=== PATIENT | female | born 1945 | race Caucasian/White ===

== ENCOUNTER 2018-12-08 00:51 | Emergency (ER) | payer OTHER ==
--- OUTSIDE RECORDS SUMMARY | 2018-12-08 00:54 | XMS REPORT | Clinical Summary ---
:1945 Author Organization [facility] Address [address] [place] [address] Care Team Providers Name Role Phone Nayeli Richards Primary Care Provider Allergies Active Allergy Reactions Severity Noted Date Comments Adhesive Tape-Silicones Other (See Comments) Diazepam 11/28/2007 Gets "high". Erythromycin 11/28/2007 Pt. can't remember. Meperidine Hcl Other (See Comments) 07/11/2015 Patient becomes AMS; tolerates dilaudid solution and hydrocodone without incident Morphine 07/27/2017 Nalbuphine Hcl 07/27/2017 Sulfamethoxazole-Trimet 07/27/2017 hoprim Sumatriptan Succinate 11/28/2007 Lethargy. Ondansetron Hcl (Pf) Nausea And Vomiting 09/10/2008 Medications Medication Sig Dispensed Refills Start Date End Date Status TiZANidine Take 4 mg by mouth 0 Active (ZANAFLEX) 4 MG 2 (two) times capsule daily. carvedilol (COREG) Take 6.25 mg by 0 Active 6.25 MG tablet mouth 2 (two) times daily with breakfast and dinner. QUEtiapine Take 400 mg by 0 Active (SEROQUEL) 400 MG mouth nightly. tablet roflumilast Take 500 mcg by 0 Active (DALIRESP) 500 mcg mouth. Tab tablet aspirin 81 MG EC Take 1 tablet (81 30 tablet 0 08/04/2017 Active tablet mg total) by mouth daily. cloNIDine HCl Take 1 tablet (0.2 30 tablet 0 08/04/2017 Active (CATAPRES) 0.2 MG mg total) by mouth tablet as needed. clopidogrel Take 1 tablet (75 30 tablet 0 08/04/2017 Active (PLAVIX) 75 mg mg total) by mouth tablet daily. lisinopril Take 1 tablet (10 30 tablet 0 08/04/2017 Active (PRINIVIL,ZESTRIL) mg total) by mouth 10 MG tablet daily. pregabalin (LYRICA) Take 1 capsule 90 capsule 0 08/04/2017 Active 150 MG capsule (150 mg total) by mouth 3 (three) times daily. Max Daily Amount: 450 mg simvastatin (ZOCOR) Take 1 tablet (40 30 tablet 0 08/04/2017 Active 40 MG tablet mg total) by mouth nightly. amLODIPine Take 5 mg by 0 07/03/2015 Active (NORVASC) 5 MG mouth. tablet bisacodyl Take 10 mg by 0 07/03/2015 Active (DULCOLAX) 5 mg EC mouth 2 (two) tablet times daily. DULoxetine Take 60 mg by 0 09/19/2014 Active (CYMBALTA) 60 MG mouth daily. capsule fluticasone-salmete Inhale 1 puff by 0 Active rol (ADVAIR) 250-50 mouth via inhaler mcg/dose diskus every 12 (twelve) inhaler hours. HYDROcodone-acetami Take 1 tablet by 0 07/17/2015 Active nophen (NORCO mouth every 6 5-325) 5-325 mg per (six) hours as tablet needed. pantoprazole 40 mg Take 40 mg by 0 Active GrPS mouth daily. tiotropium bromide Inhale 1 puff by 0 Active 2.5 mcg/actuation mouth via inhaler Mist daily. traMADol (ULTRAM) Take 50 mg by 0 08/19/2017 Active 50 mg tablet mouth every 12 (twelve) hours as needed. potassium chloride Take 10 mEq by 0 Active SA (K-DUR,KLOR-CON) mouth daily. 10 MEQ tablet acetaminophen Take 2 tablets 30 tablet 0 08/01/2017 07/27/2018 (TYLENOL) 325 MG (650 mg total) by tablet mouth every 6 (six) hours as needed for up to 360 days. ipratropium-albuter Take 3 mLs by 100 vial 0 08/04/2017 07/30/2018 ol (DUO-NEB) 0.5 nebulization every mg-3 mg(2.5 mg 6 (six) hours as base)/3 mL needed for nebulizer solution Wheezing for up to 360 days. rOPINIRole (REQUIP) Take 1 tablet (0.5 30 tablet 0 08/04/2017 08/04/2018 0.5 MG tablet mg total) by mouth nightly. Active Problems Problem Noted Date Chronic pain 08/25/2017 Overview: Overview: on fentanyl pump Depression 08/25/2017 Overview: Overview: BPs go up when upset. Ex-cigarette smoker 08/25/2017 Overview: Overview: 3 packs per day prior to that. Hepatitis B 08/25/2017 Hyperlipidemia 08/25/2017 ND (myocardial infarction) 08/25/2017 Overview: Overview: Has had twice JOHNNA (obstructive sleep apnea) 08/25/2017 Overview: Overview: uses CPAP machine CVA (cerebral vascular accident) 08/25/2017 Overview: With left side weakness Chronic diastolic heart failure 08/25/2017 COPD (chronic obstructive pulmonary disease) 07/27/2017 Type 2 diabetes mellitus with complication 07/27/2017 Seizure disorder 09/15/2014 GI bleed 06/13/2014 DDD (degenerative disc disease), lumbosacral 09/06/2010 Postlaminectomy syndrome, lumbar region 09/06/2010 Osteoporosis 08/11/2010 Pulmonary artery hypertension 08/11/2010 CAD (coronary artery disease) 07/26/2010 Overview: Last Assessment & Plan: S/p two stents - on plavix Obesity 07/26/2010 Overview: Overview: BMI 36.5 Osteoarthritis 07/26/2010 Overview: Last Assessment & Plan: AVN right hip joint Cervical cord myelopathy Hypertension 08/19/2009 Restless legs syndrome (RLS) 09/18/2008 Polyneuropathy in other diseases classified elsewhere 07/24/2008 Immunizations Name Dates Previously Given Next Due Pneumococcal Polysaccharide (Pneumovax) 07/28/2017 Social History Tobacco Use Types Packs/Day Years Used Date Former Smoker Smokeless Tobacco: Never Used Alcohol Use Drinks/Week oz/Week Comments No Sex Assigned at Date Recorded Not on file Job Start Date Occupation Industry Not on file Not on file Not on file Travel History Travel Start Travel End No recent travel history available. Last Filed Vital Signs Not on file Plan of Treatment Health Maintenance Due Date Last Done Comments INFLUENZA VACCINE 08/13/2018 Results Not on fileafter 12/07/2017 Insurance Payer Benefit Plan / Group Subscriber ID Type Phone Address [employer] [facility] MEDICAID MEDICAID [facility] xxxxxxxxx Medicaid Advance Directives For more information, please contact:[address] [phone] Code Status Date Activated Date Inactivated Comments Full Code 07/27/2017 2:29 AM 08/04/2017 7:05 PM This code status was determined by: Patient
--- OUTSIDE RECORDS SUMMARY | 2018-12-08 01:07 | XMS REPORT | Continuity of Care Document ---
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 Longer Sugar Rate: 100 Active 2013 [place] ml/hr, Infuse over: 10 hr, Route: IV, Dosing Weight 75 kg, Total Volume: 1,000, Start date: 05/27/14 17:07:00, Stop date: 06/26/14 17:06:00 carvedilol 6.25 mg, 2 No Longer Sugar tab, Route: Active 2013 [place] PO, Drug form: TAB, BID, Dosing Weight 75, kg, Start date: 05/27/14 17:00:00, Duration: 30 day, Stop date: 06/26/14 9:00:00Notes : Give with food. (Same As: Coreg) Docusate Sodium 100 mg, 1 No Longer Sugar 100 MG Oral cap, Route: Active 2013 [place] Capsule PO, Drug form: CAP, BID, Dosing Weight 75, kg, Start date: 05/27/14 17:00:00, Duration: 30 day, Stop date: 06/26/14 9:00:00Notes : (Same as: Colace) (Do Not Crush) Sodium Chloride 250 mL, 250 Inactive Sugar 0.154 MEQ/ML ml/hr, 2013 Injectable Infuse Over: Solution 1 hr, Route: IV, 250, Drug form: INJ, ONCE, Priority: STAT, Dosing Weight 75 kg, Start date: 05/27/14 16:16:00, Duration: 1 doses or times, Stop date: 05/27/14 16:16:00 10 ML Cefazolin 1 gm, 100 No Longer Sugar 100 MG/ML mL, Route: Active 2013 [facility] Prefilled IVPB, Drug Syringe form: INJ, Q8H, Dosing Weight 75, kg, Total 3 doses, Start date: 05/27/14 16:00:00, Duration: 3 doses or times, Stop date: 05/28/14 8:00:00 Sodium Chloride 250 mL, 250 Inactive Sugar 0.154 MEQ/ML ml/hr, 2013 [facility] Injectable Infuse Over: Solution 1 hr, Route: IV, 250, Drug form: INJ, ONCE, Priority: STAT, Dosing Weight 75 kg, Start date: 05/27/14 14:16:00, PRN Other -See Comment Lyrica 150 mg, 2 No Longer Sugar cap, Route: Active 2013 [facility] PO, Drug form: CAP, TID, Dosing Weight 75, kg, Start date: 05/27/14 13:00:00, Duration: 30 day, Stop date: 06/26/14 9:00:00Notes : (Same as: Lyrica) ferrous sulfate 325 mg, 1 No Longer Sugar tab, Route: Active 2013 [facility] PO, Drug form: ECTAB, TID, Dosing Weight 75, kg, Administer 2 hours before or 4 hours after meals, Start date: 05/27/14 13:00:00, Duration: 30 day, Stop date: 06/26/14 9:00:00Notes : Give with food. "Do Not Crush" Fentanyl 50 Inactive Sugar microgram, 2013 [facility] Route: IV, ONCE, Dosing Weight 75, kg, Start date: 05/27/14 12:27:00, Stop date: 05/27/14 12:27:00 Ketorolac 15 mg, 0.5 No Longer Sugar mL, Route: Active 2013 [facility] IVP, Drug form: INJ, Q6H, Dosing Weight 75, kg, Start date: 05/27/14 12:00:00, Duration: 6 doses or times, Stop date: 05/28/14 18:00:00Note s: (Same as:Toradol) IV bolus must be given >15 seconds. Give IM administrati on slowly and deeply into the muscle. Not for use > 4 days Bupivacaine / Route: No Longer Sugar Fentanyl EPIDURAL, Active 2013 [facility] Continuous Rate: 4, ml/hr, Infusion site: Lumbar, IMMIGRATION JUDGE dose 3 mL, IMMIGRATION JUDGE dose lockout: 10 minutes, 1 Hour limit: 24 mL, Clinician Bolus: 3 mL, 200, mL, Start date: 05/27/14 11:46:00, Drug Form: INJ, Total volume: 200, mL, kg, Stop date: 0...Notes: (Same as: Marcaine-Sub limaze) gabapentin 300 mg, 1 No Longer Sugar cap, Route: Active 2013 [facility] PO, Drug form: CAP, Q8Hnow, Dosing Weight 75, kg, Start date: 05/27/14 11:00:00, Duration: 30 day, Stop date: 06/26/14 3:00:00Notes : (Same as: Neurontin) Ketorolac 30 mg, 1 mL, No Longer Sugar Route: IVP, Active 2013 Drug form: INJ, Q6Hnow, Dosing Weight 75, kg, Start date: 05/27/14 11:00:00, Duration: 24 hr, Stop date: 05/28/14 5:00:00Notes : (Same as:Toradol) IV bolus must be given >15 seconds. Give IM administrati on slowly and deeply into the muscle. Not for use > 4 days Acetaminophen 1,000 mg, No Longer Sugar 100 mL, Active 2013 [facility] Route: IVPB, Drug form: INJ, Q6Hnow, Dosing Weight 75, kg, Start date: 05/27/14 11:00:00, Duration: 4 doses or times, Stop date: 05/28/14 5:00:00Notes : Infuse over 15 minutes Do not exceed 4gm/day of acetaminophe n Nalbuphine 2 mg, Route: Inactive Sugar IVP, Q2H, 2013 Dosing Weight 75, kg, PRN Itching, Start date: 05/27/14 10:44:00, Duration: 5 doses or times, Stop date: Limited # of times Naloxone 0.1 mg, Inactive Sugar Route: 2013 [facility] SUB-Q, Q6H, Dosing Weight 75, kg, PRN Itching, Start date: 05/27/14 10:44:00, Duration: 30 day, Stop date: 06/26/14 10:43:00 Oxycodone 10 mg, 2 No Longer Sugar Hydrochloride 5 tab, Route: Active 2013 [place] MG Oral Tablet PO, Drug form: TAB, Q4H, Dosing Weight 75, kg, PRN Pain Score 7-10, Start date: 05/27/14 10:44:00, Duration: 30 day, Stop date: 06/26/14 10:43:00Note s: (Same as: Roxicodone) Ondansetron 4 mg, Route: Inactive Sugar IVP, Q8H, 2013 Dosing Weight 75, kg, PRN Nausea & Vomiting, Start date: 05/27/14 10:44:00, Duration: 30 day, Stop date: 06/26/14 10:43:00 Bisacodyl 10 mg, 1 No Longer Sugar supp, Route: Active 2013 [place], Drug form: SUPP, Daily, Dosing Weight 75, kg, PRN Constipation , Start date: 05/27/14 10:44:00, Duration: 30 day, Stop date: 06/26/14 10:43:00Note s: (Same As: Dulcolax, Bisco-Lax) Naloxone 0.1 mg, Inactive Sugar Route: IVP, 2013 Q2MIN, Dosing Weight 75, kg, PRN Narcotic Reversal, Start date: 05/27/14 10:41:00, Duration: 8 doses or times, Stop date: Limited # of times enalaprilat 0.625 mg, Inactive Sugar 0.5 mL, 2013 Route: IVP, Drug form: INJ, Q5Min, Dosing Weight 75, kg, PRN Elevated BP, Start date: 05/27/14 10:40:00, Duration: 4 doses or times, Stop date: Limited # of timesNotes: (Same as: Vasotec-IV) Oxycodone 5 mg, 1 tab, Inactive Sugar Route: PO, 2013 Drug form: TAB, Q4H, Dosing Weight 75, kg, PRN Pain Score 4-6, Start date: 05/27/14 10:40:00, Duration: 30 day, Stop date: 06/26/14 10:39:00Note s: (Same as: Roxicodone) Ondansetron 4 mg, 2 mL, Inactive Sugar Route: IVP, 2013 [facility] Drug form: INJ, ONCE, Dosing Weight 75, kg, PRN Nausea & Vomiting, Start date: 05/27/14 10:40:00Note s: (Same as: Zofran) Ketorolac 30 mg, 1 mL, Inactive Sugar Route: IVP, 2013 [facility] Drug form: INJ, ONCE, Dosing Weight 75, kg, Start date: 05/27/14 10:40:00, Duration: 1 doses or times, Stop date: 05/27/14 10:40:00Note s: (Same as:Toradol) IV bolus must be given >15 seconds. Give IM administrati on slowly and deeply into the muscle. Not for use > 4 days Fentanyl 50 Inactive Sugar microgram, 2013 [facility] Route: IVP, Q5Min, Dosing Weight 75, kg, PRN Pain Score 7-10, Start date: 05/27/14 10:40:00, Duration: 2 doses or times, Stop date: Limited # of times Flumazenil 0.2 mg, 2 Inactive Sugar mL, Route: 2013 [facility] IVP, Drug form: INJ, PRN, Dosing Weight 75, kg, PRN Benzodiazepi ne Reversal, Initial dose, Start date: 05/27/14 10:40:00, Duration: 30 day, Stop date: 06/26/14 10:39:00Note s: (Same as: Romazicon) Naloxone 0.04 mg, 0.1 Inactive Sugar mL, Route: 2013 [facility] IVP, Drug form: INJ, Q2MIN, Dosing Weight 75, kg, PRN Narcotic Reversal, Start date: 05/27/14 10:40:00, Duration: 8 doses or times, Stop date: Limited # of timesNotes: Same as Narcan Hydralazine 10 mg, 0.5 No Longer Sugar mL, Route: Active 2013 [facility] IVP, Drug form: INJ, Q4H, Dosing Weight 75, kg, PRN Hypertension , Start date: 05/27/14 9:53:00, Duration: 30 day, Stop date: 06/26/14 9:52:00Notes : (Same as: Apresoline) Push over 5 minutes Albuterol 0.833 3 ml, Route: No Longer Sugar MG/ML / INHALATION, 2013 [facility] Ipratropium Drug Form: [place] 0.167 SOLN, Dosing MG/ML Inhalant Weight 75, Solution kg, QID, PRN [DuoNeb] as needed for shortness of breath or wheezing, Start date: 05/27/14 9:53:00, Duration: 30 day, Stop date: 06/26/14 9:52:00Notes : (Same as: Duoneb) Milk of Magnesia 30 mL, No Longer Sugar Route: PO, 2013 Drug Form: SUSP, Dosing Weight 75, kg, Daily, PRN as needed for constipation , Start date: 05/27/14 9:18:00, Duration: 30 day, Stop date: 06/26/14 9:17:00Notes : (Same as: Milk of Magnesia, MOM) Reglan 10 mg, 2 mL, No Longer Sugar Route: IVP, 2013 Drug form: INJ, Q6H, Dosing Weight 75, kg, PRN Nausea & Vomiting, Start date: 05/27/14 9:18:00, Duration: 30 day, Stop date: 06/26/14 9:17:00Notes : (Same as: Reglan) Saline Flush 5 ml, Route: No Longer Sugar 0.9% IVP, Drug Active 2013 Form: INJ, Dosing Weight 75, kg, PRN, PRN Line Flush, Start date: 05/27/14 9:18:00, Duration: 30 day, Stop date: 06/26/14 9:17:00Notes : (Same as: BD Posiflush) Promethazine 25 mg, 1 No Longer Sugar tab, Route: Active 2013 PO, Drug form: TAB, Q6H, Dosing Weight 75, kg, PRN Nausea & Vomiting, Start date: 05/27/14 9:18:00, Duration: 30 day, Stop date: 06/26/14 9:17:00Notes : (Same as: Phenergan) Diphenhydramine 25 mg, 0.5 No Longer Sugar mL, Route: Active 2013 IVP, Drug form: INJ, Q6H, Dosing Weight 75, kg, PRN Itching, Start date: 05/27/14 9:18:00, Duration: 30 day, Stop date: 06/26/14 9:17:00Notes : (Same as: Benadryl) Magnesium 30 ml, No Longer Sugar Hydroxide Route: PO, Active 2013 Drug Form: SUSP, Dosing Weight 75, kg, Q6H, PRN Constipation , Start date: 05/27/14 9:18:00, Duration: 30 day, Stop date: 06/26/14 9:17:00Notes : (Same as: Milk of Magnesia, MOM) D5W 1/2NS + KCL 1,000 mL, Inactive Sugar 20mEq/L 1000ml Rate: 2013 (Premix) 1,000 ml/hr, mL Infuse over: 10 hr, Route: IV, Dosing Weight 75 kg, Total Volume: 1,000, Start date: 05/27/14 9:18:00, Duration: 30 day, Stop date: 06/26/14 9:17:00Notes : PREMIX IV - Do Not Alter Acetaminophen 1 tab, No Longer Sugar 325 MG / Route: PO, Active 2013 Hydrocodone Drug Form: Bitartrate 10 MG TAB, Dosing Oral Tablet Weight 75, kg, Q4H, PRN Pain Score 4-6, Start date: 05/27/14 9:18:00, Duration: 30 day, Stop date: 06/26/14 9:17:00Notes : Do not exceed 4gm/day of acetaminophe n. (Same as: [place] 325/10) Aluminum 30 ml, No Longer Sugar Hydroxide 40 Route: PO, Active 2013 MG/ML / Drug Form: Magnesium SUSP, Dosing Hydroxide 40 Weight 75, MG/ML / kg, Q4H, PRN Simethicone 4 Constipation MG/ML Oral , Start Suspension date: 05/27/14 9:18:00, Duration: 30 day, Stop date: 06/26/14 9:17:00Notes : (aluminum hydroxide-ma gnesium hyd-simethic one 234-400-14mz /5ml 30 ml ud RUSLAN) Dulcolax 10 mg, 1 No Longer Sugar Laxative supp, Route: Active 2013 [place], Drug form: SUPP, ONCE, Dosing Weight 75, kg, PRN Constipation , if no BM may repeat x 1 after 12 hours, Start date: 05/27/14 9:18:00Notes : (Same As: Dulcolax, Bisco-Lax) Lactated Ringers 1,000 mL, Inactive Sugar IV 1000 mL Rate: 40 2013 ml/hr, Infuse over: 25 hr, Route: IV, Dosing Weight 75 kg, Total Volume: 1,000, Start date: 05/27/14 9:15:00, Duration: 30 day, Stop date: 06/26/14 9:14:00 ceFAZolin 2 gm, 100 Inactive Sugar mL, Route: 2013 IVPB, Drug form: INJ, ONCALL, Start date: 05/27/14 6:00:00, Duration: 1 doses or times, Stop date: 05/27/14 23:59:00Note s: Same as: Ancef Cyklokapron 1,000 mg, 10 No Longer Sugar mL, Route: Active 2013 IV, Drug form: INJ, ONCALL, Start date: 05/27/14 6:00:00, Duration: 1 doses or times, Stop date: 05/27/14 23:59:00Note s: (Same As: Cyklokapron) CeleBREX 400 mg, 4 Inactive Sugar cap, Route: 2013 PO, Drug form: CAP, ONCALL, Start date: 05/27/14 6:00:00, Duration: 1 doses or times, Stop date: 05/27/14 23:59:00Note s: NSAID. Please check indication. Not for seizure. (Same As: CeleBREX ) ropivacaine 0.5% 200.1 ml/hr, No Longer Sugar 246.25 mg + Route: IV, Active 2013 EPINEPHrine 0.5 Drug Form: mg + ketorolac INJ, ONCALL, 30 mg/mL Start date: injectable 05/27/14 solution 30 mg + 6:00:00, cl Duration: 1 doses or times, Stop date: 05/27/14 23:59:00 oxyCONTIN 10 mg, 1 Inactive Sugar tab, Route: 2013 [place] PO, Drug form: ERTAB, ONCALL, Start date: 05/27/14 6:00:00, Duration: 1 doses or times, Stop date: 05/27/14 23:59:00Note s: Do not crush or chew. (Same as: OxyContin) Neurontin 300 mg, 1 Inactive Sugar cap, Route: 2013 PO, Drug form: CAP, ONCALL, Start date: 05/27/14 6:00:00, Duration: 1 doses or times, Stop date: 05/27/14 23:59:00Note s: (Same as: Neurontin) Heparin Lock 500 unit, 5 Inactive Sugar Flush 100 mL, Route: 2013 [place] units/mL IVP, Drug intravenous form: SOLN, solution PRN, Dosing Weight 73.182, kg, PRN Line Flush, Start date: 02/24/14 18:04:00, Duration: 30 day, Stop date: 03/26/14 18:03:00Note s: (Same as: Heparin Lock Flush) Calcium Chloride 1,000 mL, Inactive Sugar 0.0014 MEQ/ML / Rate: 125 2013 Potassium ml/hr, Chloride 0.004 Infuse over: MEQ/ML / Sodium 8 hr, Route: Chloride 0.103 IV, Dosing MEQ/ML / Sodium Weight Lactate 0.028 73.182 kg, MEQ/ML Total Injectable Volume: Solution 1,000, Start date: 02/24/14 15:34:00, Duration: 1 day, Stop date: 02/25/14 15:33:00 Meperidine 12.5 mg, Inactive Sugar Route: IVP, 2013 [place] Q30Min, Dosing Weight 73.182, kg, PRN Other -See Comment, For shivering, Start date: 02/24/14 15:34:00, Duration: 2 doses or times, Stop date: Limited # of times Oxycodone 10 mg, 2 Inactive Sugar tab, Route: 2013 [place] PO, Drug form: TAB, Q4H, Dosing Weight 73.182, kg, PRN Pain Score 7-10, Start date: 02/24/14 15:34:00, Duration: 30 day, Stop date: 03/26/14 15:33:00Note s: (Same as: Roxicodone) Labetalol 10 mg, 2 mL, Inactive Sugar Route: IVP2013 Drug form: INJ, Q5Min, Dosing Weight 73.182, kg, PRN Elevated BP, Start date: 02/24/14 15:34:00, Duration: 5 doses or times, Stop date: Limited # of timesNotes: (Same as: Normodyne, Trandate) Push over 2 minutes Give bolus over 2-3 minutes. Ketorolac 30 mg, Inactive Sugar Route: IVP2013 ONCE, Dosing Weight 73.182, kg, Start date: 02/24/14 15:34:00, Duration: 1 doses or times, Stop date: 02/24/14 15:34:00 Calcium Chloride 1,000 mL, Inactive Sugar 0.0014 MEQ/ML / Rate: 25 2013 Potassium ml/hr, Chloride 0.004 Infuse over: MEQ/ML / Sodium 40 hr, Chloride 0.103 Route: IV, MEQ/ML / Sodium Dosing Lactate 0.028 Weight MEQ/ML 73.182 kg, Injectable Total Solution Volume: 1,000, Start date: 02/24/14 12:57:00, Duration: 30 day, Stop date: 03/26/14 12:56:00 LR IV 1,000 mL 1,000 mL, Inactive Sugar Rate: 100 2013 [place] ml/hr, Infuse over: 10 hr, Route: IV, Dosing Weight 73.182 kg, Total Volume: 1,000, discontinue when tolerating PO well, Start date: 02/24/14 12:20:00, Duration: 30 day, Stop date: 03/26/14 12:19:00 Lactated Ringers 1,000 mL, Inactive Sugar Injection IV Rate: 100 2013 1,000 mL ml/hr, Infuse over: 10 hr, Route: IV, Dosing Weight 73.182 kg, Total Volume: 1,000, Start date: 02/24/14 6:00:00, Stop date: 02/26/14 5:59:00 ceFAZolin 2 gm, 100 Inactive Sugar mL, Route: 2013 [place] IVPB, Drug form: INJ, ONCALL, Start date: 02/24/14 6:00:00, Duration: 1 doses or times, Stop date: 02/24/14 23:59:00Note s: Same as: Ancef BD Posiflush SF 15 mL, Inactive Sugar Route: IVP, 2013 [facility] Drug Form: INJ, PRN, PRN Line Flush, Start date: 02/24/14 6:00:00, Duration: 30 day, Stop date: 03/26/14 5:59:00Notes : (Same as: BD Posiflush) Aspirin 81 MG 81 mg=1 tab, Active Sugar Enteric Coated PO, Daily, # 2014 [place] Tablet 0 tab, 0 Refill(s) carvedilol 6.25 6.25 mg=1 Active Sugar mg oral tablet tab, PO, 2013 [place] BID, 0 Refill(s) clopidogrel 75 75 mg=1 tab, Active Sugar MG Oral Tablet PO, Daily, 0 2013 [Plavix] Refill(s) cefpodoxime 200 200 mg, 1 Active [place] 10/25/ [facility] [place] mg oral tablet tab, PO, 2012 Medical Q12H, 14 Center tab, Substitution Allowed, TAB Keppra 250 mg 250 mg, 1 Active [place] 10/25/ [facility] [place] oral tablet tab, PO, 2012 Medical BID, 60 tab, Center Substitution Allowed Keppra 1000 mg 1,000 mg, 1 Active [place] 10/25/ [facility] [place] oral tablet tab, PO, 2012 Medical BID, 60 tab, Center Substitution Allowed Dilaudid 1 mg, 0.5 Inactive [place] 10/25/ [facility] [place] mL, Route: 2012 Medical IV, Drug Center form: INJ, Q4H, Dosing Weight 72.2, kg, PRN Pain, Start date: 09/06/13 16:07:00, Duration: 30 day, Stop date: 10/06/13 16:06:00([place] e as: Dilaudid) Depacon + Sodium 500 mg, 5 Inactive [facility] Chloride 0.9% IV mL, Route: [facility] Medical 50 mL IVPB, ONCE, Center Start date: 09/06/13 11:23:00, Stop date: 09/06/13 11:23:00Dilu te in at least 50ml D5W or NS. Infusion rate=20 mg/min (Same As: Depacon) Phenergan 25 mg, 1 mL, Inactive [facility] Route: IVPB, 2012 Medical Drug form: [place] INJ, ONCE, Start date: 09/06/13 11:22:00, Stop date: 09/06/13 11:22:00 Depakote 500 mg, Inactive [facility] Route: IV, 2012 Medical Q6H, Dosing Center Weight 72.2, kg, Priority: NOW, Start date: 09/06/13 10:55:00, Duration: 30 day, Stop date: 10/06/13 6:00:00 Phenergan 25 mg, 1 mL, Inactive [place] 09/06[facility] Route: IVPB, 2012 Medical Drug form: [place] INJ, Q6Hnow, Dosing Weight 72.2, kg, Priority: NOW, Start date: 09/06/13 10:55:00, Duration: 30 day, Stop date: 10/06/13 5:00:00 Spiriva 18 mcg 18 Inactive [facility] [address] [place] [address] inhalation microgram, 1 2012 Medical capsule inhalation, [place] Route: INHALATION, Drug form: CAP, Daily, Dosing Weight 72.2, kg, Start date: 09/06/13 9:00:00, Duration: 30 day, Stop date: 10/05/13 9:00:00(Same As: Spiriva). Requip 1 mg, 1 tab, Inactive [facility] 09/06[facility] Route: PO, 2012 Medical Drug form: Center TAB, Daily, Dosing Weight 72.2, kg, Start date: 09/06/13 9:00:00, Duration: 30 day, Stop date: 10/05/13 9:00:00(Same as: Requip) roflumilast 500 Inactive [place] [address] [place] [address] microgram, 1 2012 Medical tab, Route: Center PO, Drug form: TAB, Daily, Dosing Weight 72.2, kg, Start date: 09/06/13 9:00:00, Duration: 30 day, Stop date: 10/05/13 9:00:00 pantoprazole 40 mg, 1 Inactive [facility] tab, Route: 2012 Medical PO, Drug Center form: ECTAB, Daily, Dosing Weight 72.2, kg, Start date: 09/06/13 9:00:00, Duration: 30 day, Stop date: 10/05/13 9:00:00(Same as: Protonix) Lasix 40 mg oral 40 mg, 1 Inactive [place] [address] [place] [address] tablet tab, Route: 2012 Medical PO, Drug Center form: TAB, Daily, Dosing Weight 72.2, kg, Start date: 09/06/13 9:00:00, Duration: 30 day, Stop date: 10/05/13 9:00:00(Same as: Lasix) Cymbalta 30 mg, 1 Inactive [facility] cap, Route: 2012 Medical PO, Drug Center form: DRC, Daily, Dosing Weight 72.2, kg, Start date: 09/06/13 9:00:00, Duration: 30 day, Stop date: 10/05/13 9:00:00 fluticasone-salm 1 puff, No Longer [place] 09/06[facility] eterol 500 Route: Active 2012 [facility] mcg-50 mcg MDI INHALATION, [place] Drug Form: AERO, Dosing Weight 72.2, kg, Q12H, Start date: 09/05/13 21:00:00, Duration: 30 day, Stop date: 10/05/13 9:00:00(Same as: Advair) tizanidine 4 mg, 1 tab, No Longer [facility] [address] [place] [address] Route: PO, Active 2012 Medical Drug form: Center TAB, Q12H, Dosing Weight 72.2, kg, Start date: 09/05/13 21:00:00, Duration: 30 day, Stop date: 10/05/13 9:00:00(Same As: Zanaflex) simvastatin 40 mg, 1 No Longer [place] [address] [place] [address] tab, Route: Active 2012 Medical PO, Drug Center form: TAB, Bedtime, Dosing Weight 72.2, kg, Start date: 09/05/13 21:00:00, Duration: 30 day, Stop date: 10/04/13 21:00:00([place] as: Zocor) Advair Diskus 1 puff, Inactive [facility] 500 mcg-50 mcg Route: 2012 Medical inhalation INHALATION, Center powder Drug Form: AERO, Dosing Weight 72.2, kg, Q12H, Start date: 09/05/13 21:00:00, Duration: 30 day, Stop date: 10/05/13 9:00:00(Same as: Advair) Keppra 1000 mg 1,000 mg, 2 No Longer [facility] oral tablet tab, Route: Active 2012 Medical PO, Drug Center form: TAB, Q12H, Dosing Weight 72.2, kg, Start date: 09/05/13 21:00:00, Duration: 30 day, Stop date: 10/05/13 9:00:00(Same as:Keppra) ceftriaxone 2 gm, Route: No Longer [facility] IVPB, Drug Active 2012 Medical form: Center PDR/INJ, [id number], Dosing Weight 72.2, kg, Start date: 09/05/13 17:00:00, Duration: 8 day, Stop date: 09/13/13 17:00:00([facility] pablo As: Rocephin). Lyrica 150 mg, 3 No Longer [facility] cap, Route: Active 2012 Medical PO, Drug Center form: CAP, TID, Dosing Weight 72.2, kg, Start date: 09/05/13 17:00:00, Duration: 30 day, Stop date: 10/05/13 13:00:00Same as Lyrica ketorolac 10 mg, 1 No Longer [facility] tab, Route: Active 2012 Medical PO, Drug Center form: TAB, Q6H, Dosing Weight 72.2, kg, PRN Pain, Start date: 09/05/13 16:42:00, Duration: 4 day, Stop date: 09/09/13 16:41:00. (Same as:Toradol) heparin 5,000 unit, No Longer [place] 10/24[facility] 1 mL, Route: Active 2012 Medical SUB-Q, Drug Center form: INJ, Q8H, Dosing Weight 72.2, kg, Start date: 09/05/13 16:00:00, Duration: 30 day, Stop date: 10/05/13 8:00:00porci ne heparin Keppra 500 mg 500 mg, 1 Inactive [place] 09/05[facility] oral tablet tab, Route: 2012 Medical PO, Drug Center form: TAB, ONCE, Dosing Weight 72.2, kg, Priority: NOW, Start date: 09/05/13 13:23:00, Stop date: 09/05/13 13:23:00([facility] e as:Keppra) Dilaudid 4 mg, 2 tab, No Longer [place] 09/05[facility] Route: PO, Active 2012 Medical Drug form: Center TAB, Q6H, Dosing Weight 72.2, kg, PRN Pain, Start date: 09/05/13 13:22:00, Duration: 30 day, Stop date: 10/05/13 13:21:00([facility] e as: Dilaudid) Phenergan 12.5 mg, 0.5 No Longer [place] 09/05[place] [facility] mL, Route: Active 2012 Medical IVPB, Drug Center form: INJ, Q6H, Dosing Weight 72.2, kg, PRN as needed for nausea/vomit ing, Start date: 09/05/13 12:09:00, Duration: 30 day, Stop date: 10/05/13 12:08:00([facility] e as: Phenergan) Phenergan 6.25 mg, 5 Inactive [facility] 09/05[facility] mL, Route: 2012 Medical PO, Drug Center form: SYRP, Q6H, Dosing Weight 72.2, kg, PRN Nausea & Vomiting, Start date: 09/05/13 9:24:00, Duration: 30 day, Stop date: 10/05/13 9:23:00(Same as: Phenergan) Keppra 500 mg 500 mg, 1 Inactive [place] 09/05[facility] oral tablet tab, Route: 2012 Medical PO, Drug Center form: TAB, Q12H, Dosing Weight 72.273, kg, Start date: 09/05/13 8:00:00, Duration: 30 day, Stop date: 10/04/13 20:00:00([facility] e as:Keppra) Requip 1 mg oral 1 mg, 1 tab, Active [facility] [place] tablet PO, Daily, 2012 Medical 270 tab, Center Substitution Allowed, TAB Dilaudid 1 mg, 0.5 No Longer [facility] [place] mL, Route: Active 2012 Medical IV, Drug Center form: INJ, Q3H, Dosing Weight 72.2, kg, PRN Pain, Start date: 09/04/13 22:38:00, Duration: 30 day, Stop date: 10/04/13 22:37:00([place] e as: Dilaudid) hydrALAZINE 20 mg, 1 mL, No Longer [facility] Route: IVP, Active 2012 Medical Drug form: Center INJ, Q4H, Dosing Weight 72.2, kg, PRN Hypertension , for SBP >160, Start date: 09/04/13 22:37:00, Duration: 30 day, Stop date: 10/04/13 22:36:00([place] e as: Apresoline) clonidine 0.2 mg 0.2 mg, 1 No Longer [facility] oral tablet tab, Route: Active 2012 Medical PO, Drug Center form: TAB, BID, Dosing Weight 72.2, kg, PRN Hypertension , SBP >180, Start date: 09/04/13 22:36:00, Duration: 30 day, Stop date: 10/04/13 22:35:00([facility] e As: Catapres) lisinopril 10 mg, 1 No Longer [facility] tab, Route: Active 2012 Medical PO, Drug Center form: TAB, Daily, Dosing Weight 72.2, kg, Priority: NOW, Start date: 09/04/13 22:36:00, Duration: 30 day, Stop date: 10/04/13 9:00:00(Same as: Prinivil, Zestril) hydrALAZINE 10 mg, Inactive [facility] [place] Route: IVP, 2012 Medical Q4H, Dosing Center Weight 72.2, kg, PRN Hypertension , for SBP >160, Start date: 09/04/13 22:33:00, Duration: 30 day, Stop date: 10/04/13 22:32:00 heparin flush 100 unit, 1 No Longer [facility] [place] mL, Route: Active 2012 Medical IVP, Drug Center form: INJ, PRN, Dosing Weight 72.2, kg, PRN Line Flush, Start date: 09/04/13 22:32:00, Duration: 30 day, Stop date: 10/04/13 21:31:00, flush for pick line or [id number] lush for pick line or port-a-cath( Same as: Heparin Lock Flush, PF) Preservative -free flush solution. Saline Flush 5 ml, Route: No Longer [facility] 09/05/ [facility] [place] 0.9% IVP, Drug Active 2012 Medical Form: INJ, Center Dosing Weight 72.273, kg, Q12H, Start date: 09/04/13 21:00:00, Duration: 30 day, Stop date: 10/04/13 9:00:00(Same as: BD Posiflush) chlorhexidine 15 mL, No Longer [facility] [place] topical 0.12% Route: Swab Active 2012 Medical liquid Mouth, Q4H, Center Drug form: LIQ, Start date: 09/04/13 20:00:00, Duration: 30 day, Stop date: 10/04/13 16:00:00([place] e As: Peridex) Saline Flush 5 ml, Route: No Longer [facility] 09/05/ [facility] [place] 0.9% IVP, Drug Active 2012 Medical Form: INJ, Center Dosing Weight 72.273, kg, PRN, PRN Line Flush, Start date: 09/04/13 19:43:00, Duration: 30 day, Stop date: 10/04/13 18:42:00([place] e as: BD Posiflush) Keppra + Sodium 1,000 mg, Inactive [facility] [place] Chloride 0.9% IV Route: IVPB, 2012 Medical 100 mL ONCE, Dosing Center Weight 72.273, kg, Loading Dose, Start date: 09/04/13 19:39:00, Duration: 1 doses or times, Stop date: 09/04/13 19:39:00Same as Keppra Ativan 2 mg, 1 mL, Inactive [facility] [place] Route: IV, 2012 Medical Drug form: Center INJ, Q15Min, Dosing Weight 72.273, kg, for seizures longer than 5 min, Start date: 09/04/13 19:15:00, Duration: 2 doses or times, Stop date: 09/04/13 19:30:00([place] shah as: Ativan) Saline Flush 10 ml, IVP No Longer Isreal [facility] 0.9% Route: IVP, Active 2012 [facility] Drug Form: INJ, Dosing Weight 72.273, kg, PRN, PRN Line Flush, Start date: 08/12/13 7:25:00, Duration: 30 day, Stop date: 09/11/13 7:24:00 Heparin Lock 500 unit, 5 IVP No Longer [facility] Flush 100 mL, Route: Active 2012 [facility] units/mL IVP, Drug intravenous form: SOLN, solution PRN, Dosing Weight 72.273, kg, PRN Line Flush, Start date: 08/12/13 7:25:00, Duration: 30 day, Stop date: 09/11/13 7:24:00 magnesium 1 gm, 50 mL, IVPB No Longer Isreal [facility] sulfate Route: IVPB, Active 2012 [facility] Drug form: INJ, ONCE, Dosing Weight 72.273, kg, Start date: 08/11/13 9:09:00, Stop date: 08/11/13 9:09:00 Keppra 1000 mg 1,000 mg, 4 PO No Longer [facility] oral tablet tab, Route: Active 2012 [facility] PO, Drug form: TAB, Q12H, Dosing Weight 72.273, kg, Start date: 08/10/13 21:00:00, Duration: 30 day, Stop date: 09/09/13 9:00:00 Dilaudid 1 mg, 0.5 IVP No Longer [facility] mL, Route: Active 2012 [facility] IVP, Drug form: INJ, Q4H, Dosing Weight 72.273, kg, PRN as needed for pain, Priority: Routine, Start date: 08/10/13 9:28:00, Duration: 30 day, Stop date: 09/09/13 9:27:00 [place] 10/325 1 tab, PO No Longer [facility] oral tablet Route: PO, 2012 [facility] Drug Form: TAB, Dosing Weight 72.273, kg, Q4H, PRN Pain, Start date: 08/10/13 9:26:00, Duration: 30 day, Stop date: 09/09/13 9:25:00 Neutra-Phos 1 pkt, PO No Longer [facility] Route: PO, Active 2012 [facility] Drug Form: PDR/REC, Dosing Weight 72.273, kg, QID-Before Meals, Start date: 08/09/13 11:30:00, Stop date: 08/10/13 7:30:00 sodium phosphate 15 mmol, 5 IV No Longer [facility] + Sodium mL, Route: 2012 [facility] Chloride 0.9% IV IV, Q2H, 250 mL Start date: 08/09/13 10:00:00, Duration: 2 doses or times, Stop date: 08/09/13 12:00:00 sodium phosphate 30 mmol, 10 IV No Longer [facility] mL, Route: 2012 [facility] IV, Drug form: INJ, ONCE, Dosing Weight 72.273, kg, Start date: 08/09/13 8:32:00, Stop date: 08/09/13 8:32:00 clonidine 0.1 mg 0.1 mg, 1 PO No Longer [facility] oral tablet tab, Route: 2012 [facility] PO, Drug form: TAB, TID, Dosing Weight 72.273, kg, PRN Hypertension , Start date: 08/09/13 6:24:00, Duration: 30 day, Stop date: 09/08/13 6:23:00 sodium phosphate 30 mmol, IVPB No Longer [facility] Route: IVPB, 2012 PRN, Dosing Weight 72.273, kg, PRN Abnormal Lab Result, Start date: 08/09/13 6:18:00, Duration: 1 day, Stop date: 08/10/13 6:17:00 magnesium 1 gm, 50 mL, IVPB No Longer [facility] sulfate Route: IVPB, 2012 [facility] Drug form: INJ, ONCE, Dosing Weight 72.273, kg, Start date: 08/09/13 6:17:00, Stop date: 08/09/13 6:17:00 Keppra 750 mg, 3 PO No Longer [facility] tab, Route: Active 2012 [facility] PO, Drug form: TAB, BID, Dosing Weight 72.273, kg, Start date: 08/08/13 9:00:00, Duration: 30 day, Stop date: 09/06/13 17:00:00 magnesium 2 gm, 50 mL, IVPB No Longer [facility] sulfate Route: IVPB, Active 2012 [facility] Drug form: INJ, Q2H, Dosing Weight 72.273, kg, Total dose=4 gm, Start date: 08/08/13 8:00:00, Duration: 2 doses or times, Stop date: 08/08/13 10:00:00 diphenhydrAMINE 25 mg, 1 PO No Longer [facility] tab, Route: 2012 [facility] PO, Drug form: TAB, ONCALL, Dosing Weight 72.273, kg, Premed Blood Products, Priority: Routine, Start date: 08/08/13 7:00:00, Duration: 30 day, Stop date: 09/07/13 6:59:00 acetaminophen 650 mg, 2 PO No Longer D[facility] tab, Route: 2012 [facility] PO, Drug form: TAB, ONCALL, Dosing Weight 72.273, kg, Premed Blood Products. Not to exceed 4grams/24hrs ., Priority: Routine, Start date: 08/08/13 7:00:00, Duration: 30 day, Stop date: 09/07/13 6:59:00 Sodium Chloride 250 mL, IV No Longer [facility] 0.9% (titrate) Rate: On Active 2012 [place] 250 mL call for use with blood product administrati on, Dosing Weight 72.273, kg, Route: IV, Total Volume: 250, Duration: 30 day, Stop date: 09/07/13 6:39:00, Replace Every: 24 hr Ativan 1 mg, 0.5 IV No Longer [facility] mL, Route: 2012 [facility] IV, Drug form: INJ, Q2H, Dosing Weight 72.273, kg, PRN Seizure, Start date: 08/08/13 5:09:00, Duration: 30 day, Stop date: 09/07/13 5:08:00 Keppra + Sodium 1,000 mg, IV No Longer [facility] Chloride 0.9% IV Route: IV, Active 2012 [facility] 100 mL Drug form: INJ, BID, Dosing Weight 72.273, kg, Priority: NOW, Start date: 08/08/13 5:07:00, Duration: 30 day, Stop date: 09/06/13 17:00:00 Ativan 1 mg, 0.5 IVP No Longer [facility] mL, Route: Active 2012 [facility] IVP, Drug form: INJ, ONCE, Dosing Weight 72.273, kg, PRN Anxiety, Start date: 08/08/13 4:19:00 Ofirmev 1,000 mg, IVPB No Longer [facility] 100 mL, Active 2012 Route: IVPB, Drug form: INJ, Q6H, Dosing Weight 72.273, kg, for > or=50 kg, Start date: 08/07/13 12:00:00, Duration: 4 doses or times, Stop date: 08/08/13 6:00:00 FENTanyl - one 25 IVP No Longer [place] [facility] time ICU bolus microgram, Active 2012 [facility] dose 0.5 mL, Route: IVP, Drug form: INJ, ONCE, Dosing Weight 72.273, kg, Start date: 08/07/13 9:26:00, Stop date: 08/07/13 9:26:00 lisinopril 10 mg, 2 PO No Longer [facility] tab, Route: Active 2012 [facility] PO, Drug form: TAB, Daily, Dosing Weight 72.273, kg, Start date: 08/07/13 9:00:00, Stop date: 09/05/13 9:00:00 Cymbalta 30 mg, 1 PO No Longer [facility] cap, Route: Active 2012 [facility] PO, Drug form: DRC, Daily, Dosing Weight 72.273, kg, Start date: 08/07/13 9:00:00, Duration: 30 day, Stop date: 09/05/13 9:00:00 Spiriva 18 mcg 18 INHALATION No Longer [facility] inhalation microgram, 1 Active 2012 [place] capsule inhalation, Route: INHALATION, Drug form: CAP, Daily, Dosing Weight 72.273, kg, Start date: 08/07/13 9:00:00, Duration: 30 day, Stop date: 09/05/13 9:00:00 roflumilast 500 PO No Longer [facility] microgram, 1 Active 2012 [place] tab, Route: PO, Drug form: TAB, Daily, Dosing Weight 72.273, kg, Start date: 08/07/13 9:00:00, Duration: 30 day, Stop date: 09/05/13 9:00:00 Protonix 40 mg, 1 PO No Longer [facility] tab, Route: Active 2012 [facility] PO, Drug form: ECTAB, Daily, Dosing Weight 72.273, kg, Start date: 08/07/13 9:00:00, Duration: 30 day, Stop date: 09/05/13 9:00:00 enoxaparin 40 mg, 0.4 SUB-Q No Longer [facility] mL, Route: Active 2012 [facility] SUB-Q, Drug form: INJ, Daily, Dosing Weight 72.273, kg, Start date: 08/07/13 9:00:00, Duration: 30 day, Stop date: 09/05/13 9:00:00 NS (Bolus) IV 500 mL, IV No Longer [facility] 500 mL Rate: 500 Active 2012 [place] ml/hr, Infuse over: 1 hr, Route: IV, Dosing Weight 72.273 kg, Total Volume: 500, Priority: STAT, Start date: 08/07/13 0:49:00, Duration: 1 doses or times, Stop date: 08/07/13 1:48:00, Bolus DoseBolus Dose NS (Bolus) IV 500 mL, IV No Longer [facility] 500 mL Rate: 500 Active 2012 [facility] ml/hr, Infuse over: 1 hr, Route: IV, Dosing Weight 72.273 kg, Total Volume: 500, Priority: STAT, Start date: 08/06/13 23:27:00, Duration: 1 doses or times, Stop date: 08/07/13 0:26:00, Bolus DoseBolus Dose Keppra 500 mg 500 mg, 2 PO No Longer [facility] oral tablet tab, Route: Active 2012 PO, Drug form: TAB, Q12H, Dosing Weight 72.273, kg, Start date: 08/06/13 21:00:00, Duration: 30 day, Stop date: 09/05/13 9:00:00 Advair Diskus 1 INHALATION No Longer [facility] 500 mcg-50 mcg inhalation, Active 2012 inhalation Route: powder INHALATION, Drug Form: AERO, Dosing Weight 72.273, kg, Q12H, Start date: 08/06/13 21:00:00, Duration: 30 day, Stop date: 09/05/13 9:00:00 Saline Flush 5 ml, Route: IVP No Longer [place] 0.9% IVP, Drug Active 2012 [facility] Form: INJ, Dosing Weight 72.273, kg, Q12H, Start date: 08/06/13 21:00:00, Duration: 30 day, Stop date: 09/05/13 9:00:00 tizanidine 4 mg, 1 tab, PO No Longer [facility] Route: PO, 2012 [facility] Drug form: TAB, Q12H, Dosing Weight 72.273, kg, Start date: 08/06/13 21:00:00, Duration: 30 day, Stop date: 09/05/13 9:00:00 simvastatin 40 mg, 2 PO No Longer [facility] tab, Route: 2012 PO, Drug form: TAB, Bedtime, Dosing Weight 72.273, kg, Start date: 08/06/13 21:00:00, Duration: 30 day, Stop date: 09/04/13 21:00:00 ropinirole 1 mg, 1 tab, PO No Longer [facility] Route: PO, Active 2012 Drug form: TAB, Bedtime, Dosing Weight 72.273, kg, Start date: 08/06/13 21:00:00, Duration: 30 day, Stop date: 09/04/13 21:00:00 Pneumovax 23 0.5 mL, No Longer [facility] [place] Route: IM, Active 2012 Medical Drug Form: Center,M INJ, ONCE, H Sugar Start date: [facility] 09/24/13 19:00:00, Stop date: 08/06/13 19:00:00([place] e as: Pneumovax 23) Refrigerate Fluzone 0.5 mL, No Longer [place] [facility] Route: IM, Active 2012 Medical Drug Form: [place],M SUSP, ONCE, H Sugar Start date: [facility] 08/06/13 19:00:00, Stop date: 08/06/13 19:00:00([facility] e as: Fluzone) docusate sodium 100 mg, 1 PO No Longer [place] 100 mg oral cap, Route: Active 2012 [place] capsule PO, Drug form: CAP, BID, Dosing Weight 72.273, kg, Start date: 08/06/13 17:00:00, Duration: 30 day, Stop date: 09/05/13 9:00:00 Lyrica 150 mg, 3 PO No Longer [facility] cap, Route: Active 2012 [place] PO, Drug form: CAP, TID, Dosing Weight 72.273, kg, Start date: 08/06/13 17:00:00, Duration: 30 day, Stop date: 09/05/13 13:00:00 cefazolin (SCIP) 1 gm, Route: IVPB No Longer [place] + Sodium IVPB, Q8H, Active 2012 [place] Chloride 0.9% IV Dosing 100 mL Weight 72.273, kg, Total 3 doses, Start date: 08/06/13 16:30:00, Stop date: 08/07/13 10:30:00 pneumococcal 0.5 ml, IM No Longer [facility] 23-valent Route: IM, Active 2012 [place] vaccine ONCALL, Start date: 08/06/13 16:18:32, Stop date: 09/05/13 16:13:32 influenza virus 0.5 mL, IM No Longer [facility] vaccine, Route: IM, Active 2012 [place] inactivated ONCALL, Start date: 08/06/13 16:18:31, Stop date: 09/05/13 16:13:31 Phenergan 12.5 mg, 0.5 IVP No Longer Fidelia [place] mL, Route: Central Active 2012 [place] IVP Central, Drug form: INJ, Q8H, Dosing Weight 72.273, kg, PRN as needed for nausea/vomit ing, Start date: 08/06/13 15:37:00, Duration: 30 day, Stop date: 09/05/13 15:36:00 hydrALAZINE 10 mg, 0.5 IVP No Longer [facility] mL, Route: Active 2012 [facility] IVP, Drug form: INJ, Q4H, Dosing Weight 72.273, kg, PRN Hypertension , Start date: 08/06/13 15:11:00, Stop date: 09/05/13 15:10:00 clonidine 0.2 mg 0.2 mg, 1 PO No Longer [facility] oral tablet tab, Route: Active 2012 [facility] PO, Drug form: TAB, Daily, Dosing Weight 72.273, kg, PRN Hypertension , Start date: 08/06/13 15:07:00, Duration: 30 day, Stop date: 09/05/13 15:06:00 Demerol HCl 25 mg, 1 mL, IVP No Longer Jay[facility]he [facility] Route: IVP, Active 2012 [facility] Drug form: INJ, ONCE, Dosing Weight 72.273, kg, Priority: NOW, Start date: 08/06/13 14:21:00, Stop date: 08/06/13 14:21:00 Keppra 500 mg 500 mg, 1 PO Active [facility] oral tablet tab, PO, 2012 [place] Q12H, 120 tab, Substitution Allowed, TAB Spiriva 18 mcg 18 INHALATION Active [facility] inhalation microgram, 1 2012 capsule cap, INHALATION, Daily, 90 cap, Substitution Allowed, CAP Lasix 40 mg oral 40 mg, 1 PO Active [place] tablet tab, PO, 2012 [place] Daily, PRN, 30 tab, leg swelling, Substitution Allowed, TAB hydromorphone 4 4 mg, 1 tab, PO Active [facility] mg oral tablet PO, Q8H, 2012 [place] PRN, as needed for pain, Substitution Allowed, TAB ferrous sulfate 325 mg, 1 PO No Longer [facility] tab, Route: Active 2012 [facility] PO, Drug form: ECTAB, TID, Dosing Weight 72.273, kg, Administer 2 hours before or 4 hours after meals, Start date: 08/06/13 13:00:00, Duration: 30 day, Stop date: 09/05/13 9:00:00 ketorolac 30 mg, 1 mL, IVP No Longer Gadiraju [facility] Route: IVP, Active 2012 Drug form: INJ, Q6H, Dosing Weight 72.273, kg, PRN Pain Score 6-10, Start date: 08/06/13 11:36:00, Duration: 1 day, Stop date: 08/07/13 11:35:00 ibuprofen 600 mg, 1 PO No Longer [facility] tab, Route: 2012 PO, Drug form: TAB, Q6H, Dosing Weight 72.273, kg, PRN Pain Score 1-3, Start date: 08/06/13 11:35:00, Duration: 30 day, Stop date: 09/05/13 11:34:00 hydromorphone 6 mg, 30 mL, IV No Longer [facility] 0.2 mg/mL IMMIGRATION JUDGE (6 Route: IV, 2012 [place] mg/30 mL) INJ Initial Syringe 6 mg Loading Dose: 0.3 mg, IMMIGRATION JUDGE Dose: 0.2 mg, IMMIGRATION JUDGE Lockout: 10 minutes, Continuous Basal Rate: 0 mg, 4 Hour Limit (In MG): 6, Drug Form: INJ, Continuous, Start date: 08/06/13 11:30:00, Duration: 30 day, Stop date: 09/05/13 11:... promethazine 6.25 mg, IVPB No Longer Ricardo [facility] Route: IVPB, Active 2012 ONCE, Dosing Weight 72.273, kg, PRN Nausea & Vomiting, Start date: 08/06/13 11:27:00 naloxone 0.04 mg, 0.1 IVP No Longer Gadiraju [place] mL, Route: Active 2012 IVP, Drug form: INJ, Q2MIN, Dosing Weight 72.273, kg, PRN Narcotic Reversal, Start date: 08/06/13 11:27:00, Duration: 30 day, Stop date: 09/05/13 11:26:00 hydromorphone 0.2 mg, 0.1 IVP No Longer [facility] mL, Route: Active 2012 [facility] IVP, Drug form: INJ, Q2H, Dosing Weight 72.273, kg, PRN Pain Score 7-10, Start date: 08/06/13 11:27:00, Duration: 30 day, Stop date: 09/05/13 11:26:00 acetaminophen-ox 1 tab, PO No Longer [facility] Sugar ycodone 325 mg-5 Route: PO, Active 2012 [place] mg oral tablet Drug Form: TAB, Dosing Weight 72.273, kg, Q4H, PRN Pain Score 4-6, Start date: 08/06/13 11:21:00, Duration: 30 day, Stop date: 09/05/13 11:20:00 dexamethasone 4 mg, 1 mL, IVP No Longer [facility] Sugar Route: IVP, Active 2012 [facility] Drug form: INJ, Q12H, Dosing Weight 72.273, kg, PRN Nausea & Vomiting, Start date: 08/06/13 11:21:00, Duration: 30 day, Stop date: 09/05/13 11:20:00 promethazine 12.5 mg, IVPB No Longer [facility]ardo [facility] Route: IVPB, Active 2012 Q4H, Dosing Weight 72.273, kg, PRN Nausea & Vomiting, Start date: 08/06/13 11:21:00, Duration: 30 day, Stop date: 09/05/13 11:20:00 naloxone 0.1 mg, 0.25 IVP No Longer [facility] Sugar mL, Route: 2012 [facility] IVP, Drug form: INJ, Q2MIN, Dosing Weight 72.273, kg, PRN Narcotic Reversal, Start date: 08/06/13 11:21:00, Duration: 8 doses or times, Stop date: Limited # of times FENTanyl Dosing: Per EPIDURAL No Longer [facility] Sugar 5mcg/ml+Bupivaca Epidural Active 2012 [place] ine 0.125% - 200 Dosing Epidural 200 mL Order, Route: EPIDURAL, Start date: 08/06/13 11:21:00 200 mL, Drug Form: INJ, Dosing Weight 72.273, kg, Duration: 30 day, Stop date: 09/05/13 11:20:00 DuoNeb 3 ml, Route: INHALATION No Longer Isreal [facility] inhalation INHALATION, Active 2012 [facility] solution Drug Form: SOLN, Dosing Weight 72.273, kg, QID, PRN as needed for shortness of breath or wheezing, Start date: 08/06/13 10:10:00, Duration: 30 day, Stop date: 09/05/13 10:09:00 Senokot S 2 tab, PO No Longer [facility] Sugar Route: PO, Active 2012 Drug Form: TAB, Dosing Weight 72.273, kg, Daily, PRN Constipation , Start date: 08/06/13 10:10:00, Duration: 30 day, Stop date: 09/05/13 10:09:00 D5W 1/2NS + KCL 1,000 mL, IV No Longer [facility] Sugar 20mEq/L 1000ml Rate: 50 Active 2012 [facility] (Premix) 1,000 ml/hr, mL Infuse over: 20 hr, Route: IV, Dosing Weight 72.273 kg, Total Volume: 1,000, Start date: 08/06/13 10:00:00, Stop date: 09/05/13 9:59:00 diphenhydrAMINE 25 mg, 0.5 IVP No Longer [place] mL, Route: Active 2012 IVP, Drug form: INJ, Q6H, Dosing Weight 72.273, kg, PRN Itching, Start date: 08/06/13 10:00:00, Duration: 30 day, Stop date: 09/05/13 9:59:00 magnesium 30 ml, PO No Longer [place] hydroxide Route: PO, Active 2012 Drug Form: SUSP, Dosing Weight 72.273, kg, Q6H, PRN Constipation , Start date: 08/06/13 10:00:00, Duration: 30 day, Stop date: 09/05/13 9:59:00 promethazine 25 mg, 1 PO No Longer [place] tab, Route: Active 2012 PO, Drug form: TAB, Q6H, Dosing Weight 72.273, kg, PRN Nausea & Vomiting, Start date: 08/06/13 10:00:00, Duration: 30 day, Stop date: 09/05/13 9:59:00 Saline Flush 5 ml, Route: IVP No Longer [place] [facility] 0.9% IVP, Drug Active 2012 [facility] Form: INJ, Dosing Weight 72.273, kg, PRN, PRN Line Flush, Start date: 08/06/13 10:00:00, Duration: 30 day, Stop date: 09/05/13 9:59:00 acetaminophen-hy 1 tab, PO No Longer [place] drocodone 325 Route: PO, 2012 [place] mg-10 mg oral Drug Form: tablet TAB, Dosing Weight 72.273, kg, Q4H, PRN Pain Score 4-6, Start date: 08/06/13 10:00:00, Duration: 30 day, Stop date: 09/05/13 9:59:00 promethazine 6.25 mg, IM [facility], Active 2012 [facility] Route: IM, Drug form: INJ, ONCE, Dosing Weight 72.273, kg, PRN Nausea & Vomiting, Start date: 08/06/13 9:45:00 dexamethasone 4 mg, 1 mL, IVP No Longer Gadira [facility] Route: IVP, Active 2012 [facility] Drug form: INJ, ONCE, Dosing Weight 72.273, kg, PRN Nausea & Vomiting, Start date: 08/06/13 9:45:00 levalbuterol 0.63 mg, 3 NEB No Longer Gadira [facility] mL, Route: Active 2012 [facility] NEB, Drug form: SOLN, Q5Min, Dosing Weight 72.273, kg, PRN Wheezing, Start date: 08/06/13 9:45:00, Duration: 4 doses or times, Stop date: Limited # of times albuterol 90 2 puff, INHALER No Longer Gadira [facility] mcg/inh Route: Active 2012 [facility] inhalation INHALER, aerosol Drug Form: AERO/A, Dosing Weight 72.273, kg, Q5Min, PRN Wheezing, Start date: 08/06/13 9:45:00, Duration: 4 doses or times, Stop date: Limited # of times meperidine 12.5 mg, 0.5 IVP No Longer Gadira [place] mL, Route: Active 2012 [facility] IVP, Drug form: INJ, Q30Min, Dosing Weight 72.273, kg, PRN Other -See Comment, For shivering, Start date: 08/06/13 9:45:00, Duration: 2 doses or times, Stop date: Limited # of times ketorolac 30 mg, 1 mL, IVP No Longer Gadiraju [facility] Route: IVP, [facility] 2012 [facility] Drug form: INJ, ONCE, Dosing Weight 72.273, kg, Start date: 08/06/13 9:45:00, Duration: 1 doses or times, Stop date: 08/06/13 9:45:00 hydromorphone 0.5 mg, 0.25 IVP No Longer Gadiraju [place] mL, Route: Active 2012 [facility] IVP, Drug form: INJ, Q5Min, Dosing Weight 72.273, kg, PRN Pain Score 7-10, Start date: 08/06/13 9:45:00, Duration: 5 doses or times, Stop date: Limited # of times naloxone 0.04 mg, 0.1 IVP No Longer Gadiraju [place] mL, Route: Active 2012 [facility] IVP, Drug form: INJ, Q2MIN, Dosing Weight 72.273, kg, PRN Narcotic Reversal, Start date: 08/06/13 9:45:00, Duration: 8 doses or times, Stop date: Limited # of times flumazenil 0.2 mg, 2 IVP No Longer Gadiraju [place] mL, Route: Active 2012 [facility] IVP, Drug form: INJ, PRN, Dosing Weight 72.273, kg, PRN Benzodiazepi ne Reversal, Initial dose, Start date: 08/06/13 9:45:00, Duration: 30 day, Stop date: 09/05/13 9:44:00 acetaminophen-10 1,000 mg, IV No Longer Gadiraju [place] mg/mL 100 mL, Active 2012 [facility] INTRAVENOUS Route: IV, solution Drug form: INJ, ONCE, Dosing Weight 72.273, kg, PRN Pain Score 4-6, Start date: 08/06/13 9:45:00, Duration: 1 doses or times, Stop date: Limited # of times, Infuse over 15 minutes (for patient weight 50 kg or greater)Infu se over 15 minutes (for patient weight 50 kg or greater) albuterol 0.083% 2.49 mg, 3 NEB No Longer Gadiraju [place] inhalation mL, Route: Active 2012 [place] solution NEB, Drug form: SOLN, Q5Min, Dosing Weight 72.273, kg, PRN Wheezing, Priority: STAT, Start date: 08/06/13 9:45:00, Duration: 30 day, Stop date: 09/05/13 9:44:00 fentanyl 25 IVP No Longer Gadir[place] microgram, Active 2012 [place] 0.5 mL, Route: IVP, Drug form: INJ, Q5Min, Dosing Weight 72.273, kg, PRN Pain Score 4-6, Start date: 08/06/13 9:45:00, Duration: 4 doses or times, Stop date: Limited # of times Lactated Ringers 1,000 mL, IV No Longer Gadiraju [place] Injection IV Rate: 50 Active 2012 [place] 1,000 mL ml/hr, Infuse over: 20 hr, Route: IV, Dosing Weight 72.273 kg, Total Volume: 1,000, Start date: 08/06/13 9:45:00, Duration: 30 day, Stop date: 09/05/13 9:44:00 lidocaine 1% 0.5 mL, INTRADERM No Longer [place] Route: Active 2012 [place] INTRADERM, Drug Form: INJ, Dosing Weight 72.273, kg, ONCALL, Start date: 08/06/13 7:00:00, Duration: 1 doses or times clonidine 0.2 mg 0.2 mg, 1 PO No Longer Isreal [place] oral tablet tab, PO, Active 2012 [place] Daily, PRN, Max=3 tabs a day, BP > 180, Substitution Allowed, TABMax=3 tabs a day Lactated Ringers 1,000 mL, IV No Longer [place] Injection IV Rate: 25 Active 2012 [place] 1,000 mL ml/hr, Infuse over: 40 hr, Route: IV, Dosing Weight 72.273 kg, Total Volume: 1,000, Start date: 08/06/13 6:04:00, Duration: 30 day, Stop date: 09/05/13 6:03:00 cefazolin 2 gm, 100 IVPB No Longer [place] mL, Route: Active 2012 IVPB, Drug form: INJ, ONCALL, Start date: 08/06/13 6:00:00, Duration: 1 doses or times, Stop date: 08/06/13 23:59:00 Lactated Ringers 1,000 mL, IV No Longer Isreal [place] Injection IV Rate: 100 Active 2012 1,000 mL ml/hr, Infuse over: 10 hr, Route: IV, Dosing Weight 72.273 kg, Total Volume: 1,000, Start date: 08/06/13 6:00:00, Duration: 30 day, Stop date: 09/05/13 5:59:00 BD Posiflush SF 15 mL, IVP No Longer [place] Route: IVP, Active 2012 Drug Form: INJ, PRN, PRN Line Flush, Start date: 08/06/13 6:00:00, Duration: 30 day, Stop date: 09/05/13 5:59:00 hydromorphone 1 mg, PO, PO No Longer [place] Q8H, Active 2012 [place] Substitution Allowed, TAB ropinirole 1 mg 1 mg, 1 tab, PO Active [facility] [place] oral tablet PO, Bedtime, 2012 270 tab, Substitution Allowed, TAB lisinopril 10 mg 10 mg, 1 PO No Longer Isreal [place] oral tablet tab, PO, Active 2012 [place] Daily, tab, Substitution Allowed, TAB pantoprazole 40 40 mg, 1 PO Active [place] mg oral enteric tab, PO, 2012 [place] coated tablet Daily, tab, Substitution Allowed, ECTAB Cymbalta 30 mg 30 mg, 1 PO Active [facility] [place] oral delayed cap, PO, 2012 [place] release capsule Daily, cap, Substitution Allowed, ECCAP Advair Diskus 1 puff, INHALATION Active [facility] [place] 500 mcg-50 mcg INHALATION, 2012 [place] inhalation Q12H, 28 ea, powder Substitution Allowed, Maintenance, PWDR SPIRONOLACTONE No Longer 25 MG TABS Active 2012 [facility] PROTONIX 40 MG 1 p.o. qd Active TBEC 2012 Medical Group TIZANIDINE HCL 4 1 p.o. bid Active MG TABS 2012 Medical Group KLOR-CON M20 20 1 p.o. daily Active MEQ CR-TABS 2012 Medical Group REQUIP 1 MG TABS 1 p.o. qd Active 2012 Medical Group TRAZODONE HCL 50 1-2 tabs Active MG TABS p.o. q hs 2012 Medical prn Group RISPERDAL 1 MG 1 p.o. q hs Active TABS 2012 Medical Group DILAUDID 4 MG 1 p.o. tid Active TABS 2012 Medical Group KEPPRA 500 MG 1 po bid Active TABS 2012 Medical Group SPIRIVA one cap for Active HANDIHALER 18 inhalation 2013 Medical MCG CAPS daily Group DALIRESP 500 MCG ONCE DAILY No Longer TABS Active 2012 Medical Group Xarelto 10 mg 10 mg, 1 PO Active [facility] [place] oral tablet tab, PO, 2012 [place] Daily, 5 tab, Substitution Allowed Lortab 10/500 1-2 tab, PO, PO Active [facility] [place] oral tablet Q4H, PRN, 60 2012 [place] tab, for pain, Substitution Allowed, Maintenance, TAB Keflex 500 mg 500 mg, 1 PO Active [facility] [place] oral capsule cap, PO, 2012 [place] QID, 12 cap, Substitution Allowed acetaminophen-hy 2 tab, PO No Longer [facility] [place] drocodone 325 Route: PO, Active 2012 [place] mg-5 mg oral Drug Form: tablet TAB, Dosing Weight 73.636, kg, Q4H, PRN Pain Score 4-6, Start date: 12/20/12 13:00:00, Duration: 30 day, Stop date: 01/19/13 12:59:00 acetaminophen 650 mg, 2 PO No Longer [facility] [place] tab, Route: Active 2012 [place] PO, Drug form: TAB, Q4H, Dosing Weight 73.636, kg, PRN Pain Score 1-3, Start date: 12/20/12 13:00:00, Duration: 30 day, Stop date: 01/19/13 12:59:00 meperidine 12.5 mg, 0.5 IVP No Longer [place] 12/20/ [place] mL, Route: Active 2012 [place] IVP, Drug form: INJ, Q30Min, Dosing Weight 73.636, kg, PRN Other -See Comment, For shivering, Start date: 12/20/12 12:58:00, Duration: 2 doses or times, Stop date: Limited # of times flumazenil 0.2 mg, 2 IVP No Longer [place] mL, Route: Active 2012 [place] IVP, Drug form: INJ, PRN, Dosing Weight 73.636, kg, PRN Benzodiazepi ne Reversal, Initial dose, Start date: 12/20/12 12:58:00, Duration: 30 day, Stop date: 01/19/13 12:57:00 naloxone 0.04 mg, 0.1 IVP No Longer [place] mL, Route: Active 2012 [facility] IVP, Drug form: INJ, Q2MIN, Dosing Weight 73.636, kg, PRN Narcotic Reversal, Start date: 12/20/12 12:58:00, Duration: 8 doses or times, Stop date: Limited # of times acetaminophen-ox 2 tab, PO No Longer [facility] [place] ycodone 325 mg-5 Route: PO, Active 2012 [place] mg oral tablet Drug Form: TAB, Dosing Weight 73.636, kg, Q4H, PRN Pain Score 4-6, Start date: 12/20/12 12:58:00, Duration: 30 day, Stop date: 01/19/13 12:57:00 acetaminophen-hy 2 tab, PO No Longer [facility] [place] drocodone 325 Route: PO, Active 2012 [place] mg-5 mg oral Drug Form: tablet TAB, Dosing Weight 73.636, kg, Q4H, PRN Pain Score 4-6, Start date: 12/20/12 12:58:00, Duration: 30 day, Stop date: 01/19/13 12:57:00 hydromorphone 0.5 mg, 0.25 IVP No Longer [place] mL, Route: Active 2012 [place] IVP, Drug form: INJ, Q5Min, Dosing Weight 73.636, kg, PRN Pain Score 4-6, Start date: 12/20/12 12:58:00, Duration: 5 doses or times, Stop date: Limited # of times ketorolac 30 mg, 1 mL, IVP No Longer [place] Route: IVP, 2012 [facility] Drug form: INJ, ONCE, Dosing Weight 73.636, kg, PRN Breakthrough Pain, Start date: 12/20/12 12:58:00, Duration: 1 doses or times, Stop date: Limited # of times Lactated Ringers 1,000 mL, IV No Longer [place] Injection IV Rate: 50 Active 2012 [place] 1,000 mL ml/hr, Infuse over: 20 hr, Route: IV, kg, Total Volume: 1,000, Start date: 12/20/12 12:58:00, Duration: 30 day, Stop date: 01/19/13 12:57:00 labetalol 5 mg, 1 mL, IVP No Longer [place] Route: IVP, 2012 Drug form: INJ, Q5Min, Dosing Weight 73.636, kg, PRN Elevated BP, Start date: 12/20/12 12:58:00, Duration: 5 doses or times, Stop date: Limited # of times Lactated Ringers 1,000 mL, IV No Longer [place] Injection IV Rate: 25 2012 [place] 1000 mL ml/hr, Infuse over: 40 hr, Route: IV, Dosing Weight 73.636 kg, Total Volume: 1,000, Start date: 12/20/12 10:59:00, Duration: 30 day, Stop date: 01/19/13 10:58:00 Lactated Ringers 1,000 mL, IV No Longer [place] IV 1,000 mL Rate: 25 Active 2012 [place] ml/hr, Infuse over: 40 hr, Route: IV, kg, Total Volume: 1,000, Start date: 12/20/12 10:07:00, Duration: 30 day, Stop date: 01/19/13 10:06:00 BD Posiflush SF 15 mL, IVP No Longer [place]it[place] Route: IVP, 2012 Drug Form: INJ, PRN, PRN Line Flush, Start date: 12/20/12 6:00:00, Duration: 30 day, Stop date: 01/19/13 5:59:00 cefazolin 2 gm, 100 IVPB No Longer Claritza [place] mL, Route: Active 2012 [place] IVPB, Drug form: INJ, NATYALL, Start date: 12/20/12 6:00:00, Duration: 1 doses or times Lasix 40 mg oral 40 mg, 1 PO Active [place] tablet tab, PO, 2012 Daily, Substitution Allowed tizanidine 4 mg 4 mg, 1 cap, PO Active [place] oral capsule PO, BID, 90 2012 cap, Substitution Allowed, CAP lisinopril 40 mg 40 mg, 1 PO Active [place] oral tablet tab, PO, 2012 Daily, Substitution Allowed amLODipine 10 mg 10 mg, 1 PO Active [place] oral tablet tab, PO, 2012 Daily, Substitution Allowed Lyrica 150 mg 150 mg, 1 PO Active [place] oral capsule cap, PO, 2012 TID, 90 cap, Substitution Allowed, CAP Advair Diskus INHALATION, INHALATION Active [place] 500 mcg-50 mcg BID, 2012 inhalation Substitution powder Allowed, Maintenance Daliresp 500 mcg 500 PO Active [place] oral tablet microgram, 1 2012 [place] tab, PO, Daily, Substitution Allowed SPIRIVA 1 puff daily Active HANDIHALER 18 2011 Medical [facility] CAPS Group ADVAIR DISKUS 1 puff bid Active 500-50 MCG/DOSE 2011 Medical AEPB Group SIMVASTATIN 40 1 p.o. q hs Active MG TABS 2012 Medical Group FUROSEMIDE 40 MG 1 p.o. qd Active TABS 2012 Medical Group LYRICA 150 MG 1 p.o. tid Active CAPS 2012 Medical Group REQUIP 0.5 MG No Longer TABS Active 2011 Medical Group REQUIP 1 MG TABS 1 p.o. q hs Active 2012 [facility] Group DALIRESP 500 MCG 1 p.o. qd Active TABS 2012 Medical Group NORCO 10-325 MG No Longer TABS Active 2011 Medical Group LISINOPRIL 10 MG 1 p.o. qd No Longer TABS Active 2012 Medical Group Allergies, Adverse Reactions, Alerts Substance Category Reaction Severity Reaction Status Date Comments Source type Reported IMITREX Drug IMITREX allergy 2 Medical Group Bactrim Assertion rash Drug Active [facility] allergy [facility] erythromycin Assertion unknown Drug Active [facility] Imitrex Assertion rapid Drug Active [facility] heart allergy [facility] beat [facility] morphine Assertion drops Drug Active [facility] blood allergy [facility] pressure [facility] Morphine drug Allergy Active [facility] Sulfate allergy Medical [place] Assertion throat Drug Active [facility] close,ha allergy [facility] nge [facility] & swelling Joint Valium Assertion drunk Drug Active [facility] allergy [facility] Zofran Assertion cold Drug Active [facility] sweat,vom allergy [facility] iting [facility] phenytoin Assertion seizures Propensity Active [facility] to adverse Ng reactions Bone & to drug Joint Plastic Tape Assertion redness Drug Active [facility] allergy [facility] VALIUM Drug VALIUM allergy Medical Group BACTRIM Drug BACTRIM allergy Medical Group MORPHINE Drug MORPHINE allergy Medical Group ERYTHROMYCIN Drug ERYTHROMYCI allergy N Medical Group NEBAIN Drug NEBAIN allergy Medical Group ZOFRAN Drug ZOFRAN allergy Medical Group Immunizations Immunization Date Site Status Last Updated Comments Source Given pneumococcal completed Miguel Angel [facility] 23-valent 3 Medical vaccine [facility] [place] influenza virus completed Miguel Angel [facility] vaccine, 3 Medical inactivated [facility] [place] pneumococcal Right completed Miguel Angel [facility] 23-valent 3 Deltoid [place] vaccine Bone [facility], [facility] influenza virus Left completed [facility] vaccine, 3 Deltoid [place] inactivated [facility] OPID [facility] Results Order Name Results Value Reference Date Interpretation Comments Source Range Knee wo Knee wo MRI of the left Knee 01/29 - OP[facility] contrast contrast MRI /2014 - [facility] History: pain. Prior surgery one year ago Read by: Stefany Mcmahon MD Dictated Date/time: 01/29/15 12:57 Electronically Signed by: Stefany Mcmahon MD 01/29/15 13:03 FINAL REPORT Comparison Study: MRI of the left knee dated 01/21/2014 Technique: The study was performed on a high field magnet without intravenous contrast. Findings: Menisci: There is mild truncation of the body and posterior horn of the medial meniscus presumably representing prior partial medial meniscectomy. There is no evidence of recurrent tear. There is also minimal truncation of the inner free edge of the body of lateral meniscus again compatible with postoperative change and degeneration without recurrent tear. Cruciate Ligaments: Anterior and posterior cruciate ligaments are intact. Collateral Ligaments: Medial collateral ligament is intact. Lateral collateral complex appears intact. The patellar and quadriceps tendons are intact. Osseous Structures: No bone contusions are identified. 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 There is also grade 3 with possibly some areas of grade IV chondromalacia posterior Cent ral lateral femoral condyle with reactive bone marrow edema. This appears new when compared with the prior study. Soft Tissues: There is a moderate joint effusion . 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 Patellofemoral Compartment: Grade 2/3 chondromalacia is present the patella apex and lateral facet with probably some areas of grade IV chondromalacia is well. Trochlear articular cartilage is preserved. Medial and lateral patellar retinacula appear intact. Impression: Status post presumed partial medial and lateral meniscectomies without evidence of recurrent tear. 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 Small area of moderate to high-grade chondromalacia posterior Central lateral femoral condyle with reactive bone marrow edema appearing more prominent when compared with the prior preoperative study of 2013 Unchanged Rivera's cyst. Dictation Code: 100 CHEM PANEL eGFR 88 06/07 3Result Comment: The eGFR is calculated using the CKD-EPI formula. In most young, healthy individuals the eGFR will be >90 mL/ min/1.73m2. The eGFR declines with age. An eGFR of 60-89 may be normal in [place] mL/min/1. some populations, particularly the elderly, for whom the CKD-EPI formula has not been extensively validated. Use of the eGFR is not recommended in the following populations: [place] 3m2 Individuals with unstable creatinine concentrations, including patients and those with serious co-morbid conditions. Patients with extremes in muscle mass or diet. The data above are obtained from the National Kidney Disease Education Program (NKDEP) which additionally recommends that when the eGFR is used in patients with extremes of body mass index for purposes of drug dosing, the eGFR should be multiplied by the estimated BMI. CHEM PANEL Creatinine 0.7 mg/dL 0.5 - 1.4 06/07 [place] CHEM PANEL Calcium Lvl 8.1 mg/dL 8.5 - 10.5 06/07 [place] CHEM PANEL Chloride Lvl 102 meq/L 95 - 109 06/07 [place] CHEM PANEL Potassium 4.4 meq/L 3.5 - 5.1 06/07 [place] CHEM PANEL Sodium Lvl 141 meq/L 135 - 145 06/07 [place] CHEM PANEL BUN 23 mg/dL 7 - 22 06/07 [place] CHEM PANEL Glucose Lvl 79 mg/dL 70 - 99 06/07 6Interpretive Data: Adult reference range values reflect the clinical guidelines of the [place] [employer]. [place] CHEM PANEL CO2 34 meq/L 24 - 32 06/07 [place] CHEM PANEL AGAP 9.4 meq/L 10.0 - 06/07 [place] 20.0 [place] HEMATOLOGY Segs-Bands # 4.6 K/CMM 1.5 - 8.1 06/07 [place] HEMATOLOGY Monocytes # 0.6 K/CMM 0.0 - 0.8 06/07 [place] HEMATOLOGY Lymphocytes 1.5 K/CMM 1.0 - 5.5 06/07 [place] # [place] HEMATOLOGY Eosinophils 0.1 K/CMM 0.0 - 0.5 06/07 [place] # [place] HEMATOLOGY Basophils # 0.0 K/CMM 0.0 - 0.2 06/07 [place] HEMATOLOGY Monocytes 9.2 % 2.0 - 12.0 06/07 [place] HEMATOLOGY Lymphocytes 22.1 % 20.0 - 06/07 [place] 40.0 /2013 [place] HEMATOLOGY Basophils 0.2 % 0.0 - 1.0 06/07 [place] HEMATOLOGY Eosinophils 1.3 % 0.0 - 4.0 06/07 [place] HEMATOLOGY Segs 67.2 % 45.0 - 06/07 [place] 75.0 /2013 [facility] HEMATOLOGY MPV 7.1 fL 7.4 - 10.4 06/07 [place] /2013 [place] HEMATOLOGY MCHC 32.9 g/dL 32.0 - 06/07 [facility] [place] 36.0 /2013 [facility] HEMATOLOGY MCH 29.4 pg 27.0 - 06/07 [facility] [place] 31.0 /2013 [facility] HEMATOLOGY Platelet 312 K/CMM 133 - 450 06/07 [place] /2013 [facility] HEMATOLOGY Hgb 9.8 g/dL 12.0 - 06/07 [facility] [place] 16.0 [facility] HEMATOLOGY WBC 6.9 K/CMM 3.7 - 10.4 06/07 [place] [facility] HEMATOLOGY RDW 17.4 % 11.5 - 06/07 [place] 14.5 [facility] HEMATOLOGY MCV 89.5 fL 81.0 - 06/07 [place] 99.0 /2013 [facility] HEMATOLOGY Hct 29.7 % 36.0 - 06/07 [place] 48.0 [facility] HEMATOLOGY RBC 3.32 M/CMM 4.20 - 06/07 [place] 5.40 /2013 [place] ELECTROLYTE AGAP 10.6 meq/L 10.0 - 06/04 [place] S 20.0 [facility] ELECTROLYTE eGFR 88 06/04 4Result Comment: The eGFR is calculated using the CKD-EPI formula. In most young, healthy individuals the eGFR will be > 90 mL/min/1.73m2. The eGFR declines with age. An eGFR of 60-89 may be normal in mL/min/1.7 some populations, particularly the elderly, for whom the CKD-EPI formula has not been extensively validated. Use of the eGFR is not recommended in the following populations: [place] 3m2 Individuals with unstable creatinine concentrations, including patients and those with serious co-morbid conditions. Patients with extremes in muscle mass or diet. The data above are obtained from the National Kidney Disease Education Program (NKDEP) which additionally recommends that when the eGFR is used in patients with extremes of body mass index for purposes of drug dosing, the eGFR should be multiplied by the estimated BMI. ELECTROLYTE Chloride Lvl 103 meq/L 95 - 109 06/04 [place] ELECTROLYTE Calcium Lvl 8.5 mg/dL 8.5 - 10.5 06/04 [place] ELECTROLYTE CO2 34 meq/L 24 - 32 06/04 [place] ELECTROLYTE Potassium 4.6 meq/L 3.5 - 5.1 06/04 [place] ELECTROLYTE Sodium Lvl 143 meq/L 135 - 145 06/04 [place] ELECTROLYTE Glucose Lvl 98 mg/dL 70 - 99 06/04 7Interpretive Data: Adult reference range values reflect the clinical guidelines [place] of the [place] [employer]. [place] ELECTROLYTE Creatinine 0.7 mg/dL 0.5 - 1.4 06/04 [place] ELECTROLYTE BUN 20 mg/dL 7 - 06/04 [place] HEMATOLOGY MPV 7.6 fL 7.4 - 10.4 06/04 [place] HEMATOLOGY MCV 89.0 fL 81.0 - 06/04 [place] 99.0 [place] HEMATOLOGY Hct 27.8 % 36.0 - 06/04 [place] 48.0 [place] HEMATOLOGY Hgb 9.2 g/dL 12.0 - 06/04 [place] 16.0 [place] HEMATOLOGY MCH 29.4 pg 27.0 - 06/04 [place] 31.0 [place] HEMATOLOGY Platelet 235 K/CMM 133 - 450 06/04 [place] HEMATOLOGY RDW 16.9 % 11.5 - 06/04 [place] 14.5 [place] HEMATOLOGY MCHC 33.0 g/dL 32.0 - 06/04 [place] 36.0 [place] HEMATOLOGY WBC 7.5 K/CMM 3.7 - 10.4 06/04 [place] HEMATOLOGY RBC 3.12 M/CMM 4.20 - 06/04 [place] 5.40 /2013 [place] HEMATOLOGY Polychrom Slight None Seen 06/04 [place] (06/04/14 5:15 AM) HEMATOLOGY Plt Morph Normal 06/04 [place] (06/04/14 5:15 AM) HEMATOLOGY Atypical 0.0 % <=0.0 % 06/04 [place] HEMATOLOGY Tot Cell Ct 100 06/04 [place] HEMATOLOGY Monocytes 6.0 % 2.0 - 12.0 06/04 [place] HEMATOLOGY Metamyelocyt 1.0 % 0.0 - 1.0 06/04 [place] HEMATOLOGY Bands 6.0 % 0.0 - 11.0 06/04 [place] HEMATOLOGY Lymphocytes 13.0 % 20.0 - 06/04 [place] 40.0 [facility] HEMATOLOGY Segs-Bands # 6.0 K/CMM 1.5 - 8.1 06/04 [place] [facility] HEMATOLOGY Lymphocytes 1.0 K/CMM 1.0 - 5.5 06/04 [place] # /2013 [facility] HEMATOLOGY Monocytes # 0.4 K/CMM 0.0 - 0.8 06/04 [facility] HEMATOLOGY Segs 74.0 % 45.0 - 06/04 [place] 75.0 [facility] Chest 1view Chest 1view PORTABLE CHEST AP SEMIERECT 06/04/2014, 5:27 a.m. 06/04 - - [facility] HISTORY: Shortness of breath. Compared to exam dated 06/03/2014. Read by: Raymond Lundberg MD Dictated Date/time: 06/04/14 07:03 Electronically Signed by: Raymond Lundberg MD 06/04/14 07:04 FINAL REPORT Mild cardiomegaly with Port-A-Cath on the right, unchanged. The central vascularity is no longer congested. No evidence of edema or pneumonia. Bony structures are demineralized. Comparison to prior exam demonstrates no new finding or change. CONCLUSION: Further improvement in the appearance of the chest compared to prior exam dated 06/03/2014. CHEM PANEL Phosphorus 3.2 mg/dL 2.5 - 4.5 06/03 [facility] CHEM PANEL Magnesium 1.9 mg/dL 1.8 - 2.4 06/03 [place] Lvl [facility] CHEM PANEL Glucose Lvl 112 mg/dL 70 - 99 06/03 8Interpretive Data: Adult reference range values reflect the clinical guidelines of the [place] [employer]. [facility] CHEM PANEL eGFR 75 06/03 5Result Comment: The eGFR is calculated using the CKD-EPI formula. In most young, healthy individuals the eGFR will be >90 mL/ min/1.73m2. The eGFR declines with age. An eGFR of 60-89 may be normal in mL/min/1. some populations, particularly the elderly, for whom the CKD-EPI formula has not been extensively validated. Use of the eGFR is not recommended in the following populations: [place] 3m2 Individuals with unstable creatinine concentrations, including patients and those with serious co-morbid conditions. Patients with extremes in muscle mass or diet. The data above are obtained from the National Kidney Disease Education Program (NKDEP) which additionally recommends that when the eGFR is used in patients with extremes of body mass index for purposes of drug dosing, the eGFR should be multiplied by the estimated BMI. CHEM PANEL Calcium Lvl 8.8 mg/dL 8.5 - 10.5 06/03 [place] CHEM PANEL AGAP 11.4 meq/L 10.0 - 06/03 [place] 20.0 [place] CHEM PANEL Creatinine 0.8 mg/dL 0.5 - 1.4 06/03 [place] CHEM PANEL BUN 21 mg/dL 7 - 06/03 [place] CHEM PANEL Chloride Lvl 103 meq/L 95 - 109 06/03 [place] CHEM PANEL CO2 34 meq/L 24 - 32 06/03 [place] CHEM PANEL Potassium 4.4 meq/L 3.5 - 5.1 06/03 [place] CHEM PANEL Sodium Lvl 144 meq/L 135 - 145 06/03 [place] HEMATOLOGY Basophils 0.2 % 0.0 - 1.0 06/03 [place] HEMATOLOGY Eosinophils 0.1 % 0.0 - 4.0 06/03 [place] HEMATOLOGY Monocytes 11.3 % 2.0 - 12.0 06/03 [place] HEMATOLOGY Segs-Bands # 4.3 K/CMM 1.5 - 8.1 06/03 [place] HEMATOLOGY Lymphocytes 0.9 K/CMM 1.0 - 5.5 06/03 [place] HEMATOLOGY Monocytes # 0.7 K/CMM 0.0 - 0.8 06/03 [place] HEMATOLOGY Eosinophils 0.0 K/CMM 0.0 - 0.5 06/03 [place] HEMATOLOGY Basophils # 0.0 K/CMM 0.0 - 0.2 06/03 [place] HEMATOLOGY Segs 73.6 % 45.0 - 06/03 [place] 75.0 /2013 [place] HEMATOLOGY Lymphocytes 14.8 % 20.0 - 06/03 [facility] [place] 40.0 /2014 [place] HEMATOLOGY Platelet 189 K/CMM 133 - 450 06/03 [place] HEMATOLOGY MPV 7.3 fL 7.4 - 10.4 06/03 [place] /2013 [facility] HEMATOLOGY RBC 3.06 M/CMM 4.20 - 06/03 [place] 5.40 /2013 [facility] HEMATOLOGY MCV 87.7 fL 81.0 - 06/03 [place] 99.0 /2013 [facility] HEMATOLOGY MCH 29.5 pg 27.0 - 06/03 [place] 31.0 /2013 [facility] HEMATOLOGY MCHC 33.7 g/dL 32.0 - 06/03 [place] 36.0 /2013 [facility] HEMATOLOGY Hgb 9.0 g/dL 12.0 - 06/03 [place] 16.0 /2013 [facility] HEMATOLOGY RDW 16.2 % 11.5 - 06/03 [place] 14.5 /2013 [facility] HEMATOLOGY Hct 26.8 % 36.0 - 06/03 [place] 48.0 /2013 [facility] HEMATOLOGY WBC 5.8 K/CMM 3.7 - 10.4 06/03 [facility] Chest 1view Chest 1view PORTABLE CHEST AP SEMIERECT 06/03/2014, 5:44 a.m. 06/03 - - [facility] HISTORY: Abnormal chest sounds. Compared to exam dated 06/02/2014 and . Read by: Raymond Lundberg MD Dictated Date/time: 06/03/14 07:20 Electronically Signed by: Raymond Lundberg MD 06/03/14 07:25 FINAL REPORT Mild cardiomegaly, unchanged. Right IJ Port-A-Cath, unchanged. The central vascularity is mildly prominent. The interstitial edema has resolved since exam dated 06/01/2014. No other new finding or change since prior exam. CONCLUSION: Resolution of interstitial edema compared to prior exams. Chest Chest Examination: Chest CTA pulm emb 06/02 - [facility] Pulmonary Pulmonary - [facility] Embolism Embolism CTA Dose: 411 mGy-cm CTA Read by: Akbar Whipple MD Dictated Date/time: 06/02/14 14:03 History: Chest pain Electronically Signed by: Akbar Whipple MD 06/02/14 14:06 FINAL REPORT DIAGNOSIS: 1. No evidence of pulmonary embolic disease, aortic dissection 2. Bilateral pleural effusions and basal , and patchy alveolar edema, suspect for congestive failure DISCUSSION: Dynamic, high resolution CT scanning with the bolus injection with MIP reconstructions demonstrates satisfactory opacification of the pulmonary arterial as well as systemic arterial system. No evidence of a pulmonary arterial filling defect is identified and there is no evidence of aortic dissection. No evidence of a pulmonary mass, adenopathy , pneumothorax or effusion is noted. A right-sided Mediport catheter is in place. There is bilateral pleural effusion. Mild prominence of vascularity and patchy alveolar edema is present bilaterally. Considerations would include congestive failure. CHEM PANEL Magnesium 1.7 mg/dL 1.8 - 2.4 06/02 [place] Lvl /2013 [place] CHEM PANEL Phosphorus 3.3 mg/dL 2.5 - 4.5 06/02 [place] CHEM PANEL A/G Ratio 0.6 0.7 - 1.6 06/02 [place] CHEM PANEL Globulin 3.6 g/dL 2.0 - 4.0 06/02 [facility] CHEM PANEL B/C Ratio 24 6 - 25 06/02 [facility] CHEM PANEL Total 5.8 g/dL 6.4 - 8.4 06/02 [facility] CHEM PANEL Albumin Lvl 2.2 g/dL 3.5 - 5.0 06/02 [place] CHEM PANEL ALT 21 unit/L 0 - 65 06/02 [facility] CHEM PANEL Alk Phos 137 unit/L 39 - 136 06/02 [facility] CHEM PANEL Bili Total 0.7 mg/dL 0.2 - 1.3 06/02 [facility] CHEM PANEL AST 13 unit/L 0 - 37 06/02 [facility] HEMATOLOGY Basophils 0.1 % 0.0 - 1.0 06/02 [facility] HEMATOLOGY Eosinophils 0.0 K/CMM 0.0 - 0.5 06/02 Sugar # [facility] HEMATOLOGY Basophils # 0.0 K/CMM 0.0 - 0.2 06/02 [facility] HEMATOLOGY Eosinophils 0.2 % 0.0 - 4.0 06/02 [facility] HEMATOLOGY INR 1.12 0.85 - 06/02 9Interpretive Data: RECOMMENDED RANGES FOR PROTIME INR: [facility] 1. 2.0-3.0 for most medical and surgical thromboembolic states. [place] 2.5-3.5 for artificial heart valves and recurrent embolism. INR SHOULD BE USED ONLY FOR PATIENTS ON STABLE ANTICOAGULANT THERAPY. HEMATOLOGY PTT 34.4 s 22.9 - 06/02 12Interpretiv [facility] [place] 35.8 /2013 e Data: [facility] Heparin Therapeutic Range: 57 - 92 Seconds HEMATOLOGY PT 14.3 s 12.0 - 06/02 [facility] [place] 14.7 /2013 [facility] Chest 1view Chest 1view PORTABLE CHEST AP SEMIERECT 06/02/2014, 5:32 a.m. 06/02 - - [facility] HISTORY: Abnormal chest sounds. Compared to exam dated 06/01/2014. Read by: Raymond Lundberg MD Dictated Date/time: 06/02/14 07:19 Electronically Signed by: Raymond Lundberg MD 06/02/14 07:22 FINAL REPORT Cardiomegaly, unchanged. Right IJ Port-A-Cath, unchanged. Improvement in diffuse pulmonary infiltrates compared to prior exam suggesting improvement in edema superimposed on COPD. The bony structures ar e demineralized. Postop changes of cervical spinal fusion again noted. CONCLUSION: Improvement in the appearance of the chest compared to prior exam dated , most likely representing improvement in edema superimposed on COPD. CHEM PANEL Magnesium 1.6 mg/dL 1.8 - 2.4 /20 [facility] [place] Lvl /2013 [facility] CHEM PANEL Phosphorus 3.0 mg/dL 2.5 - 4.5 / [facility] [place] CHEM PANEL Bili Total 0.6 mg/dL 0.2 - 1.3 / [facility] [place] CHEM PANEL AST 25 unit/L 0 - 37 / [facility] [place] CHEM PANEL Alk Phos 130 unit/L 39 - 136 / [facility] [place] CHEM PANEL A/G Ratio 0.6 0.7 - 1.6 /20 [facility] CHEM PANEL ALT 22 unit/L 0 - 65 /20 [facility] [place] CHEM PANEL Globulin 3.6 g/dL 2.0 - 4.0 07/20 [facility] [place] /2013 [place] CHEM PANEL Albumin Lvl 2.0 g/dL 3.5 - 5.0 / MH [facility] CHEM PANEL Total 5.6 g/dL 6.4 - 8.4 /20 [facility] [place] Protein /2013 [facility] CHEM PANEL B/C Ratio 30 6 - 25 /20 [facility] [place] /2013 [facility] HEMATOLOGY PTT 36.8 s 22.9 - 06/01 13Interpretiv [facility] [place] 35.8 /2013 e Data: [facility] Heparin Therapeutic Range: 57 - 92 Seconds HEMATOLOGY PT 14.2 s 12.0 - 06/01 [place] 14.7 [facility] HEMATOLOGY INR 1.11 0.85 - 06/01 10Interpretive Data: RECOMMENDED RANGES FOR PROTIME INR: [place] . 2.0-3.0 for most medical and surgical thromboembolic states. [place] 2.5-3.5 for artificial heart valves and recurrent embolism. INR SHOULD BE USED ONLY FOR PATIENTS ON STABLE ANTICOAGULANT THERAPY. Chest 1view Chest 1view EXAM: 06/01 - - [facility] Single view chest. Read by: Srinivasan Omalley MD Dictated Date/time: 06/01/14 06:14 INDICATION: Electronically Signed by: Srinivasan Omalley MD 06/01/14 06:15 FINAL REPORT Abnormal chest sounds. COMPARISON: May 29, 2014. IMPRESSION: 1. Stable right-sided Port-A-Cath. 2. Stable enlarged cardiac silhouette with worsened interstitial edema. 3. No pneumothorax. PARATHYROID Ca Ion WB 1.19 1.05 - 05/31 [place] PROFILE mMol/L 12.07 [facility] PARATHYROID Ca Norm WB 1.15 1.05 - 05/31 [place] PROFILE mMol/L 12.07 [facility] BLOOD BANK RBC product Product available 1 05/30 1Result Comment: 2013 09:46 YADY [place] Notified Macho at 05/30/2014 09:46 [facility] (05/30/14 7:18 AM) CHEM PANEL Bili Total 0.8 mg/dL 0.2 - 1.3 05/30 [facility] CHEM PANEL Albumin Lvl 2.0 g/dL 3.5 - 5.0 05/30 [facility] CHEM PANEL AST 14 unit/L 0 - 37 05/30 [facility] CHEM PANEL ALT 10 unit/L 0 - 65 05/30 [facility] CHEM PANEL Alk Phos 94 unit/L 39 - 136 05/30 [facility] CHEM PANEL Total 4.9 g/dL 6.4 - 8.4 05/30 [facility] CHEM PANEL B/C Ratio 23 6 - 25 05/30 [facility] CHEM PANEL A/G Ratio 0.7 0.7 - 1.6 05/30 [facility] CHEM PANEL Globulin 2.9 g/dL 2.0 - 4.0 05/30 [facility] HEMATOLOGY PTT 37.1 s 22.9 - 05/30 14Interpretiv [place] 35.8 /2014 e Data: [facility] Heparin Therapeutic Range: 57 - 92 Seconds HEMATOLOGY PT 16.8 s 12.0 - 05/30 [place] 14.7 [facility] HEMATOLOGY INR 1.38 0.85 - 05/30 11Interpretive Data: RECOMMENDED RANGES FOR PROTIME INR: [facility] 1. 2.0-3.0 for most medical and surgical thromboembolic states. [facility] 2.5-3.5 for artificial heart valves and recurrent embolism. INR SHOULD BE USED ONLY FOR PATIENTS ON STABLE ANTICOAGULANT THERAPY. Chest 1view Chest 1view EXAMINATION: Chest 1view 05/29 - - [facility] ADDENDUM: A repeat view was completed with removal of some overlying wires and life-support. The previously mentioned radiopaque line represented a life- support monitor. Read by: Akbar Whipple MD Dictated Date/time: 05/29/14 09:39 Electronically Signed by: Akbar Whipple MD 05/29/14 09:43 FINAL REPORT At this time interstitial markings in both lungs are prominent. - - There is density projected over the right lung base representing density from monitor leads or clothing. Read by: Akbar Whipple MD Dictated Date/time: 05/29/14 07:14 Examination: Chest 1view Electronically Signed by: Akbar Whipple MD 05/29/14 07:18 FINAL REPORT Provided History: Abnormal chest sounds DIAGNOSIS: Suboptimal chest with the nasogastric tube not well visualized. Mildly prominent vascular markings. DISCUSSION: Single view chest demonstrates the heart size to be within normal limits. There is a right-sided Mediport catheter in good position. Mild prominence of pulmonary vascularity is present. A radiopaque line or tube projects over the midline likely a nasogastric tube however the tip cannot be visualized secondary to exposure technique. As can be seen I believe the tip is approximately at t he esophagogastric junction, however a repeat study has been requested. BACTERIAL - MRSA by PCR Positive , 05/28 16Interpretive Data: Interpretive Data: The [employer] LightCycler MRSA assay is a qualitative test for the direct detection of nasal colonization with methicillin-resistant Staphylococcus aureus (MRSA) to aid [facility] in the prevention and control of MRSA infections in healthcare settings. A positive result does not indicate an infection or require treatment. A negative result does not exclude colonization or infection. [place] *ABN* The polymerase chain reaction (PCR) assay detects a proprietary sequence indicative of the integration of the SCCmec cassette into the Staphylococcus aureus chromosome, indicating the presence of MRSA D (05/28/14 9:32 AM) NA. The assay utilizes FDA cleared IVD reagents. Performance characteristics have been verified by the Molecular Diagnostic Laboratory within the [facility]. The [facility] Labor atory is authorized under the Clinical Laboratory Improvement Amendment of 1988 (CLIA-88) to perform high complexity testing. BLOOD BANK RBC product Product available 2 05/28 2Result Comment: 2013 10:14 YADY [facility] RESULTS Notified Kear at 05/28/2014 10:14 [facility] (05/28/14 7:28 AM) HEMATOLOGY Atypical 0.0 % <=0.0 % 05/28 [facility] Lymphs [facility] HEMATOLOGY Metamyelocyt 3.0 % 0.0 - 1.0 05/28 [facility] es [facility] HEMATOLOGY Hypochrom Slight None Seen 05/28 [facility] (05/28/14 6:45 AM) HEMATOLOGY Plt Morph Normal 05/28 [facility] (05/28/14 6:45 AM) HEMATOLOGY Bands 8.0 % 0.0 - 11.0 05/28 [facility] Brain Brain Stroke Examination: Brain Stroke wo contrast CT 05/28 - [facility] Stroke wo wo contrast - [facility] contrast CT CT Dose: 801 mGy-cm Read by: Akbar Whipple MD Dictated Date/time: 05/28/14 09:20 History: Drowsiness Electronically Signed by: Akbar Whipple MD 05/28/14 09:24 FINAL REPORT DIAGNOSIS: 1. No acute intracranial findings are identified. 2. Postoperative changes in the right frontal bone with right frontal encephalomalacia 3. No change from studies dated September 06, 2013. FINDINGS: CT scanning of the brain without contrast was completed. [facility] [employer] views demonstrate no incidental findings postoperative changes in the right frontal bone.. No evidence of edema, acute infarction, mass or mass-effect is identified. There is no evidence intra or extra-axial hemorrhage. No abnormal fluid collections are evident.. Of note is chronic right frontal encephalomalacia with a linear track of loss of density projecting to the atrium of the right lateral ventricle, perhaps related to a prior ventricular shunt. At this time there is no evidence of hydrocephalus. No acute finding is identified. Hip min 2 Hip min 2 Examination: Hip min 2 views 05/27 - [place] views - [facility] Provided History: Pain in limb Read by: Akbar Whipple MD Dictated Date/time: 05/27/14 11:28 Electronically Signed by: Akbar Whipple MD 05/27/14 11:30 FINAL REPORT DIAGNOSIS: Left hip arthroplasty DISCUSSION: Two views left hip demonstrate a total left hip arthroplasty in good alignment with no undue findings. One of the 2 metallic screws transfixing the acetabular cup extends just into the soft tissues of the medial left pelvis. URINE AND UA Bacteria Occasional None Seen 05/20 [place] STOOL /HPF /HPF /2013 [facility] URINE AND UA RBC 0-2 /HPF 0 - 2 05/20 Sugar [facility] URINE AND UA Sq Epi Few /LPF Few /LPF 05/20 [place] STOOL [facility] URINE AND UA WBC 0-2 /HPF None Seen 05/20 [place] STOOL /HPF /2013 [facility] URINE AND UA Leuk Est Negative Negative 05/20 [place] STOOL [facility] (05/20/14 4:00 PM) URINE AND UA Nitrite Negative Negative 05/20 [place] STOOL [facility] (05/20/14 4:00 PM) URINE AND UA 0.2 EU/dL 0.1 - 1.0 05/20 Sugar [facility] Urobilinogen /2013 [facility] URINE AND UA Color Yellow Yellow 05/20 [place] STOOL [facility] *NA* (05/20/14 4:00 PM) URINE AND UA Blood Negative Negative 05/20 [place] STOOL [facility] (05/20/14 4:00 PM) URINE AND UA Bili Negative Negative 05/20 [place] STOOL [facility] *NA* (05/20/14 4:00 PM) URINE AND UA Ketones Negative Negative 05/20 [place] STOOL mg/dL mg/dL /2013 [facility] URINE AND UA Spec Grav 1.025 <=1.030 05/20 Sugar [facility] URINE AND UA Turbidity Clear Clear 05/20 [place] STOOL /2013 [facility] (05/20/14 4:00 PM) URINE AND UA pH 5.5 5.0 - 8.0 05/20 [place] STOOL [facility] URINE AND UA Glucose Negative Negative 05/20 [place] STOOL mg/dL mg/dL [facility] URINE AND UA Protein Negative Negative 05/20 [place] STOOL mg/dL mg/dL [facility] BLOOD BANK Antibody Negative 05/20 [place] RESULTS Scrn [facility] (05/20/14 4:00 PM) BLOOD BANK ABO/Rh A POS 05/20 [place] RESULTS /2013 [facility] Knee wo Knee wo MRI of the left Knee 01/21 - OPID contrast contrast MRI /2013 - [facility] History: pain. Read by: Stefany Mcmahon Dictated Date/time: 01/21/14 12:24 Electronically Signed by: Stefany Mcmahon MD 01/21/14 12:31 FINAL REPORT Comparison Study: none Technique: The study was performed on a high field magnet without intravenous contrast. Findings: Menisci: There is moderate degeneration the body and posterior horn of the meniscus. There is a questionable undersurface flap tear of the posterior horn although evaluation is limited due to significa nt degeneration. Lateral demonstrates degeneration with truncation of the inner free edge the body segment probably representing degenerative fraying versus small inner edge radial tears. Cruciate Ligaments: Anterior and posterior cruciate ligaments are intact. Collateral Ligaments: Medial collateral ligament is intact. Lateral collateral complex appears intact. The patellar and quadriceps tendons are intact. Osseous Structures: No bone contusions are identified. There is mild grade 2/3 chondromalacia medial femoral condyle near the femoral eminence. Is also minimal chondromalacia lateral femoral condyle and lateral tibia plateau. Soft Tissues: There is a moderate joint effusion . There is a 3 cm multilobulated Rivera's cyst. Patellofemoral Compartment: Grade 3/4 chondral malacia is present the patella apex medial and lateral patella facet. Trochlear articular cartilage is preserved. Medial and lateral patellar retinacula appear intact. Impression: Moderate degeneration of the body and posterior horn of the medial meniscus. Equivocal undersurface flap tear of the posterior horn. Degeneration of the lateral meniscus with probable degenerative frayi ng of the body segment versus small inner edge radial tears. Severe chondromalacia patella femoral compartment and to a moderate extent in the medial femoral condyle. Mild chondromalacia lateral compartment. Rivera's cyst. Dictation Code: 100 Brain wo Brain wo EXAM: CT HEAD WITHOUT CONTRAST 09/06 - [facility] contrast CT contrast CT /2012 - [facility] INDICATION: Seizures Read by: Margaret Gillespie Dictated Date/time: 09/06/13 15:03 Electronically Signed by: Margaret Gillespie MD 09/06/13 15:07 FINAL REPORT COMPARISON: August 08, 2013 TECHNIQUE: Contiguous axial images of the brain are obtained from skull base to vertex without administration of intravenous contrast. DISCUSSION: There is no intracranial hemorrhage, space occupying mass or mass effect. No acute infarction. Encephalomalacia in the bilateral frontal lobes extending to the right caudate head. No hydrocephalus. Visualized paranasal sinuses and tympanomastoid cavities are clear. 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 Remote right frontal craniotomy changes are redemonstrated. IMPRESSION: No acute intracranial abnormality. CHEMISTRY Phosphorus 4.5 mg/dL 2.5 - 4.5 09/06 Normal [facility] CHEMISTRY eGFR 65 09/06 3Result Comment: The eGFR is calculated using the CKD-EPI formula. In most young, healthy individuals the eGFR will be >90 mL/ min/1.73m2. The eGFR declines with age. An eGFR of 60-89 may be normal in [facility] mL/min/1. some populations, particularly the elderly, for whom the CKD-EPI formula has not been extensively validated. Use of the eGFR is not recommended in the following populations: [address] Individuals with unstable creatinine concentrations, including patients and those with serious co-morbid conditions. Patients with extremes in muscle mass or diet. The data above are obtained from the National Kidney Disease Education Program (NKDEP) which additionally recommends that when the eGFR is used in patients with extremes of body mass index for purposes of drug dosing, the eGFR should be multiplied by the estimated BMI. CHEMISTRY Glucose Lvl 93 mg/dL 70 - 99 09/06 Normal 5Interpretive Data: Adult reference range values reflect the clinical guidelines of the [employer]. [facility] CHEMISTRY BUN 17 mg/dL 7 - 22 09/06 Normal [facility] CHEMISTRY Calcium Lvl 9.4 mg/dL 8.5 - 10.5 09/06 [facility] CHEMISTRY Creatinine 0.9 mg/dL 0.5 - 1.4 09/06 Normal [facility] CHEMISTRY Potassium 4.1 meq/L 3.5 - 5.1 09/06 Normal [facility] CHEMISTRY Sodium Lvl 145 meq/L 135 - 145 09/06 [facility] CHEMISTRY Chloride Lvl 101 meq/L 95 - 109 09/06 [facility] CHEMISTRY CO2 33 meq/L 24 - 32 09/06 [facility] CHEMISTRY AGAP 15.1 meq/L 10.0 - 09/06 Normal [facility] CHEMISTRY Magnesium 1.8 mg/dL 1.8 - 2.4 09/06 Normal [facility] HEMATOLOGY Hgb 12.1 g/dL 12.0 - 09/06 Normal [facility]. [facility] [place] HEMATOLOGY MCH 27.2 pg 27.0 - 09/06 Normal [facility] 31. [facility] [place] HEMATOLOGY MCV 86.6 fL 81.0 - 09/06 Normal [facility] 99.0 [facility] HEMATOLOGY Hct 38.5 % 36.0 - 09/06 Normal [facility] 48.0 [facility] HEMATOLOGY WBC X 10x3 6.2 K/CMM 3.7 - 10.4 09/06 Normal [facility] HEMATOLOGY RBC X 10x6 4.44 M/CMM 4.20 - 09/06 Normal [place] [facility] HEMATOLOGY MCHC 31.4 g/dL 32.0 - 09/06 LOW [place] 36.0 [facility] HEMATOLOGY RDW 18.6 % 11.5 - 09/06 HI [place] 14[facility]5 [facility] HEMATOLOGY Platelet 232 K/CMM 133 - 450 09/06 [facility] HEMATOLOGY MPV 7.9 fL 7.4 - 10.4 09/06 [facility] HEMATOLOGY Lymphocytes 30.4 % 20.0 - 09/06 Normal [place] 40.0 [facility] HEMATOLOGY Monocytes 9.7 % 2.0 - 12.0 09/06 [facility] HEMATOLOGY Basophils 0.6 % 0.0 - 1.0 09/06 [facility] HEMATOLOGY Eosinophils 5.3 % 0.0 - 4.0 09/06 [facility] HEMATOLOGY Segs 54.0 % 45.0 - 09/06 Normal [facility] 75.0 [facility] HEMATOLOGY Eosinophils 0.3 K/CMM 0.0 - 0.5 09/06 Normal [facility] # [facility] HEMATOLOGY Segs-Bands # 3.3 K/CMM 1.5 - 8.1 09/06 Normal [facility] HEMATOLOGY Monocytes # 0.6 K/CMM 0.0 - 0.8 09/06 Normal [facility] HEMATOLOGY Lymphocytes 1.9 K/CMM 1.0 - 5.5 09/06 Normal [facility] # [facility] CHEMISTRY Total CK 33 unit/L 12 - 09/05 Normal [facility] BACTERIAL - MRSA by PCR Positive 1, 2 09/05 ABN 2Interpretive Data: Interpretive Data: The [employer] LightCycler MRSA assay is a qualitative test for the direct detection of nasal colonization with methicillin-resistant Staphylococcus aureus (MRSA) to aid [facility] in the prevention and control of MRSA infections in healthcare settings. A positive result does not indicate an infection or require treatment. A negative result does not exclude colonization or infection. [facility] *ABN* Center The polymerase chain reaction (PCR) assay detects a proprietary sequence indicative of the integration of the SCCmec cassette into the Staphylococcus aureus chromosome, indicating the presence of MRSA D (09/05/2013 05:39:00) NA. The assay utilizes FDA cleared IVD reagents. Performance characteristics have been verified by the [facility] Diagnostic Laboratory within the [facility]. The [facility] Labor atory is authorized under the Clinical Laboratory Improvement Amendment of 1988 (CLIA-88) to perform high complexity testing. CHEMISTRY Total CK 30 unit/L 12 - 191 09/05 Normal [facility] CHEMISTRY Lactic Acid 0.6 mMol/L 0.5 - 2.2 09/05 Normal [facility] Lvl [facility] CHEMISTRY A/G Ratio 1.1 0.7 - 1.6 09/05 Normal [facility] CHEMISTRY Globulin 3.3 g/dL 2.0 - 4.0 09/05 Normal [facility] CHEMISTRY AGAP 14.6 meq/L 10.0 - 09/05 Normal [facility] 20.0 [facility] CHEMISTRY B/C Ratio 15 6 - 25 09/05 Normal [facility] CHEMISTRY eGFR 93 09/05 4Result Comment: The eGFR is calculated using the CKD-EPI formula. In most young, healthy individuals the eGFR will be >90 mL/ min/1.73m2. The eGFR declines with age. An eGFR of 60-89 may be normal in [facility] mL/min/1. some populations, particularly the elderly, for whom the CKD-EPI formula has not been extensively validated. Use of the eGFR is not recommended in the following populations: [place] [address] [facility] Individuals with unstable creatinine concentrations, including patients and those with serious co-morbid conditions. Patients with extremes in muscle mass or diet. The data above are obtained from the National Kidney Disease Education Program (NKDEP) which additionally recommends that when the eGFR is used in patients with extremes of body mass index for purposes of drug dosing, the eGFR should be multiplied by the estimated BMI. CHEMISTRY Alk Phos 170 unit/L 39 - 136 09/05 [place] [facility] CHEMISTRY Albumin Lvl 3.5 g/dL 3.5 - 5.0 09/05 Normal [facility] CHEMISTRY Glucose Lvl 91 mg/dL 70 - 99 09/05 Normal 6Interpretive Data: Adult reference range values reflect the clinical guidelines of the [employer]. [facility] CHEMISTRY BUN 9 mg/dL 7 - 22 09/05 Normal [facility] CHEMISTRY Creatinine 0.6 mg/dL 0.5 - 1.4 09/05 Normal [facility] CHEMISTRY Potassium 3.6 meq/L 3.5 - 5.1 09/05 Normal [facility] CHEMISTRY Sodium Lvl 142 meq/L 135 - 145 09/05 Normal [facility] CHEMISTRY Total 6.8 g/dL 6.4 - 8.4 09/05 Normal [facility] Protein [facility] CHEMISTRY CO2 30 meq/L 24 - 32 09/05 Normal [facility] CHEMISTRY Bili Total 0.5 mg/dL 0.2 - 1.3 09/05 Normal [facility] CHEMISTRY Chloride Lvl 101 meq/L 95 - 109 09/05 Normal [facility] CHEMISTRY Calcium Lvl 8.7 mg/dL 8.5 - 10.5 09/05 Normal [facility] CHEMISTRY ASPARTATE 11 unit/L 0 - 37 09/05 Normal [facility] [place] TRANSAMINASE [facility] CHEMISTRY ALANINE 13 unit/L 0 - 65 09/05 Normal [facility] AMINOTRANSFE /2012 [facility] CHEMISTRY Total CK 43 unit/L 12 - 191 09/05 Normal [facility] HEMATOLOGY MPV 7.7 fL 7.4 - 10.4 09/05 Normal [facility] HEMATOLOGY Platelet 198 K/CMM 133 - 450 09/05 Normal [facility] HEMATOLOGY MCV 85.8 fL 81.0 - 09/05 Normal [place] 99.0 /2012 [facility] HEMATOLOGY RDW 17.8 % 11.5 - 10 HI [place] 14.5 /2012 [facility] HEMATOLOGY MCH 27.7 pg 27.0 - 09/05 Normal [place] 31.0 [facility] HEMATOLOGY Hct 36.5 % 36.0 - 09/05 Normal [place] 48.0 [facility] HEMATOLOGY MCHC 32.3 g/dL 32.0 - 09/05 Normal [facility] 36.0 [facility] HEMATOLOGY WBC X 10x3 6.1 K/CMM 3.7 - 10.4 09/05 Normal /2012 [facility] HEMATOLOGY RBC X 10x6 4.26 M/CMM 4.20 - 09/05 Normal [place] 5.40 /2012 [facility] HEMATOLOGY Hgb 11.8 g/dL 12.0 - 09/05 LOW [place] 16.0 [facility] HEMATOLOGY Segs 60.1 % 45.0 - 09/05 Normal [place] 75.0 /2012 [facility] HEMATOLOGY Lymphocytes 25.3 % 20.0 - 09/05 Normal [place] 40.0 /2012 [facility] HEMATOLOGY Eosinophils 4.7 % 0.0 - 4.0 09/05 [place] /2012 [facility] HEMATOLOGY Segs-Bands # 3.6 K/CMM 1.5 - 8.1 09/05 Normal [facility] HEMATOLOGY Lymphocytes 1.5 K/CMM 1.0 - 5.5 09/05 Normal [place] [facility] HEMATOLOGY Basophils 0.9 % 0.0 - 1.0 09/05 Normal /2012 [facility] HEMATOLOGY Monocytes # 0.5 K/CMM 0.0 - 0.8 09/05 Normal /2012 [facility] HEMATOLOGY Eosinophils 0.3 K/CMM 0.0 - 0.5 09/05 Normal [facility] [place] # /2012 [facility] HEMATOLOGY Basophils # 0.1 K/CMM 0.0 - 0.2 09/05 Normal [facility] HEMATOLOGY Monocytes 9.0 % 2.0 - 12.0 09/05 Normal [facility] URINALYSIS UA Amorph Few /HPF None Seen 09/05 [facility] Olivia [facility] URINALYSIS UA <=1.0 0.1 - 1.0 09/05 [facility] Urobilinogen mg/dL [facility] URINALYSIS UA Blood Small Negative 09/05 ABN [facility] *ABN* [place] (09/04/2013 22:40:54) URINALYSIS UA Bili Negative Negative 09/05 [facility] *NA* [place] (09/04/2013 22:40:54) URINALYSIS UA Ketones 10 mg/dL Negative 09/05 ABN [facility] URINALYSIS UA Sq Epi Occasional Few 09/05 [facility] /F [facility] URINALYSIS UA Bacteria Occasional None Seen 09/05 [facility] /[facility] URINALYSIS UA WBC 2 /HPF 0 - 5 09/05 Normal [facility] URINALYSIS UA Leuk Est Negative Negative 09/05 Normal [facility] (09/04/2013 22:40:54) Center URINALYSIS UA Nitrite Negative Negative 09/05 Normal [facility] (09/04/2013 22:40:54) Center URINALYSIS UA Mucus Few /LPF None Seen 09/05 [facility] URINALYSIS UA RBC 1 /HPF 0 - 2 09/05 Normal [facility] URINALYSIS UA Turbidity Slight Clear 09/05 ABN [facility] *ABN* Center (09/04/2013 22:40:54) URINALYSIS UA Color Light Yellow Yellow 09/05 [facility] *NA* Center (09/04/2013 22:40:54) URINALYSIS UA Spec Grav 1.009 <=1.030 09/05 Normal [facility] URINALYSIS UA Glucose Negative Negative 09/05 [facility] mg/dL [facility] URINALYSIS UA pH 7.5 5.0 - 8.0 09/05 Normal [facility] URINALYSIS UA Protein Negative Negative 09/05 Normal [facility] [place] mg/dL /2012 [facility] CHEMISTRY AGAP 10.7 meq/L 10.0 - 08/11 Normal [place] 20.0 /2012 [facility] CHEMISTRY eGFR 93 08/11 NA 5Result Comment: The eGFR is calculated using the CKD-EPI formula. In most young, healthy individuals the eGFR will be > 90 mL/min/1.73m2. The eGFR declines with age. An eGFR of 60-89 may be normal in [place] mL/min/1.7 /2012 some populations, particularly the elderly, for whom the CKD-EPI formula has not been extensively validated. Use of the eGFR is not recommended in the following populations: [facility] 3m2 Individuals with unstable creatinine concentrations, including patients and those with serious co-morbid conditions. Patients with extremes in muscle mass or diet. The data above are obtained from the National Kidney Disease Education Program (NKDEP) which additionally recommends that when the eGFR is used in patients with extremes of body mass index for purposes of drug dosing, the eGFR should be multiplied by the estimated BMI. CHEMISTRY Calcium Lvl 8.6 mg/dL 8.5 - 10.5 08/11 Normal [facility] CHEMISTRY Potassium 4.7 meq/L 3.5 - 5.1 08/11 Normal [place] [facility] CHEMISTRY Chloride Lvl 104 meq/L 95 - 109 08/11 Normal [place] CHEMISTRY CO2 32 meq/L 24 - 32 08/11 Normal [place] CHEMISTRY Sodium Lvl 142 meq/L 135 - 145 08/11 Normal [facility] CHEMISTRY Creatinine 0.6 mg/dL 0.5 - 1.4 08/11 Normal [place] [facility] CHEMISTRY BUN 12 mg/dL 7 - 22 08/11 Normal [facility] CHEMISTRY Glucose Lvl 93 mg/dL 70 - 99 08/11 Normal 8Interpretive Data: Adult reference range values reflect the clinical guidelines of the [place] [employer]. [place] CHEMISTRY Phosphorus 4.2 mg/dL 2.5 - 4.5 08/11 Normal [place] CHEMISTRY Magnesium 1.7 mg/dL 1.8 - 2.4 08/11 LOW [place] HEMATOLOGY MPV 7.1 fL 7.4 - 10.4 08/11 [place] HEMATOLOGY Platelet 183 K/CMM 133 - 450 08/11 Normal [place] HEMATOLOGY RDW 16.2 % 11.5 - 08/11 [facility] [place] 14.5 /2012 [place] HEMATOLOGY MCV 85.2 fL 81.0 - 08/11 Normal [facility] [place] 99.0 /2012 [place] HEMATOLOGY MCH 27.0 pg 27.0 - 08/11 Normal [facility] [place] 31.0 /2012 [place] HEMATOLOGY Hct 29.6 % 36.0 - 08/11 LOW [facility] [place] 48.0 /2012 [place] HEMATOLOGY MCHC 31.7 g/dL 32.0 - 08/11 LOW [facility] [place] 36.0 /2012 [place] HEMATOLOGY Hgb 9.4 g/dL 12.0 - 08/11 LOW [facility] [place] 16.0 /2012 [place] HEMATOLOGY WBC 4.5 K/CMM 3.7 - 10.4 08/11 Normal [facility] [place] /2012 [place] HEMATOLOGY RBC 3.47 M/CMM 4.20 - 08/11 LOW [facility] [place] 5.40 /2012 [place] HEMATOLOGY Eosinophils 0.1 K/CMM 0.0 - 0.5 08/11 Normal [facility] [place] # /2012 [place] HEMATOLOGY Monocytes # 0.4 K/CMM 0.0 - 0.8 08/11 Normal [facility] [place] /2012 [place] HEMATOLOGY Lymphocytes 1.0 K/CMM 1.0 - 5.5 08/11 Normal [facility] [place] # /2012 [place] HEMATOLOGY Basophils # 0.0 K/CMM 0.0 - 0.2 08/11 Normal [facility] [place] /2012 [place] HEMATOLOGY Monocytes 8.6 % 2.0 - 12.0 08/11 Normal [facility] [place] /2012 [place] HEMATOLOGY Lymphocytes 22.2 % 20.0 - 08/11 Normal [facility] [place] 40.0 /2012 [place] HEMATOLOGY Segs 65.4 % 45.0 - 08/11 Normal [facility] [place] 75.0 /2012 [place] HEMATOLOGY Segs-Bands # 2.9 K/CMM 1.5 - 8.1 08/11 Normal [facility] [place] /2012 [place] HEMATOLOGY Basophils 0.5 % 0.0 - 1.0 08/11 Normal [facility] [place] HEMATOLOGY Eosinophils 3.3 % 0.0 - 4.0 08/11 Normal [facility] [place] /2012 [place] CHEMISTRY eGFR 99 08/09 NA 6Result Comment: The eGFR is calculated using the CKD-EPI formula. In most young, healthy individuals the eGFR will be > 90 mL/min/1.73m2. The eGFR declines with age. An eGFR of 60-89 may be normal in [place] mL/min/1.7 /2012 some populations, particularly the elderly, for whom the CKD-EPI formula has not been extensively validated. Use of the eGFR is not recommended in the following populations: [place] 3m2 Individuals with unstable creatinine concentrations, including patients and those with serious co-morbid conditions. Patients with extremes in muscle mass or diet. The data above are obtained from the National Kidney Disease Education Program (NKDEP) which additionally recommends that when the eGFR is used in patients with extremes of body mass index for purposes of drug dosing, the eGFR should be multiplied by the estimated BMI. CHEMISTRY Albumin Lvl 2.4 g/dL 3.5 - 5.0 08/09 LOW [facility] [place] CHEMISTRY A/G Ratio 0.6 0.7 - 1.6 08/09 LOW [facility] [place] CHEMISTRY Globulin 3.9 g/dL 2.0 - 4.0 08/09 Normal [facility] [place] CHEMISTRY ALT 15 unit/L 0 - 65 08/09 Normal [place] CHEMISTRY Alk Phos 179 unit/L 39 - 136 08/09 HI [facility] [place] CHEMISTRY Bili Total 0.6 mg/dL 0.2 - 1.3 08/09 Normal [facility] [place] CHEMISTRY AST 20 unit/L 0 - 37 08/09 Normal [facility] [place] CHEMISTRY AGAP 10.7 meq/L 10.0 - 08/09 Normal [facility] [place] 20.0 [place] CHEMISTRY Calcium Lvl 8.5 mg/dL 8.5 - 10.5 08/09 Normal [facility] [place] CHEMISTRY B/C Ratio 12 6 - 25 08/09 Normal [place] CHEMISTRY Total 6.3 g/dL 6.4 - 8.4 08/09 LOW [place] CHEMISTRY Potassium 4.7 meq/L 3.5 - 5.1 08/09 Normal [facility] [place] CHEMISTRY CO2 28 meq/L 24 - 32 08/09 Normal [facility] [place] CHEMISTRY Chloride Lvl 99 meq/L 95 - 109 08/09 Normal [facility] [place] CHEMISTRY Sodium Lvl 133 meq/L 135 - 145 08/09 LOW [facility] [place] CHEMISTRY Creatinine 0.5 mg/dL 0.5 - 1.4 08/09 Normal [facility] [place] CHEMISTRY BUN 6 mg/dL 7 - 22 08/09 LOW [facility] [place] CHEMISTRY Glucose Lvl 99 mg/dL 70 - 99 08/09 Normal 9Interpretive Data: Adult reference range values reflect the clinical guidelines of the [place] [employer]. [place] CHEMISTRY Magnesium 1.7 mg/dL 1.8 - 2.4 08/09 LOW [place] Lvl /2012 [facility] CHEMISTRY Phosphorus 1.5 mg/dL 2.5 - 4.5 08/09 CRIT 11Result Comment: [facility] Critical Result(s) called Bhavin Bingham _ at 08/09/2013 05:55 byrvs. Read back OK. HEMATOLOGY Segs-Bands # 9.0 K/CMM 1.5 - 8.1 08/09 HI [place] /2012 [facility] HEMATOLOGY Basophils # 0.0 K/CMM 0.0 - 0.2 08/09 Normal [place] /2012 [facility] HEMATOLOGY Eosinophils 0.1 K/CMM 0.0 - 0.5 08/09 Normal [place] # [facility] HEMATOLOGY Monocytes # 0.8 K/CMM 0.0 - 0.8 08/09 Normal [facility] HEMATOLOGY Lymphocytes 9.0 % 20.0 - 08/09 LOW [place] 40.0 [facility] HEMATOLOGY Lymphocytes 1.0 K/CMM 1.0 - 5.5 08/09 Normal [place] # [facility] HEMATOLOGY Segs 82.9 % 45.0 - 08/09 [place] 75.0 /2012 [facility] HEMATOLOGY Basophils 0.0 % 0.0 - 1.0 08/09 Normal [facility] HEMATOLOGY Eosinophils 0.7 % 0.0 - 4.0 08/09 Normal [facility] HEMATOLOGY Monocytes 7.4 % 2.0 - 12.0 08/09 Normal [facility] HEMATOLOGY INR 1.10 0.85 - 08/09 Normal 13Interpretive Data: RECOMMENDED RANGES FOR PROTIME INR: [place] 1. 2.0-3.0 for most medical and surgical thromboembolic states. [place] 2.5-3.5 for artificial heart valves and recurrent embolism. INR SHOULD BE USED ONLY FOR PATIENTS ON STABLE ANTICOAGULANT THERAPY. HEMATOLOGY PTT 28.0 s 22.9 - 08/09 Normal 16Interpretiv [place] 35.8 /2013 e Data: [facility] Heparin Therapeutic Range: 57 - 92 Seconds HEMATOLOGY PT 14.1 s 12.0 - 08/09 Normal [place] 14.7 [place] HEMATOLOGY Hgb 10.4 g/dL 12.0 - 08/09 LOW MH [place] 16.0 /2012 [facility] HEMATOLOGY Hct 32.5 % 36.0 - 08/09 LOW MH [place] 48.0 /2012 [facility] HEMATOLOGY MPV 7.2 fL 7.4 - 10.4 08/09 LOW MH [place] /2012 [facility] HEMATOLOGY MCH 26.8 pg 27.0 - 08/09 LOW [facility] [place] 31.0 /2012 [facility] HEMATOLOGY MCHC 32.1 g/dL 32.0 - 08/09 Normal [facility] [place] 36.0 /2012 [facility] HEMATOLOGY WBC 10.9 K/CMM 3.7 - 10.4 08/09 HI MH [place] /2012 [facility] HEMATOLOGY RBC 3.90 M/CMM 4.20 - 08/09 LOW MH [place] 5.40 /2012 [facility] HEMATOLOGY RDW 16.3 % 11.5 - 08/09 HI [place] 14.5 /2012 [facility] HEMATOLOGY Platelet 158 K/CMM 133 - 450 08/09 Normal [facility] [place] /2012 [facility] HEMATOLOGY MCV 83.5 fL 81.0 - 08/09 Normal [facility] [place] 99.0 /2012 [facility] Chest 1view Chest 1view PORTABLE CHEST AP SEMIERECT 08/09/2013, 5:44 a.m. 08/09 - - [facility] HISTORY: Abnormal chest sounds. Compared to exam dated 08/08/2013. Read by: Raymond Lundberg Dictated Date/time: 08/09/13 06:58 Electronically Signed by: Raymond Lundberg MD 08/09/13 07:01 FINAL REPORT Cardiomegaly, unchanged. Coarse markings at the left lung base have a chronic appearance. No evidence of lobar consolidation or pleural effusions. Left Port-A-Cath again noted. The bony structures are d emineralized with orthopedic hardware related to cervical spinal fusion. Comparison to prior exam demonstrates no new finding or change. CONCLUSION: No new finding or change in the appearance of the chest compared to prior exam dated 08/08/2013. Brain Brain Stroke EXAMINATION: CT of the head without contrast 08/08 - [facility] Stroke wo wo contrast - [facility] contrast CT CT COMPARISON: December 29, 2010 Read by: Ayaan Stewart Dictated Date/time: 08/08/13 19:39 Electronically Signed by: Ayaan Stewart MD 08/08/13 19:41 FINAL REPORT TECHNIQUE: Multiple computerized axial tomographic images were obtained of the head without IV contrast utilizing standard protocol and archived to PACS. DNX=[id number] COMMENTS: Anterior right frontal gliosis again noted. The septum pellucidum is in the midline. The ventricles are normal in size and configuration. There is no evidence of acute intracranial hemorrhage, acute cortical infarct, mass effect or subdural collection. The visualized sinuses, osseous structures, and globes are unremarkable. IMPRESSION: NO EVIDENCE OF HEMORRHAGE, MASS LESION OR ACUTE INFARCTION. CHEMISTRY U Phencyc Negative Negative 08/08 NA [place] *NA* (08/08/2013 09:20:33) CHEMISTRY U Opiate Scr Positive Negative 08/08 ABN [place] *ABN* (08/08/2013 09:20:33) CHEMISTRY UDS Note See Note 12 08/08 Normal 12Interpretive Data: Drugs reported as positive have not been confirmed by a second method and should be used for medical purposes only. To order [facility] (08/08/2013 09:20:33) confirmation, contact laboratory. note: Below are cut-off concentrations for all urine drugs of abuse performed in the laboratory. Some drugs listed in the table may not be included in this panel. Description Cut-off concentration Amphetamine 1000 ng/mL Barbiturates 200 ng/mL Benzodiazepines 300 ng/mL Cocaine metabolites 300 ng/mL Opiates 300 ng/mL Phencyclidine 25 ng/mL Propoxyphene 300 ng/mL Marijuana metabolites 50 ng/mL Methadone 300 ng/mL Urine alcohol 20 mg/dL CHEMISTRY U Cannab Scr Negative Negative 08/08 NA [place] *NA* (08/08/2013 09:20:33) CHEMISTRY U Cocaine Negative Negative 08/08 [facility] [place] *NA* (08/08/2013 09:20:33) CHEMISTRY U Carolee Scr Negative Negative 08/08 [facility] [place] *NA* (08/08/2013 09:20:33) CHEMISTRY U Benzodia Negative Negative 08/08 NA [place] *NA* (08/08/2013 09:20:33) CHEMISTRY U Propoxyph Negative Negative 08/08 NA MH [place] /2012 [place] *NA* (08/08/2013 09:20:33) CHEMISTRY U Amph Scr Negative Negative 08/08 NA MH [place] /2012 [place] *NA* (08/08/2013 09:20:33) CHEMISTRY U Methadone Negative Negative 08/08 NA MH [place] *NA* (08/08/2013 09:20:33) BLOOD BANK Antibody Negative 08/08 Normal MH [place] RESULTS Scrn [facility] (08/08/2013 06:15:00) BLOOD BANK ABO/Rh A POS 08/08 Unknown [place] RESULTS [facility] BLOOD BANK RBC product Product available 4 08/08 Normal 4Result Comment : 08/08/2013 07:55 NIPATEL3 [place] Called Daniela at 08/08/2013 07:55 for pepper picker 2 units of RBC's are ready. ROCK [employer]ER. [facility] (08/08/2013 06:15:00) CHEMISTRY B/C Ratio 22 6 - 25 08/08 Normal [facility] CHEMISTRY A/G Ratio 0.8 0.7 - 1.6 08/08 Normal [facility] [place] [facility] CHEMISTRY Globulin 3.1 g/dL 2.0 - 4.0 08/08 Normal [facility] [place] [facility] CHEMISTRY AGAP 10.5 meq/L 10.0 - 08/08 Normal [place] 20.0 [facility] CHEMISTRY eGFR 75 08/08 NA 7Result Comment: The eGFR is calculated using the CKD-EPI formula. In most young, healthy individuals the eGFR will be > 90 mL/min/1.73m2. The eGFR declines with age. An eGFR of 60-89 may be normal in [place] mL/min/1.7 /2012 some populations, particularly the elderly, for whom the CKD-EPI formula has not been extensively validated. Use of the eGFR is not recommended in the following populations: [place] 3m2 Individuals with unstable creatinine concentrations, including patients and those with serious co-morbid conditions. Patients with extremes in muscle mass or diet. The data above are obtained from the National Kidney Disease Education Program (NKDEP) which additionally recommends that when the eGFR is used in patients with extremes of body mass index for purposes of drug dosing, the eGFR should be multiplied by the estimated BMI. CHEMISTRY Sodium Lvl 137 meq/L 135 - 145 08/08 Normal [place] CHEMISTRY Creatinine 0.8 mg/dL 0.5 - 1.4 08/08 Normal [place] L[place] CHEMISTRY Potassium 4.5 meq/L 3.5 - 5.1 08/08 Normal MH [place] L[place] CHEMISTRY Chloride Lvl 104 meq/L 95 - 109 08/08 Normal [place] CHEMISTRY CO2 27 meq/L 24 - 32 08/08 Normal [place] CHEMISTRY Calcium Lvl 7.5 mg/dL 8.5 - 10.5 08/08 LOW MH [place] CHEMISTRY ALT 12 unit/L 0 - 65 08/08 Normal [place] CHEMISTRY Albumin Lvl 2.4 g/dL 3.5 - 5.0 08/08 LOW [place] CHEMISTRY Total 5.5 g/dL 6.4 - 8.4 08/08 LOW [place] CHEMISTRY Alk Phos 127 unit/L 39 - 136 08/08 Normal [place] CHEMISTRY AST 22 unit/L 0 - 37 08/08 Normal [place] CHEMISTRY Bili Total 0.3 mg/dL 0.2 - 1.3 08/08 Normal [place] CHEMISTRY Glucose Lvl 120 mg/dL 70 - 99 08/08 [place] 10Interpretive Data: Adult reference range values reflect the clinical guidelines of the [place] [employer]. [place] CHEMISTRY BUN 18 mg/dL 7 - 22 08/08 Normal [place] CHEMISTRY Phosphorus 2.9 mg/dL 2.5 - 4.5 08/08 Normal [place] CHEMISTRY Magnesium 1.4 mg/dL 1.8 - 2.4 08/08 LOW [place] HEMATOLOGY Segs 83.2 % 45.0 - 08/08 HI [place] 75.0 /2012 [place] HEMATOLOGY Eosinophils 0.3 % 0.0 - 4.0 08/08 Normal [place] HEMATOLOGY Lymphocytes 8.3 % 20.0 - 08/08 LOW [place] 40.0 /2012 [place] HEMATOLOGY Basophils 0.2 % 0.0 - 1.0 08/08 Normal [place] HEMATOLOGY Monocytes 8.0 % 2.0 - 12.0 08/08 Normal [place] HEMATOLOGY Segs-Bands # 8.4 K/CMM 1.5 - 8.1 08/08 [place] HEMATOLOGY Lymphocytes 0.8 K/CMM 1.0 - 5.5 08/08 LOW [place] # /2013 [facility] HEMATOLOGY Eosinophils 0.0 K/CMM 0.0 - 0.5 08/08 Normal [place] # /2012 [facility] HEMATOLOGY Basophils # 0.0 K/CMM 0.0 - 0.2 08/08 Normal [place] /2012 [facility] HEMATOLOGY Monocytes # 0.8 K/CMM 0.0 - 0.8 08/08 Normal [place] /2012 [facility] HEMATOLOGY PTT 24.7 s 22.9 - 08/08 Normal 17Interpretiv [place] 35.8 /2012 e Data: [facility] Heparin Therapeutic Range: 57 - 92 Seconds HEMATOLOGY INR 1.22 0.85 - 08/08 [place] 14Interpretive Data: RECOMMENDED RANGES FOR PROTIME INR: [place] 1. 2.0-3.0 for most medical and surgical thromboembolic states. [place] 2.5-3.5 for artificial heart valves and recurrent embolism. INR SHOULD BE USED ONLY FOR PATIENTS ON STABLE ANTICOAGULANT THERAPY. HEMATOLOGY PT 15.3 s 12.0 - 08/08 [facility] [place] 14.7 [facility] HEMATOLOGY RDW 16.2 % 11.5 - 08/08 [facility] [place] 14.5 [facility] HEMATOLOGY Platelet 139 K/CMM 133 - 450 08/08 Normal /2012 [facility] HEMATOLOGY MPV 7.3 fL 7.4 - 10.4 08/08 LOW [place] /2012 [facility] HEMATOLOGY RBC 3.08 M/CMM 4.20 - 08/08 [facility] [place] 5.40 /2012 [facility] HEMATOLOGY Hgb 8.0 g/dL 12.0 - 08/08 [facility] [place] 16.0 /2012 [facility] HEMATOLOGY MCH 26.0 pg 27.0 - 08/08 [facility] [place] 31.0 /2012 [facility] HEMATOLOGY Hct 25.7 % 36.0 - 08/08 [facility] [place] 48.0 /2012 [facility] HEMATOLOGY MCV 83.3 fL 81.0 - 08/08 [facility] [place] 99.0 /2012 [facility] HEMATOLOGY MCHC 31.2 g/dL 32.0 - 08/08 [facility] [place] 36.0 /2012 [facility] HEMATOLOGY WBC 10.1 K/CMM 3.7 - 10.4 08/08 Normal [place] /2012 [facility] Chest 1view Chest 1view PORTABLE CHEST AP SEMIERECT 08/08/2013, 5:41 a.m. 08/08 - [place] /2012 - [place] HISTORY: Abnormal chest sounds. Compared to exam dated 12/18/2012. Read by: Raymond Lundberg Dictated Date/time: 08/08/13 07:09 Electronically Signed by: Raymond Lundberg MD 08/08/13 07:11 FINAL REPORT Borderline heart size. Bibasilar atelectasis or scarring again noted. The right IJ line has been removed. Left Port-A-Cath has been inserted since prior exam. Changes related to cervical spinal fusion. No other new finding or change seen. CONCLUSION: Left Port-A-Cath has been inserted since prior exam. No other significant new finding or change. Microbiolog Culture: 08/07 [place] y Blood /2012 [facility] BACTERIAL - MRSA by PCR Positive 1, 2 08/07 ABN 2Interpretive Data: Interpretive Data: The [employer] Light[employer] MRSA assay is a qualitative test for the direct detection of nasal colonization with methicillin-resistant Staphylococcus aureus (MRSA) to aid in the prevention and control of MRSA infections in healthcare settings. A positive result does not indicate an infection or require treatment. A negative result does not exclude colonization or infection. [place] *ABN* The polymerase chain reaction (PCR) assay detects a proprietary sequence indicative of the integration of the SCCmec cassette into the Staphylococcus aureus chromosome, indicating the presence of MRSA D (08/07/2013 01:20:00) NA. The assay utilizes FDA cleared IVD reagents. Performance characteristics have been verified by the [facility] within the [facility]. The [facility] atory is authorized under the Clinical Laboratory Improvement Amendment of 1988 (CLIA-88) to perform high complexity testing. Microbiolog Culture: 08/07 [place] Urine /2012 [facility] URINALYSIS UA pH 6.0 5.0 - 8.0 08/07 Normal [facility] URINALYSIS UA Protein Negative mg/dL Negative 08/07 Normal [facility] (08/07/2013 00:17:00) URINALYSIS UA Spec Grav 1.020 <=1.030 08/07 Normal [facility] URINALYSIS UA Glucose Negative mg/dL Negative 08/07 Normal [place] (08/07/2013 00:17:00) URINALYSIS UA Ketones Negative mg/dL Negative 08/07 [place] *NA* (08/07/2013 00:17:00) URINALYSIS UA Blood Negative Negative 08/07 Normal [place] (08/07/2013 00:17:00) URINALYSIS UA Bili Negative Negative 08/07 NA [place] *NA* (08/07/2013 00:17:00) URINALYSIS UA Color Yellow Yellow 08/07 NA [place] *NA* (08/07/2013 00:17:00) URINALYSIS UA Turbidity Clear Clear 08/07 Normal [place] (08/07/2013 00:17:00) URINALYSIS UA 0.2 EU/dL 0.1 - 1.0 08/07 Normal [place] [facility] [place] URINALYSIS UA Leuk Est Negative Negative 08/07 Normal [place] (08/07/2013 00:17:00) URINALYSIS UA Nitrite Negative Negative 08/07 Normal [place] [facility] (08/07/2013 00:17:00) URINALYSIS UA Sq Epi Rare /LPF Few 08/07 Normal [place] [facility] (08/07/2013 00:17:00) URINALYSIS UA RBC 0-2 /HPF 0 - 2 08/07 Normal [place] [facility] (08/07/2013 00:17:00) URINALYSIS UA Bacteria Occasional /HPF None Seen 08/07 Normal [place] [facility] (08/07/2013 00:17:00) URINALYSIS UA Mucus Moderate /LPF None Seen 08/07 [facility] [place] *ABN* (08/07/2013 00:17:00) URINALYSIS UA WBC 6-10 /HPF None Seen 08/07 [facility] [place] *ABN* (08/07/2013 00:17:00) CHEMISTRY Total CK 117 unit/L 12 - 191 08/07 Normal [place] [facility] CHEMISTRY CK MB Index 0.5 0.0 - 2.5 08/07 Normal [place] [facility] CHEMISTRY CK MB 0.6 ng/mL 0.5 - 3.6 08/07 Normal [place] [facility] BEDSIDE Gluc POC Notify 08/07 NA [place] GLUCOSE Comment 1 RN/ /2012 [place] TESTING BEDSIDE Glucose POC 191 mg/dL 70 - 99 08/07 HI 3Interpretive [place] GLUCOSE Data: [place] TESTING Upper Reportable Limit: 200 mg/dL. Hip min 2 Hip min 2 Right hip 2 views, 08/06/2013. 08/06 - [place] views views /2012 - [place] HISTORY: Postop right hip arthroplasty. Read by: Raymond Lundberg Dictated Date/time: 08/06/13 11:13 Electronically Signed by: Raymond Lundberg MD 08/06/13 11:14 FINAL REPORT AP and lateral views of the right hip demonstrate a total right hip arthroplasty in anatomic alignment and position. The acetabular cup appears mildly rotated. BLOOD BANK Antibody Negative 07/29 Normal [place] RESULTS Scrn [place] (07/29/2013 13:50:00) BLOOD BANK ABO/Rh A POS 07/29 Unknown [place] RESULTS /2012 [place] HEMATOLOGY PTT 29.4 s 22.9 - 07/29 Normal 18Interpretiv [place] 35.8 /2012 e Data: [facility] Heparin Therapeutic Range: 57 - 92 Seconds HEMATOLOGY INR 0.94 0.85 - 07/29 Normal 15Interpretive Data: RECOMMENDED RANGES FOR PROTIME INR: [place] 1. 2.0-3.0 for most medical and surgical thromboembolic states. [place] 2.5-3.5 for artificial heart valves and recurrent embolism. INR SHOULD BE USED ONLY FOR PATIENTS ON STABLE ANTICOAGULANT THERAPY. HEMATOLOGY PT 12.5 s 12.0 - 07/29 Normal [place] 14.7 [place] URINALYSIS UA Leuk Est Negative Negative 07/29 Normal [place] /2012 [place] (07/29/2013 13:50:00) URINALYSIS UA 0.2 EU/dL 0.1 - 1.0 07/29 Normal [facility] Urobilinogen [facility] URINALYSIS UA Nitrite Negative Negative 07/29 Normal [place] (07/29/2013 13:50:00) URINALYSIS UA Bili Negative Negative 07/29 NA [place] *NA* (07/29/2013 13:50:00) URINALYSIS UA Blood Negative Negative 07/29 Normal [place] (07/29/2013 13:50:00) URINALYSIS UA Glucose Negative mg/dL Negative 07/29 Normal [place] /2012 [place] (07/29/2013 13:50:00) URINALYSIS UA Ketones Negative mg/dL Negative 07/29 NA [place] *NA* (07/29/2013 13:50:00) URINALYSIS UA Protein Negative mg/dL Negative 07/29 Normal [facility] (07/29/2013 13:50:00) URINALYSIS UA Spec Grav 1.015 <=1.030 07/29 Normal [facility] URINALYSIS UA pH 7.0 5.0 - 8.0 07/29 Normal [facility] URINALYSIS UA Turbidity Clear Clear 07/29 Normal [facility] (07/29/2013 13:50:00) URINALYSIS UA Color Yellow Yellow 07/29 NA [facility] *NA* (07/29/2013 13:50:00) URINALYSIS UA RBC 0-2 /HPF 0 - 2 07/29 Normal [facility] (07/29/2013 13:50:00) URINALYSIS UA Bacteria Occasional /HPF None Seen 07/29 Normal [facility] (07/29/2013 13:50:00) URINALYSIS UA WBC 0-2 /HPF None Seen 07/29 Normal [facility] (07/29/2013 13:50:00) URINALYSIS UA Sq Epi Rare /LPF Few 07/29 Normal [facility] (07/29/2013 13:50:00) CHEMISTRY pO2 Art 71 mm[Hg] 80 - 100 05/23 LOW [facility] CHEMISTRY pH Art 7.38 7.35 - 05/23 Normal [facility] CHEMISTRY pCO2 Art 55 mm[Hg] 35 - 45 05/23 [facility] [place] CHEMISTRY HCO3 Art 32 mMol/L 22 - 26 05/23 [facility] CHEMISTRY BE Art 6 mMol/L -2-2 - 2 05/23 [facility] CHEMISTRY Carboxyhgb 1.5 % 05/23 NA 1Interpretive Data: Non-smokers: 0 - 2.0% Saturation [facility] Smokers: 0 - 9.0% [facility] CHEMISTRY Methgb Art 0.6 % 0.0 - 1.4 05/23 Normal [facility] CHEMISTRY O2Hb Art 93.3 % 95.0 - 05/23 LOW [facility] 100.0 [facility] CHEMISTRY Hgb Tot Art 13.0 g/dL 12.0 - 05/23 Normal [facility] 16.0 [facility] CHEMISTRY Temp Art 37.0 Alize 05/23 NA [facility] Vital Signs Vital Sign Value Date Comments Source Heart Rate 78 06/11/2014 [facility] [place] Diastolic (mm Hg) 64 06/11/2014 [facility] [place] Systolic (mm Hg) 106 06/11/2014 [facility] [place] Respitory Rate 20 06/11/2014 [place] Temperature Oral (F) 98.1 F 06/11/2014 [facility] [place] Diastolic (mm Hg) 56 06/11/2014 [facility] [place] Heart Rate 59 06/11/2014 [facility] [place] Systolic (mm Hg) 105 06/11/2014 [facility] [place] Respitory Rate 20 06/11/2014 [place] Temperature Oral (F) 97.7 F 06/11/2014 [facility] [place] Diastolic (mm Hg) 81 06/11/2014 [facility] [place] Systolic (mm Hg) 162 06/11/2014 [place] Respitory Rate 20 06/11/2014 [place] Temperature Oral (F) 98.1 F 06/11/2014 [place] Heart Rate 62 06/11/2014 [place] Weight 75 05/27/2014 [place] BMI Calculated 32.29 05/27/2014 [facility] [place] Height 152.4 cm 05/27/2014 [place] Weight 75 05/20/2014 [facility] [place] BMI Calculated 31.24 05/20/2014 [facility] [place] Height 154.94 cm 05/20/2014 [place] Height 154.94 cm 05/20/2014 [place] Weight 73.182 05/20/2014 [place] BMI Calculated 30.48 05/20/2014 [facility] [place] Systolic (mm Hg) 161 02/24/2014 [place] Respitory Rate 16 02/24/2014 [facility] [place] Diastolic (mm Hg) 56 02/24/2014 [facility] [place] Systolic (mm Hg) 159 02/24/2014 [place] Respitory Rate 16 02/24/2014 [facility] [place] Diastolic (mm Hg) 62 02/24/2014 [facility] [place] Respitory Rate 14 02/24/2014 [facility] [place] Systolic (mm Hg) 149 02/24/2014 [facility] [place] Diastolic (mm Hg) 64 02/24/2014 [facility] [place] Height 154.94 cm 02/17/2014 [place] BMI Calculated 30.48 02/17/2014 [place] Weight 73.182 02/17/2014 [facility] [place] Systolic (mm Hg) 124 09/07/2013 [facility] Diastolic (mm Hg) 46 09/07/2013 [facility] Respitory Rate 14 09/07/2013 [facility] Respitory Rate 0 09/06/2013 [facility] Temperature Oral (F) 98.0 F 09/06/2013 [facility] Systolic (mm Hg) 128 09/06/2013 [facility] Respitory Rate 22 09/06/2013 [facility] Diastolic (mm Hg) 57 09/06/2013 [facility] Diastolic (mm Hg) 50 09/06/2013 [facility] Systolic (mm Hg) 109 09/06/2013 [facility] Temperature Oral (F) 97.5 F 09/06/2013 [facility] Temperature Oral (F) 97.6 F 09/06/2013 [facility] Weight 72.2 09/05/2013 [facility] Height 154.94 cm 09/05/2013 [facility] Systolic (mm Hg) 95 08/12/2013 [place] Respitory Rate 20 08/12/2013 [place] Diastolic (mm Hg) 46 08/12/2013 [place] Heart Rate 71 08/12/2013 [place] Temperature Oral (F) 96.1 F 08/12/2013 [place] Diastolic (mm Hg) 58 08/12/2013 [place] Heart Rate 95 08/12/2013 [place] Respitory Rate 18 08/12/2013 [place] Systolic (mm Hg) 120 08/12/2013 [place] Temperature Oral (F) 97.9 F 08/12/2013 [place] Temperature Oral (F) 97.1 F 08/12/2013 [place] Heart Rate 92 08/12/2013 [place] Respitory Rate 18 08/12/2013 [place] Diastolic (mm Hg) 54 08/12/2013 [place] Systolic (mm Hg) 113 08/12/2013 [place] Weight 72.273 08/06/2013 [place] Height 154.94 cm 08/06/2013 [place] Height 154.94 cm 07/22/2013 [place] Weight 72.273 07/22/2013 [place] Weight 160.2 03/06/2013 [facility] Temperature Oral (F) 98.6 F 03/06/2013 [facility] Systolic (mm Hg) 132 03/06/2013 [facility] Diastolic (mm Hg) 60 03/06/2013 [facility] Heart Rate 72 03/06/2013 [facility] Weight 166 12/28/2012 [facility] Respitory Rate 18 12/20/2012 [place] Systolic (mm Hg) 133 12/20/2012 [place] Diastolic (mm Hg) 63 12/20/2012 [place] Diastolic (mm Hg) 61 12/20/2012 [place] Systolic (mm Hg) 134 12/20/2012 [place] Respitory Rate 18 12/20/2012 [place] Diastolic (mm Hg) 63 12/20/2012 [place] Systolic (mm Hg) 131 12/20/2012 [place] Respitory Rate 16 12/20/2012 [place] Heart Rate 88 12/20/2012 [place] Height 154.94 cm 12/20/2012 [place] Weight 73.636 12/20/2012 [place] Weight 74.091 12/17/2012 [place] Height 154.94 cm 12/17/2012 [place] Weight 166 12/14/2012 [facility] Weight 166 12/07/2012 [facility] Weight 166.2 11/27/2012 [facility] Temperature Oral (F) 98.5 F 11/27/2012 [facility] Heart Rate 84 11/27/2012 [facility] Systolic (mm Hg) 120 11/27/2012 [facility] Diastolic (mm Hg) 64 11/27/2012 [facility] Height 60 10/29/2012 [facility] Weight 171.2 10/29/2012 [facility] Temperature Oral (F) 98.7 F 10/29/2012 [facility] Heart Rate 72 10/29/2012 [facility] Systolic (mm Hg) 102 10/29/2012 [facility] Diastolic (mm Hg) 60 10/29/2012 [facility] Diastolic (mm Hg) 77 07/31/2012 [facility] Systolic (mm Hg) 167 07/31/2012 [facility] Respitory Rate 20 07/31/2012 [facility] Heart Rate 87 07/31/2012 [facility] Temperature Oral (F) 99.0 F 07/31/2012 [facility] Weight 79.773 07/31/2012 [facility] Height 154.94 cm 07/31/2012 [facility] Weight 86.364 05/23/2012 [facility] Height 154.94 cm 05/23/2012 [facility] Diastolic (mm Hg) 60 05/15/2012 [facility] Systolic (mm Hg) 127 05/15/2012 [facility] Respitory Rate 24 05/15/2012 [facility] Heart Rate 95 05/15/2012 [facility] Temperature Oral (F) 97.8 F 05/15/2012 [facility] Weight 89.148 05/15/2012 [facility] Encounters Location Location Encounter Encounter Reason Attending ADM DC Status Source Details Type Number For Provider Date Date Visit [facility] Outpatient [id number] UNKNOWN MOHAMMED 05/15 05/15 Active [facility] 1 BLOOD ATTAR /2011 [facility] Outpatient [id number] COUGH, REEBA 05/23 Active [facility] 2 COPD [facility] [place] [id number] UNKNOWN MICHELLE 07/31 Active [facility] 1 BLOOD [facility] DS [id number] CHAITANYA 12/18 12/18 Active [place] [facility] [place] [id number] CHAITANYA 12/20 12/20 Active [facility] [place] 4 [place] Inpatient [id number] FANY TAN 08/06 08/12 Active [facility] [place] 5 R [place] NECROSIS -733.40, HIP PAIN RIGHT-71 9.45-SCI P [facility] Inpatient [id number] UNCONTRO CANDELARIA 09/04 09/06 Active [facility] 6 LLABLE CYNTHIA /2012 [facility] Report [id number] Yolanda 01/03 01/03 MAYRA Johnson 26210 MD Lida /2013 [facility] Outpt Diag [id number] _MAPID:E Anders 01/21 01/22 [facility] 2 [id number] [facility] - [id number] [facility] OBS Day [id number] Anders 02/24 02/24 [facility] [place] [facility] [place] [facility] [id number] Keshav 05/27 06/11 [place] 7 Darius [place] [facility] [place] [facility] [id number] Keshav 10/08 11/07 [facility] [facility] [place] [facility] [id number] Buddy 11/17 12/17 [facility] [place] [facility] Therapy [id number] Buddy 12/29 01/28 [facility] 3 [facility] Outpt Diag [id number] Keshav 01/29 01/30 [facility] Outpatient [id number] XRAY VISIT 08/04 [facility] [place] [facility] [id number] YOLANDA 08/04 [facility] Outpatient [id number] YOLANDA 08/18 [facility] Outpatient [id number] YOLANDA 10/06 Active [facility] [place] [facility] [id number] YOLANDA 02/14 [facility] [place] Outpatient [id number] YOLANDA 02/21 [facility] [place] Outpatient [id number] YOLANDA 03/21 Active [facility] 6 [place] [id number] UNKNOWN MOHAMMED Cancel [address] Center Procedures Procedure Code Date Perfomer Comments Source Arthroscopy of 958868818 1 left knee scope [facility] [place] knee<sup>1</sup> 4 [place] Arthroplasty of hip, [id number] [facility] [place] total, with use of 3 [place] methyl methacrylate Carpal tunnel [id number] 1right with [facility] [place] release <sup>1</sup> 3 dequervacins [place] release Cataract surgery [id number] [facility] [place] 0 [place] Laminectomy [id number] [facility] [place] 9 [place] Neck repair [id number] [facility] [place] 9 [place] Arthroscopy of [id number] [facility] [place] shoulder 8 [place] Fluoroscopy and [id number] [facility] [place] stent aorta 6 [place] Wrist repair [id number] [facility] [place] [facility] [place] Foot repair [id number] [facility] [place] 4 [place] Arthroscopy of knee [id number] [facility] [place] [facility] [place] Cholecystectomy [id number] [facility] [place] [facility] [place] Hysterectomy [id number] [facility] [place] [facility] [place] Aspiration of [id number] [facility] [place] ganglion - hand 0 [place] Craniotomy [id number] [facility] [place] [facility] [place]
--- OUTSIDE RECORDS SUMMARY | 2018-12-08 01:09 | XMS REPORT | CCD ---
:1945 Author Organization [facility] Care Team Providers Name Role Phone Hemalatha Rdz Referring Provider Shania Luong Primary Care Provider Allergies, Adverse Reactions, Alerts Substance Reaction Status Bactrim Active erythromycin Active Imitrex Active morphine Active Morphine Sulfate Active Nubain Active Valium Active Zofran Active Problem List Condition Effective Dates Status Seizure 12/30/2010 Active Vital Signs Most recent to oldest [Reference Range]: 1 Height 154.94 cm (05/23/2012 11:00:00) Weight 86.364 kg (05/23/2012 11:00:00) Results CHEMISTRY Most recent to oldest [Reference Range]: 1 pH Art [7.35-7.45] 7.38 (05/23/2012 11:38:00) pCO2 Art [35-45 mmHg] 55 mmHg *HI* (05/23/2012 11:38:00) pO2 Art [80-100 mmHg] 71 mmHg *LOW* (05/23/2012 11:38:00) HCO3 Art [22-26 mMol/L] 32 mMol/L *HI* (05/23/2012 11:38:00) BE Art [-2-2 mMol/L] 6 mMol/L *HI* (05/23/2012 11:38:00) Carboxyhgb Art 1.5 % 1 *NA* (05/23/2012 11:38:00) Methgb Art [0.0-1.4 %] 0.6 % (05/23/2012 11:38:00) Hgb Tot Art [12.0-16.0 g/dL] 13.0 g/dL (05/23/2012 11:38:00) Temp Art 37.0 DegC *NA* (05/23/2012 11:38:00) O2Hb Art [95.0-100.0 %] 93.3 % *LOW* (05/23/2012 11:38:00) 1Interpretive Data: Non-smokers: 0 - 2.0% Saturation Smokers: 0 - 9.0% Saturation
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
--- OUTSIDE RECORDS SUMMARY | 2018-12-08 01:10 | XMS REPORT | CCD ---
:1945 Author Organization [facility] Team Providers Name Role Phone Germán Ludwin F Consulting Provider Shania Luong Primary Care Provider Allergies, [...] Medication Instructions Start Date End Date Status Lasix 40 mg oral tablet 40 mg, 1 tab, PO, Daily, 12/19/2012 Ordered Substitution Allowed tizanidine 4 mg oral 4 mg, 1 cap, PO, BID, 90 12/17/2012 Ordered capsule cap, Substitution Allowed, CAP BD Posiflush SF 15 mL, Route: IVP, Drug 12/20/2012 12/19/2012 Canceled Form: INJ, PRN, PRN Line Flush, Start date: 12/20/12 6:00:00, Duration: 30 day, Stop date: 01/19/13 5:59:00 cefazolin 2 gm, 100 mL, Route: IVPB, 12/20/2012 12/19/2012 Canceled Drug form: INJ, ONCALL, Start date: 12/20/12 6:00:00, Duration: 1 doses or times, Stop date: 12/20/12 23:59:00 cefazolin 2 gm, 100 mL, Route: IVPB, 12/20/2012 12/19/2012 Canceled Drug form: INJ, ONCALL, Start date: 12/20/12 6:00:00, Duration: 1 doses or times BD Posiflush SF 15 mL, Route: IVP, Drug 12/20/2012 12/19/2012 Canceled Form: INJ, PRN, PRN Line Flush, Start date: 12/20/12 6:00:00, Duration: 30 day, Stop date: 01/19/13 5:59:00 lisinopril 40 mg oral 40 mg, 1 tab, PO, Daily, 12/17/2012 Ordered tablet Substitution Allowed amLODipine 10 mg oral 10 mg, 1 tab, PO, Daily, 12/17/2012 Ordered tablet Substitution Allowed Lyrica 150 mg oral capsule 150 mg, 1 cap, PO, TID, 90 12/17/2012 Ordered cap, Substitution Allowed, CAP Advair Diskus 500 mcg-50 INHALATION, BID, 12/17/2012 Ordered mcg inhalation powder Substitution Allowed, Maintenance Daliresp 500 mcg oral 500 microgram, 1 tab, PO, 12/17/2012 Ordered tablet Daily, Substitution Allowed Vital Signs Most recent to oldest [Reference Range]: 1 Height 154.94 cm (12/17/2012 17:34:00) Weight 74.091 kg (12/17/2012 17:34:00) Procedures Procedures Date Related Diagnosis Arthroscopy of knee 11/13/2002 00:00:00 Arthroscopy of shoulder 11/13/2007 00:00:00 Cataract surgery 11/13/2009 00:00:00 Cholecystectomy 11/13/1974 00:00:00 Craniotomy 11/13/1945 00:00:00 Foot repair 11/13/2003 00:00:00 Hysterectomy 11/13/1974 00:00:00 Laminectomy 11/13/2008 00:00:00 Neck repair 11/13/2008 00:00:00 Wrist repair 11/13/2004 00:00:00
--- OUTSIDE RECORDS SUMMARY | 2018-12-08 01:10 | XMS REPORT | CCD ---
:1945 Author Organization [facility] Care Team Providers Name Role Phone Kristen Galicia Referring Provider Adonis Ontiveros Consulting Provider Shania Luong Primary Care Provider Allergies, Adverse Reactions, Alerts Substance Reaction Status Bactrim Active erythromycin Active Imitrex Active morphine Active Morphine Sulfate Active Nubain Active Valium Active Zofran Active Problem List Condition Effective Dates Status Seizure 12/30/2010 Active Vital Signs Most recent to oldest [Reference Range]: 1 Height 154.94 cm (07/31/2012 11:13:00) Temperature Oral [96.4-99.1 DegF] 99.0 DegF (07/31/2012 11:13:00) Systolic Blood Pressure [90-140 mmHg] 167 mmHg *HI* (07/31/2012 11:13:00) Diastolic Blood Pressure [60-90 mmHg] 77 mmHg (07/31/2012 11:13:00) Respiratory Rate [14-20 BRMIN] 20 BRMIN (07/31/2012 11:13:00) Peripheral Pulse Rate [60-100 bpm] 87 bpm (07/31/2012 11:13:00) Weight 79.773 kg (07/31/2012 11:13:00)
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
--- OUTSIDE RECORDS SUMMARY | 2018-12-08 01:11 | XMS REPORT | CCD ---
:1945 Author Organization [facility] Team Providers Name Role Phone Keshav Mccoy Consulting Provider Shania Luong Primary Care Provider [...] 11/13/2006 Resolved Weak Active 1B MRSA - [id number] added by Discern Expert. Medications Medication Instructions Start Date End Date Status Keppra 1000 mg oral tablet 1,000 mg, 4 tab, Route: 08/10/2013 08/12/2013 Discontinued PO, Drug form: TAB, Q12H, Dosing Weight 72.273, kg, Start date: 08/10/13 21:00:00, Duration: 30 day, Stop date: 09/09/13 9:00:00 lisinopril 10 mg, 2 tab, Route: PO, 08/07/2013 08/12/2013 Discontinued Drug form: TAB, Daily, Dosing Weight 72.273, kg, Start date: 08/07/13 9:00:00, Stop date: 09/05/13 9:00:00 Keppra 500 mg oral tablet 500 mg, 1 tab, PO, Q12H, 08/06/2013 Ordered 120 tab, Substitution Allowed, TAB Keppra 500 mg oral tablet 500 mg, 2 tab, Route: 08/06/2013 08/08/2013 Discontinued PO, Drug form: TAB, Q12H, Dosing Weight 72.273, kg, Start date: 08/06/13 21:00:00, Duration: 30 day, Stop date: 09/05/13 9:00:00 clonidine 0.1 mg oral 0.1 mg, 1 tab, Route: 08/09/2013 08/12/2013 Discontinued tablet PO, Drug form: TAB, TID, Dosing Weight 72.273, kg, PRN Hypertension, Start date: 08/09/13 6:24:00, Duration: 30 day, Stop date: 09/08/13 6:23:00 Spiriva 18 mcg inhalation 18 microgram, 1 cap, 08/06/2013 Ordered capsule INHALATION, Daily, 90 cap, Substitution Allowed, CAP Pneumovax 23 0.5 mL, Route: IM, Drug 08/06/2013 08/07/2013 Completed Form: INJ, ONCE, Start date: 08/06/13 19:00:00, Stop date: 08/06/13 19:00:00 Advair Diskus 500 mcg-50 1 inhalation, Route: 08/06/2013 08/12/2013 Discontinued mcg inhalation powder INHALATION, Drug Form: AERO, Dosing Weight 72.273, kg, Q12H, Start date: 08/06/13 21:00:00, Duration: 30 day, Stop date: 09/05/13 9:00:00 Cymbalta 30 mg, 1 cap, Route: PO, 08/07/2013 08/12/2013 Discontinued Drug form: DRC, Daily, Dosing Weight 72.273, kg, Start date: 08/07/13 9:00:00, Duration: 30 day, Stop date: 09/05/13 9:00:00 Fluzone 0.5 mL, Route: IM, Drug 08/06/2013 08/07/2013 Completed Form: SUSP, ONCE, Start date: 08/06/13 19:00:00, Stop date: 08/06/13 19:00:00 clonidine 0.2 mg oral 0.2 mg, 1 tab, Route: 08/06/2013 08/07/2013 Discontinued tablet PO, Drug form: TAB, Daily, Dosing Weight 72.273, kg, PRN Hypertension, Start date: 08/06/13 15:07:00, Duration: 30 day, Stop date: 09/05/13 15:06:00 Keppra 750 mg, 3 tab, Route: 08/08/2013 08/08/2013 Discontinued PO, Drug form: TAB, BID, Dosing Weight 72.273, kg, Start date: 08/08/13 9:00:00, Duration: 30 day, Stop date: 09/06/13 17:00:00 lisinopril 10 mg oral 10 mg, 1 tab, PO, Daily, 07/23/2013 08/12/2013 Discontinued tablet tab, Substitution Allowed, TAB Ativan 1 mg, 0.5 mL, Route: 08/08/2013 08/08/2013 Deleted IVP, Drug form: INJ, ONCE, Dosing Weight 72.273, kg, PRN Anxiety, Start date: 08/08/13 4:19:00 hydromorphone 4 mg oral 4 mg, 1 tab, PO, Q8H, 08/06/2013 Ordered tablet PRN, as needed for pain, Substitution Allowed, TAB Ofirmev 1,000 mg, 100 mL, Route: 08/07/2013 08/08/2013 Completed IVPB, Drug form: INJ, Q6H, Dosing Weight 72.273, kg, for > or=50 kg, Start date: 08/07/13 12:00:00, Duration: 4 doses or times, Stop date: 08/08/13 6:00:00 promethazine 6.25 mg, Route: IVPB, 08/06/2013 08/06/2013 Discontinued ONCE, Dosing Weight 72.273, kg, PRN Nausea & Vomiting, Start date: 08/06/13 11:27:00 naloxone 0.04 mg, 0.1 mL, Route: 08/06/2013 08/12/2013 Discontinued IVP, Drug form: INJ, Q2MIN, Dosing Weight 72.273, kg, PRN Narcotic Reversal, Start date: 08/06/13 11:27:00, Duration: 30 day, Stop date: 09/05/13 11:26:00 hydromorphone 0.2 mg, 0.1 mL, Route: 08/06/2013 08/10/2013 Discontinued IVP, Drug form: INJ, Q2H, Dosing Weight 72.273, kg, PRN Pain Score 7-10, Start date: 08/06/13 11:27:00, Duration: 30 day, Stop date: 09/05/13 11:26:00 hydromorphone 0.2 mg/mL 6 mg, 30 mL, Route: IV, 08/06/2013 08/10/[address] APPRA[address]ER (6 mg/30 mL) INJ Initial Loading Dose: Syringe 6 mg 0.3 mg, RIGHT OF WAY APPRAISER Dose: 0.2 mg, RIGHT OF WAY APPRAISER Lockout: 10 minutes, Continuous Basal Rate: 0 mg, 4 Hour Limit (In MG): 6, Drug Form: INJ, Continuous, Start date: 08/06/13 11:30:00, Duration: 30 day, Stop date: 09/05/13 11:... pantoprazole 40 mg oral 40 mg, 1 tab, PO, Daily, 07/23/2013 Ordered enteric coated tablet tab, Substitution Allowed, ECTAB D5W 1/2NS + KCL 20mEq/L 1,000 mL, Rate: 50 08/06/2013 08/10/2013 Discontinued 1000ml (Premix) 1,000 mL ml/hr, Infuse over: 20 hr, Route: IV, Dosing Weight 72.273 kg, Total Volume: 1,000, Start date: 08/06/13 10:00:00, Stop date: 09/05/13 9:59:00 diphenhydrAMINE 25 mg, 0.5 mL, Route: 08/06/2013 08/12/2013 Discontinued IVP, Drug form: INJ, Q6H, Dosing Weight 72.273, kg, PRN Itching, Start date: 08/06/13 10:00:00, Duration: 30 day, Stop date: 09/05/13 9:59:00 ferrous sulfate 325 mg, 1 tab, Route: 08/06/2013 08/12/2013 Discontinued PO, Drug form: ECTAB, TID, Dosing Weight 72.273, kg, Administer 2 hours before or 4 hours after meals, Start date: 08/06/13 13:00:00, Duration: 30 day, Stop date: 09/05/13 9:00:00 magnesium hydroxide 30 ml, Route: PO, Drug 08/06/2013 08/12/2013 Discontinued Form: SUSP, Dosing Weight 72.273, kg, Q6H, PRN Constipation, Start date: 08/06/13 10:00:00, Duration: 30 day, Stop date: 09/05/13 9:59:00 promethazine 25 mg, 1 tab, Route: PO, 08/06/2013 08/12/2013 Discontinued Drug form: TAB, Q6H, Dosing Weight 72.273, kg, PRN Nausea & Vomiting, Start date: 08/06/13 10:00:00, Duration: 30 day, Stop date: 09/05/13 9:59:00 Saline Flush 0.9% 5 ml, Route: IVP, Drug 08/06/2013 08/12/2013 Discontinued Form: INJ, Dosing Weight 72.273, kg, PRN, PRN Line Flush, Start date: 08/06/13 10:00:00, Duration: 30 day, Stop date: 09/05/13 9:59:00 Saline Flush 0.9% 5 ml, Route: IVP, Drug 08/06/2013 08/12/2013 Discontinued Form: INJ, Dosing Weight 72.273, kg, Q12H, Start date: 08/06/13 21:00:00, Duration: 30 day, Stop date: 09/05/13 9:00:00 diphenhydrAMINE 25 mg, 1 tab, Route: PO, 08/06/2013 08/12/2013 Discontinued Drug form: TAB, Bedtime, Dosing Weight 72.273, kg, PRN Insomnia, Start date: 08/06/13 10:00:00, Duration: 30 day, Stop date: 09/05/13 9:59:00 acetaminophen-hydrocodone 1 tab, Route: PO, Drug 08/06/2013 08/12/2013 Discontinued 325 mg-10 mg oral tablet Form: TAB, Dosing Weight 72.273, kg, Q4H, PRN Pain Score 4-6, Start date: 08/06/13 10:00:00, Duration: 30 day, Stop date: 09/05/13 9:59:00 cefazolin (SCIP) + Sodium 1 gm, Route: IVPB, Q8H, 08/06/2013 08/07/2013 Completed Chloride 0.9% IV 100 mL Dosing Weight 72.273, kg, Total 3 doses, Start date: 08/06/13 16:30:00, Stop date: 08/07/13 10:30:00 docusate sodium 100 mg 100 mg, 1 cap, Route: 08/06/2013 08/12/2013 Discontinued oral capsule PO, Drug form: CAP, BID, Dosing Weight 72.273, kg, Start date: 08/06/13 17:00:00, Duration: 30 day, Stop date: 09/05/13 9:00:00 pneumococcal 23-valent 0.5 ml, Route: IM, 08/06/2013 08/06/2013 Deleted vaccine ONCALL, Start date: 08/06/13 16:18:32, Stop date: 09/05/13 16:13:32 influenza virus vaccine, 0.5 mL, Route: IM, 08/06/2013 08/06/2013 Deleted inactivated ONCALL, Start date: 08/06/13 16:18:31, Stop date: 09/05/13 16:13:31 Cymbalta 30 mg oral 30 mg, 1 cap, PO, Daily, 07/23/2013 Ordered delayed release capsule cap, Substitution Allowed, ECCAP Saline Flush 0.9% 10 ml, Route: IVP, Drug 08/12/2013 08/12/2013 Discontinued Form: INJ, Dosing Weight 72.273, kg, PRN, PRN Line Flush, Start date: 08/12/13 7:25:00, Duration: 30 day, Stop date: 09/11/13 7:24:00 Heparin Lock Flush 100 500 unit, 5 mL, Route: 08/12/2013 08/12/2013 Discontinued units/mL intravenous IVP, Drug form: SOLN, solution PRN, Dosing Weight 72.273, kg, PRN Line Flush, Start date: 08/12/13 7:25:00, Duration: 30 day, Stop date: 09/11/13 7:24:00 Sodium Chloride 0.9% 250 mL, Rate: [facility] erector 08/08/2013 08/09/2013 Discontinued (titrate) 250 mL for use with blood product administration, Dosing Weight 72.273, kg, Route: IV, Total Volume: 250, Duration: 30 day, Stop date: 09/07/13 6:39:00, Replace Every: 24 hr diphenhydrAMINE 25 mg, 1 tab, Route: PO, 08/08/2013 08/08/2013 Completed Drug form: TAB, ONCALL, Dosing Weight 72.273, kg, Premed Blood Products, Priority: Routine, Start date: 08/08/13 7:00:00, Duration: 30 day, Stop date: 09/07/13 6:59:00 acetaminophen 650 mg, 2 tab, Route: 08/08/2013 08/08/2013 Completed PO, Drug form: TAB, ONCALL, Dosing Weight 72.273, kg, Premed Blood Products. Not to exceed 4grams/24hrs., Priority: Routine, Start date: 08/08/13 7:00:00, Duration: 30 day, Stop date: 09/07/13 6:59:00 acetaminophen-oxycodone 1 tab, Route: PO, Drug 08/06/2013 08/08/2013 Discontinued 325 mg-5 mg oral tablet Form: TAB, Dosing Weight 72.273, kg, Q4H, PRN Pain Score 4-6, Start date: 08/06/13 11:21:00, Duration: 30 day, Stop date: 09/05/13 11:20:00 acetaminophen-oxycodone 2 tab, Route: PO, Drug 08/06/2013 08/08/2013 Discontinued 325 mg-5 mg oral tablet Form: TAB, Dosing Weight 72.273, kg, Q4H, PRN Pain Score 7-10, Start date: 08/06/13 11:21:00, Duration: 30 day, Stop date: 09/05/13 11:20:00 ketorolac 30 mg, 1 mL, Route: IVP, 08/06/2013 08/07/2013 Completed Drug form: INJ, Q6H, Dosing Weight 72.273, kg, PRN Pain Score 6-10, Start date: 08/06/13 11:36:00, Duration: 1 day, Stop date: 08/07/13 11:35:00 ibuprofen 600 mg, 1 tab, Route: 08/06/2013 08/08/2013 Discontinued PO, Drug form: TAB, Q6H, Dosing Weight 72.273, kg, PRN Pain Score 1-3, Start date: 08/06/13 11:35:00, Duration: 30 day, Stop date: 09/05/13 11:34:00 dexamethasone 4 mg, 1 mL, Route: IVP, 08/06/2013 08/08/2013 Discontinued Drug form: INJ, Q12H, Dosing Weight 72.273, kg, PRN Nausea & Vomiting, Start date: 08/06/13 11:21:00, Duration: 30 day, Stop date: 09/05/13 11:20:00 promethazine 12.5 mg, Route: IVPB, 08/06/2013 08/06/2013 Discontinued Q4H, Dosing Weight 72.273, kg, PRN Nausea & Vomiting, Start date: 08/06/13 11:21:00, Duration: 30 day, Stop date: 09/05/13 11:20:00 naloxone 0.1 mg, 0.25 mL, Route: 08/06/2013 08/08/2013 Discontinued IVP, Drug form: INJ, Q2MIN, Dosing Weight 72.273, kg, PRN Narcotic Reversal, Start date: 08/06/13 11:21:00, Duration: 8 doses or times, Stop date: Limited # of times FENTanyl Dosing: Per Epidural 08/06/2013 08/08/2013 Discontinued 5mcg/ml+Bupivacaine 0.125% Dosing Order, Route: - 200 Epidural 200 mL EPIDURAL, Start date: 08/06/13 11:21:00 200 mL, Drug Form: INJ, Dosing Weight 72.273, kg, Duration: 30 day, Stop date: 09/05/13 11:20:00 ropinirole 1 mg oral 1 mg, 1 tab, PO, 07/23/2013 Ordered tablet Bedtime, 270 tab, Substitution Allowed, TAB promethazine 6.25 mg, 0.25 mL, Route: 08/06/2013 08/06/2013 Discontinued IM, Drug form: INJ, ONCE, Dosing Weight 72.273, kg, PRN Nausea & Vomiting, Start date: 08/06/13 9:45:00 dexamethasone 4 mg, 1 mL, Route: IVP, 08/06/2013 08/06/2013 Discontinued Drug form: INJ, ONCE, Dosing Weight 72.273, kg, PRN Nausea & Vomiting, Start date: 08/06/13 9:45:00 levalbuterol 0.63 mg, 3 mL, Route: 08/06/2013 08/12/2013 Discontinued NEB, Drug form: SOLN, Q5Min, Dosing Weight 72.273, kg, PRN Wheezing, Start date: 08/06/13 9:45:00, Duration: 4 doses or times, Stop date: Limited # of times albuterol 90 mcg/inh 2 puff, Route: INHALER, 08/06/2013 08/12/2013 Discontinued inhalation aerosol Drug Form: AERO/A, Dosing Weight 72.273, kg, Q5Min, PRN Wheezing, Start date: 08/06/13 9:45:00, Duration: 4 doses or times, Stop date: Limited # of times meperidine 12.5 mg, 0.5 mL, Route: 08/06/2013 08/06/2013 Completed IVP, Drug form: INJ, Q30Min, Dosing Weight 72.273, kg, PRN Other -See Comment, For shivering, Start date: 08/06/13 9:45:00, Duration: 2 doses or times, Stop date: Limited # of times ketorolac 30 mg, 1 mL, Route: IVP, 08/06/2013 08/06/2013 Discontinued Drug form: INJ, ONCE, Dosing Weight 72.273, kg, Start date: 08/06/13 9:45:00, Duration: 1 doses or times, Stop date: 08/06/13 9:45:00 hydromorphone 0.5 mg, 0.25 mL, Route: 08/06/2013 08/06/2013 Discontinued IVP, Drug form: INJ, Q5Min, Dosing Weight 72.273, kg, PRN Pain Score 7-10, Start date: 08/06/13 9:45:00, Duration: 5 doses or times, Stop date: Limited # of times naloxone 0.04 mg, 0.1 mL, Route: 08/06/2013 08/06/2013 Discontinued IVP, Drug form: INJ, Q2MIN, Dosing Weight 72.273, kg, PRN Narcotic Reversal, Start date: 08/06/13 9:45:00, Duration: 8 doses or times, Stop date: Limited # of times flumazenil 0.2 mg, 2 mL, Route: 08/06/2013 08/06/2013 Discontinued IVP, Drug form: INJ, PRN, Dosing Weight 72.273, kg, PRN Benzodiazepine Reversal, Initial dose, Start date: 08/06/13 9:45:00, Duration: 30 day, Stop date: 09/05/13 9:44:00 acetaminophen-10 mg/mL 1,000 mg, 100 mL, Route: IV, Drug form: INJ, ONCE, Dosing Weight 72.273, kg, PRN Pain Score 4-6, Start date: 08/06/13 9:45:00, Duration: 1 doses or times, Stop date: Limited # of times, Infuse over 15 minutes (for patient weight 50 kg or greater) 08/06/2013 08/06/2013 Discontinued INTRAVENOUS solution Infuse over 15 minutes (for patient weight 50 kg or greater) albuterol 0.083% 2.49 mg, 3 mL, Route: 08/06/2013 08/06/2013 Discontinued inhalation solution NEB, Drug form: SOLN, Q5Min, Dosing Weight 72.273, kg, PRN Wheezing, Priority: STAT, Start date: 08/06/13 9:45:00, Duration: 30 day, Stop date: 09/05/13 9:44:00 fentanyl 25 microgram, 0.5 mL, 08/06/2013 08/06/2013 Discontinued Route: IVP, Drug form: INJ, Q5Min, Dosing Weight 72.273, kg, PRN Pain Score 4-6, Start date: 08/06/13 9:45:00, Duration: 4 doses or times, Stop date: Limited # of times Lactated Ringers Injection 1,000 mL, Rate: 50 08/06/2013 08/06/2013 Discontinued IV 1,000 mL ml/hr, Infuse over: 20 hr, Route: IV, Dosing Weight 72.273 kg, Total Volume: 1,000, Start date: 08/06/13 9:45:00, Duration: 30 day, Stop date: 09/05/13 9:44:00 lidocaine 1% 0.5 mL, Route: 08/06/2013 08/06/2013 Discontinued INTRADERM, Drug Form: INJ, Dosing Weight 72.273, kg, ONCALL, Start date: 08/06/13 7:00:00, Duration: 1 doses or times Lactated Ringers Injection 1,000 mL, Rate: 25 08/06/2013 08/06/2013 Discontinued IV 1,000 mL ml/hr, Infuse over: 40 hr, Route: IV, Dosing Weight 72.273 kg, Total Volume: 1,000, Start date: 08/06/13 6:04:00, Duration: 30 day, Stop date: 09/05/13 6:03:00 clonidine 0.2 mg oral 0.2 mg, 1 tab, PO, Daily, PRN, Max=3 tabs a day, BP > 180, Substitution Allowed, TAB 08/06/2013 08/12/2013 Discontinued tablet Max=3 tabs a day hydrALAZINE 10 mg, 0.5 mL, Route: 08/06/2013 08/12/2013 Discontinued IVP, Drug form: INJ, Q4H, Dosing Weight 72.273, kg, PRN Hypertension, Start date: 08/06/13 15:11:00, Stop date: 09/05/13 15:10:00 sodium phosphate 30 mmol, Route: IVPB, 08/09/2013 08/09/2013 Discontinued PRN, Dosing Weight 72.273, kg, PRN Abnormal Lab Result, Start date: 08/09/13 6:18:00, Duration: 1 day, Stop date: 08/10/13 6:17:00 Demerol HCl 25 mg, 1 mL, Route: IVP, 08/06/2013 08/06/2013 Completed Drug form: INJ, ONCE, Dosing Weight 72.273, kg, Priority: NOW, Start date: 08/06/13 14:21:00, Stop date: 08/06/13 14:21:00 Phenergan 12.5 mg, 0.5 mL, Route: 08/06/2013 08/12/2013 Discontinued IVP Central, Drug form: INJ, Q8H, Dosing Weight 72.273, kg, PRN as needed for nausea/vomiting, Start date: 08/06/13 15:37:00, Duration: 30 day, Stop date: 09/05/13 15:36:00 Lyrica 150 mg, 3 cap, Route: 08/06/2013 08/12/2013 Discontinued PO, Drug form: CAP, TID, Dosing Weight 72.273, kg, Start date: 08/06/13 17:00:00, Duration: 30 day, Stop date: 09/05/13 13:00:00 Spiriva 18 mcg inhalation 18 microgram, 1 08/07/2013 08/12/2013 Discontinued capsule inhalation, Route: INHALATION, Drug form: CAP, Daily, Dosing Weight 72.273, kg, Start date: 08/07/13 9:00:00, Duration: 30 day, Stop date: 09/05/13 9:00:00 tizanidine 4 mg, 1 tab, Route: PO, 08/06/2013 08/07/2013 Discontinued Drug form: TAB, Q12H, Dosing Weight 72.273, kg, Start date: 08/06/13 21:00:00, Duration: 30 day, Stop date: 09/05/13 9:00:00 magnesium sulfate 1 gm, 50 mL, Route: 08/09/2013 08/09/2013 Completed IVPB, Drug form: INJ, ONCE, Dosing Weight 72.273, kg, Start date: 08/09/13 6:17:00, Stop date: 08/09/13 6:17:00 simvastatin 40 mg, 2 tab, Route: PO, 08/06/2013 08/12/2013 Discontinued Drug form: TAB, Bedtime, Dosing Weight 72.273, kg, Start date: 08/06/13 21:00:00, Duration: 30 day, Stop date: 09/04/13 21:00:00 ropinirole 1 mg, 1 tab, Route: PO, 08/06/2013 08/12/2013 Discontinued Drug form: TAB, Bedtime, Dosing Weight 72.273, kg, Start date: 08/06/13 21:00:00, Duration: 30 day, Stop date: 09/04/13 21:00:00 roflumilast 500 microgram, 1 tab, 08/07/2013 08/12/2013 Discontinued Route: PO, Drug form: TAB, Daily, Dosing Weight 72.273, kg, Start date: 08/07/13 9:00:00, Duration: 30 day, Stop date: 09/05/13 9:00:00 Advair Diskus 500 mcg-50 1 puff, INHALATION, 07/22/2013 Ordered mcg inhalation powder Q12H, 28 ea, Substitution Allowed, Maintenance, PWDR magnesium sulfate 2 gm, 50 mL, Route: 08/08/2013 08/08/2013 Completed IVPB, Drug form: INJ, Q2H, Dosing Weight 72.273, kg, Total dose=4 gm, Start date: 08/08/13 8:00:00, Duration: 2 doses or times, Stop date: 08/08/13 10:00:00 cefazolin 2 gm, 100 mL, Route: 08/06/2013 08/06/2013 Discontinued IVPB, Drug form: INJ, ONCALL, Start date: 08/06/13 6:00:00, Duration: 1 doses or times, Stop date: 08/06/13 23:59:00 DuoNeb inhalation solution 3 ml, Route: INHALATION, 08/06/2013 08/12/2013 Discontinued Drug Form: SOLN, Dosing Weight 72.273, kg, QID, PRN as needed for shortness of breath or wheezing, Start date: 08/06/13 10:10:00, Duration: 30 day, Stop date: 09/05/13 10:09:00 Senokot S 2 tab, Route: PO, Drug 08/06/2013 08/12/2013 Discontinued Form: TAB, Dosing Weight 72.273, kg, Daily, PRN Constipation, Start date: 08/06/13 10:10:00, Duration: 30 day, Stop date: 09/05/13 10:09:00 Protonix 40 mg, 1 tab, Route: PO, 08/07/2013 08/12/2013 Discontinued Drug form: ECTAB, Daily, Dosing Weight 72.273, kg, Start date: 08/07/13 9:00:00, Duration: 30 day, Stop date: 09/05/13 9:00:00 FENTanyl - one time ICU 25 microgram, 0.5 mL, 08/07/2013 08/07/2013 Completed bolus dose Route: IVP, Drug form: INJ, ONCE, Dosing Weight 72.273, kg, Start date: 08/07/13 9:26:00, Stop date: 08/07/13 9:26:00 NS (Bolus) IV 500 mL 500 mL, Rate: 500 ml/hr, Infuse over: 1 hr, Route: IV, Dosing Weight 72.273 kg, Total Volume: 500, Priority: STAT, Start date: 23:27:00, Duration: 1 doses or times, Stop date: 08/07/13 0:26:00, Bolus Dose 08/06/2013 08/06/2013 Completed Bolus Dose Neutra-Phos 1 pkt, Route: PO, Drug 08/09/2013 08/10/2013 Completed Form: PDR/REC, Dosing Weight 72.273, kg, QID-Before Meals, Start date: 08/09/13 11:30:00, Stop date: 08/10/13 7:30:00 Dilaudid 1 mg, 0.5 mL, Route: 08/10/2013 08/12/2013 Discontinued IVP, Drug form: INJ, Q4H, Dosing Weight 72.273, kg, PRN as needed for pain, Priority: Routine, Start date: 08/10/13 9:28:00, Duration: 30 day, Stop date: 09/09/13 9:27:00 sodium phosphate 30 mmol, 10 mL, Route: 08/09/2013 08/09/2013 Completed IV, Drug form: INJ, ONCE, Dosing Weight 72.273, kg, Start date: 08/09/13 8:32:00, Stop date: 08/09/13 8:32:00 Lactated Ringers Injection 1,000 mL, Rate: 100 08/06/2013 08/07/2013 Discontinued IV 1,000 mL ml/hr, Infuse over: 10 hr, Route: IV, Dosing Weight 72.273 kg, Total Volume: 1,000, Start date: 08/06/13 6:00:00, Duration: 30 day, Stop date: 09/05/13 5:59:00 sodium phosphate + Sodium 15 mmol, 5 mL, Route: 08/09/2013 08/09/2013 Completed Chloride 0.9% IV 250 mL IV, Q2H, Start date: 08/09/13 10:00:00, Duration: 2 doses or times, Stop date: 08/09/13 12:00:00 Ativan 1 mg, 0.5 mL, Route: IV, 08/08/2013 08/12/2013 Discontinued Drug form: INJ, Q2H, Dosing Weight 72.273, kg, PRN Seizure, Start date: 08/08/13 5:09:00, Duration: 30 day, Stop date: 09/07/13 5:08:00 magnesium sulfate 1 gm, 50 mL, Route: 08/11/2013 08/11/2013 Completed IVPB, Drug form: INJ, ONCE, Dosing Weight 72.273, kg, Start date: 08/11/13 9:09:00, Stop date: 08/11/13 9:09:00 Keppra + Sodium Chloride 1,000 mg, Route: IV, 08/08/2013 08/10/2013 Discontinued 0.9% IV 100 mL Drug form: INJ, BID, Dosing Weight 72.273, kg, Priority: NOW, Start date: 08/08/13 5:07:00, Duration: 30 day, Stop date: 09/06/13 17:00:00 NS (Bolus) IV 500 mL 500 mL, Rate: 500 ml/hr, Infuse over: 1 hr, Route: IV, Dosing Weight 72.273 kg, Total Volume: 500, Priority: STAT, Start date: 0:49:00, Duration: 1 doses or times, Stop date: 08/07/13 1:48:00, Bolus Dose 08/07/2013 08/07/2013 Completed Bolus Dose hydromorphone 1 mg, PO, Q8H, 07/23/2013 08/06/2013 Discontinued Substitution Allowed, TAB BD Posiflush SF 15 mL, Route: IVP, Drug 08/06/2013 08/12/2013 Discontinued Form: INJ, PRN, PRN Line Flush, Start date: 08/06/13 6:00:00, Duration: 30 day, Stop date: 09/05/13 5:59:00 [place] 10/325 oral tablet 1 tab, Route: PO, Drug 08/10/2013 08/12/2013 Discontinued Form: TAB, Dosing Weight 72.273, kg, Q4H, PRN Pain, Start date: 08/10/13 9:26:00, Duration: 30 day, Stop date: 09/09/13 9:25:00 Lasix 40 mg oral tablet 40 mg, 1 tab, PO, Daily, 08/06/2013 Ordered PRN, 30 tab, leg swelling, Substitution Allowed, TAB enoxaparin 40 mg, 0.4 mL, Route: 08/07/2013 08/12/2013 Discontinued SUB-Q, Drug form: INJ, Daily, Dosing Weight 72.273, kg, Start date: 09/25/13 9:00:00, Duration: 30 day, Stop date: 09/05/13 9:00:00 Immunizations Vaccine Date Status influenza virus vaccine, inactivated 08/07/2013 Auth (Verified) pneumococcal 23-valent vaccine 08/07/2013 Auth (Verified) Vital Signs Most recent to oldest 1 2 3 [Reference Range]: Height 154.94 cm 154.94 cm (08/06/2013 12:55:00) (07/22/2013 16:46:00) Temperature Oral 96.1 DegF 97.9 DegF 97.1 DegF [96.4-99.1 DegF] *LOW* (08/12/2013 04:45:00) (08/12/2013 00:03:00) (08/12/2013 07:54:00) Systolic Blood Pressure 95 mmHg 120 mmHg 113 mmHg [90-140 mmHg] (08/12/2013 07:54:00) (08/12/2013 04:45:00) (08/12/2013 00:03: 00) Diastolic Blood Pressure 46 mmHg 58 mmHg 54 mmHg [60-90 mmHg] *LOW* *LOW* *LOW* (08/12/2013 07:54:00) (08/12/2013 04:45:00) (08/12/2013 00:03:00) Respiratory Rate [14-20 20 BRMIN 18 BRMIN 18 BRMIN BRMIN] (08/12/2013 07:54:00) (08/12/2013 04:45:00) (08/12/2013 00:03:00) Peripheral Pulse Rate 71 bpm 95 bpm 92 bpm [60-100 bpm] (08/12/2013 07:54:00) (08/12/2013 04:45:00) (08/12/2013 00:03: 00) Weight 72.273 kg 72.273 kg (08/06/2013 12:55:00) (07/22/2013 16:46:00) Results BACTERIAL - SEROLOGY Most recent to oldest [Reference Range]: 1 2 3 MRSA by PCR Positive 1, 2 *ABN* (08/07/2013 01:20:00) 1Result Comment: "Significant Findings called to Artemio Coleat [phone] by bf.Read Back OK."2Interpretive Data: Interpretive Data: [...] [facility] within the [facility]. The [facility] is authorized under the Clinical Laboratory Improvement Amendment of 1988 (CLIA-88) to performhigh complexity testing.BEDSIDE GLUCOSE TESTING Most recent to [Reference Range]: 1 2 3 Glucose POC [70-99 mg/dL] 191 mg/dL 3 *HI* (08/06/2013 23:22:00) Gluc POC Comment 1 Notify RN/MD *NA* (08/06/2013 23:22:00) 3Interpretive Data: Upper Reportable Limit: 200 mg/dL.URINALYSIS Most recent to [Reference 1 2 3 Range]: UA Turbidity [Clear] Clear Clear (08/07/2013 00:17:00) (07/29/2013 13:50:00) UA Color [Yellow] Yellow Yellow *NA* *NA* (08/07/2013 00:17:00) (07/29/2013 13:50:00) UA pH [5.0-8.0] 6.0 7.0 (08/07/2013 00:17:00) (07/29/2013 13:50:00) UA Spec Grav [<=1.030] 1.020 1.015 (08/07/2013 00:17:00) (07/29/2013 13:50:00) UA Glucose [Negative mg/dL] Negative mg/dL Negative mg/dL (08/07/2013 00:17:00) (07/29/2013 13:50:00) UA Blood [Negative] Negative Negative (08/07/2013 00:17:00) (07/29/2013 13:50:00) UA Ketones [Negative mg/dL] Negative mg/dL Negative mg/dL *NA* *NA* (08/07/2013 00:17:00) (07/29/2013 13:50:00) UA Protein [Negative mg/dL] Negative mg/dL Negative mg/dL (08/07/2013 00:17:00) (07/29/2013 13:50:00) UA Urobilinogen [0.1-1.0 EU/dL] 0.2 EU/dL 0.2 EU/dL (08/07/2013 00:17:00) (07/29/2013 13:50:00) UA Bili [Negative] Negative Negative *NA* *NA* (08/07/2013 00:17:00) (07/29/2013 13:50:00) UA Leuk Est [Negative] Negative Negative (08/07/2013 00:17:00) (07/29/2013 13:50:00) UA Nitrite [Negative] Negative Negative (08/07/2013 00:17:00) (07/29/2013 13:50:00) UA WBC [None Seen /HPF] 6-10 /HPF 0-2 /HPF *ABN* (07/29/2013 13:50:00) (08/07/2013 00:17:00) UA RBC [0-2 /HPF] 0-2 /HPF 0-2 /HPF (08/07/2013 00:17:00) (07/29/2013 13:50:00) UA Bacteria [None Seen /HPF] Occasional /HPF Occasional /HPF (08/07/2013 00:17:00) (07/29/2013 13:50:00) UA Sq Epi [Few /LPF] Rare /LPF Rare /LPF (08/07/2013 00:17:00) (07/29/2013 13:50:00) UA Mucus [None Seen /LPF] Moderate /LPF *ABN* (08/07/2013 00:17:00) BLOOD BANK RESULTS Most recent to oldest [Reference 1 2 3 Range]: ABO/Rh A POS A POS *Unknown* *Unknown* (08/08/2013 06:15:00) (07/29/2013 13:50:00) Antibody Scrn Negative Negative (08/08/2013 06:15:00) (07/29/2013 13:50:00) RBC product Product available 4 (08/08/2013 06:15:00) 4Result Comment: 08/08/2013 07:55 NIPATEL3 Called Daniela at 08/08/2013 07:55 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 [employer].CHEMISTRY Most recent to oldest 1 2 3 [Reference Range]: Sodium Lvl [135-145 mEq/L] 142 mEq/L 133 mEq/L 137 mEq/L (08/11/2013 04:10:00) *LOW* (08/08/2013 05:00:00) (08/09/2013 05:20:00) Potassium Lvl [3.5-5.1 4.7 mEq/L 4.7 mEq/L 4.5 mEq/L mEq/L] (08/11/2013 04:10:00) (08/09/2013 05:20:00) (08/08/2013 05:00:00) Chloride Lvl [95-109 104 mEq/L 99 mEq/L 104 mEq/L mEq/L] (08/11/2013 04:10:00) (08/09/2013 05:20:00) (08/08/2013 05:00:00) CO2 [24-32 mEq/L] 32 mEq/L 28 mEq/L 27 mEq/L (08/11/2013 04:10:00) (08/09/2013 05:20:00) (08/08/2013 05:00:00) AGAP [10.0-20.0 mEq/L] 10.7 mEq/L 10.7 mEq/L 10.5 mEq/L (08/11/2013 04:10:00) (08/09/2013 05:20:00) (08/08/2013 05:00:00) Creatinine Lvl [0.5-1.4 0.6 mg/dL 0.5 mg/dL 0.8 mg/dL mg/dL] (08/11/2013 04:10:00) (08/09/2013 05:20:00) (08/08/2013 05:00:00) eGFR 93 mL/min/1.73m2 5 99 mL/min/1.73m2 6 75 mL/min/1.73m2 7 *NA* *NA* *NA* (08/11/2013 04:10:00) (08/09/2013 05:20:00) (08/08/2013 05:00:00) BUN [7-22 mg/dL] 12 mg/dL 6 mg/dL 18 mg/dL (08/11/2013 04:10:00) *LOW* (08/08/2013 05:00:00) (08/09/2013 05:20:00) B/C Ratio [6-25] 12 22 (08/09/2013 05:20:00) (08/08/2013 05:00:00) Glucose Lvl [70-99 mg/dL] 93 mg/dL 8 99 mg/dL 9 120 mg/dL 10 (08/11/2013 04:10:00) (08/09/2013 05:20:00) *HI* (08/08/2013 05:00:00) Total Protein [6.4-8.4 6.3 g/dL 5.5 g/dL g/dL] *LOW* *LOW* (08/09/2013 05:20:00) (08/08/2013 05:00:00) Albumin Lvl [3.5-5.0 g/dL] 2.4 g/dL 2.4 g/dL *LOW* *LOW* (08/09/2013 05:20:00) (08/08/2013 05:00:00) Globulin [2.0-4.0 g/dL] 3.9 g/dL 3.1 g/dL (08/09/2013 05:20:00) (08/08/2013 05:00:00) A/G Ratio [0.7-1.6] 0.6 0.8 *LOW* (08/08/2013 05:00:00) (08/09/2013 05:20:00) Calcium Lvl [8.5-10.5 8.6 mg/dL 8.5 mg/dL 7.5 mg/dL mg/dL] (08/11/2013 04:10:00) (08/09/2013 05:20:00) *LOW* (08/08/2013 05:00:00) Phosphorus [2.5-4.5 mg/dL] 4.2 mg/dL 1.5 mg/dL 11 2.9 mg/dL (08/11/2013 04:10:00) *CRIT* (08/08/2013 05:00:00) (08/09/2013 05:20:00) Magnesium Lvl [1.8-2.4 1.7 mg/dL 1.7 mg/dL 1.4 mg/dL mg/dL] *LOW* *LOW* *LOW* (08/11/2013 04:10:00) (08/09/2013 05:20:00) (08/08/2013 05:00:00) ALT [0-65 unit/L] 15 unit/L 12 unit/L (08/09/2013 05:20:00) (08/08/2013 05:00:00) AST [0-37 unit/L] 20 unit/L 22 unit/L (08/09/2013 05:20:00) (08/08/2013 05:00:00) Alk Phos [39-136 unit/L] 179 unit/L 127 unit/L *HI* (08/08/2013 05:00:00) (08/09/2013 05:20:00) Bili Total [0.2-1.3 mg/dL] 0.6 mg/dL 0.3 mg/dL (08/09/2013 05:20:00) (08/08/2013 05:00:00) Total CK [12-191 unit/L] 117 unit/L (08/06/2013 23:57:00) CK MB [0.5-3.6 ng/mL] 0.6 ng/mL (08/06/2013 23:57:00) CK MB Index [0.0-2.5] 0.5 (08/06/2013 23:57:00) U Methadone Scr [Negative] Negative *NA* (08/08/2013 09:20:33) U Propoxyph Scr [Negative] Negative *NA* (08/08/2013 09:20:33) U Amph Scr [Negative] Negative *NA* (08/08/2013 09:20:33) U Carolee Scr [Negative] Negative *NA* (08/08/2013 09:20:33) U Benzodia Scr [Negative] Negative *NA* (08/08/2013 09:20:33) U Cocaine Scr [Negative] Negative *NA* (08/08/2013 09:20:33) U Opiate Scr [Negative] Positive *ABN* (08/08/2013 09:20:33) U Phencyc Scr [Negative] Negative *NA* (08/08/2013 09:20:33) U Cannab Scr [Negative] Negative *NA* (08/08/2013 09:20:33) UDS Note See Note 12 (08/08/2013 09:20:33) 5Result Comment: The eGFR is calculated using [...] eGFR should be multiplied by the estimated BMI.6Result Comment: The eGFR is calculated using the [...] eGFR should be multiplied by the estimated BMI.7Result Comment: The eGFR is calculated using the [...] eGFR should be multiplied by the estimated BMI.8Interpretive Data: Adult reference range values reflect the clinical guidelines of the [place] [employer].9Interpretive Data: Adult reference range values reflect the clinical guidelines of the [place] [employer].10Interpretive Data: Adult reference range values reflect the clinical guidelines of the [place] [employer].11Result Comment: Critical Result(s) called Bhavin Bingham _ at 08/09/2013 05:55 byrvs. Read backOK.12Interpretive Data: Drugs reported as positive have not been confirmed by a second method and should be used for medical purposes only. To order confirmation, contact laboratory. note: Below are cut-off [...] ng/mL Methadone 300 ng/mL Urine alcohol 20 mg/dLHEMATOLOGY Most recent to oldest 1 2 3 [Reference Range]: WBC [3.7-10.4 K/CMM] 4.5 K/CMM 10.9 K/CMM 10.1 K/CMM (08/11/2013 04:10:00) *HI* (08/08/2013 05:00:00) (08/09/2013 05:20:00) RBC [4.20-5.40 M/CMM] 3.47 M/CMM 3.90 M/CMM 3.08 M/CMM *LOW* *LOW* *LOW* (08/11/2013 04:10:00) (08/09/2013 05:20:00) (08/08/2013 05:00:00) Hgb [12.0-16.0 g/dL] 9.4 g/dL 10.4 g/dL 8.0 g/dL *LOW* *LOW* *LOW* (08/11/2013 04:10:00) (08/09/2013 05:20:00) (08/08/2013 05:00:00) Hct [36.0-48.0 %] 29.6 % 32.5 % 25.7 % *LOW* *LOW* *LOW* (08/11/2013 04:10:00) (08/09/2013 05:20:00) (08/08/2013 05:00:00) MCV [81.0-99.0 fL] 85.2 fL 83.5 fL 83.3 fL (08/11/2013 04:10:00) (08/09/2013 05:20:00) (08/08/2013 05:00:00) MCH [27.0-31.0 pg] 27.0 pg 26.8 pg 26.0 pg (08/11/2013 04:10:00) *LOW* *LOW* (08/09/2013 05:20:00) (08/08/2013 05:00:00) MCHC [32.0-36.0 g/dL] 31.7 g/dL 32.1 g/dL 31.2 g/dL *LOW* (08/09/2013 05:20:00) *LOW* (08/11/2013 04:10:00) (08/08/2013 05:00:00) RDW [11.5-14.5 %] 16.2 % 16.3 % 16.2 % *HI* *HI* *HI* (08/11/2013 04:10:00) (08/09/2013 05:20:00) (08/08/2013 05:00:00) Platelet [133-450 K/CMM] 183 K/CMM 158 K/CMM 139 K/CMM (08/11/2013 04:10:00) (08/09/2013 05:20:00) (08/08/2013 05:00:00) MPV [7.4-10.4 fL] 7.1 fL 7.2 fL 7.3 fL *LOW* *LOW* *LOW* (08/11/2013 04:10:00) (08/09/2013 05:20:00) (08/08/2013 05:00:00) Segs [45.0-75.0 %] 65.4 % 82.9 % 83.2 % (08/11/2013 04:10:00) *HI* *HI* (08/09/2013 05:20:00) (08/08/2013 05:00:00) Lymphocytes [20.0-40.0 %] 22.2 % 9.0 % 8.3 % (08/11/2013 04:10:00) *LOW* *LOW* (08/09/2013 05:20:00) (08/08/2013 05:00:00) Monocytes [2.0-12.0 %] 8.6 % 7.4 % 8.0 % (08/11/2013 04:10:00) (08/09/2013 05:20:00) (08/08/2013 05:00:00) Eosinophils [0.0-4.0 %] 3.3 % 0.7 % 0.3 % (08/11/2013 04:10:00) (08/09/2013 05:20:00) (08/08/2013 05:00:00) Basophils [0.0-1.0 %] 0.5 % 0.0 % 0.2 % (08/11/2013 04:10:00) (08/09/2013 05:20:00) (08/08/2013 05:00:00) Segs-Bands # [1.5-8.1 2.9 K/CMM 9.0 K/CMM 8.4 K/CMM K/CMM] (08/11/2013 04:10:00) *HI* *HI* (08/09/2013 05:20:00) (08/08/2013 05:00:00) Lymphocytes # [1.0-5.5 1.0 K/CMM 1.0 K/CMM 0.8 K/CMM K/CMM] (08/11/2013 04:10:00) (08/09/2013 05:20:00) *LOW* (08/08/2013 05:00:00) Monocytes # [0.0-0.8 0.4 K/CMM 0.8 K/CMM 0.8 K/CMM K/CMM] (08/11/2013 04:10:00) (08/09/2013 05:20:00) (08/08/2013 05:00:00) Eosinophils # [0.0-0.5 0.1 K/CMM 0.1 K/CMM 0.0 K/CMM K/CMM] (08/11/2013 04:10:00) (08/09/2013 05:20:00) (08/08/2013 05:00:00) Basophils # [0.0-0.2 0.0 K/CMM 0.0 K/CMM 0.0 K/CMM K/CMM] (08/11/2013 04:10:00) (08/09/2013 05:20:00) (08/08/2013 05:00:00) PT [12.0-14.7 seconds] 14.1 seconds 15.3 seconds 12.5 seconds (08/09/2013 05:20:00) *HI* (07/29/2013 13:50:00) (08/08/2013 05:00:00) INR [0.85-1.17] 1.10 13 1.22 14 0.94 15 (08/09/2013 05:20:00) *HI* (07/29/2013 13:50:00) (08/08/2013 05:00:00) PTT [22.9-35.8 seconds] 28.0 seconds 16 24.7 seconds 17 29.4 seconds 18 (08/09/2013 05:20:00) (08/08/2013 05:00:00) (07/29/2013 13:50:00) 13Interpretive Data: RECOMMENDED RANGES FOR PROTIME INR: 2.0-3.0 for most medical and surgical thromboembolic states. 2.5-3.5 for artificial heart valves and recurrent embolism. INR SHOULD BE USED ONLY FOR PATIENTS ON STABLE ANTICOAGULANT THERAPY.14Interpretive Data: RECOMMENDED RANGES FOR PROTIME INR: 2.0-3.0 for most medical and surgical thromboembolic states. 2.5-3.5 for artificial heart valves and recurrent embolism. INR SHOULD BE USED ONLY FOR PATIENTS ON STABLE ANTICOAGULANT THERAPY.15Interpretive Data: RECOMMENDED RANGES FOR PROTIME INR: 2.0-3.0 for most medical and surgical thromboembolic states. 2.5-3.5 for artificial heart valves and recurrent embolism. INR SHOULD BE USED ONLY FOR PATIENTS ON STABLE ANTICOAGULANT THERAPY.16Interpretive Data: Heparin Therapeutic Range: 57 - 92 [id number] Data: Heparin Therapeutic Range: 57 - 92 [id number] Data: Heparin Therapeutic Range: 57 - 92 Seconds Microbiology Reports PROCEDURE:Culture: Blood STATUS: Auth (Verified) BODY SITE: Left Hand COLLECTED DATE/TIME: 08/07/2013 01:45:00 SOURCE: Blood FREE TEXT SOURCE: FINAL REPORTS Final ReportNo Growth At 5 DaysPRELIMINARY REPORTS* Preliminary ReportNo Growth At 3 Days Preliminary ReportNo Growth At 2 Days Preliminary ReportNo Growth At 1 Day Preliminary ReportNo Growth; Holding Preliminary ReportNo Growth At 4 Days PROCEDURE:Culture: Urine STATUS: Auth (Verified) BODY SITE: COLLECTED DATE/TIME: 08/07/2013 00:17:52 SOURCE: Urine, Clean Catch FREE TEXT SOURCE: FINAL REPORTS Final ReportNo GrowthPRELIMINARY REPORTS Preliminary ReportNo Growth; Holding Procedures Procedures Date Related Diagnosis Arthroplasty of hip, total, with use of methyl 08/06/2013 00:00:00 methacrylate Aspiration of ganglion - hand 11/13/1969 00:00:00 Fluoroscopy and stent aorta 11/13/2005 00:00:00
--- OUTSIDE RECORDS SUMMARY | 2018-12-08 01:12 | XMS REPORT | CCD ---
:1945 Author Organization [facility] Care Team Providers Name Role Phone Aric [...] 11/13/2006 Resolved Weak Active 1B MRSA - [id number] added by Discern Expert. Medications Medication Instructions Start Date End Date Status Pneumovax 23 0.5 mL, Route: IM, Drug 08/06/2013 08/07/2013 Completed Form: INJ, ONCE, Start date: 08/06/13 19:00:00, Stop date: 08/06/13 19:00:00(Same as: Pneumovax 23) Refrigerate ceftriaxone 2 gm, Route: IVPB, Drug 09/05/2013 09/06/2013 Discontinued form: PDR/INJ, [id number], Dosing Weight 72.2, kg, Start date: 09/05/13 [...] by the [facility] within the [facility]. The [facility] is authorized [...] values reflect the clinical guidelines of the [place] [employer].6Interpretive Data: Adult reference range values reflect the clinical guidelines of the [place] [employer].HEMATOLOGY Most recent to oldest [Reference [...]
--- OUTSIDE RECORDS SUMMARY | 2018-12-08 01:12 | XMS REPORT | CCD ---
:1945 Author Organization [facility] Care Team Providers Name Role Phone Aric [...] 11/13/2006 Resolved Weak Active 1B MRSA - [id number] added by Discern Expert. Medications Medication Instructions Start Date End Date Status Pneumovax 23 0.5 mL, Route: IM, Drug 08/06/2013 08/07/2013 Completed Form: INJ, ONCE, Start date: 08/06/13 19:00:00, Stop date: 08/06/13 19:00:00(Same as: Pneumovax 23) Refrigerate ceftriaxone 2 gm, Route: IVPB, Drug 09/05/2013 09/06/2013 Discontinued form: PDR/INJ, [id number], Dosing Weight 72.2, kg, Start date: 09/05/13 [...] by the [facility] within the [facility]. The [facility] is authorized [...] values reflect the clinical guidelines of the [place] [employer].6Interpretive Data: Adult reference range values reflect the clinical guidelines of the [place] [employer].HEMATOLOGY Most recent to oldest [Reference [...]
--- OUTSIDE RECORDS SUMMARY | 2018-12-08 01:12 | XMS REPORT | CCD ---
:1945 Author Organization [facility] Care Team Providers Name Role Phone [...] 11/13/2006 Resolved Weak Active 1B MRSA - [id number] added by Discern Expert. Medications Medication Instructions Start Date End Date Status Pneumovax 23 0.5 mL, Route: IM, Drug 08/06/2013 08/07/2013 Completed Form: INJ, ONCE, Start date: 08/06/13 19:00:00, Stop date: 08/06/13 19:00:00(Same as: Pneumovax 23) Refrigerate ceftriaxone 2 gm, Route: IVPB, Drug 09/05/2013 09/06/2013 Discontinued form: PDR/INJ, [id number], Dosing Weight 72.2, kg, Start date: 09/05/13 [...] by the [facility] within the [facility]. The [facility] is authorized under [...] values reflect the clinical guidelines of the [place] [employer].6Interpretive Data: Adult reference range values reflect the clinical guidelines of the [place] [employer].HEMATOLOGY Most recent to oldest [Reference [...]
--- OUTSIDE RECORDS SUMMARY | 2018-12-08 01:13 | XMS REPORT | CCD ---
:1945 Author Organization [facility] Care Team Providers Name Role [...] 11/13/2006 Resolved Weak Active 1B MRSA - [id number] added by Discern Expert. Medications Medication Instructions Start Date End Date Status Pneumovax 23 0.5 mL, Route: IM, Drug 08/06/2013 08/07/2013 Completed Form: INJ, ONCE, Start date: 08/06/13 19:00:00, Stop date: 08/06/13 19:00:00(Same as: Pneumovax 23) Refrigerate ceftriaxone 2 gm, Route: IVPB, Drug 09/05/2013 09/06/2013 Discontinued form: PDR/INJ, [id number], Dosing Weight 72.2, kg, Start date: 09/05/13 [...] by the [facility] within the [facility]. The [facility] is authorized [...] the clinical guidelines of the [place] [employer].6Interpretive Data: Adult reference range values reflect the clinical guidelines of the [place] [employer].HEMATOLOGY Most recent to oldest [Reference [...]
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
--- OUTSIDE RECORDS SUMMARY | 2018-12-08 01:14 | XMS REPORT | Summary of Care ---
:1945 Author Care Team Providers Name Role Phone Shania Luong Primary Care Physician Encounter [facility] Chrissy(DORON) [id number] Date(s): 01/29/15 - 01/29/15 [facility] Outpatient [facility] [place] Discharge Disposition: Home Physician Attending: Keshav Mccoy MD Vital Signs No data available for this section Problem List Condition Effective Dates Status Health [...] 11/13/06 Resolved Weak(Confirmed) Active 1B MRSA - [id number] added by [employer]. Allergies, Adverse Reactions, Alerts Substance Reaction Severity Status Bactrim rash Active erythromycin unknown Active Imitrex rapid heart beat Active morphine drops blood pressure Active Nubain throat close,tounge swelling Active phenytoin seizures Active Plastic Tape redness Active Valium drunk Active Zofran cold sweat,vomiting Active Medications No data available for this section Results No data available for this section Immunizations Vaccine Date Refusal Reason influenza virus vaccine, inactivated 08/07/13 pneumococcal 23-valent vaccine 08/07/13 Procedures No data available for this section Social History Social History Type Response Substance Abuse 1 Sexual Sexually active: No. Exercise 2 Employment/School 3 Alcohol Current4 Smoking Status Former smoker; Type: Cigarettes; Tobacco use per day: 60; Number of years: 40; Exposure to Tobacco Smoke None; Cigarette Smoking Last 365 Days Yes; Reg Smoking Cessation Counseling Yes 1no substance [id number] therapy 2x a [id number] alcohol Assessment and Plan No data available for this section
--- OUTSIDE RECORDS SUMMARY | 2018-12-08 01:14 | XMS REPORT | Summary of Care ---
:1945 Author Care Team Providers Name Role Phone Shania Luong Primary Care Physician Encounter HQ Chrissy(DORON) [phone] Date(s): 05/27/14 - 06/11/14 [facility] [id number] [place] [address] Discharge Disposition: Home Physician Attending: Keshav Mccoy MD Physician Admitting: Keshav Mccoy MD Reason for Visit OSTEOARTHRITIS HIP LEFT-[id number]-SCIP Vital Signs Most recent to oldest 1 2 3 [Reference Range]: Height 152.4 cm 154.94 cm 154.94 cm (05/27/14 2:36 PM) (05/20/14 4:11 PM) (05/20/14 11:29 AM) Temperature Oral [96.4-99.1 98.1 DegF 97.7 DegF 98.1 DegF DegF] (06/11/14 3:25 PM) (06/11/14 11:08 AM) (06/11/14 8:04 AM) Systolic Blood Pressure 106 mmHg 105 mmHg 162 mmHg [90-140 mmHg] (06/11/14 3:25 PM) (06/11/14 11:08 AM) *HI* (06/11/14 8:04 AM) Diastolic Blood Pressure 64 mmHg 56 mmHg 81 mmHg [60-90 mmHg] (06/11/14 3:25 PM) *LOW* (06/11/14 8:04 AM) (06/11/14 11:08 AM) Respiratory Rate [14-20 BRMIN] 20 BRMIN 20 BRMIN 20 BRMIN (06/11/14 3:25 PM) (06/11/14 11:08 AM) (06/11/14 8:04 AM) Peripheral Pulse Rate [60-100 78 bpm 59 bpm 62 bpm bpm] (06/11/14 3:25 PM) *LOW* (06/11/14 8:04 AM) (06/11/14 11:08 AM) Weight 75 kg 75 kg 73.182 kg (05/27/14 2:36 PM) (05/20/14 4:11 PM) (05/20/14 11:29 AM) Body Mass Index 32.29 m2 31.24 m2 30.48 m2 (05/27/14 2:36 PM) (05/20/14 4:11 PM) (05/20/14 11:29 AM) Problem List Condition Effective Dates Status Health [...] 11/13/06 Resolved Weak(Confirmed) Active 1B MRSA - [id number] added by Discern Expert. Allergies, Adverse Reactions, Alerts Substance Reaction Severity Status Bactrim rash Active erythromycin unknown Active Imitrex rapid heart beat Active morphine drops blood pressure Active Nubain throat close,tounge swelling Active phenytoin seizures Active Plastic Tape redness Active Valium drunk Active Zofran cold sweat,vomiting Active Medications acetaminophen 1,000 mg, 100 mL, Route: IVPB, Drug form: INJ, Q6Hnow, Dosing Weight 75, kg, Start date: 05/27/14 11:00:00, Duration: 4 doses or times, Stop date: 05/28/14 5 :00:00 Notes: Infuse over 15 minutes Do not exceed 4gm/day of acetaminophen Start Date: 05/27/14 Stop Date: 05/28/14 Status: Completedacetaminophen 650 mg, 2 tab, Route: PO, Drug form: TAB, Q4H, Dosing Weight 75, kg, PRN as needed for fever, Start date: 05/29/14 16:12:00, Duration: 30 day, Stop date: 16:11:00 Notes: Do not exceed 4 gm/day. (Same as: Tylenol) Start Date: 05/29/14 Stop Date: 06/11/14 Status: Discontinuedacetaminophen-hydrocodone 325 mg-10 mg oral tablet 1 tab, Route: PO, Drug Form: TAB, Dosing Weight 75, kg, Q4H, PRN Pain Score 4-6 , Start date: 05/27/14 9:18:00, Duration: 30 day, Stop date: 06/26/14 9:17:00 Notes: Do not exceed 4gm/day of acetaminophen. (Same as: [place] 325/10) Start Date: 05/27/14 Stop Date: 06/11/14 Status: DiscontinuedAdvair Diskus 500 mcg-50 mcg inhalation powder 1 puff, Route: INHALATION, Drug Form: AERO, Dosing Weight 75, kg, Q12H, Start date: 05/27/14 21:00:00, Duration: 30 day, Stop date: 06/26/14 9:00:00 Notes: (Same as: Advair) Start Date: 05/27/14 Stop Date: 06/11/14 Status: DiscontinuedAdvair Diskus 500 mcg-50 mcg inhalation powder 1 puff, INHALATION, Q12H, # 28 ea, 0 Refill(s) Start Date: 05/27/14 Status: OrderedAl hydroxide/Mg hydroxide/simethicone 200 mg-200 mg-20 mg/5 mL oral suspension 30 ml, Route: PO, Drug Form: SUSP, Dosing Weight 75, kg, Q4H, PRN Constipation, Start date: 149:18:00, Duration: 30 day, Stop date: 06/26/14 9:17:00 Notes: (aluminum hydroxide-magnesium hyd-simethicone [id number]/5ml 30 ml ud RUSLAN) Start Date: 05/27/14 Stop Date: 06/11/14 Status: Discontinuedaspirin 81 mg tablet, enteric coated 81 mg, 1 tab, Route: PO, Drug form: ECTAB, Daily, Dosing Weight 75, kg, Start date: 05/28/14 9:00:00, Duration: 30 day, Stop date: 06/26/14 9:00:00 Notes: Do not crush or chew.(Same As: Ecotrin) Start Date: 05/28/14 Stop Date: 06/11/14 Status: Discontinuedaspirin 81 mg tablet, enteric coated 81 mg=1 tab, PO, Daily, # 0 tab, 0 Refill(s) Start Date: 05/27/14 Status: OrderedAtivan 2 mg, Route: IV, ONCE, Dosing Weight 75, kg, Start date: 05/28/14 9:00:00, Stop date: 05/28/14 9:00:00 Start Date: 05/28/14 Stop Date: 05/28/14 Status: Completedbenzocaine topical 10 mg lozenge 1 lozenge, Route: PO, PRN, Drug form: AIDA, PRN Sore Throat, Start date: 8:18:00, Duration: 30 day, Stop date: 07/04/14 8:17:00 Notes: (Same as: Chloraseptic aida) Start Date: 06/04/14 Stop Date: 06/11/14 Status: Discontinuedbisacodyl 10 mg, 1 supp, Route: MD, Drug form: SUPP, Daily, Dosing Weight 75, kg, PRN Constipation, Start date: 05/27/14 10:44:00, Duration: 30 day, Stop date: 10:43:00 Notes: (Same As: Dulcolax, Bisco-Lax) Start Date: 05/27/14 Stop Date: 05/29/14 Status: DiscontinuedBumex 1 mg, 4 mL, Route: IVP, Drug form: INJ, ONCE, Dosing Weight 75, kg, Start date: 06/02/14 9:02:00, Stop date: 06/02/14 9:02:00 Notes: (Same As: Bumex) Start Date: 06/02/14 Stop Date: 06/02/14 Status: CompletedBupivacaine 0.125% + fentaNYL 5 mcg/ml CADD 200 mL Route: EPIDURAL, Continuous Rate: 4, ml/hr, Infusion site: Lumbar, [employer] dose 3 mL , [employer] dose lockout: 10 minutes, 1 Hour limit: 24 mL, Clinician Bolus: 3 mL, 200 , mL, Start date: 05/27/14 11:46:00, Drug Form: INJ, Total volume: 200, mL, kg, Stop date: 0... Notes: (Same as: Marcaine-Sublimaze) Start Date: 05/27/14 Stop Date: 05/29/14 Status: Discontinuedcalcium carbonate 500 mg (200 mg elemental calcium) oral tablet 500 mg, 1 tab, Route: PO, Drug form: CHEWTAB, PRN, Dosing Weight 75, kg, PRN Abnormal Lab Result, FOR ICU USE ONLY, Start date: 05/28/14 10:25:00, Duration: 30 day, Stop date: 06/27/14 10:24:00 Notes: (Same As: Tums)Calcium Carbonate 500 lw=065 mg elemental calcium Dose=_ mg calcium carbonate ( mg elemental calcium) Start Date: 05/28/14 Stop Date: 06/02/14 Status: Discontinuedcalcium carbonate 500 mg (200 mg elemental calcium) oral tablet 1,000 mg, 2 tab, Route: PO, Drug form: CHEWTAB, PRN, Dosing Weight 75, kg, PRN Abnormal Lab Result, FOR ICU USE ONLY, Start date: 05/28/14 10:25:00, Duration: 30 day, Stop date: 06/27/14 10:24:00 Notes: (Same As: Nolans)Calcium Carbonate 500 am=103 mg elemental calcium Dose=_ mg calcium carbonate ( mg elemental calcium) Start Date: 05/28/14 Stop Date: 06/02/14 Status: Discontinuedcalcium gluconate + Sodium Chloride 0.9% IV 100 mL 1 gm, Route: IVPB, Drug form: INJ, PRN, Dosing Weight 75, kg, PRN Abnormal Lab Result, Start date: 05/28/14 10:25:00, Duration: 30 day, Stop date: 06/27/14 10: 24:00, FOR ICU USE ONLY Special Instructions: FOR ICU USE ONLY Start Date: 05/28/14 Stop Date: 06/02/14 Status: Discontinuedcarvedilol 6.25 mg, 2 tab, Route: PO, Drug form: TAB, BID, Dosing Weight 75, kg, Start date : 05/27/14 17:00:00,Duration: 30 day, Stop date: 06/26/14 9:00:00 Notes: Give with food. (Same As: Coreg) Start Date: 05/27/14 Stop Date: 05/29/14 Status: Discontinuedcarvedilol 6.25 mg oral tablet 6.25 mg=1 tab, PO, BID, # 180 tab, 0 Refill(s) Start Date: 05/27/14 Status: OrderedceFAZolin 2 gm, 100 mL, Route: IVPB, Drug form: INJ, ONCALL, Start date: 05/27/14 6:00:00 , Duration: 1 doses or times, Stop date: 05/27/14 23:59:00 Notes: Same as: Ancef Start Date: 05/27/14 Stop Date: 05/27/14 Status: DiscontinuedceFAZolin (SCIP) 1 gm, 100 mL, Route: IVPB, Drug form: INJ, Q8H, Dosing Weight 75, kg, Total 3 doses, Start date: 05/27/14 16:00:00, Duration: 3 doses or times, Stop date: 8:00:00 Start Date: 05/27/14 Stop Date: 05/28/14 Status: CompletedCeleBREX 400 mg, 4 cap, Route: PO, Drug form: CAP, ONCALL, Start date: 05/27/14 6:00:00, Duration: 1 doses ortimes, Stop date: 05/27/14 23:59:00 Notes: NSAID. Please check indication. Not for seizure. (Same As: CeleBREX) Start Date: 05/27/14 Stop Date: 05/27/14 Status: CompletedCepacol Lozenge 1 lozenge, Route: MUCOUS MEM, Q2H, Drug form: AIDA, PRN Sore Throat, Start date: 06/04/14 7:52:00, Duration: 30 day, Stop date: 07/04/14 7:51:00 Start Date: 06/04/14 Stop Date: 06/04/14 Status: DeletedCoreg 12.5 mg, 1 tab, Route: PO, Drug form: TAB, Q12H, Dosing Weight 75, kg, Start date: 05/29/14 21:00:00, Duration: 30 day, Stop date: 06/28/14 9:00:00 Notes: Give with food. (Same As: Coreg) Start Date: 05/29/14 Stop Date: 06/11/14 Status: DiscontinuedCyklokapron 1,000 mg, 10 mL, Route: IV, Drug form: INJ, ONCALL, Start date: 05/27/14 6:00:00 , Duration: 1 doses or times, Stop date: 05/27/14 23:59:00 Notes: (Same As: Cyklokapron) Start Date: 05/27/14 Stop Date: 06/07/14 Status: [id number] 1/2NS + KCL 20mEq/L 1000ml (Premix) 1,000 mL 1,000 mL, Rate: 100 ml/hr, Infuse over: 10 hr, Route: IV, Dosing Weight 75 kg, Total Volume: 1,000, Start date: 05/27/14 9:18:00, Duration: 30 day, Stop date: 06/26/14 9:17:00 Notes: PREMIX IV - Do Not Alter Start Date: 05/27/14 Stop Date: 05/27/14 Status: DiscontinuedDaliresp 500 mcg oral tablet 500 microgram=1 tab, PO, QAM, 0 Refill(s) Start Date: 05/27/14 Status: OrderedDilaudid 1 mg, 0.5 mL, Route: IV, Drug form: INJ, Q4H, Dosing Weight 75, kg, PRN Pain, Start date: 06/09/14 18:01:00, Duration: 30 day, Stop date: 07/09/14 18:00:00 Notes: (Same as: Dilaudid) Start Date: 06/09/14 Stop Date: 06/11/14 Status: DiscontinuedDilaudid 1 mg, Route: IV, Q3H, Dosing Weight 75, kg, PRN Pain, Start date: 06/02/14 11:02 :00, Duration: 30 day, Stop date: 07/02/14 11:01:00 Start Date: 06/02/14 Stop Date: 06/02/14 Status: DeletedDilaudid 4 mg, 2 tab, Route: PO, Drug form: TAB, Q6H, Dosing Weight 75, kg, PRN Pain, please give at 6am, 12noon, 6pm, 12midnight, Start date: 06/09/14 18:00:00, Duration: 30 day, Stop date: 07/09/14 17:59:00 Notes: (Same as: Dilaudid) Start Date: 06/09/14 Stop Date: 06/11/14 Status: DiscontinuedDilaudid 1 mg, 0.5 mL, Route: IV, Drug form: INJ, Q3H, PRN Pain, Start date: 06/02/14 11: 47:00, Duration: 30 day, Stop date: 07/02/14 11:46:00 Notes: (Same as: Dilaudid) Start Date: 06/02/14 Stop Date: 06/05/14 Status: DiscontinuedDilaudid 1 mg, 0.5 mL, Route: IV, Drug form: INJ, Q4H, Dosing Weight 75, kg, PRN as needed for pain, Start date: 05/30/14 7:47:00, Duration: 30 day, Stop date: 7:46:00 Notes: (Same as: Dilaudid) Start Date: 05/30/14 Stop Date: 06/02/14 Status: DiscontinuedDilaudid 4 mg, 2 tab, Route: PO, Drug form: TAB, Q6H, Dosing Weight 75, kg, PRN Pain, Start date: 06/05/14 11:04:00, Duration: 30 day, Stop date: 07/05/14 11:03:00 Notes: (Same as: Dilaudid) Start Date: 06/05/14 Stop Date: 06/09/14 Status: DiscontinueddiphenhydrAMINE 25 mg, 0.5 mL, Route: IVP, Drug form: INJ, Q6H, Dosing Weight 75, kg, PRN Itching, Start date: 05/27/14 9:18:00, Duration: 30 day, Stop date: 06/26/14 9: 17:00 Notes: (Same as: Benadryl) Start Date: 05/27/14 Stop Date: 06/07/14 Status: DiscontinueddiphenhydrAMINE 25 mg, 1 tab, Route: PO, Drug form: TAB, Bedtime, Dosing Weight 75, kg, PRN Insomnia, Start date: 05/27/14 9:18:00, Duration: 30 day, Stop date: 06/26/14 9: 17:00 Start Date: 05/27/14 Stop Date: 06/11/14 Status: Discontinueddocusate sodium 100 mg oral capsule 100 mg, 1 cap, Route: PO, Drug form: CAP, BID, Dosing Weight 75, kg, Start date : 05/27/14 17:00:00, Duration: 30 day, Stop date: 06/26/14 9:00:00 Notes: (Same as: Colace) (Do Not Crush) Start Date: 05/27/14 Stop Date: 06/11/14 Status: DiscontinuedDulcolax Laxative 10 mg, 1 supp, Route: MD, Drug form: SUPP, ONCE, Dosing Weight 75, kg, PRN Constipation, if no BM may repeat x 1 after 12 hours, Start date: 05/27/14 9:18: 00 Notes: (Same As: Dulcolax, Bisco-Lax) Start Date: 05/27/14 Stop Date: 06/11/14 Status: DiscontinuedDuoNeb inhalation solution 3 ml, Route: INHALATION, Drug Form: SOLN, Dosing Weight 75, kg, QID, PRN as needed for shortness of breath or wheezing, Start date: 05/27/14 9:53:00, Duration: 30 day, Stop date: 06/26/14 9:52:00 Notes: (Same as: Duoneb) Start Date: 05/27/14 Stop Date: 06/11/14 Status: DiscontinuedDuoNeb inhalation solution 3 ml, Route: INHALATION, Drug Form: SOLN, Dosing Weight 75, kg, QID, Start date : 05/28/14 13:00:00, Duration: 30 day, Stop date: 06/27/14 9:00:00 Notes: (Same as: Duoneb) Start Date: 05/28/14 Stop Date: 06/11/14 Status: DiscontinuedDuoNeb inhalation solution 3 ml, Route: INHALATION, Drug Form: SOLN, Dosing Weight 75, kg, QID, PRN Dyspnea , Start date: 05/28/14 10:27:00, Duration: 30 day, Stop date: 06/27/14 10:26:00 Notes: (Same as: Duoneb) Start Date: 05/28/14 Stop Date: 06/11/14 Status: Discontinuedenalaprilat 0.625 mg, 0.5 mL, Route: IVP, Drug form: INJ, Q5Min, Dosing Weight 75, kg, PRN Elevated BP, Start date: 05/27/14 10:40:00, Duration: 4 doses or times, Stop date: Limited # of times Notes: (Same as: Vasotec-IV) Start Date: 05/27/14 Stop Date: 05/27/14 Status: DiscontinuedfentaNYL 50 microgram, Route: IVP, Q5Min, Dosing Weight 75, kg, PRN Pain Score 7-10, Start date: 05/27/14 10:40:00, Duration: 2 doses or times, Stop date: Limited # of times Start Date: 05/27/14 Stop Date: 05/27/14 Status: CompletedfentaNYL 50 microgram, Route: IV, ONCE, Dosing Weight 75, kg, Start date: 05/27/14 12:27: 00, Stop date: 05/27/14 12:27:00 Start Date: 05/27/14 Stop Date: 05/27/14 Status: Completedferrous sulfate 325 mg, 1 tab, Route: PO, Drug form: ECTAB, TID, Dosing Weight 75, kg, Administer 2 hours before or 4 hours after meals, Start date: 05/27/14 13:00:00 , Duration: 30 day, Stop date: 06/26/14 9:00:00 Notes: Give with food. "Do Not Crush" Start Date: 05/27/14 Stop Date: 06/11/14 Status: DiscontinuedFleet Enema 133 ml, Route: MD, Drug Form: TATE, Dosing Weight 75, kg, Daily, PRN Constipation, as needed for constipation, if others ineffective, or patient preference, Start date: 05/28/14 9:00:00, Duration: 30 day, Stop date: 06/26/14 9:00:00 Start Date: 05/28/14 Stop Date: 06/11/14 Status: DiscontinuedFlexeril 5 mg oral tablet 5 mg=1 tab, PO, BID, 0 Refill(s) Start Date: 05/27/14 Status: Orderedflumazenil 0.2 mg, 2 mL, Route: IVP, Drug form: INJ, PRN, Dosing Weight 75, kg, PRN Benzodiazepine Reversal, Initial dose, Start date: 05/27/14 10:40:00, Duration: 30 day, Stop date: 06/26/14 10:39:00 Notes: (Same as: Romazicon) Start Date: 05/27/14 Stop Date: 05/27/14 Status: Discontinuedfurosemide 40 mg oral tablet 40 mg=1 tab, PO, Daily, # 30 tab, 0 Refill(s) Start Date: 05/27/14 Status: Orderedgabapentin 300 mg, 1 cap, Route: PO, Drug form: CAP, Q8Hnow, Dosing Weight 75, kg, Start date: 05/27/14 11:00:00, Duration: 30 day, Stop date: 06/26/14 3:00:00 Notes: (Same as: Neurontin) Start Date: 05/27/14 Stop Date: 05/29/14 Status: Discontinuedheparin flush 500 unit, 5 mL, Route: IVP Central, Drug form: SOLN, PRN, Dosing Weight 75, kg, PRN Line Flush, Start date: 06/02/14 9:08:00, Stop date: 07/02/14 9:07:00, For packing [place] Special Instructions: For packing [place] Notes: (Same as: Heparin Lock Flush) Start Date: 06/02/14 Stop Date: 06/11/14 Status: Discontinuedheparin flush 500 unit, 5 mL, Route: IVP, Drug form: SOLN, PRN, Dosing Weight 75, kg, PRN Line Flush, Start date: 06/11/14 17:13:00, Duration: 30 day, Stop date: 17:12:00 Notes: (Same as: Heparin Lock Flush) Start Date: 06/11/14 Stop Date: 06/11/14 Status: DiscontinuedhydrALAZINE 10 mg, 0.5 mL, Route: IVP, Drug form: INJ, Q4H, Dosing Weight 75, kg, PRN Hypertension, Start date: 05/27/14 9:53:00, Duration: 30 day, Stop date: 9:52:00 Notes: (Same as: Apresoline)Push over 5 minutes Start Date: 05/27/14 Stop Date: 06/11/14 Status: Discontinuedhydromorphone 4 mg oral tablet 4 mg=1 tab, PO, Q8H, as needed for pain, 0 Refill(s) Start Date: 05/27/14 Status: OrderedKeppra + Sodium Chloride 0.9% IV 100 mL 500 mg, Route: IVPB, Drug form: INJ, Q12H, Dosing Weight 75, kg, Start date: 21:00:00, Duration: 30 day, Stop date: 06/27/14 9:00:00 Notes: Same as Keppra Mix with 100ml NS, LR, or D5W Start Date: 05/28/14 Stop Date: 05/29/14 Status: DiscontinuedKeppra + Sodium Chloride 0.9% IV 100 mL 1,000 mg, Route: IV, Drug form: INJ, ONCE, Dosing Weight 75, kg, Priority: NOW, Start date: 05/28/1410:06:00, Stop date: 05/28/14 10:06:00 Notes: Same as Keppra Mix with 100ml NS, LR, or D5W Start Date: 05/28/14 Stop Date: 05/28/14 Status: CompletedKeppra 250 mg oral tablet 750 mg, 3 tab, Route: PO, Drug form: TAB, Q12H, Dosing Weight 75, kg, Start date : 05/29/14 21:00:00,Stop date: 06/28/14 9:00:00 Notes: (Same as:Keppra) Start Date: 05/29/14 Stop Date: 06/06/14 Status: Discontinuedketorolac 30 mg, 1 mL, Route: IVP, Drug form: INJ, Q6Hnow, Dosing Weight 75, kg, Start date: 05/27/14 11:00:00, Duration: 24 hr, Stop date: 05/28/14 5:00:00 Notes: (Same as:Toradol) IV bolus must be given >15 seconds. Give IM administration slowly and deeply into the muscle. Not for use > 4 days Start Date: 05/27/14 Stop Date: 05/28/14 Status: Completedketorolac 30 mg, 1 mL, Route: IVP, Drug form: INJ, ONCE, Dosing Weight 75, kg, Start date : 05/27/14 10:40:00, Duration: 1 doses or times, Stop date: 05/27/14 10:40:00 Notes: (Same as:Toradol) IV bolus must be given >15 seconds. Give IM administration slowly and deeply into the muscle. Not for use > 4 days Start Date: 05/27/14 Stop Date: 05/27/14 Status: Completedketorolac 15 mg, 0.5 mL, Route: IVP, Drug form: INJ, Q6H, Dosing Weight 75, kg, Start date : 05/27/14 12:00:00,Duration: 6 doses or times, Stop date: 05/28/14 18:00:00 Notes: (Same as:Toradol) IV bolus must be given >15 seconds. Give IM administration slowly and deeply into the muscle. Not for use > 4 days Start Date: 05/27/14 Stop Date: 05/28/14 Status: Completedketorolac 30 mg, 1 mL, Route: IVP, Drug form: INJ, Q6H, Dosing Weight 75, kg, PRN Pain, Start date: 05/29/14 7:38:00, Duration: 4 day, Stop date: 06/02/14 7:37:00 Notes: (Same as:Toradol) IV bolus must be given >15 seconds. Give IM administration slowly and deeply into the muscle. Not for use > 4 days Start Date: 05/29/14 Stop Date: 06/02/14 Status: Completedketorolac 30 mg, 1 mL, Route: IV, Drug form: INJ, Q6H, Dosing Weight 75, kg, Start date: 06/02/14 12:00:00, Stop date: 06/02/14 18:00:00 Notes: (Same as:Toradol) IV bolus must be given >15 seconds. Give IM administration slowly and deeply into the muscle. Not for use > 4 days Start Date: 06/02/14 Stop Date: 06/02/14 Status: Completedketorolac 30 mg/mL injectable solution 30 mg, 1 mL, Route: IV, Drug form: INJ, ONCE, Dosing Weight 75, kg, Priority: NOW, Start date: 06/06/14 11:59:00, Stop date: 06/06/14 11:59:00 Notes: (Same as:Toradol) IV bolus must be given >15 seconds. Give IM administration slowly and deeply into the muscle. Not for use > 4 days Start Date: 06/06/14 Stop Date: 06/06/14 Status: CompletedLactated Ringers IV 1000 mL 1,000 mL, Rate: 40 ml/hr, Infuse over: 25 hr, Route: IV, Dosing Weight 75 kg, Total Volume: 1,000, Start date: 05/27/14 9:15:00, Duration: 30 day, Stop date: 06/26/14 9:14:00 Start Date: 05/27/14 Stop Date: 05/27/14 Status: DiscontinuedLasix 40 mg, 4 mL, Route: IVP, Drug form: INJ, ONCE, Dosing Weight 75, kg, Start date : 06/01/14 10:51:00, Stop date: 06/01/14 10:51:00 Notes: (Same as: Lasix) Start Date: 06/01/14 Stop Date: 06/01/14 Status: CompletedLasix 20 mg, 2 mL, Route: IV, Drug form: INJ, ONCE, Dosing Weight 75, kg, Start date: 05/30/14 7:17:00, Stop date: 05/30/14 7:17:00 Notes: (Same as: Lasix) Start Date: 05/30/14 Stop Date: 05/30/14 Status: CompletedLidoderm 5% topical film (patch) 1 patch, Route: TOP, Bedtime, Drug form: FILM, please apply to the right hip, Start date: 06/09/14 21:00:00, Duration: 30 day, Stop date: 07/08/14 21:00:00, Remove after 12 hours Special Instructions: Remove after 12 hours Notes: Apply only once for up to 12 hours in [id number] period (12 hours on and 12 hours off).(Same as: Lidoderm)"Remove old patch before application of new patch" Start Date: 06/09/14 Stop Date: 06/11/14 Status: Discontinuedlisinopril 10 mg, 2 tab, Route: PO, Drug form: TAB, Daily, Dosing Weight 75, kg, Priority: NOW, Start date: 05/29/14 11:41:00, Duration: 30 day, Stop date: 06/28/14 9:00: 00 Notes: (Same as: Paz Vizcarra) Start Date: 05/29/14 Stop Date: 06/11/14 Status: Discontinuedlisinopril 10 mg oral tablet 10 mg=1 tab, PO, Daily, 0 Refill(s) Start Date: 05/27/14 Status: OrderedLORazepam 1 mg, 0.5 mL, Route: IV, Drug form: INJ, Q6H, Dosing Weight 75, kg, PRN Seizure , Start date: 05/29/14 22:48:00, Duration: 30 day, Stop date: 06/28/14 22:47:00 Notes: (Same as: Ativan) Start Date: 05/29/14 Stop Date: 06/11/14 Status: DiscontinuedLORazepam 1 mg, 0.5 mL, Route: IV, Drug form: INJ, ONCE, Dosing Weight 75, kg, Start date : 05/29/14 21:52:00, Stop date: 05/29/14 21:52:00 Notes: (Same as: Ativan) Start Date: 05/29/14 Stop Date: 05/29/14 Status: CompletedLovenox 40 mg, 0.4 mL, Route: SUB-Q, Drug form: INJ, Daily, Dosing Weight 75, kg, Start date: 05/28/14 9:00:00, Duration: 30 day, Stop date: 06/26/14 9:00:00 Notes: (Same as: Lovenox) Start Date: 05/28/14 Stop Date: 06/11/14 Status: DiscontinuedLyrica 150 mg, 2 cap, Route: PO, Drug form: CAP, TID, Dosing Weight 75, kg, Start date : 05/27/14 13:00:00, Duration: 30 day, Stop date: 06/26/14 9:00:00 Notes: (Same as: Lyrica) Start Date: 05/27/14 Stop Date: 06/11/14 Status: DiscontinuedLyrica 150 mg oral capsule 150 mg=1 cap, PO, TID, # 90 cap, 0 Refill(s) Start Date: 05/27/14 Status: Orderedmagnesium hydroxide 30 ml, Route: PO, Drug Form: SUSP, Dosing Weight 75, kg, Q6H, PRN Constipation, Start date: 149:18:00, Duration: 30 day, Stop date: 06/26/14 9:17:00 Notes: (Same as: Milk of Magnesia, MOM) Start Date: 05/27/14 Stop Date: 06/11/14 Status: Discontinuedmagnesium oxide 800 mg, 2 tab, Route: PO, Drug form: TAB, PRN, Dosing Weight 75, kg, PRN Abnormal Lab Result, FOR ICU USE ONLY, Start date: 05/28/14 10:25:00, Duration: 30 day, Stop date: 06/27/14 10:24:00 Notes: (Same as: Mag-Ox 400)Magnesium oxide [id number] elemental magnesiumDose= ____mg magnesium oxide (___mg elemental magnesium) Start Date: 05/28/14 Stop Date: 06/02/14 Status: Discontinuedmagnesium sulfate 800 mg, Route: PO, Q4H, Dosing Weight 75, kg, Start date: 05/31/14 8:00:00, Duration: 2 doses or times, Stop date: 05/31/14 12:00:00 Start Date: 05/31/14 Stop Date: 05/31/14 Status: Canceledmagnesium sulfate 2 gm, 50 mL, Route: IVPB, Drug form: INJ, PRN, Dosing Weight 75, kg, PRN Abnormal Lab Result, Start date: 05/28/14 10:25:00, Duration: 30 day, Stop date : 06/27/14 10:24:00, FOR ICU USE ONLY Special Instructions: FOR ICU USE ONLY Start Date: 05/28/14 Stop Date: 06/02/14 Status: Discontinuedmagnesium sulfate 2 gm, 50 mL, Route: IVPB, Drug form: INJ, Q2H, Dosing Weight 75, kg, Total dose= 6 gm, Start date: 05/28/14 8:00:00, Duration: 3 doses or times, Stop date: 05/28 12:00:00 Start Date: 05/28/14 Stop Date: 05/28/14 Status: Completedmagnesium sulfate 2 gm, 50 mL, Route: IVPB, Drug form: INJ, Q2H, Dosing Weight 75, kg, Total dose= 4 gm, Start date: 06/01/14 10:00:00, Duration: 2 doses or times, Stop date: 12:00:00 Start Date: 06/01/14 Stop Date: 06/01/14 Status: DiscontinuedMilk of Magnesia 30 mL, Route: PO, Drug Form: SUSP, Dosing Weight 75, kg, Daily, PRN as needed for constipation, Start date: 05/27/14 9:18:00, Duration: 30 day, Stop date: 9:17:00 Notes: (Same as: Milk of Magnesia, MOM) Start Date: 05/27/14 Stop Date: 06/07/14 Status: Discontinuedmorphine Sulfate 2 mg, 1 mL, Route: IV, Drug form: INJ, Q6H, Dosing Weight 75, kg, PRN as needed for pain, Start date: 05/28/14 11:00:00, Duration: 30 day, Stop date: 06/27/14 10:59:00 Notes: (Same as:MORPhine Sulfate) Start Date: 05/28/14 Stop Date: 06/02/14 Status: Discontinuednalbuphine 2 mg, Route: IVP, Q2H, Dosing Weight 75, kg, PRN Itching, Start date: 05/27/14 10:44:00, Duration: 5doses or times, Stop date: Limited # of times Start Date: 05/27/14 Stop Date: 05/27/14 Status: Discontinuednaloxone 0.1 mg, Route: SUB-Q, Q6H, Dosing Weight 75, kg, PRN Itching, Start date: 10:44:00, Duration: 30 day, Stop date: 06/26/14 10:43:00 Start Date: 05/27/14 Stop Date: 05/27/14 Status: Discontinuednaloxone 0.1 mg, Route: IVP, Q2MIN, Dosing Weight 75, kg, PRN Narcotic Reversal, Start date: 05/27/14 10:41:00, Duration: 8 doses or times, Stop date: Limited # of times Start Date: 05/27/14 Stop Date: 05/27/14 Status: Discontinuednaloxone 0.04 mg, 0.1 mL, Route: IVP, Drug form: INJ, Q2MIN, Dosing Weight 75, kg, PRN Narcotic Reversal, Start date: 05/27/14 10:40:00, Duration: 8 doses or times, Stop date: Limited # of times Notes: Same as Narcan Start Date: 05/27/14 Stop Date: 05/27/14 Status: DiscontinuedNeurontin 300 mg, 1 cap, Route: PO, Drug form: CAP, ONCALL, Start date: 05/27/14 6:00:00, Duration: 1 doses ortimes, Stop date: 05/27/14 23:59:00 Notes: (Same as: Neurontin) Start Date: 05/27/14 Stop Date: 05/27/14 Status: CompletedNeutra-Phos 2 pkt, Route: PO, Drug Form: PDR/REC, Dosing Weight 75, kg, PRN, PRN Abnormal Lab Result, FOR ICU USE ONLY, Start date: 05/28/14 10:25:00, Duration: 30 day, Stop date: 06/27/14 10:24:00 Notes: Same as: Phos-NakMix 1 packet with 75 mL water or juice. Each packet has 160mg of sodium, 280mg of potassium, and 250mg of phosphorusNon-Formulary Item Start Date: 05/28/14 Stop Date: 06/02/14 Status: DiscontinuedNS (Bolus) IV 250 mL, 250 ml/hr, Infuse Over: 1 hr, Route: IV, 250, Drug form: INJ, ONCE, Priority: STAT, Dosing Weight 75 kg, Start date: 05/27/14 14:16:00, PRN Other - See Comment Start Date: 05/27/14 Stop Date: 05/27/14 Status: CompletedNS (Bolus) IV 250 mL, 250 ml/hr, Infuse Over: 1 hr, Route: IV, 250, Drug form: INJ, ONCE, Priority: STAT, Dosing Weight 75 kg, Start date: 05/27/14 20:12:00, Duration: 1 doses or times, Stop date: 05/27/14 20:12:00 Start Date: 05/27/14 Stop Date: 05/27/14 Status: CompletedNS 1,000 mL 1,000 mL, Rate: 100 ml/hr, Infuse over: 10 hr, Route: IV, Dosing Weight 75 kg, Total Volume: 1,000, Start date: 05/27/14 17:07:00, Stop date: 06/26/14 17:06:00 Start Date: 05/27/14 Stop Date: 06/01/14 Status: DiscontinuedNS 250 mL 250 mL, Rate: 15 ml/hr, Infuse over: 16.7 hr, Route: IV, Dosing Weight 75 kg, Total Volume: 250, Start date: 06/08/14 9:47:00, Duration: 30 day, Stop date: 9:46:00 Start Date: 06/08/14 Stop Date: 06/10/14 Status: DiscontinuedOmnipaque 300 100 mL, Route: IV, Drug Form: SOLN, ONCE, Start date: 06/02/14 9:25:00, Stop date: 06/02/14 9:25:00 Notes: (Same as:Omnipaque 300). Start Date: 06/02/14 Stop Date: 06/02/14 Status: Completedondansetron 4 mg, Route: IVP, Q8H, Dosing Weight 75, kg, PRN Nausea & Vomiting, Start date: 05/27/14 10:44:00, Duration: 30 day, Stop date: 06/26/14 10:43:00 Start Date: 05/27/14 Stop Date: 05/27/14 Status: Discontinuedondansetron 4 mg, 2 mL, Route: IVP, Drug form: INJ, ONCE, Dosing Weight 75, kg, PRN Nausea & amp; Vomiting, Startdate: 05/27/14 10:40:00 Notes: (Same as: Zofran) Start Date: 05/27/14 Stop Date: 05/27/14 Status: DiscontinuedoxyCODONE 5 mg, 1 tab, Route: PO, Drug form: TAB, Q4H, Dosing Weight 75, kg, PRN Pain Score 4-6, Start date: 05/27/14 10:40:00, Duration: 30 day, Stop date: 06/26/14 10:39:00 Notes: (Same as: Roxicodone) Start Date: 05/27/14 Stop Date: 05/27/14 Status: DiscontinuedoxyCODONE 10 mg, 2 tab, Route: PO, Drug form: TAB, Q4H, Dosing Weight 75, kg, PRN Pain Score 7-10, Start date:05/27/14 10:40:00, Duration: 30 day, Stop date: 06/26/14 10:39:00 Notes: (Same as: Roxicodone) Start Date: 05/27/14 Stop Date: 05/27/14 Status: DiscontinuedoxyCODONE 5 mg immediate release 10 mg, 2 tab, Route: PO, Drug form: TAB, Q4H, Dosing Weight 75, kg, PRN Pain Score 7-10, Start date:05/27/14 10:44:00, Duration: 30 day, Stop date: 06/26/14 10:43:00 Notes: (Same as: Roxicodone) Start Date: 05/27/14 Stop Date: 05/29/14 Status: DiscontinuedoxyCODONE 5 mg immediate release 5 mg, 1 tab, Route: PO, Drug form: TAB, Q4H, Dosing Weight 75, kg, PRN Pain Score 4-6, Start date: 05/27/14 10:44:00, Duration: 30 day, Stop date: 06/26/14 10:43:00 Notes: (Same as: Roxicodone) Start Date: 05/27/14 Stop Date: 05/29/14 Status: DiscontinuedoxyCONTIN 10 mg, 1 tab, Route: PO, Drug form: ERTAB, ONCALL, Start date: 05/27/14 6:00:00 , Duration: 1 doses or times, Stop date: 05/27/14 23:59:00 Notes: Do not crush or chew.(Same as: OxyContin) Start Date: 05/27/14 Stop Date: 05/27/14 Status: Completedpantoprazole 40 mg, 1 tab, Route: PO, Drug form: ECTAB, Daily, Dosing Weight 75, kg, Start date: 05/28/14 9:00:00, Duration: 30 day, Stop date: 06/26/14 9:00:00 Notes: Tablet should not be chewed or crushed.(Same as: Protonix) Start Date: 05/28/14 Stop Date: 06/11/14 Status: Discontinuedpantoprazole 40 mg oral enteric coated tablet 40 mg=1 tab, PO, Daily, # 30 tab, 0 Refill(s) Start Date: 05/27/14 Status: OrderedPhenergan 25 mg, 1 mL, Route: IM, Drug form: INJ, Q6H, Dosing Weight 75, kg, PRN as needed for nausea/vomiting, Start date: 05/28/14 18:53:00, Duration: 30 day, Stop date: 06/27/14 18:52:00 Notes: Do not give IV push. (Same as: Phenergan) Start Date: 05/28/14 Stop Date: 06/11/14 Status: DiscontinuedPlavix 75 mg, Route: PO, Drug form: TAB, Daily, Dosing Weight 75, kg, Start date: 05/28 9:00:00, Duration: 30 day, Stop date: 06/26/14 9:00:00 Start Date: 05/28/14 Stop Date: 05/27/14 Status: CanceledPlavix 75 mg, 1 tab, Route: PO, Drug form: TAB, Daily, Dosing Weight 75, kg, Start date : 06/10/14 9:00:00, Duration: 30 day, Stop date: 07/09/14 9:00:00 Notes: (Same As: Plavix) Start Date: 06/10/14 Stop Date: 06/11/14 Status: DiscontinuedPlavix 75 mg oral tablet 75 mg=1 tab, PO, Daily, # 30 tab, 0 Refill(s) Start Date: 05/27/14 Status: Orderedpotassium chloride 20 mEq, 100 mL, Route: IVPB, Drug form: INJ, PRN, Dosing Weight 75, kg, PRN Abnormal Lab Result, Viacentral line, Start date: 05/28/14 10:25:00, Duration: 30 day, Stop date: 06/27/14 10:24:00, FOR ICUUSE ONLY Special Instructions: FOR ICU USE ONLY Notes: (Same as: KCL) Infuse no faster than 10 mEq/hr if given peripherally. Start Date: 05/28/14 Stop Date: 06/02/14 Status: Discontinuedpotassium phosphate + Sodium Chloride 0.9% IV 250 mL 15 mmol, 5 mL, Route: IVPB, Drug form: INJ, PRN, Dosing Weight 75, kg, PRN Abnormal Lab Result, Start date: 05/28/14 10:25:00, Duration: 30 day, Stop date : 06/27/14 10:24:00, FOR ICU USE ONLY Special Instructions: FOR ICU USE ONLY Notes: (Same as: K Phosphate.) 1 mMol phoshate has 1.47 mEq potassium Infuse over 4 hours Start Date: 05/28/14 Stop Date: 06/02/14 Status: DiscontinuedpredniSONE 20 mg, 1 tab, Route: PO, Drug form: TAB, Daily, Dosing Weight 75, kg, Start date : 06/05/14 9:00:00, Duration: 30 day, Stop date: 07/04/14 9:00:00 Notes: Take with food. Start Date: 06/05/14 Stop Date: 06/09/14 Status: DiscontinuedpredniSONE 40 mg, 2 tab, Route: PO, Drug form: TAB, Daily, Dosing Weight 75, kg, Priority: NOW, Start date: 06/01/14 10:54:00, Duration: 30 day, Stop date: 07/01/14 9:00: 00 Notes: Take with food. Start Date: 06/01/14 Stop Date: 06/04/14 Status: Discontinuedpromethazine 25 mg, 1 tab, Route: PO, Drug form: TAB, Q6H, Dosing Weight 75, kg, PRN Nausea & amp; Vomiting, Startdate: 05/27/14 9:18:00, Duration: 30 day, Stop date: 9:17:00 Notes: (Same as: Phenergan) Start Date: 05/27/14 Stop Date: 06/11/14 Status: DiscontinuedPulmicort Respules 0.5 mg/2 mL inhalation suspension 1 mg, 4 ml, Route: NEB, Drug form: SOLN, RBID, Dosing Weight 75, kg, Priority: NOW, Start date: 06/01/14 10:55:00, Duration: 30 day, Stop date: 07/01/14 8:00: 00 Notes: (Same As: Pulmicort) Start Date: 06/01/14 Stop Date: 06/11/14 Status: DiscontinuedReglan 10 mg, 2 mL, Route: IVP, Drug form: INJ, Q6H, Dosing Weight 75, kg, PRN Nausea & amp; Vomiting, Startdate: 05/27/14 9:18:00, Duration: 30 day, Stop date: 9:17:00 Notes: (Same as: Reglan) Start Date: 05/27/14 Stop Date: 06/04/14 Status: DiscontinuedReglan 10 mg, 2 mL, Route: IVP, Drug form: INJ, Q6H, Dosing Weight 75, kg, PRN Nausea & amp; Vomiting, Startdate: 05/27/14 9:18:00, Duration: 30 day, Stop date: 9:17:00 Notes: (Same as: Reglan) Start Date: 05/27/14 Stop Date: 06/11/14 Status: DiscontinuedRequip 1 mg, 1 tab, Route: PO, Drug form: TAB, Daily, Dosing Weight 75, kg, Start date : 05/28/14 9:00:00, Duration: 30 day, Stop date: 06/26/14 9:00:00 Notes: (Same as: Requip) Start Date: 05/28/14 Stop Date: 06/11/14 Status: DiscontinuedRequip 1 mg oral tablet 1 mg=1 tab, PO, Daily, 0 Refill(s) Start Date: 05/27/14 Status: Orderedroflumilast 500 microgram, 1 tab, Route: PO, Drug form: TAB, Daily, Dosing Weight 75, kg, Start date: 05/28/14 9:00:00, Duration: 30 day, Stop date: 06/26/14 9:00:00 Start Date: 05/28/14 Stop Date: 06/11/14 Status: Discontinuedropivacaine 0.5% 246.25 mg + EPINEPHrine 0.5 mg + ketorolac 30 mg/mL injectable solution 30 mg + cl 200.1 ml/hr, Route: IV, Drug Form: INJ, ONCALL, Start date: 05/27/14 6:00:00, Duration: 1 doses or times, Stop date: 05/27/14 23:59:00 Start Date: 05/27/14 Stop Date: 06/07/14 Status: DiscontinuedSaline Flush 0.9% 5 ml, Route: IVP, Drug Form: INJ, Dosing Weight 75, kg, Q12H, Start date: 21:00:00, Duration: 30 day, Stop date: 06/26/14 9:00:00 Notes: (Same as: BD Posiflush) Start Date: 05/27/14 Stop Date: 06/11/14 Status: DiscontinuedSaline Flush 0.9% 5 ml, Route: IVP, Drug Form: INJ, Dosing Weight 75, kg, PRN, PRN Line Flush, Start date: 05/27/14 9:18:00, Duration: 30 day, Stop date: 06/26/14 9:17:00 Notes: (Same as: BD Posiflush) Start Date: 05/27/14 Stop Date: 06/11/14 Status: Discontinuedsimvastatin 40 mg, 2 tab, Route: PO, Drug form: TAB, Bedtime, Dosing Weight 75, kg, Start date: 05/27/14 21:00:00, Duration: 30 day, Stop date: 06/25/14 21:00:00 Notes: (Same as: Zocor) Start Date: 05/27/14 Stop Date: 06/11/14 Status: Discontinuedsimvastatin 40 mg oral tablet 40 mg=1 tab, PO, Bedtime, # 30 tab, 0 Refill(s) Start Date: 05/27/14 Status: OrderedSodium Chloride 0.9% (Bolus) IV 250 mL, 250 ml/hr, Infuse Over: 1 hr, Route: IV, 250, Drug form: INJ, ONCE, Priority: STAT, Dosing Weight 75 kg, Start date: 05/27/14 16:16:00, Duration: 1 doses or times, Stop date: 05/27/14 16:16:00 Start Date: 05/27/14 Stop Date: 05/27/14 Status: CompletedSodium Chloride 0.9% IV 250 mL 250 mL, Rate: 20 ml/hr, Infuse over: 12.5 hr, Route: IV, Dosing Weight 75 kg, Total Volume: 250, Start date: 05/30/14 10:08:00, Stop date: 05/31/14 10:07:00 Start Date: 05/30/14 Stop Date: 05/31/14 Status: CompletedSodium Chloride 0.9% IV 250 mL 250 mL, Rate: 15 ml/hr, Infuse over: 16.7 hr, Route: IV, Dosing Weight 75 kg, Total Volume: 250, Start date: 06/03/14 6:15:00, Duration: 30 day, Stop date: 6:14:00 Start Date: 06/03/14 Stop Date: 06/07/14 Status: Discontinuedsodium phosphate + Sodium Chloride 0.9% IV 250 mL 15 mmol, 5 mL, Route: IVPB, Drug form: INJ, PRN, Dosing Weight 75, kg, PRN Abnormal Lab Result, Start date: 05/28/14 10:25:00, Duration: 30 day, Stop date : 06/27/14 10:24:00, FOR ICU USE ONLY Special Instructions: FOR ICU USE ONLY Start Date: 05/28/14 Stop Date: 06/02/14 Status: Discontinuedsodium phosphate + Sodium Chloride 0.9% IV 250 mL 30 mmol, 10 mL, Route: IV, ONCE, Start date: 05/29/14 6:13:00, Stop date: 6:13:00 Start Date: 05/29/14 Stop Date: 05/29/14 Status: CompletedSpiriva 18 mcg inhalation capsule 18 microgram=1 cap, INHALATION, Daily, # 90 cap, 0 Refill(s) Start Date: 05/27/14 Status: OrderedSpiriva 18 mcg inhalation capsule 18 microgram, 1 inhalation, Route: INHALATION, Drug form: CAP, Daily, Dosing Weight 75, kg, Start date: 05/28/14 9:00:00, Duration: 30 day, Stop date: 9:00:00 Notes: (Same As: Spiriva). Start Date: 05/28/14 Stop Date: 06/11/14 Status: Discontinuedtizanidine 4 mg oral capsule 4 mg=1 cap, PO, Q12H, # 90 cap, 0 Refill(s) Start Date: 05/27/14 Status: OrderedvalACYclovir 1,000 mg, 2 tab, Route: PO, Drug form: TAB, TID, Dosing Weight 75, kg, Start date: 06/08/14 13:00:00, Duration: 21 doses or times, Stop date: 06/15/14 9:00: 00 Notes: (Same As: Valtrex) Start Date: 06/08/14 Stop Date: 06/11/14 Status: DiscontinuedvalACYclovir 500 mg oral tablet 1,000 mg=2 tab, PO, TID, # 9 tab, 0 Refill(s), other Start Date: 06/11/14 Status: Ordered Results BLOOD BANK RESULTS Most recent to oldest [Reference Range]: 1 2 3 ABO/Rh A POS *Unknown* (05/20/14 4:00 PM) Antibody Scrn Negative (05/20/14 4:00 PM) RBC product Product available 1 Product available 2 (05/30/14 7:18 AM) (05/28/14 7:28 AM) 1Result Comment: 05/30/2014 09:46 RIARACHAEL Notified Macho at 05/30/2014 09:462Result Comment: 05/28/2014 10:14 YADY Notified Maylin at 05/28/2014 10:14ELECTROLYTES Most recent to oldest 1 2 3 [Reference Range]: Sodium Lvl [135-145 mEq/L] 141 mEq/L 143 mEq/L 144 mEq/L (06/07/14 6:00 AM) (06/04/14 5:15 AM) (06/03/14 5:00 AM) Potassium Lvl [3.5-5.1 4.4 mEq/L 4.6 mEq/L 4.4 mEq/L mEq/L] (06/07/14 6:00 AM) (06/04/14 5:15 AM) (06/03/14 5:00 AM) Chloride Lvl [95-109 mEq/L] 102 mEq/L 103 mEq/L 103 mEq/L (06/07/14 6:00 AM) (06/04/14 5:15 AM) (06/03/14 5:00 AM) CO2 [24-32 mEq/L] 34 mEq/L 34 mEq/L 34 mEq/L *HI* *HI* *HI* (06/07/14 6:00 AM) (06/04/14 5:15 AM) (06/03/14 5:00 AM) AGAP [10.0-20.0 mEq/L] 9.4 mEq/L 10.6 mEq/L 11.4 mEq/L *LOW* (06/04/14 5:15 AM) (06/03/14 5:00 AM) (06/07/14 6:00 AM) CHEM PANEL Most recent to oldest 1 2 3 [Reference Range]: Creatinine Lvl [0.5-1.4 0.7 mg/dL 0.7 mg/dL 0.8 mg/dL mg/dL] (06/07/14 6:00 AM) (06/04/14 5:15 AM) (06/03/14 5:00 AM) eGFR 88 mL/min/1.73m2 3 88 mL/min/1.73m2 4 75 mL/min/1.73m2 5 *NA* *NA* *NA* (06/07/14 6:00 AM) (06/04/14 5:15 AM) (06/03/14 5:00 AM) BUN [7-22 mg/dL] 23 mg/dL 20 mg/dL 21 mg/dL *HI* (06/04/14 5:15 AM) (06/03/14 5:00 AM) (06/07/14 6:00 AM) B/C Ratio [6-25] 24 30 23 (06/02/14 5:35 AM) *HI* (05/30/14 4:25 AM) (06/01/14 3:20 AM) Glucose Lvl [70-99 mg/dL] 79 mg/dL 6 98 mg/dL 7 112 mg/dL 8 (06/07/14 6:00 AM) (06/04/14 5:15 AM) *HI* (06/03/14 5:00 AM) Total Protein [6.4-8.4 g/dL] 5.8 g/dL 5.6 g/dL 4.9 g/dL *LOW* *LOW* *LOW* (06/02/14 5:35 AM) (06/01/14 3:20 AM) (05/30/14 4:25 AM) Albumin Lvl [3.5-5.0 g/dL] 2.2 g/dL 2.0 g/dL 2.0 g/dL *LOW* *LOW* *LOW* (06/02/14 5:35 AM) (06/01/14 3:20 AM) (05/30/14 4:25 AM) Globulin [2.0-4.0 g/dL] 3.6 g/dL 3.6 g/dL 2.9 g/dL (06/02/14 5:35 AM) (06/01/14 3:20 AM) (05/30/14 4:25 AM) A/G Ratio [0.7-1.6] 0.6 0.6 0.7 *LOW* *LOW* (05/30/14 4:25 AM) (06/02/14 5:35 AM) (06/01/14 3:20 AM) Calcium Lvl [8.5-10.5 mg/dL] 8.1 mg/dL 8.5 mg/dL 8.8 mg/dL *LOW* (06/04/14 5:15 AM) (06/03/14 5:00 AM) (06/07/14 6:00 AM) Phosphorus [2.5-4.5 mg/dL] 3.2 mg/dL 3.3 mg/dL 3.0 mg/dL (06/03/14 5:00 AM) (06/02/14 5:35 AM) (06/01/14 3:20 AM) Magnesium Lvl [1.8-2.4 1.9 mg/dL 1.7 mg/dL 1.6 mg/dL mg/dL] (06/03/14 5:00 AM) *LOW* *LOW* (06/02/14 5:35 AM) (06/01/14 3:20 AM) ALT [0-65 unit/L] 21 unit/L 22 unit/L 10 unit/L (06/02/14 5:35 AM) (06/01/14 3:20 AM) (05/30/14 4:25 AM) AST [0-37 unit/L] 13 unit/L 25 unit/L 14 unit/L (06/02/14 5:35 AM) (06/01/14 3:20 AM) (05/30/14 4:25 AM) Alk Phos [39-136 unit/L] 137 unit/L 130 unit/L 94 unit/L *HI* (06/01/14 3:20 AM) (05/30/14 4:25 AM) (06/02/14 5:35 AM) Bili Total [0.2-1.3 mg/dL] 0.7 mg/dL 0.6 mg/dL 0.8 mg/dL (06/02/14 5:35 AM) (06/01/14 3:20 AM) (05/30/14 4:25 AM) 3Result Comment: The eGFR is calculated using [...] eGFR should be multiplied by the estimated BMI.5Result Comment: The eGFR is calculated using the [...] eGFR should be multiplied by the estimated BMI.6Interpretive Data: Adult reference range values reflect the clinical guidelines of the [employer].7Interpretive Data: Adult reference range values reflect the clinical guidelines of the [place] [employer].8Interpretive Data: Adult reference range values reflect the clinical guidelines of the [place] [employer].PARATHYROID PROFILE Most recent to oldest [Reference Range]: 1 2 3 Ca Ion WB [1.05-1.25 mMol/L] 1.19 mMol/L (05/31/14 3:50 AM) Ca Norm WB [1.05-1.25 mMol/L] 1.15 mMol/L (05/31/14 3:50 AM) URINE AND STOOL Most recent to oldest [Reference Range]: 1 2 3 UA Turbidity [Clear] Clear (05/20/14 4:00 PM) UA Color [Yellow] Yellow *NA* (05/20/14 4:00 PM) UA pH [5.0-8.0] 5.5 (05/20/14 4:00 PM) UA Spec Grav [<=1.030] 1.025 (05/20/14 4:00 PM) UA Glucose [Negative mg/dL] Negative mg/dL (05/20/14 4:00 PM) UA Blood [Negative] Negative (05/20/14 4:00 PM) UA Ketones [Negative mg/dL] Negative mg/dL *NA* (05/20/14 4:00 PM) UA Protein [Negative mg/dL] Negative mg/dL (05/20/14 4:00 PM) UA Urobilinogen [0.1-1.0 EU/dL] 0.2 EU/dL (05/20/14 4:00 PM) UA Bili [Negative] Negative *NA* (05/20/14 4:00 PM) UA Leuk Est [Negative] Negative (05/20/14 4:00 PM) UA Nitrite [Negative] Negative (05/20/14 4:00 PM) UA WBC [None Seen /HPF] 0-2 /HPF (05/20/14 4:00 PM) UA RBC [0-2 /HPF] 0-2 /HPF (05/20/14 4:00 PM) UA Bacteria [None Seen /HPF] Occasional /HPF (05/20/14 4:00 PM) UA Sq Epi [Few /LPF] Few /LPF (05/20/14 4:00 PM) HEMATOLOGY Most recent to oldest 1 2 3 [Reference Range]: WBC [3.7-10.4 K/CMM] 6.9 K/CMM 7.5 K/CMM 5.8 K/CMM (06/07/14 6:00 AM) (06/04/14 5:15 AM) (06/03/14 5:00 AM) RBC [4.20-5.40 M/CMM] 3.32 M/CMM 3.12 M/CMM 3.06 M/CMM *LOW* *LOW* *LOW* (06/07/14 6:00 AM) (06/04/14 5:15 AM) (06/03/14 5:00 AM) Hgb [12.0-16.0 g/dL] 9.8 g/dL 9.2 g/dL 9.0 g/dL *LOW* *LOW* *LOW* (06/07/14 6:00 AM) (06/04/14 5:15 AM) (06/03/14 5:00 AM) Hct [36.0-48.0 %] 29.7 % 27.8 % 26.8 % *LOW* *LOW* *LOW* (06/07/14 6:00 AM) (06/04/14 5:15 AM) (06/03/14 5:00 AM) MCV [81.0-99.0 fL] 89.5 fL 89.0 fL 87.7 fL (06/07/14 6:00 AM) (06/04/14 5:15 AM) (06/03/14 5:00 AM) MCH [27.0-31.0 pg] 29.4 pg 29.4 pg 29.5 pg (06/07/14 6:00 AM) (06/04/14 5:15 AM) (06/03/14 5:00 AM) MCHC [32.0-36.0 g/dL] 32.9 g/dL 33.0 g/dL 33.7 g/dL (06/07/14 6:00 AM) (06/04/14 5:15 AM) (06/03/14 5:00 AM) RDW [11.5-14.5 %] 17.4 % 16.9 % 16.2 % *HI* *HI* *HI* (06/07/14 6:00 AM) (06/04/14 5:15 AM) (06/03/14 5:00 AM) Platelet [133-450 K/CMM] 312 K/CMM 235 K/CMM 189 K/CMM (06/07/14 6:00 AM) (06/04/14 5:15 AM) (06/03/14 5:00 AM) MPV [7.4-10.4 fL] 7.1 fL 7.6 fL 7.3 fL *LOW* (06/04/14 5:15 AM) *LOW* (06/07/14 6:00 AM) (06/03/14 5:00 AM) Segs [45.0-75.0 %] 67.2 % 74.0 % 73.6 % (06/07/14 6:00 AM) (06/04/14 5:15 AM) (06/03/14 5:00 AM) Bands [0.0-11.0 %] 6.0 % 8.0 % (06/04/14 5:15 AM) (05/28/14 6:45 AM) Lymphocytes [20.0-40.0 %] 22.1 % 13.0 % 14.8 % (06/07/14 6:00 AM) *LOW* *LOW* (06/04/14 5:15 AM) (06/03/14 5:00 AM) Atypical Lymphs [<=0.0 %] 0.0 % 0.0 % (06/04/14 5:15 AM) (05/28/14 6:45 AM) Monocytes [2.0-12.0 %] 9.2 % 6.0 % 11.3 % (06/07/14 6:00 AM) (06/04/14 5:15 AM) (06/03/14 5:00 AM) Eosinophils [0.0-4.0 %] 1.3 % 0.1 % 0.2 % (06/07/14 6:00 AM) (06/03/14 5:00 AM) (06/02/14 5:35 AM) Basophils [0.0-1.0 %] 0.2 % 0.2 % 0.1 % (06/07/14 6:00 AM) (06/03/14 5:00 AM) (06/02/14 5:35 AM) Metamyelocytes [0.0-1.0 %] 1.0 % 3.0 % (06/04/14 5:15 AM) *HI* (05/28/14 6:45 AM) Segs-Bands # [1.5-8.1 K/CMM] 4.6 K/CMM 6.0 K/CMM 4.3 K/CMM (06/07/14 6:00 AM) (06/04/14 5:15 AM) (06/03/14 5:00 AM) Lymphocytes # [1.0-5.5 1.5 K/CMM 1.0 K/CMM 0.9 K/CMM K/CMM] (06/07/14 6:00 AM) (06/04/14 5:15 AM) *LOW* (06/03/14 5:00 AM) Monocytes # [0.0-0.8 K/CMM] 0.6 K/CMM 0.4 K/CMM 0.7 K/CMM (06/07/14 6:00 AM) (06/04/14 5:15 AM) (06/03/14 5:00 AM) Eosinophils # [0.0-0.5 0.1 K/CMM 0.0 K/CMM 0.0 K/CMM K/CMM] (06/07/14 6:00 AM) (06/03/14 5:00 AM) (06/02/14 5:35 AM) Basophils # [0.0-0.2 K/CMM] 0.0 K/CMM 0.0 K/CMM 0.0 K/CMM (06/07/14 6:00 AM) (06/03/14 5:00 AM) (06/02/14 5:35 AM) Tot Cell Ct 100 *NA* (06/04/14 5:15 AM) Polychrom [None Seen] Slight (06/04/14 5:15 AM) Hypochrom [None Seen] Slight (05/28/14 6:45 AM) Plt Morph Normal Normal (06/04/14 5:15 AM) (05/28/14 6:45 AM) PT [12.0-14.7 seconds] 14.3 seconds 14.2 seconds 16.8 seconds (06/02/14 5:35 AM) (06/01/14 3:20 AM) *HI* (05/30/14 4:25 AM) INR [0.85-1.17] 1.12 9 1.11 10 1.38 11 (06/02/14 5:35 AM) (06/01/14 3:20 AM) *HI* (05/30/14 4:25 AM) PTT [22.9-35.8 seconds] 34.4 seconds 12 36.8 seconds 13 37.1 seconds 14 (06/02/14 5:35 AM) *HI* *HI* (06/01/14 3:20 AM) (05/30/14 4:25 AM) 9Interpretive Data: RECOMMENDED RANGES FOR PROTIME INR: 2.0-3.0 for most medical and surgical thromboembolic states. 2.5-3.5 for artificial heart valves and recurrent embolism. INR SHOULD BE USED ONLY FOR PATIENTS ON STABLE ANTICOAGULANT THERAPY.10Interpretive Data: RECOMMENDED RANGES FOR PROTIME INR: 2.0-3.0 for most medical and surgical thromboembolic states. 2.5-3.5 for artificial heart valves and recurrent embolism. INR SHOULD BE USED ONLY FOR PATIENTS ON STABLE ANTICOAGULANT THERAPY.11Interpretive Data: RECOMMENDED RANGES FOR PROTIME INR: 2.0-3.0 for most medical and surgical thromboembolic states. 2.5-3.5 for artificial heart valves and recurrent embolism. INR SHOULD BE USED ONLY FOR PATIENTS ON STABLE ANTICOAGULANT THERAPY.12Interpretive Data: Heparin Therapeutic Range: 57 - 92 [id number] Data: Heparin Therapeutic Range: 57 - 92 [id number] Data: Heparin Therapeutic Range: 57 - 92 SecondsBACTERIAL - SEROLOGY Most recent to oldest [Reference Range]: 1 2 3 MRSA by PCR Positive 15, 16 *ABN* (05/28/14 9:32 AM) 15Result Comment: "Significant Findings called to Jonathan Diazat 05/29/2014 06: 21 by [place].Read Back OK."16Interpretive Data: Interpretive Data: The [facility] MRSA [...] by the [facility] within the [facility]. The [facility] is authorized under the Clinical Laboratory Improvement Amendment of 1988 (CLIA-88) to performhigh complexity testing. Medications Administered During Your Visit No data available for this section Immunizations Vaccine Date Refusal Reason influenza virus vaccine, inactivated 08/07/13 pneumococcal 23-valent vaccine 08/07/13 Social History Social History Type Response Substance Abuse 1 Sexual Sexually active: No Exercise 2 Employment/School 3 Alcohol Use: Current4 Smoking Status Former smoker, Type: Cigarettes, Exposure to Tobacco Smoke None , Cigarette Smoking Last 365 Days Yes, Reg Smoking Cessation Counseling Yes 1no substance bykpx3juqowfdc therapy 2x a ikzo9xryeloz/vhfhzcil7xy alcohol
--- OUTSIDE RECORDS SUMMARY | 2018-12-08 01:14 | XMS REPORT | Summary of Care ---
:1945 Author Care Team Providers Name Role Phone Shania Luong Primary Care Physician Encounter [facility] Chrissy(DORON) [id number] Date(s): 10/08/14 - 11/06/14 [facility] [place] Discharge Disposition: Home Physician Attending: Keshav Mccoy MD Reason for Visit HIP PAIN LEFT Problem List Condition Effective Dates Status Health [...] 11/13/06 Resolved Weak(Confirmed) Active 1B MRSA - [id number] added by Discern Expert. Allergies, Adverse Reactions, [...] Reg Smoking Cessation Counseling Yes 1no substance [id number] therapy 2x a vjis5zzydmbr/ushdrrmy0qy alcohol
--- OUTSIDE RECORDS SUMMARY | 2018-12-08 01:14 | XMS REPORT | Summary of Care ---
:1945 Author Care Team Providers Name Role Phone Shania Luong Primary Care Physician Encounter [facility] Chrissy(DORON) [id number] Date(s): 10/08/14 - 11/06/14 [facility] [place] Discharge Disposition: Home Physician Attending: Keshav Mccoy [...] 11/13/06 Resolved Weak(Confirmed) Active 1B MRSA - [id number] added by Discern Expert. Allergies, Adverse Reactions, [...] Reg Smoking Cessation Counseling Yes 1no substance izqhf2kwulriis therapy 2x a npqv3unovcxl/vyacogbt1ih alcohol
--- OUTSIDE RECORDS SUMMARY | 2018-12-08 01:14 | XMS REPORT | Continuity of Care Document ---
:1945 Author Organization [facility] Care Team Providers Name Role Phone MD Lida, Ang Unavailable Unavailable Insurance Providers Payer name Policy type / Policy ID Covered democrat ID Policy Almazan Coverage type MEDICARE PRIM MEDICAID SEC/TER MEDICAID SEC TO MEDICARE MEDICAID SEC TO MEDICARE [id number] HMO OS PCP PRIM MEDICARE HMO OS PCP PRIM MEDICAID TRADITIONAL SEC MEDICARE HMO OS PCP PRIM ZZAMVERIVANTAGE MCRHMO OSPCP P [place] [facility] [place]: [place] [facility] [place]: [place] [place] [place] [facility] [place] Encounters Encounter Performer Location Date Lab Report Ang Hilton MD [facility] [place] Jan 03, 2014 Allergies, Adverse Reactions, Alerts Type Substance Reaction Status Drug allergy VALIUM Active Drug allergy BACTRIM Active Drug allergy MORPHINE Active Drug allergy ERYTHROMYCIN Active Drug allergy NEBAIN Active Drug allergy ZOFRAN Active Drug allergy IMITREX Tachycardia Active Problems Problem Effective Dates Problem Status COPD Active DYSPNEA Active HYPOXEMIA Active HYPERTENSION Active DIABETES MELLITUS Inactive CONGESTIVE HEART FAILURE Active CORONARY ARTERY DISEASE Active BACK PAIN, CHRONIC Active DEGENERATIVE JOINT DISEASE Oct 29, 2012 Active CARPAL TUNNEL SYNDROME, BILATERAL Oct 29, 2012 Active DE QUERVAIN'S TENOSYNOVITIS, RIGHT WRIST Dec 07, 2012 Active PREOPERATIVE EXAMINATION Dec 14, 2012 Active SEIZURE DISORDER Mar 06, 2013 Active Procedures Date Description Comments Oct 29, 2012 smoking status former smoker Medications Medication Instructions Start Date Status SPIRIVA HANDIHALER 18 MCG CAPS 1 puff daily Oct 29, 2012 Active ADVAIR DISKUS 500-50 MCG/DOSE AEPB 1 puff bid Oct 29, 2012 Active SIMVASTATIN 40 MG TABS 1 p.o. q hs Oct 29, 2012 Active FUROSEMIDE 40 MG TABS 1 p.o. qd Oct 29, 2012 Active LYRICA 150 MG CAPS 1 p.o. tid Oct 29, 2012 Active REQUIP 0.5 MG TABS Inactive REQUIP 1 MG TABS 1 p.o. q hs Oct 29, 2012 Active DALIRESP 500 MCG TABS 1 p.o. qd Oct 29, 2012 Active NORCO 10-325 MG TABS Inactive SPIRIVA HANDIHALER 18 MCG CAPS one cap for inhalation daily Mar 05, 2013 Active LISINOPRIL 10 MG TABS 1 p.o. qd Oct 29, 2012 Inactive SPIRONOLACTONE 25 MG TABS Inactive DALIRESP 500 MCG TABS ONCE DAILY Mar 05, 2013 Inactive PROTONIX 40 MG TBEC 1 p.o. qd Mar 06, 2013 Active TIZANIDINE HCL 4 MG TABS 1 p.o. bid Mar 06, 2013 Active KLOR-CON M20 20 MEQ CR-TABS 1 p.o. daily Mar 06, 2013 Active REQUIP 1 MG TABS 1 p.o. qd Mar 06, 2013 Active TRAZODONE HCL 50 MG TABS 1-2 tabs p.o. q hs prn Mar 06, 2013 Active RISPERDAL 1 MG TABS 1 p.o. q hs Mar 06, 2013 Active DILAUDID 4 MG TABS 1 p.o. tid Mar 06, 2013 Active KEPPRA 500 MG TABS 1 po bid Mar 06, 2013 Active Vital Signs Date Description Test Result Oct 29, 2012 height E&M - 8302-2 HEIGHT 60 in Oct 29, 2012 weight E&M - 3141-9 WEIGHT 171.2 lb Oct 29, 2012 temperature E&M TEMPERATURE 98.7 deg f Oct 29, 2012 pulse rate E&M - 8867-4 PULSE RATE 72 /min Oct 29, 2012 blood pressure, systolic - 8480-6 BP SYSTOLIC 102 mm Hg Oct 29, 2012 blood pressure, diastolic - 8462-4 BP DIASTOLIC 60 mm Hg Nov 27, 2012 weight E&M - 3141-9 WEIGHT 166.2 lb Nov 27, 2012 temperature E&M TEMPERATURE 98.5 deg f Nov 27, 2012 pulse rate E&M - 8867-4 PULSE RATE 84 /min Nov 27, 2012 blood pressure, systolic - 8480-6 BP SYSTOLIC 120 mm Hg Nov 27, 2012 blood pressure, diastolic - 8462-4 BP DIASTOLIC 64 mm Hg Dec 07, 2012 weight E&M - 3141-9 WEIGHT 166 lb Dec 14, 2012 weight E&M - 3141-9 WEIGHT 166 lb Dec 28, 2012 weight E&M - 3141-9 WEIGHT 166 lb Mar 06, 2013 weight E&M - 3141-9 WEIGHT 160.2 lb Mar 06, 2013 temperature E&M TEMPERATURE 98.6 deg f Mar 06, 2013 blood pressure, systolic - 8480-6 BP SYSTOLIC 132 mm Hg Mar 06, 2013 blood pressure, diastolic - 8462-4 BP DIASTOLIC 60 mm Hg Mar 06, 2013 pulse rate E&M - 8867-4 PULSE RATE 72 /min
--- OUTSIDE RECORDS SUMMARY | 2018-12-08 01:14 | XMS REPORT | Summary of Care ---
:1945 Author Care Team Providers Name Role Phone Shania Luong Primary Care Physician Encounter [facility] Chrissy(DORON) [id number] Date(s): 12/29/14 - 01/27/15 [facility] [place] Discharge Disposition: Home Physician Attending: Buddy Weller D[place] Vital Signs No data available for this [...] 11/13/06 Resolved Weak(Confirmed) Active 1B MRSA - [id number] added by Discern Expert. Allergies, Adverse Reactions, [...] Reg Smoking Cessation Counseling Yes 1no substance [id number] therapy 2x a [id number]/ntamkhao9ig alcohol Assessment and Plan No data available for this section
--- OUTSIDE RECORDS SUMMARY | 2018-12-08 01:14 | XMS REPORT | Summary of Care ---
:1945 Author Care Team Providers Name Role Phone Shania Luong Primary Care Physician Encounter [facility] Chrissy(DORON) [id number] Date(s): 11/17/14 - 12/16/14 [facility] [place] Discharge Disposition: Home Physician Attending: Buddy Weller D[place] Reason for Visit ENTHESOPATHY OF HIP REGION Problem List Condition Effective Dates Status Health [...] 11/13/06 Resolved Weak(Confirmed) Active 1B MRSA - [id number] added by Discern Expert. Allergies, Adverse Reactions, [...] Reg Smoking Cessation Counseling Yes 1no substance [id number] therapy 2x a yqpn7uilgrea/ttuxhmek0nv alcohol
--- OUTSIDE RECORDS SUMMARY | 2018-12-08 01:15 | XMS REPORT ---
:1945 [facility] Address [address] [place] [address] [place] [id number] Care Team Providers Name Role Phone MASSIEL LETY Unavailable Unavailable JERMAIN PEREZ Unavailable Unavailable Problems This patient has no known problems. Allergies, Adverse Reactions, Alerts This patient has no known allergies or adverse reactions. Medications This patient has no known medications. Results Test Description Test Time Test Comments Text Results Atomic Results Result Comments B-TYPE NATRIURETIC FACTOR (BNP) 2017-08-25 13:03:00 Test Item Value Reference Range Comments B-TYPE NATRIURETIC PEPTIDE (BEAKER) (test dlhl=660) 75 pg/mL 0-100 [id number] 12:32:00 Test Item Value Reference Range Comments MAGNESIUM (BEAKER) (test ramj=603) 2.0 mg/dL 1.6-2.6 BASIC METABOLIC [id number] 12:32:00 Test Item Value Reference Range Comments SODIUM (BEAKER) (test 140 meq/L 136-145 pmqj=172) POTASSIUM (BEAKER) (test 5.2 meq/L 3.5-5.1 srwn=434) CHLORIDE (BEAKER) (test 103 meq/L 98-107 zabn=374) CO2 (BEAKER) (test 29 meq/L 22-29 ahgo=264) BLOOD UREA NITROGEN 33 mg/dL 7-21 (BEAKER) (test xenr=106) CREATININE (BEAKER) (test 1.44 mg/dL 0.57-1.25 kkan=282) GLUCOSE RANDOM (BEAKER) 82 mg/dL 70-105 (test frlr=411) CALCIUM (BEAKER) (test 9.6 mg/dL 8.4-10.2 kahd=414) EGFR (BEAKER) (test 36 mL/min/1.73 sq m ESTIMATED GFR IS NOT kyle=7636) ACCURATE CREATININE CLEARANCE IN PREDICTING GLOMERULAR FILTRATION RATE. ESTIMATED GFR IS NOT APPLICABLE FOR DIALYSIS PATIENTS. POCT-GLUCOSE [id number] 11:34:00 Test Item Value Reference Range Comments POC-GLUCOSE METER (BEAKER) 123 mg/dL 70-110 TESTED AT [address] (test ltpq=9263) [facility] [address] POCT-GLUCOSE [id number] 08:04:00 Test Item Value Reference Range Comments POC-GLUCOSE METER (BEAKER) 96 mg/dL 70-110 TESTED AT [address] (test uugn=9748) [facility] [address] POCT-GLUCOSE [id number] 21:46:00 Test Item Value Reference Range Comments POC-GLUCOSE METER (BEAKER) 155 mg/dL 70-110 TESTED AT [address] (test mznc=5794) [facility] [address] POCT-GLUCOSE [id number] 18:07:00 Test Item Value Reference Range Comments POC-GLUCOSE METER (BEAKER) 189 mg/dL 70-110 TESTED AT [address] (test bsrm=9585) [facility] [address] POCT-GLUCOSE [id number] 12:04:00 Test Item Value Reference Range Comments POC-GLUCOSE METER (BEAKER) 103 mg/dL 70-110 TESTED AT [address] (test jcgh=8085) [facility] [address] POCT-GLUCOSE [id number] 07:38:00 Test Item Value Reference Range Comments POC-GLUCOSE METER (BEAKER) 77 mg/dL 70-110 TESTED AT [address] (test zcyw=7085) [facility] [address] POCT-GLUCOSE [id number] 21:42:00 Test Item Value Reference Range Comments POC-GLUCOSE METER (BEAKER) 127 mg/dL 70-110 TESTED AT [address] (test haxg=2204) [facility] [address] POCT-GLUCOSE [id number] 21:42:00 Test Item Value Reference Range Comments POC-GLUCOSE METER (BEAKER) 204 mg/dL 70-110 TESTED AT [address] (test kjvp=7543) [facility] [address] POCT-GLUCOSE [id number] 13:48:00 Test Item Value Reference Range Comments POC-GLUCOSE METER (BEAKER) 160 mg/dL 70-110 TESTED AT [address] (test naqd=9591) [place] [address] POCT-GLUCOSE [id number] 08:19:00 Test Item Value Reference Range Comments POC-GLUCOSE METER (BEAKER) 89 mg/dL 70-110 TESTED AT [address] (test vlhp=5692) [place] [address] MISCELLANEOUS LAB [id number] 05:59:00 Test Item Value Reference Range Comments SCAN RESULT (test xfid=[id number]) Result comments: Coagulase Negative Staphylococcus Species (CoNS) DETECTED, Methicillin Resistant First line therapy: Vancomycin Coagulase Negative Staphylococcus (CoNS) DETECTED mecA DETECTED Possible contamination.The likelihood of pathogenicity is increased if the organism is observed in multiple blood cultures obtained from separate venipunctures. Other organisms and resistance markers not contained in this PCR panel cannot be excluded and follow-up of traditional culture results is required. This sample was tested at the [facility] Clinical Microbiology Laboratory using the Fitfu Blood Culture ID Panel. This test is FDA cleared for in vitro diagnostic use and has been verified and approved by the [facility] Clinical Microbiology laboratory for clinical use. Reference Range: Not DetectedPOCT-GLUCOSE [id number] 22:00:00 Test Item Value Reference Range Comments POC-GLUCOSE METER (BEAKER) 121 mg/dL 70-110 TESTED AT [address] (test yahn=7265) [place] [address] POCT-GLUCOSE [id number] 16:48:00 Test Item Value Reference Range Comments POC-GLUCOSE METER (BEAKER) 159 mg/dL 70-110 TESTED AT [address] (test kzsv=8279) [place] [address] POCT-GLUCOSE [id number] 12:22:00 Test Item Value Reference Range Comments POC-GLUCOSE METER (BEAKER) 105 mg/dL 70-110 TESTED AT [address] (test lwlq=8284) [place] [address] BLOOD [id number] 11:00:00 Test Item Value Reference Range Comments CULTURE (BEAKER) (test lsjv=7590) No growth in 5 days POCT-GLUCOSE [id number] 08:36:00 Test Item Value Reference Range Comments POC-GLUCOSE METER (BEAKER) 76 mg/dL 70-110 TESTED AT [address] (test roeh=6223) [place] [address] POCT-GLUCOSE [id number] 23:35:00 Test Item Value Reference Range Comments POC-GLUCOSE METER (BEAKER) 139 mg/dL 70-110 TESTED AT [address] (test gplr=6536) [facility] [address] POCT-GLUCOSE [id number] 16:02:00 Test Item Value Reference Range Comments POC-GLUCOSE METER (BEAKER) 140 mg/dL 70-110 TESTED AT [address] (test biky=8185) [facility] [address] POCT-GLUCOSE [id number] 12:34:00 Test Item Value Reference Range Comments POC-GLUCOSE METER (BEAKER) 136 mg/dL 70-110 TESTED AT [address] (test bptz=2868) [facility] [address] POCT-GLUCOSE [id number] 08:28:00 Test Item Value Reference Range Comments POC-GLUCOSE METER (BEAKER) 90 mg/dL 70-110 TESTED AT [address] (test nsxz=4740) [facility] [address] POCT-GLUCOSE [id number] 21:17:00 Test Item Value Reference Range Comments POC-GLUCOSE METER (BEAKER) 158 mg/dL 70-110 TESTED AT [address] (test loxw=7649) [facility] [address] POCT-GLUCOSE [id number] 16:38:00 Test Item Value Reference Range Comments POC-GLUCOSE METER (BEAKER) 137 mg/dL 70-110 TESTED AT [address] (test evas=6058) [facility] [address] POCT-GLUCOSE [id number] 12:15:00 Test Item Value Reference Range Comments POC-GLUCOSE METER (BEAKER) 104 mg/dL 70-110 TESTED AT [address] (test ftns=5280) [facility] [address] POCT-GLUCOSE [id number] 08:32:00 Test Item Value Reference Range Comments POC-GLUCOSE METER (BEAKER) 88 mg/dL 70-110 TESTED AT [address] (test xrma=6807) [facility] [address] COMPREHENSIVE METABOLIC [id number] 07:49:00 Test Item Value Reference Range Comments TOTAL PROTEIN (BEAKER) 5.6 gm/dL 6.0-8.3 Specimen slightly (test xmpe=062) hemolyzed ALBUMIN (BEAKER) (test 3.1 g/dL 3.5-5.0 Specimen slightly wxrr=8558) hemolyzed ALKALINE PHOSPHATASE 79 U/L 40-150 (BEAKER) (test ndvk=159) BILIRUBIN TOTAL (BEAKER) 0.3 mg/dL 0.2-1.2 Specimen slightly (test uksb=188) hemolyzed SODIUM (BEAKER) (test 139 meq/L 136-145 uzlw=746) POTASSIUM (BEAKER) (test 3.7 meq/L 3.5-5.1 Specimen slightly gumu=470) hemolyzed CHLORIDE (BEAKER) (test 105 meq/L 98-107 spbk=795) CO2 (BEAKER) (test 26 meq/L 22-29 bmcx=065) BLOOD UREA NITROGEN 31 mg/dL 7-21 (BEAKER) (test njtg=203) CREATININE (BEAKER) (test 1.36 mg/dL 0.57-1.25 Specimen slightly lirk=846) hemolyzed GLUCOSE RANDOM (BEAKER) 77 mg/dL 70-105 (test rhzq=805) CALCIUM (BEAKER) (test 8.9 mg/dL 8.4-10.2 vfqy=366) AST (SGOT) (BEAKER) (test 15 U/L 5-34 Specimen slightly pcop=171) hemolyzed ALT (SGPT) (BEAKER) (test 12 U/L 6-55 Specimen slightly agds=767) hemolyzed EGFR (BEAKER) (test 38 mL/min/1.73 sq m ESTIMATED GFR IS NOT kpvi=2246) ACCURATE CREATININE CLEARANCE IN PREDICTING GLOMERULAR FILTRATION RATE. ESTIMATED GFR IS NOT APPLICABLE FOR DIALYSIS PATIENTS. BLOOD [id number] 07:45:00 Test Item Value Reference Range Comments CULTURE (BEAKER) From Aerobic And Anaerobic (test qdln=0343) Bottles Coagulase negative Staphylococcus GRAM STAIN RESULT From aerobic and (BEAKER) (test anaerobic bottles: lodv=2235) gram positive cocci in clusters Coagulase Negative Staphylococcus Species (CoNS) DETECTED, Methicillin Resistant First line therapy: Vancomycin Coagulase Negative Staphylococcus ( CoNS) DETECTEDmecA DETECTEDPossible contamination.Thelikelihood of pathogenicity is increased if the organism is observed in multiple blood cultures obtained from separate venipunctures. Other organisms and resistance markers not contained in this PCR panel cannot be excluded and follow-up of traditional culture results is required. This sample was tested at the [facility] Clinical Microbiology Laboratory using the Fitfu Blood Culture ID Panel.This test is FDA cleared for in vitro diagnostic use and has been [facility] and [facility]. Reference Range: Not DetectedPOCT-GLUCOSE [id number] 00:48:00 Test Item Value Reference Range Comments POC-GLUCOSE METER (BEAKER) 94 mg/dL 70-110 TESTED AT [address] (test vqkf=0002) [place] [address] POCT-GLUCOSE [id number] 21:05:00 Test Item Value Reference Range Comments POC-GLUCOSE METER (BEAKER) 143 mg/dL 70-110 TESTED AT [address] (test vzzp=9528) [place] [address] POCT-GLUCOSE [id number] 18:41:00 Test Item Value Reference Range Comments POC-GLUCOSE METER (BEAKER) 198 mg/dL 70-110 TESTED AT [address] (test uwfe=2128) [place] [address] POCT-GLUCOSE [id number] 12:04:00 Test Item Value Reference Range Comments POC-GLUCOSE METER (BEAKER) 113 mg/dL 70-110 TESTED AT [address] (test jgas=1294) [place] [address] URINE [id number] 10:50:00 Test Item Value Reference Range Comments CULTURE (BEAKER) (test hqcq=0934) No growth HEMOGLOBIN [id number] 09:08:00 Test Item Value Reference Range Comments HEMOGLOBIN A1C (BEAKER) (test glws=539) 4.9 % 4.3-6.1 POCT-GLUCOSE [id number] 08:17:00 Test Item Value Reference Range Comments POC-GLUCOSE METER (BEAKER) 76 mg/dL 70-110 TESTED AT [address] (test nonu=4179) [place] [address] COMPREHENSIVE METABOLIC [id number] 07:08:00 Test Item Value Reference Range Comments TOTAL PROTEIN (BEAKER) 5.9 gm/dL 6.0-8.3 (test dftq=562) ALBUMIN (BEAKER) (test 3.3 g/dL 3.5-5.0 nxqr=9390) ALKALINE PHOSPHATASE 89 U/L 40-150 (BEAKER) (test ghyw=922) BILIRUBIN TOTAL (BEAKER) 0.3 mg/dL 0.2-1.2 (test tmka=957) SODIUM (BEAKER) (test 140 meq/L 136-145 kcjc=096) POTASSIUM (BEAKER) (test 3.5 meq/L 3.5-5.1 qejp=842) CHLORIDE (BEAKER) (test 102 meq/L 98-107 ltyg=005) CO2 (BEAKER) (test 31 meq/L 22-29 bicw=730) BLOOD UREA NITROGEN 29 mg/dL 7-21 (BEAKER) (test lull=620) CREATININE (BEAKER) (test 1.34 mg/dL 0.57-1.25 mszg=473) GLUCOSE RANDOM (BEAKER) 91 mg/dL 70-105 (test dzpe=967) CALCIUM (BEAKER) (test 9.4 mg/dL 8.4-10.2 buvz=437) AST (SGOT) (BEAKER) (test 14 U/L 5-34 ymxl=081) ALT (SGPT) (BEAKER) (test 10 U/L 6-55 tggx=889) EGFR (BEAKER) (test 39 mL/min/1.73 sq m ESTIMATED GFR IS NOT mayc=8932) ACCURATE CREATININE CLEARANCE IN PREDICTING GLOMERULAR FILTRATION RATE. ESTIMATED GFR IS NOT APPLICABLE FOR DIALYSIS PATIENTS. CBC W/PLT COUNT & AUTO [id number] 06:55:00 Test Item Value Reference Range Comments WHITE BLOOD CELL COUNT (BEAKER) (test wxcl=574) 5.7 K/ L 3.5-10.5 RED BLOOD CELL COUNT (BEAKER) (test hwgq=217) 3.25 M/ L 3.93-5.22 HEMOGLOBIN (BEAKER) (test engx=894) 9.7 GM/DL 11.2-15.7 HEMATOCRIT (BEAKER) (test hjdr=103) 30.3 % 34.1-44.9 MEAN CORPUSCULAR VOLUME (BEAKER) (test efqe=396) 93.2 fL 79.4-94.8 MEAN CORPUSCULAR HEMOGLOBIN (BEAKER) (test 29.8 pg 25.6-32.2 rrma=786) MEAN CORPUSCULAR HEMOGLOBIN CONC (BEAKER) (test 32.0 GM/DL 32.2-35.5 qxha=428) RED CELL DISTRIBUTION WIDTH (BEAKER) (test 13.5 % 11.7-14.4 uqkn=164) PLATELET COUNT (BEAKER) (test wntk=354) 137 K/CU MM 150-450 MEAN PLATELET VOLUME (BEAKER) (test lrwn=134) 10.6 fL 9.4-12.3 NUCLEATED RED BLOOD CELLS (BEAKER) (test 0 /100 WBC 0-0 cwyf=719) NEUTROPHILS RELATIVE PERCENT (BEAKER) (test 56 % mfcw=402) LYMPHOCYTES RELATIVE PERCENT (BEAKER) (test 29 % aevk=350) MONOCYTES RELATIVE PERCENT (BEAKER) (test 15 % kdtl=302) EOSINOPHILS RELATIVE PERCENT (BEAKER) (test 0 % erpa=255) BASOPHILS RELATIVE PERCENT (BEAKER) (test 0 % haad=970) NEUTROPHILS ABSOLUTE COUNT (BEAKER) (test 3.21 K/ L 1.56-6.13 xlwf=042) LYMPHOCYTES ABSOLUTE COUNT (BEAKER) (test 1.66 K/ L 1.18-3.74 jpmh=250) MONOCYTES ABSOLUTE COUNT (BEAKER) (test 0.83 K/ L 0.24-0.36 ztai=160) EOSINOPHILS ABSOLUTE COUNT (BEAKER) (test 0.00 K/ L 0.04-0.36 vcha=638) BASOPHILS ABSOLUTE COUNT (BEAKER) (test 0.01 K/ L 0.01-0.08 zriz=693) IMMATURE GRANULOCYTES-RELATIVE PERCENT (BEAKER) 0 % 0-1 (test goiu=5848) POCT-GLUCOSE [id number] 17:11:00 Test Item Value Reference Range Comments POC-GLUCOSE METER (BEAKER) 150 mg/dL 70-110 TESTED AT [address] (test hmgg=6913) [facility] [address] POCT-GLUCOSE [id number] 07:55:00 Test Item Value Reference Range Comments POC-GLUCOSE METER (BEAKER) 91 mg/dL 70-110 TESTED AT [address] (test wdcz=6739) [place] [id number] TROPONIN [id number] 06:37:00 Test Item Value Reference Range Comments TROPONIN I (BEAKER) (test hfni=801) 0.03 ng/mL 0.00-0.03 Troponin I (TnI) levels must be interpreted in the context of the presenting symptoms and the clinical findings. Elevated TnI levels indicate myocardial damage, but are not specific for ischemic heart disease. Elevated TnI levels are seen in patients with other cardiac conditions (including myocarditis and congestive heart failure), and slight TnI elevations occur in patients with other conditions, including sepsis, renal failure, acidosis, acute neurological disease, and persistent tachyarrhythmia.COMPREHENSIVE METABOLIC [id number] 02:37:00 Test Item Value Reference Range Comments TOTAL PROTEIN (BEAKER) 6.2 gm/dL 6.0-8.3 (test zgul=939) ALBUMIN (BEAKER) (test 3.4 g/dL 3.5-5.0 hyoo=4672) ALKALINE PHOSPHATASE 104 U/L 40-150 (BEAKER) (test vqhe=815) BILIRUBIN TOTAL (BEAKER) 0.3 mg/dL 0.2-1.2 (test grrc=513) SODIUM (BEAKER) (test 140 meq/L 136-145 npog=936) POTASSIUM (BEAKER) (test 4.1 meq/L 3.5-5.1 uxuo=510) CHLORIDE (BEAKER) (test 99 meq/L 98-107 ylpp=840) CO2 (BEAKER) (test 33 meq/L 22-29 boks=137) BLOOD UREA NITROGEN 24 mg/dL 7-21 (BEAKER) (test imre=861) CREATININE (BEAKER) (test 1.24 mg/dL 0.57-1.25 ijly=478) GLUCOSE RANDOM (BEAKER) 113 mg/dL 70-105 (test zklz=963) CALCIUM (BEAKER) (test 9.7 mg/dL 8.4-10.2 tjwb=333) AST (SGOT) (BEAKER) (test 16 U/L 5-34 fokv=929) ALT (SGPT) (BEAKER) (test 10 U/L 6-55 bteh=707) EGFR (BEAKER) (test 42 mL/min/1.73 sq m ESTIMATED GFR IS NOT pvza=9784) ACCURATE CREATININE CLEARANCE IN PREDICTING GLOMERULAR FILTRATION RATE. ESTIMATED GFR IS NOT APPLICABLE FOR DIALYSIS PATIENTS. CBC W/PLT COUNT & AUTO [id number] 02:21:00 Test Item Value Reference Range Comments WHITE BLOOD CELL COUNT (BEAKER) (test koun=609) 7.0 K/ L 3.5-10.5 RED BLOOD CELL COUNT (BEAKER) (test htyk=859) 3.22 M/ L 3.93-5.22 HEMOGLOBIN (BEAKER) (test ivvb=441) 9.6 GM/DL 11.2-15.7 HEMATOCRIT (BEAKER) (test aplt=761) 30.5 % 34.1-44.9 MEAN CORPUSCULAR VOLUME (BEAKER) (test leof=545) 94.7 fL 79.4-94.8 MEAN CORPUSCULAR HEMOGLOBIN (BEAKER) (test 29.8 pg 25.6-32.2 auqx=628) MEAN CORPUSCULAR HEMOGLOBIN CONC (BEAKER) (test 31.5 GM/DL 32.2-35.5 ythw=815) RED CELL DISTRIBUTION WIDTH (BEAKER) (test 12.9 % 11.7-14.4 gqef=344) PLATELET COUNT (BEAKER) (test lcoh=822) 129 K/CU MM 150-450 MEAN PLATELET VOLUME (BEAKER) (test xicb=841) 9.8 fL 9.4-12.3 NUCLEATED RED BLOOD CELLS (BEAKER) (test 0 /100 WBC 0-0 bsbl=927) NEUTROPHILS RELATIVE PERCENT (BEAKER) (test 68 % qqtc=047) LYMPHOCYTES RELATIVE PERCENT (BEAKER) (test 16 % rslu=983) MONOCYTES RELATIVE PERCENT (BEAKER) (test 16 % wmal=024) EOSINOPHILS RELATIVE PERCENT (BEAKER) (test 0 % ncxw=883) BASOPHILS RELATIVE PERCENT (BEAKER) (test 0 % nvaz=746) NEUTROPHILS ABSOLUTE COUNT (BEAKER) (test 4.79 K/ L 1.56-6.13 ugds=813) LYMPHOCYTES ABSOLUTE COUNT (BEAKER) (test 1.10 K/ L 1.18-3.74 dwxa=744) MONOCYTES ABSOLUTE COUNT (BEAKER) (test 1.10 K/ L 0.24-0.36 qzcg=270) EOSINOPHILS ABSOLUTE COUNT (BEAKER) (test 0.00 K/ L 0.04-0.36 bghr=824) BASOPHILS ABSOLUTE COUNT (BEAKER) (test 0.00 K/ L 0.01-0.08 olup=529) IMMATURE GRANULOCYTES-RELATIVE PERCENT (BEAKER) 0 % 0-1 (test ltnb=7645) POCT-GLUCOSE [id number] 21:07:00 Test Item Value Reference Range Comments POC-GLUCOSE METER (BEAKER) 137 mg/dL 70-110 TESTED AT [facility] [address] (test dzuu=0260) [facility] [address] MR, BRAIN, WITHOUT [id number] 19:45:00Reason for exam:->Stroke evaluationFINAL REPORT MRI Brain without contrast Clinical History: StrokeStroke evaluation Episode of Care: Initial Technique: MRI of the brain utilizing axial T2, FLAIR, GRE, DWI; sagittal and coronal T1- weighted images. Comparisons: CT 06/24/2010 Findings: There is no evidence of acute infarct or hemorrhage. Bifrontal craniotomies are again seen with right greater than left anterior frontal encephalomalacia. A previous right frontal catheter tract is again noted. There is periventricular and subcortical white matter T2 hyperintensity, which is nonspecific but compatible with chronic microvascular ischemic change. There is mild generalized parenchymal volume loss without hydrocephalus, midline shift, or apparent mass effect. IMPRESSION: No evidence of acute infarct, hemorrhage, or hydrocephalus. 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 Signed: Juanita Chin MDReport Verified Date/Time: 07/27/2017 19:45:32 Reading Location: [facility] Radiology Reading Room CREATINE KINASE (CK), TOTAL AND [id number] 18:14: 00 Test Item Value Reference Range Comments CREATINE KINASE TOTAL (BEAKER) (test nnph=066) 134 U/L 29-200 CREATINE KINASE-MB (BEAKER) (test foxs=854) 1.6 ng/mL 0.0-6.6 CREATINE KINASE-MB INDEX (BEAKER) (test yxcj=892) 1.2 % CK-MB Reference Range:<6.7 Normal6.7-10.0 Borderline>10.0 AbnormalBASIC METABOLIC [id number] 18:05:00 Test Item Value Reference Range Comments SODIUM (BEAKER) (test 140 meq/L 136-145 wblj=307) POTASSIUM (BEAKER) (test 4.4 meq/L 3.5-5.1 txgm=606) CHLORIDE (BEAKER) (test 98 meq/L 98-107 hrah=069) CO2 (BEAKER) (test 31 meq/L 22-29 fnsl=640) BLOOD UREA NITROGEN 23 mg/dL 7-21 (BEAKER) (test pcnm=439) CREATININE (BEAKER) (test 1.30 mg/dL 0.57-1.25 hwjz=972) GLUCOSE RANDOM (BEAKER) 147 mg/dL 70-105 (test tigi=491) CALCIUM (BEAKER) (test 10.3 mg/dL 8.4-10.2 urzw=636) EGFR (BEAKER) (test 40 mL/min/1.73 sq m ESTIMATED GFR IS NOT ajfk=1204) ACCURATE CREATININE CLEARANCE IN PREDICTING GLOMERULAR FILTRATION RATE. ESTIMATED GFR IS NOT APPLICABLE FOR DIALYSIS PATIENTS. POCT-GLUCOSE [id number] 17:25:00 Test Item Value Reference Range Comments POC-GLUCOSE METER (BEAKER) 179 mg/dL 70-110 TESTED AT [facility] [address] (test qfdv=0240) [facility] [address] INFLUENZA A H1N1 [id number] 14:46:00 Test Item Value Reference Range Comments INFLUENZA A RNA (BEAKER) (test Not Detected Not Detected, Inconclusive bepr=0075) NOVEL H1N1 RNA (BEAKER) (test Not Detected Not Detected, Inconclusive uavl=4946) These assays were performed by real-time RT-PCR (crusher setter-PCR) utilizing fluorogenic hydrolysis probe technology for the detection of human Influenza A viruses and the differential detection of novel H1N1 Influenza virus in respiratory specimens. The test is composed of (1) an RNA extraction from patient specimen, and (2) crusher setter-PCR amplification and detection with human Influenza A and novel E8H8-uxeortal primers and probes. A well-conserved region of the Influenza A matrix gene is targeted in one set of reactions to identify both seasonal Influenza A and novel H1N1 Influenza virus in the specimen. In addition, a specific region of the hemagglutinin gene is targeted to differentiate the novel H1N1 virusfrom the seasonal human influenza. An internal control is used to confirm PCR amplification. Genetic variation and other factors can affect the accuracy of nucleic acid testing; therefore, the resultsshould be interpreted in light of clinical data. This test was developed and its performance characteristics determined by the [facility] Pathology Department, Section of Molecular Pathology. It has not been cleared or approved by the U.S. Food and Drug Administration (FDA). SinceFDA approval is not required for clinical use of the test, validation was done as required by The Clinical Laboratory Amendments of 1988.These assays were performed by real-time RT-PCR (crusher setter-PCR) utilizing fluorogenic hydrolysis probe technology for the detection of human Influenza A viruses and the differential detection of novel H1N1 Influenza virus in respiratory specimens. The test is composed of (1) an RNA extraction from patient specimen, and (2) crusher setter-PCR amplification and detection with human Influenza A and novel Y0E0-exwtubhu primers and probes. A well-conserved region of the Influenza A matrix gene is targeted in one set of reactions to identify both seasonal Influenza A and novel H1N1 Influenza virus in the specimen. In addition, a specific region of the hemagglutinin gene is targeted to differentiate the novel H1N1 virus from the seasonal human influenza. An internal control is used to confirm PCR amplification. Genetic variation and other factors can affect the accuracy of nucleic acid testing; therefore, the results should be interpreted in light of clinical data. This test was developed and its performance characteristics determined by the [facility] Pathology Department, Section of Molecular Pathology. It has not been cleared or approved by the U.S. Food and Drug Administration ( FDA). Since FDA approval is not required for clinical use of the test, validation was done as required by The Clinical Laboratory Amendments of 1988.POCT-GLUCOSE [id number] 12:28:00 Test Item Value Reference Range Comments POC-GLUCOSE METER (Inform Direct) 92 mg/dL 70-110 TESTED AT [facility] [address] (test fkvc=8965) [facility] [address] CREATINE KINASE (CK), TOTAL AND [id number] 11:07:00 Test Item Value Reference Range Comments CREATINE KINASE TOTAL (BEAKER) (test meyg=630) 133 U/L 29-200 CREATINE KINASE-MB (BEAKER) (test spdh=290) 1.6 ng/mL 0.0-6.6 CREATINE KINASE-MB INDEX (BEAKER) (test tkxp=589) 1.2 % CK-MB Reference Range:<6.7 Normal6.7-10.0 Borderline>10.0 AbnormalTROPONIN [id number] 11:07:00 Test Item Value Reference Range Comments TROPONIN I (BEAKER) (test fjxg=002) 0.02 ng/mL 0.00-0.03 Troponin I (TnI) levels must be interpreted in the context of the presenting symptoms and the clinical findings. Elevated TnI levels indicate myocardial damage, but are not specific for ischemic heart disease. Elevated TnI levels are seen in patients with other cardiac conditions (including myocarditis and congestive heart failure), and slight TnI elevations occur in patients with other conditions, including sepsis, renal failure, acidosis, acute neurological disease, and persistent tachyarrhythmia.POCT-GLUCOSE [id number] 11:02:00 Test Item Value Reference Range Comments POC-GLUCOSE METER (BEAKER) 106 mg/dL 70-110 TESTED AT [facility] [address] (test yasy=5771) [facility] [address] BLOOD GAS, [id number] 08:28:00 Test Item Value Reference Range Comments PH ARTERIAL (BEAKER) (test fqzh=416) 7.44 7.35-7.45 PCO2 ARTERIAL (BEAKER) (test ales=684) 56 mmHg 35-45 PO2 ARTERIAL (BEAKER) (test czer=713) 86 mmHg 80-90 O2 SATURATION ARTERIAL (BEAKER) (test gkqy=604) 96.5 % 96.0-97.0 HCO3 ARTERIAL (BEAKER) (test ikyu=201) 36 mmol/L 21-29 BASE EXCESS ARTERIAL (BEAKER) (test rslf=286) 10.6 mmol/L -2.0-3.0 PATIENT TEMPERATURE (BEAKER) (test gdrg=4173) 37.2 C FIO2 (BEAKER) (test adzz=3695) 40.0 % T4, [id number] 04:48:00 Test Item Value Reference Range Comments FREE T4 (BEAKER) (test apgv=024) 0.82 ng/dL 0.70-1.48 TSH/FREE T4 IF [id number] 03:54:00 Test Item Value Reference Range Comments THYROID STIMULATING HORMONE (BEAKER) (test 0.14 uIU/mL 0.35-4.94 ppkr=892) RAPID INFLUENZA A&B [id number] 03:41:00 Test Item Value Reference Range Comments RAPID INFLUENZA A AG (BEAKER) (test Negative Negative, Inconclusive dfdj=2760) RAPID INFLUENZA B AG (BEAKER) (test Negative Negative, Inconclusive yeug=4154) LACTIC ACID, VENOUS, WHOLE [id number] 03:40:00 Test Item Value Reference Range Comments LACTATE BLOOD VENOUS (2) (BEAKER) (test 0.5 mmol/L 0.5-2.2 cenm=7332) Effective 03/16/2016: Units/Reference Range ChangeNew: 0.5-2.2 mmol/L Previous: 5 -20 mg/dLB-TYPE NATRIURETIC FACTOR (BNP)2017-07-27 03:38:00 Test Item Value Reference Range Comments B-TYPE NATRIURETIC PEPTIDE (BEAKER) (test 330 pg/mL 0-100 yfmu=912) [id number] 03:31:00 Test Item Value Reference Range Comments MAGNESIUM (BEAKER) (test xvji=211) 1.9 mg/dL 1.6-2.6 BASIC METABOLIC [id number] 03:31:00 Test Item Value Reference Range Comments SODIUM (BEAKER) (test 143 meq/L 136-145 pqbt=790) POTASSIUM (BEAKER) (test 4.9 meq/L 3.5-5.1 grlo=379) CHLORIDE (BEAKER) (test 101 meq/L 98-107 kfwy=219) CO2 (BEAKER) (test 35 meq/L 22-29 wkef=116) BLOOD UREA NITROGEN 22 mg/dL 7-21 (BEAKER) (test ldqy=637) CREATININE (BEAKER) (test 1.19 mg/dL 0.57-1.25 qmss=721) GLUCOSE RANDOM (BEAKER) 146 mg/dL 70-105 (test cdxj=991) CALCIUM (BEAKER) (test 9.9 mg/dL 8.4-10.2 fezc=691) EGFR (BEAKER) (test 44 mL/min/1.73 sq m ESTIMATED GFR IS NOT skzp=2041) ACCURATE CREATININE CLEARANCE IN PREDICTING GLOMERULAR FILTRATION RATE. ESTIMATED GFR IS NOT APPLICABLE FOR DIALYSIS PATIENTS. PROTHROMBIN [id number] 03:31:00 Test Item Value Reference Range Comments PROTIME (BEAKER) (test xucj=598) 14.1 seconds 11.7-14.7 INR (BEAKER) (test pcxs=131) 1.1 <=5.9 RECOMMENDED COUMADIN/WARFARIN INR THERAPY RANGESSTANDARD DOSE: 2.0 - 3.0 Includes: PROPHYLAXIS forvenous thrombosis, systemic embolization; TREATMENT for venous thrombosis and/or pulmonary embolus.HIGH RISK: Target INR is 2.5-3.5 for patients with mechanical heart valves.CBC W/PLT COUNT & AUTO [id number] 03:21:00 Test Item Value Reference Range Comments WHITE BLOOD CELL COUNT (BEAKER) (test cjmo=201) 8.6 K/ L 3.5-10.5 RED BLOOD CELL COUNT (BEAKER) (test paje=739) 3.37 M/ L 3.93-5.22 HEMOGLOBIN (BEAKER) (test ttrm=802) 10.0 GM/DL 11.2-15.7 HEMATOCRIT (BEAKER) (test uanv=207) 33.7 % 34.1-44.9 MEAN CORPUSCULAR VOLUME (BEAKER) (test cbco=312) 100.0 fL 79.4-94.8 MEAN CORPUSCULAR HEMOGLOBIN (BEAKER) (test 29.7 pg 25.6-32.2 inke=616) MEAN CORPUSCULAR HEMOGLOBIN CONC (BEAKER) (test 29.7 GM/DL 32.2-35.5 phmx=408) RED CELL DISTRIBUTION WIDTH (BEAKER) (test 12.7 % 11.7-14.4 ziav=664) PLATELET COUNT (BEAKER) (test jdlb=920) 130 K/CU MM 150-450 MEAN PLATELET VOLUME (BEAKER) (test cyds=625) 9.8 fL 9.4-12.3 NUCLEATED RED BLOOD CELLS (BEAKER) (test 0 /100 WBC 0-0 bgyn=108) NEUTROPHILS RELATIVE PERCENT (BEAKER) (test 92 % qhli=726) LYMPHOCYTES RELATIVE PERCENT (BEAKER) (test 6 % gxqp=767) MONOCYTES RELATIVE PERCENT (BEAKER) (test 1 % joss=105) EOSINOPHILS RELATIVE PERCENT (BEAKER) (test 0 % slha=234) BASOPHILS RELATIVE PERCENT (BEAKER) (test 0 % lkzv=496) NEUTROPHILS ABSOLUTE COUNT (BEAKER) (test 7.97 K/ L 1.56-6.13 lqpa=911) LYMPHOCYTES ABSOLUTE COUNT (BEAKER) (test 0.49 K/ L 1.18-3.74 blzv=521) MONOCYTES ABSOLUTE COUNT (BEAKER) (test 0.09 K/ L 0.24-0.36 ctwm=174) EOSINOPHILS ABSOLUTE COUNT (BEAKER) (test 0.00 K/ L 0.04-0.36 xhci=694) BASOPHILS ABSOLUTE COUNT (BEAKER) (test 0.01 K/ L 0.01-0.08 qtit=133) IMMATURE GRANULOCYTES-RELATIVE PERCENT (BEAKER) 1 % 0-1 (test mapc=8954) BLOOD GAS, [id number] 02:57:00 Test Item Value Reference Range Comments PH ARTERIAL (BEAKER) (test vxep=138) 7.28 7.35-7.45 PCO2 ARTERIAL (BEAKER) (test pxtt=023) 83 mmHg 35-45 PO2 ARTERIAL (BEAKER) (test znxo=042) 59 mmHg 80-90 O2 SATURATION ARTERIAL (BEAKER) (test kcxi=689) 86.1 % 96.0-97.0 HCO3 ARTERIAL (BEAKER) (test hlqv=628) 38 mmol/L 21-29 BASE EXCESS ARTERIAL (BEAKER) (test jvtj=870) 8.9 mmol/L -2.0-3.0 PATIENT TEMPERATURE (BEAKER) (test cfgf=1413) 36.9 C FIO2 (BEAKER) (test jpks=4672) 40.0 % POCT-GLUCOSE [id number] 02:51:00 Test Item Value Reference Range Comments POC-GLUCOSE METER (BEAKER) 130 mg/dL 70-110 TESTED AT [facility] [address] (test hycw=4926) [facility] [id number] RAD, CHEST, 1 VIEW, NON [id number] 02:30:00Reason for exam:->SOBShould this be performed at the bedside?->YesFINAL REPORT RAD , CHEST, 1 VIEW, NON DEPT INDICATION: SOB COMPARISON: Chest x-ray from 1999 TECHNIQUE: Single frontal view of the chest. IMPRESSION:Right-sided MediPort terminates in the mid SVC.Cardiomediastinal silhouette within normal limits.No overt consolidative or congestive change.No acute osseous abnormality. Signed: Shashank Vazquez MDReport Verified Date/Time: 07/27/2017 02:30:16 Reading Location: [address] Ortho Consult Reading Room
[2018-12-08 01:39] LABS: Absolute Lymphocytes (CBC) 0.8 K/uL (0.7-4.9); Absolute Monocytes 0.3 K/uL (0.1-1.3); Absolute Neutrophil 3.4 K/uL (1.8-8.0); Basophils % 0.4 % (0-1.3); Eosinophils % 0.4 % (0-4.4); Hematocrit 34.4 % (36.0-45.0); Lymphocytes % 17.1 % (15.3-44.8); MPV 8.5 fL (7.6-11.3); Monocytes % 6.1 % (3.3-12.3); RBC Red Blood Cell Count 3.47 M/uL (3.86-4.86)
[2018-12-08 01:40] LABS: Protime INR 0.99
[2018-12-08 02:21] LABS: ALT/SGPT 12 U/L (12-78); AST/SGOT 16 U/L (15-37); Albumin 3.4 g/dL (3.4-5.0); Alkaline Phosphatase 134 U/L (45-117); BUN Blood Urea Nitrogen 42 mg/dL (7-18); Bicarbonate 36 mmol/L (21-32); Bilirubin Direct < 0.1 mg/dL (0-0.2); Bilirubin Total 0.2 mg/dL (0.2-1.0); Glucose Level 90 mg/dL (74-106); Magnesium 2.4 mg/dL (1.8-2.4); NT PRO-BNP 439 pg/mL (<125); Sodium Level 143 mmol/L (136-145); Troponin (Emerg Dept Use Only) < 0.02 ng/mL (0.0-0.045)
[2018-12-08 02:22] LABS: Potassium 5.6 mmol/L (3.5-5.1)
[2018-12-08] MEDS ORDERED: NA CHLORIDE 0.9% 1,000 ML ONE (02:58)
--- NOTE | 2018-12-08 03:45 | ER ---
Nurse's Notes [facility] Name: No Duran Age: 73 yrs Sex: Female : 1945 Arrival Date: 12/08/2018 Time: 00:55 Bed 4 Private MD: Diagnosis: Contusion of right hip;Unspecified sprain of right shoulder joint Presentation: 12/08 00:57 Presenting complaint: EMS states: pt fall standing. pt c/o right shoulder pain and ak1 right hip pain and pain to back of the neck. c-collar in place. pt uses 3L NC at [place]. 00:57 Method Of Arrival: EMS: [facility] ak1 01:01 Transition of care: patient was received from another setting of care (long-term care [facility] facility), [facility]. Onset of symptoms was December 08, 2018. Risk Assessment: Do you want to hurt yourself or someone else? Patient reports no desire to harm self or others. Initial Sepsis Screen: Does the patient meet any 2 criteria? No. Patient's initial sepsis screen is negative. Does the patient have a suspected source of infection? No. Patient's initial sepsis screen is negative. Care prior to arrival: C-collar in place, sling to right arm. 01:01 Acuity: ISABELL 3 ak1 Triage Assessment: 01:05 General: Appears uncomfortable, Behavior is calm, cooperative. Pain: Complains of pain ak1 in right shoulder, right hip, back of the neck. EENT: No signs and/or symptoms were reported regarding the EENT system. Neuro: Level of Consciousness is awake, alert, obeys commands, Oriented to person, place, situation, Moves all extremities. Speech is normal. Cardiovascular: No deficits noted. Respiratory: No deficits noted. GI: No signs and/or symptoms were reported involving the gastrointestinal system. : No signs and/or symptoms were reported regarding the genitourinary system. Derm: No signs and/or symptoms reported regarding the dermatologic system. Musculoskeletal: Reports pain in right shoulder, right hip, back of the neck. Historical: - Allergies: 01:05 diazepam; ak1 01:05 Morphine; ak1 01:05 nalbuphine HCl; ak1 01:05 sulfamethoxazole-trimethoprim; ak1 01:05 Ondansetron HCl; ak1 01:05 Demerol; ak1 01:05 Erythromycin; ak1 01:05 Imitrex; ak1 01:05 Nubain; ak1 01:05 Silicone; ak1 01:05 adhesive tape; ak1 - Home Meds: 01:20 albuterol sulfate 2.5 mg /3 mL (0.083 %) Inhl nebu 3 mL every 6 hours [Active]; ak1 Depakote 500 mg Oral TbEC 1 tab 2 times per day [Active]; hyoscyamine sulfate 0.125 mg SL subl [Active]; Keppra 500 mg Oral tab 1 tab 2 times per day [Active]; furosemide 40 mg oral tab 1 tab once daily [Active]; lisinopril 5 mg Oral tab 1 tab once daily [Active]; methadone 10 mg Oral tab 1 tab every 8 hours [Active]; Acidophilus Oral cap [Active]; Advair Diskus 500-50 mcg/dose Inhl dsdv 1 puff 2 times per day [Active]; bisacodyl 10 mg Rectal supp [Active]; Phenergan Supp Rectal [Active]; quetiapine 400 mg oral tab 1 tab once daily [Active]; ropinirole 1 mg oral tab 1 tab [Active]; Senexon 8.6 mg oral tab [Active]; tiotropium bromide inhalation inhalation [Active]; valacyclovir 1 gram Oral tab [Active]; Potassium Chloride Oral [Active]; - PMHx: 01:05 Back pain; CHF; Chronic pain; COPD; Seizures; Myocardial infarction; Hypertension; High ak1 Cholesterol; CVA; 01:20 Anemia; restless leg; Anxiety; chronic kidney disease; hypoxia; GERD; Depression; ak1 - Immunization history:: Adult Immunizations unknown. - Social history:: Smoking status: Patient/guardian denies using tobacco. - Ebola Screening: : No symptoms or risks identified at this time. Screenin:09 Abuse screen: Denies threats or abuse. Denies injuries from another. Nutritional ak1 screening: No deficits noted. Tuberculosis screening: No symptoms or risk factors identified. Fall Risk Fall in past 12 months (25 points). Assessment: 01:09 Reassessment: Patient appears in no apparent distress at this time. No changes from ak1 previously documented assessment. pt remains in c-collar. pt with limited ROM to right shoulder due to pain. pt refused IV access, allows her port to be accessed instead. 02:21 Reassessment: pt returned from XRay for repeat right hip XRays. ak1 03:41 Reassessment: Patient appears in no apparent distress at this time. Patient and/or ed1 family updated on plan of care and expected duration. Pain level reassessed. Patient states feeling better. Patient states symptoms have improved. Neuro: Level of Consciousness is awake, alert, obeys commands, Oriented to person, place, situation. 03:50 Reassessment: Spoke with [facility], nurse stated she would arrange ed1 transportation. 04:45 Reassessment: Patient appears in no apparent distress at this time. Patient and/or cc3 family updated on plan of care and expected duration. Pain level reassessed. Patient is alert, oriented x 3, equal unlabored respirations, skin warm/dry/pink. Called [facility] at their contact number [phone] to follow up their ETA as the patient's discharged already, spoke with staff named Nancy and she said [employer] will arrive to fetch the patient at around 0530-0600H, patient and charge nurse Hortencia informed. 05:20 Reassessment: Patient appears in no apparent distress at this time. Patient and/or cc3 family updated on plan of care and expected duration. Pain level reassessed. Patient is alert, oriented x 3, equal unlabored respirations, skin warm/dry/pink. 05:55 Reassessment: Patient appears in no apparent distress at this time. Patient and/or cc3 family updated on plan of care and expected duration. Pain level reassessed. Patient is alert, oriented x 3, equal unlabored respirations, skin warm/dry/pink. Patient transport back to [facility] came to fetch her. Patient discharged home and left ER vitally stable by wheelchair [facility] Vital Signs: 01:05 BP 136 / 59; Pulse 100; Resp 17; Pulse Ox 100% on 3 lpm NC; Weight 83.91 kg (R); Height ak1 5 ft. 4 in. (162.56 cm) (R); 02:23 BP 100 / 48; Pulse 97; Resp 13; Pulse Ox 100% on 3 lpm NC; ak1 03:41 BP 129 / 58; Pulse 97; Resp 23; Pulse Ox 93% on 3 lpm NC; Pain 6/10; ed1 04:52 BP 134 / 52; Pulse 98; Resp 17 S; Pulse Ox 94% on 3 lpm NC; cc3 05:35 BP 127 / 51; Pulse 97; Resp 18 S; Pulse Ox 93% on 3 lpm NC; cc3 01:05 Body Mass Index 31.75 (83.91 kg, 162.56 cm) ak1 ED Course: 00:55 Patient arrived in ED. al2 00:55 Mika Raygoza MD is Attending Physician. gs 00:57 Brenna Esteban, RN is Primary Nurse. ak1 01:02 Triage completed. ak1 01:05 Arm band placed on Patient placed in an exam room, on a stretcher, on oxygen, on ak1 teletypesetter monitor, on pulse oximetry, Patient notified of wait time. 01:09 Patient has correct armband on for positive identification. Placed in gown. Bed in low ak1 position. Call light in reach. Side rails up X2. surveillance system monitor on. Pulse ox on. NIBP on. Warm blanket given. 01:22 Accessed Port-a-Cath. using accessed w/ # 20 Hernandez needle, ,sterile technique, per ed1 hospital protocol. Clean \T\ dry. Dressing intact. Good blood return. Flushes easily. 01:22 Initial lab(s) drawn, by me, sent to lab. ed1 01:[address] via stretcher. kw1 01:30 CT Head C Spine In Process Unspecified. EDMS 01:32 Patient moved to radiology. kw1 01:59 EKG done, by ED staff, reviewed by Mika Raygoza MD. lp1 02:20 Notified ED physician of a critical lab result(s). potassium of 5.6 Dr Raygoza notified. bb 02:22 XRAY Chest (1 view) In Process Unspecified. EDMS 02:23 Shoulder Right (2 View) XRAY In Process Unspecified. EDMS 02:23 Hip Right 2 View XRAY In Process Unspecified. EDMS 03:10 Report given to Marina. ak1 05:55 No provider procedures requiring assistance completed. Patient did not have IV access cc3 during this emergency room visit. Administered Medications: 02:53 Drug: NS 0.9% 750 ml Route: IV; Rate: 1 bolus; Site: Port-a-cath; ed1 03:50 Follow up: IV Status: Completed infusion; IV Intake: 750ml ed1 04:00 Drug: HEParin Flush 500 units Route: IVP; Site: Port-a-cath; cc3 04:07 Follow up: Response: No adverse reaction cc3 Intake: 03:50 IV: 750ml; Total: 750ml. ed1 Outcome: 03:44 Discharge ordered by MD. morton 05:55 [facility]charged to [facility]. Report called to [facility] cc3 05:55 Condition: stable 05:55 Discharge instructions given to patient, Instructed on discharge instructions, follow up and referral plans. Demonstrated understanding of instructions, follow-up care. 05:58 Patient left the ED. cc3 Signatures: Dispatcher [employer] Hortencia Doty, RN RN bb Tish Burrows RN RN ed1 Jojo Padgett RN RN lp1 Brenna Esteban RN RN Mika Guy MD MD gs Wilhelm, Kimberly kw1 Love, Angelica al2 Cordel, Charlene cc3 Corrections: (The following items were deleted from the chart) 06:04 04:45 Reassessment: Patient appears in no apparent distress at this time. Patient cc3 and/or family updated on plan of care and expected duration. Pain level reassessed. Patient is alert, oriented x 3, equal unlabored respirations, skin warm/dry/pink. Called [facility] at their contact number [phone] to follow up their ETA as the patient's discharged already, spoke with staff named Nancy and she said [employer] will arrive to fetch the patient at around 0536H, patient and charge nurse Hortencia informed. cc3
--- NOTE | 2018-12-08 03:45 | EDPHYS ---
Physician Documentation [facility] Name: No Duran Age: 73 yrs Sex: Female : 1945 Arrival Date: 12/08/2018 Time: 00:55 Bed 4 Private MD: ED Physician Mika Raygoza HPI: 12/08 02:48 This 73 yrs old Female presents to ER via EMS with complaints of fall. gs 02:48 Details of fall: The patient fell from an upright position, while walking. Onset: The gs symptoms/episode began/occurred acutely, just prior to arrival. Associated injuries: The patient sustained injury to the head, neck injury, right arm and right leg. Severity of symptoms: At their worst the symptoms were moderate, in the emergency department the symptoms are unchanged. The patient has experienced similar episodes in the past, a few times. The patient has not recently seen a physician. Historical: - Allergies: 01:05 diazepam; ak1 01:05 Morphine; ak1 01:05 nalbuphine HCl; ak1 01:05 sulfamethoxazole-trimethoprim; ak1 01:05 Ondansetron HCl; ak1 01:05 Demerol; ak1 01:05 Erythromycin; ak1 01:05 Imitrex; ak1 01:05 Nubain; ak1 01:05 Silicone; ak1 01:05 adhesive tape; ak1 - Home Meds: 01:20 albuterol sulfate 2.5 mg /3 mL (0.083 %) Inhl nebu 3 mL every 6 hours [Active]; ak1 Depakote 500 mg Oral TbEC 1 tab 2 times per day [Active]; hyoscyamine sulfate 0.125 mg SL subl [Active]; Keppra 500 mg Oral tab 1 tab 2 times per day [Active]; furosemide 40 mg oral tab 1 tab once daily [Active]; lisinopril 5 mg Oral tab 1 tab once daily [Active]; methadone 10 mg Oral tab 1 tab every 8 hours [Active]; Acidophilus Oral cap [Active]; Advair Diskus 500-50 mcg/dose Inhl dsdv 1 puff 2 times per day [Active]; bisacodyl 10 mg Rectal supp [Active]; Phenergan Supp Rectal [Active]; quetiapine 400 mg oral tab 1 tab once daily [Active]; ropinirole 1 mg oral tab 1 tab [Active]; Senexon 8.6 mg oral tab [Active]; tiotropium bromide inhalation inhalation [Active]; valacyclovir 1 gram Oral tab [Active]; Potassium Chloride Oral [Active]; - PMHx: 01:05 Back pain; CHF; Chronic pain; COPD; Seizures; Myocardial infarction; Hypertension; High ak1 Cholesterol; CVA; 01:20 Anemia; restless leg; Anxiety; chronic kidney disease; hypoxia; GERD; Depression; ak1 - Immunization history:: Adult Immunizations unknown. - Social history:: Smoking status: Patient/guardian denies using tobacco. - Ebola Screening: : No symptoms or risks identified at this time. ROS: 02:48 All other systems are negative. gs Exam: 02:48 Head/Face: Normocephalic, atraumatic. Eyes: Pupils equal round and reactive to light, gs extra-ocular motions intact. Lids and lashes normal. Conjunctiva and sclera are non-icteric and not injected. Cornea within normal limits. Periorbital areas with no swelling, redness, or edema. ENT: Nares patent. No nasal discharge, no septal abnormalities noted. Tympanic membranes are normal and external auditory canals are clear. Oropharynx with no redness, swelling, or masses, exudates, or evidence of obstruction, uvula midline. Mucous membranes moist. Chest/axilla: Normal chest wall appearance and motion. Nontender with no deformity. No lesions are appreciated. 02:48 Cardiovascular: Regular rate and rhythm with a normal S1 and S2. No gallops, murmurs, or rubs. Normal PMI, no JVD. No pulse deficits. Respiratory: Lungs have equal breath sounds bilaterally, clear to auscultation and percussion. No rales, rhonchi or wheezes noted. No increased work of breathing, no retractions or nasal flaring. Abdomen/GI: Soft, non-tender, with normal bowel sounds. No distension or tympany. No guarding or rebound. No evidence of tenderness throughout. Back: No spinal tenderness. No costovertebral tenderness. Full range of motion. Skin: Warm, dry with normal turgor. Normal color with no rashes, no lesions, and no evidence of cellulitis. Neuro: Awake and alert, GCS 15, oriented to person, place, time, and situation. Cranial nerves II-XII grossly intact. Motor strength 5/5 in all extremities. Sensory grossly intact. Cerebellar exam normal. Normal gait. 02:48 Constitutional: The patient appears alert, awake. 02:48 Neck: C-spine: C-collar placed [employer]ENDANT, vertebral tenderness, that is moderate, appreciated at C4 and C5. 02:48 Musculoskeletal/extremity: Circulation is intact in all extremities. Sensation intact. Joints: the right shoulder displays painful range of motion, tenderness, the right hip displays painful range of motion, tenderness. Vital Signs: 01:05 BP 136 / 59; Pulse 100; Resp 17; Pulse Ox 100% on 3 lpm NC; Weight 83.91 kg (R); Height ak1 5 ft. 4 in. (162.56 cm) (R); 02:23 BP 100 / 48; Pulse 97; Resp 13; Pulse Ox 100% on 3 lpm NC; ak1 03:41 BP 129 / 58; Pulse 97; Resp 23; Pulse Ox 93% on 3 lpm NC; Pain 6/10; ed1 04:52 BP 134 / 52; Pulse 98; Resp 17 S; Pulse Ox 94% on 3 lpm NC; cc3 05:35 BP 127 / 51; Pulse 97; Resp 18 S; Pulse Ox 93% on 3 lpm NC; cc3 01:05 Body Mass Index 31.75 (83.91 kg, 162.56 cm) ak1 MDM: 00:58 Patient medically screened. gs 02:48 Differential diagnosis: closed head injury, contusion, fracture. Data reviewed: vital gs signs, nurses notes. Counseling: I had a detailed discussion with the patient and/or guardian regarding: the historical points, exam findings, and any diagnostic results supporting the discharge/admit diagnosis. Response to treatment: the patient's symptoms have markedly improved after treatment. Response to treatment: and as a result, I will discharge patient. 12/08 00:59 Order name: Basic Metabolic Panel; Complete Time: 02:41 12/08 00:59 Order name: CBC with Diff; Complete Time: 02:41 12/08 00:59 Order name: LFT's; Complete Time: 02:41 12/08 00:59 Order name: Magnesium; Complete Time: 02:41 12/08 00:59 Order name: NT PRO-BNP; Complete Time: 02:41 12/08 00:59 Order name: PT-INR; Complete Time: 02:41 12/08 00:59 Order name: Troponin (emerg Dept Use Only); Complete Time: 02:41 12/08 00:59 Order name: XRAY Chest (1 view) 12/08 00:59 Order name: EKG; Complete Time: 01:01 12/08 00:59 Order name: CT Head C Spine 12/08 00:59 Order name: Shoulder Right (2 View) XRAY 12/08 00:59 Order name: Hip Right 2 View XRAY 12/08 00:59 Order name: Cardiac monitoring; Complete Time: 01:10 12/08 00:59 Order name: EKG - Nurse/Tech; Complete Time: 01:59 12/08 00:59 Order name: IV Saline Lock; Complete Time: 01:21 12/08 00:59 Order name: Labs collected and sent; Complete Time: 01:21 12/08 00:59 Order name: O2 Per Protocol; Complete Time: 01:10 12/08 00:59 Order name: O2 Sat Monitoring; Complete Time: 01:10 Administered Medications: 02:53 Drug: NS 0.9% 750 ml Route: IV; Rate: 1 bolus; Site: Port-a-cath; ed1 03:50 Follow up: IV Status: Completed infusion; IV Intake: 750ml ed1 04:00 Drug: HEParin Flush 500 units Route: IVP; Site: Port-a-cath; cc3 04:07 Follow up: Response: No adverse reaction cc3 Disposition: 12/08/18 03:44 Discharged to Home. Impression: Contusion of right hip, Unspecified sprain of right shoulder joint. - Condition is Stable. - Discharge Instructions: Contusion, Thha-da-Zafc. - Medication Reconciliation Form, Thank You Letter, Antibiotic Education, Prescription Opioid Use, SBAR form form. - Follow up: Private Physician; When: 2 - 3 days; Reason: Re-evaluation by your physician. Signatures: Dispatcher [employer] Tish Yen RN RN ed1 Brenna Esteban RN RN ak1 Mika Raygoza MD MD gs Cordel, Charlene cc3 Corrections: (The following items were deleted from the chart) 05:58 03:44 12/08/2018 03:44 Discharged to Home. Impression: Contusion of right hip; cc3 Unspecified sprain of right shoulder joint. Condition is Stable. Forms are Medication Reconciliation Form, Thank You Letter, Antibiotic Education, Prescription Opioid Use. Follow up: Private Physician; When: 2 - 3 days; Reason: Re-evaluation by your physician. gs
[2018-12-08] MEDS ORDERED: HEPARIN 500 UNIT/5 ML SYR IV ONE (04:06)
[2018-12-08 06:10] VITALS: BP 127/51; O2SAT 93
--- NOTE | 2018-12-08 08:19 | RAD REPORT ---
EXAM DESCRIPTION: CT - [id number] - 12/08/2018 6:08 am CLINICAL HISTORY: Fall, head and neck pain, head and neck injury A preliminary report was provided at the time of the study and reviewed prior to final report. COMPARISON: CT study December 2017 TECHNIQUE: Axial 5 mm thick images of the head were obtained. Axial 2 mm thick images of the cervic al spine were obtained with sagittal and coronal reconstruction images generated and reviewed. All CT scans are performed using dose optimization technique as appropriate and may include automated exposure control or mA/KV adjustment according to patient size. FINDINGS: No intracranial hemorrhage, mass, edema or acute intracranial finding. No acute cortical b ased infarction identified. Patient has minimal atrophy for age. There is moderate chronic ischemic c hange throughout the cerebral white matter. Focal encephalomalacia changes are present in the right f rontal lobe matching the prior study. This could be from old CVA or old trauma. No acute component se en. Mastoid air cells and paranasal sinuses are clear. No globe or orbit abnormality seen. Cervical body height and alignment are normal. Significant C6-7 disc space narrowing is present simil ar to December 2017. There is mild disc space narrowing at C3-4. Patient has well-healed C4-C6 fusion changes. No fracture or acute bony abnormality. Central canal detail is inherently limited. Cervical spine degenerative changes are not clearly different from the comparison study. No paraspinal mass or hematoma. IMPRESSION: No hemorrhage or acute intracranial finding. Nonacute findings are detailed in the body of the report and is similar to December 2017. Degenerative and postsurgical changes to the cervical spine matching the prior study. No acute findin g.
--- NOTE | 2018-12-08 08:27 | RAD REPORT ---
EXAM DESCRIPTION: RAD - Hip Right 2 View - 12/08/2018 2:22 am CLINICAL HISTORY: Fall, right hip pain, history of hip prosthesis COMPARISON: October 2017 right hip films. FINDINGS: AP and frog-leg views of the right hip were obtained. Right total hip prosthesis in place . No dislocation of the femoral head of the component. No fracture or acute finding seen in the proxi mal right femur. Right hemipelvis assessment is limited due to osteopenia and prominent overlying sof t tissues. No gross abnormality evident. No acute or destructive bony process seen. There is significant soft tissue finding. IMPRESSION: No right hip joint dislocation, fracture or other acute finding identified.
--- NOTE | 2018-12-08 08:28 | RAD REPORT ---
EXAM DESCRIPTION: RAD - Chest Single View - 12/08/2018 2:22 am CLINICAL HISTORY: Fall, chest and right shoulder pain COMPARISON: December 2017 TECHNIQUE: AP portable chest image was obtained 0154 hours . FINDINGS: Fibrotic lung changes are present matching the prior study. No pulmonary contusion, pulmon kaye edema or infiltrate seen. Heart size is normal. No vascular engorgement. Right-sided Port-A-Cath is in place. Hilar fullness is not clearly different from prior imaging. No measurable pleural effusi on and no pneumothorax. No acute bony abnormality seen. No acute aortic findings suspected. IMPRESSION: Fibrotic lung pattern matching prior study. No acute chest finding identified.
--- NOTE | 2018-12-08 08:29 | RAD REPORT ---
EXAM DESCRIPTION: Shoulder Right 2 View - 12/08/2018 2:22 am CLINICAL HISTORY: Fall, right shoulder pain COMPARISON: None. TECHNIQUE: Internal and external rotation views of the right shoulder were obtained. FINDINGS: There is no fracture or dislocation. No significant AC joint degenerative change identifi able. Underlying osteopenic changes are evident. Acromial humeral joint space is normal with no abnor mal soft tissue calcifications. No suspicious soft tissue finding identifiable. Patient does have criss e degenerative change along the articular margins of the humeral head. Port-A-Cath is seen in the right upper chest. IMPRESSION: Osteopenic and mild degenerative changes are present. No fracture or dislocation identif iable.
--- NOTE | 2018-12-08 11:37 | EKG ---
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
== END 2018-12-08 05:58 | disposition home or self-care (01) ==
LOC: ER 00:51
DX: S70.01XA Contusion of right hip, initial encounter (principal); S43.401A Unspecified sprain of right shoulder joint, initial encounter; W18.30XA Fall on same level, unspecified, initial encounter; Y93.01 Activity, walking, marching and hiking; Y92.9 Unspecified place or not applicable; I10 Essential (primary) hypertension; G40.909 Epilepsy, unspecified, not intractable, without status epilepticus; E78.00 Pure hypercholesterolemia, unspecified; I50.9 Heart failure, unspecified; F41.9 Anxiety disorder, unspecified; F32.9 Major depressive disorder, single episode, unspecified; Z88.2 Allergy status to sulfonamides; Z88.3 Allergy status to other anti-infective agents; Z88.5 Allergy status to narcotic agent; Z88.8 Allergy status to other drugs, medicaments and biological substances; Z86.73 Personal history of transient ischemic attack (TIA), and cerebral infarction without residual deficits; Z91.048 Other nonmedicinal substance allergy status
CPT/HCPCS: 36415; 70450; 71045; 72125; 73030; 73502; 80048; 80076; 83735; 83880; 84484; 85025; 85610; 93005; 96361; 96374; 99285; J1642; J7030

== ENCOUNTER 2019-01-24 21:35 | Emergency (ER) | payer OTHER ==
--- OUTSIDE RECORDS SUMMARY | 2019-01-24 21:37 | XMS REPORT | Clinical Summary ---
:1945 Author Organization [facility] Address [address] [place] [address] Care Team Providers Name Role Phone Nayeli [...] to that. Hepatitis B 08/25/2017 Hyperlipidemia 08/25/2017 SD (myocardial infarction) 08/25/2017 Overview: Overview: Has had [...] INFLUENZA VACCINE 08/13/2018 Results Not on fileafter 01/23/2018 Insurance Payer Benefit Plan / Group Subscriber ID Type Phone Address [employer] [facility] [place] x[facility] MEDICAID MEDICAID [facility] xxxxxxxxx Medicaid Advance Directives For more information, please contact:[address] [phone] Code Status Date Activated Date Inactivated Comments Full Code 07/27/2017 2:29 AM 08/04/2017 7:05 PM This code status was determined by: Patient
--- OUTSIDE RECORDS SUMMARY | 2019-01-24 21:57 | XMS REPORT | Continuity of Care Document ---
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 PO, 2012 Medical Drug form: Center TAB, Daily, Dosing Weight 72.2, kg, Start date: 09/06/13 9:00:00, Duration: 30 day, Stop date: 10/05/13 9:00:00(Same as: Requip) roflumilast 500 Inactive [place] [address] [place] [address] microgram, 1 2012 Medical tab, Route: [place] PO, Drug form: TAB, Daily, Dosing Weight 72.2, kg, Start date: 09/06/13 9:00:00, Duration: 30 day, Stop date: 10/05/13 9:00:00 pantoprazole 40 mg, 1 Inactive [facility] tab, Route: 2012 Medical PO, Drug Center form: ECTAB, Daily, Dosing Weight 72.2, kg, Start date: 09/06/13 9:00:00, Duration: 30 day, Stop date: 10/05/13 9:00:00(Same as: Protonix) Lasix 40 mg oral 40 mg, 1 [facility] [place] [address] tablet tab, Route: 2012 Medical PO, Drug Center form: TAB, Daily, Dosing Weight 72.2, kg, Start date: 09/06/13 9:00:00, Duration: 30 day, Stop date: 10/05/13 9:00:00(Same as: Lasix) Cymbalta 30 mg, 1 Inactive [facility] cap, Route: 2012 Medical PO, Drug Center form: DRC, Daily, Dosing Weight 72.2, kg, Start date: 09/06/13 9:00:00, Duration: 30 day, Stop date: 10/05/13 9:00:00 fluticasone-salm 1 puff, No Longer [facility] eterol 500 Route: Active 2012 [facility] mcg-50 mcg MDI INHALATION, [place] Drug Form: AERO, Dosing Weight 72.2, kg, Q12H, Start date: 09/05/13 21:00:00, Duration: 30 day, Stop date: 10/05/13 9:00:00(Same as: Advair) tizanidine 4 mg, 1 tab, No Longer [place] [address] [place] [address] Route: PO, Active 2012 Medical Drug form: Center TAB, Q12H, Dosing Weight 72.2, kg, Start date: 09/05/13 21:00:00, Duration: 30 day, Stop date: 10/05/13 9:00:00(Same As: Zanaflex) simvastatin 40 mg, 1 No Longer [facility] tab, Route: Active 2012 Medical PO, Drug Center form: TAB, Bedtime, Dosing Weight 72.2, kg, Start date: 09/05/13 21:00:00, Duration: 30 day, Stop date: 10/04/13 21:00:00([facility] as: Zocor) Advair Diskus 1 puff, Inactive [place] 500 mcg-50 mcg Route: 2012 Medical inhalation INHALATION, Center powder Drug Form: AERO, Dosing Weight 72.2, kg, Q12H, Start date: 09/05/13 21:00:00, Duration: 30 day, Stop date: 10/05/13 9:00:00(Same as: Advair) Keppra 1000 mg 1,000 mg, 2 No Longer [place] oral tablet tab, Route: Active 2012 Medical PO, Drug Center form: TAB, Q12H, Dosing Weight 72.2, kg, Start date: 09/05/13 21:00:00, Duration: 30 day, Stop date: 10/05/13 9:00:00(Same as:Keppra) ceftriaxone 2 gm, Route: No Longer [facility] IVPB, Drug Active 2012 Medical form: Center PDR/INJ, [id number], Dosing Weight 72.2, kg, Start date: 09/05/13 17:00:00, Duration: 8 day, Stop date: 09/13/13 17:00:00([facility] As: Rocephin). Lyrica 150 mg, 3 No Longer [place] cap, Route: Active 2012 Medical PO, Drug Center form: CAP, TID, Dosing Weight 72.2, kg, Start date: 09/05/13 17:00:00, Duration: 30 day, Stop date: 10/05/13 13:00:00Same as Lyrica ketorolac 10 mg, 1 No Longer [place] tab, Route: Active 2012 Medical PO, Drug Center form: TAB, Q6H, Dosing Weight 72.2, kg, PRN Pain, Start date: 09/05/13 16:42:00, Duration: 4 day, Stop date: 09/09/13 16:41:00. (Same as:Toradol) heparin 5,000 unit, No Longer [place] 1 mL, Route: Active 2012 Medical SUB-Q, Drug Center form: INJ, Q8H, Dosing Weight 72.2, kg, Start date: 09/05/13 16:00:00, Duration: 30 day, Stop date: 10/05/13 8:00:00porci ne heparin Keppra 500 mg 500 mg, 1 Inactive [place] oral tablet tab, Route: 2012 Medical PO, Drug Center form: TAB, ONCE, Dosing Weight 72.2, kg, Priority: NOW, Start date: 09/05/13 13:23:00, Stop date: 09/05/13 13:23:00([place] [facility] as:Keppra) Dilaudid 4 mg, 2 tab, No Longer [facility]05[facility] Route: PO, Active 2012 Medical Drug form: Center TAB, Q6H, Dosing Weight 72.2, kg, PRN Pain, Start date: 09/05/13 13:22:00, Duration: 30 day, Stop date: 10/05/13 13:21:00([place] [facility] as: Dilaudid) Phenergan 12.5 mg, 0.5 No Longer [facility] 09[facility]05[facility] mL, Route: Active 2012 Medical IVPB, Drug Center form: INJ, Q6H, Dosing Weight 72.2, kg, PRN as needed for nausea/vomit ing, Start date: 09/05/13 12:09:00, Duration: 30 day, Stop date: 10/05/13 12:08:00([place] [facility] as: Phenergan) Phenergan 6.25 mg, 5 Inactive [facility] mL, Route: 2012 Medical PO, Drug Center form: SYRP, Q6H, Dosing Weight 72.2, kg, PRN Nausea & Vomiting, Start date: 09/05/13 9:24:00, Duration: 30 day, Stop date: 10/05/13 9:23:00(Same as: Phenergan) Keppra 500 mg 500 mg, 1 Inactive [facility] oral tablet tab, Route: 2013 Medical PO, Drug Center form: TAB, Q12H, Dosing Weight 72.273, kg, Start date: 09/05/13 8:00:00, Duration: 30 day, Stop date: 10/04/13 20:00:00([place] [facility] as:Keppra) Requip 1 mg oral 1 mg, 1 tab, Active [facility] [place] tablet PO, Daily, 2012 Medical 270 tab, Center Substitution Allowed, TAB Dilaudid 1 mg, 0.5 No Longer [place] 09/05/ [facility] [place] mL, Route: Active 2012 Medical IV, Drug Center form: INJ, Q3H, Dosing Weight 72.2, kg, PRN Pain, Start date: 09/04/13 22:38:00, Duration: 30 day, Stop date: 10/04/13 22:37:00([place] [facility] as: Dilaudid) hydrALAZINE 20 mg, 1 mL, No Longer [facility] [place] Route: IVP, Active 2012 Medical Drug form: Center INJ, Q4H, Dosing Weight 72.2, kg, PRN Hypertension , for SBP >160, Start date: 09/04/13 22:37:00, Duration: 30 day, Stop date: 10/04/13 22:36:00([place] [facility] as: Apresoline) clonidine 0.2 mg 0.2 mg, 1 No Longer [facility] [place] oral tablet tab, Route: Active 2012 Medical PO, Drug Center form: TAB, BID, Dosing Weight 72.2, kg, PRN Hypertension , SBP >180, Start date: 09/04/13 22:36:00, Duration: 30 day, Stop date: 10/04/13 22:35:00([place] [facility] As: Catapres) lisinopril 10 mg, 1 No Longer [facility] 09/05/ [facility] tab, Route: Active 2012 Medical PO, Drug Center form: TAB, Daily, Dosing Weight 72.2, kg, Priority: NOW, Start date: 09/04/13 22:36:00, Duration: 30 day, Stop date: 10/04/13 9:00:00(Same as: Prinivil, Zestril) hydrALAZINE 10 mg, Inactive [facility] [place] Route: IVP, 2012 Medical Q4H, Dosing Center Weight 72.2, kg, PRN Hypertension , for SBP >160, Start date: 09/04/13 22:33:00, Duration: 30 day, Stop date: 10/04/13 22:32:00 heparin flush 100 unit, 1 No Longer [facility] 09/05/ [facility] [place] mL, Route: Active 2012 Medical IVP, Drug Center form: INJ, PRN, Dosing Weight 72.2, kg, PRN Line Flush, Start date: 09/04/13 22:32:00, Duration: 30 day, Stop date: 10/04/13 21:31:00, flush for pick line or [id number] lush for pick line or port-a-cath( Same as: Heparin Lock Flush, PF) Preservative -free flush solution. Saline Flush 5 ml, Route: No Longer [facility] 09/05/ [facility] [place] 0.9% IVP, Drug Active 2012 Medical Form: INJ, Center Dosing Weight 72.273, kg, Q12H, Start date: 09/04/13 21:00:00, Duration: 30 day, Stop date: 10/04/13 9:00:00(Same as: BD Posiflush) chlorhexidine 15 mL, No Longer [facility] 09/05/ [facility] [place] topical 0.12% Route: Swab Active 2012 [...] Keppra + Sodium 1,000 mg, Inactive [facility] 09/05/ [facility] [place] Chloride 0.9% IV Route: IVPB, 2012 Medical 100 mL ONCE, Dosing Center Weight 72.273, kg, Loading Dose, Start date: 09/04/13 19:39:00, Duration: 1 doses or times, Stop date: 09/04/13 19:39:00Same as Keppra Ativan 2 mg, 1 mL, Inactive [facility] [place] Route: IV, 2012 Medical Drug form: Center INJ, Q15Min, Dosing Weight 72.273, kg, for seizures longer than 5 min, Start date: 09/04/13 19:15:00, Duration: 2 doses or times, Stop date: 09/04/13 19:30:00([place] as: Ativan) Saline Flush 10 ml, IVP No Longer [facility] 0.9% Route: IVP, Active 2012 [facility] Drug Form: INJ, Dosing Weight 72.273, kg, PRN, PRN Line Flush, Start date: 08/12/13 7:25:00, Duration: 30 day, Stop date: 09/11/13 7:24:00 Heparin Lock 500 unit, 5 IVP No Longer [facility] Flush 100 mL, Route: Active 2012 [place] units/mL IVP, Drug intravenous form: SOLN, solution PRN, Dosing Weight 72.273, kg, PRN Line Flush, Start date: 08/12/13 7:25:00, Duration: 30 day, Stop date: 09/11/13 7:24:00 magnesium 1 gm, 50 mL, IVPB No Longer [facility] sulfate Route: IVPB, Active 2012 [facility] Drug form: INJ, ONCE, Dosing Weight 72.273, [...] Longer [facility] mL, Route: Active 2012 IVP, Drug form: INJ, Q4H, Dosing Weight 72.273, kg, PRN as needed for pain, Priority: Routine, Start date: 08/10/13 9:28:00, Duration: 30 day, Stop date: 09/09/13 9:27:00 Kimball 10/325 1 tab, PO No Longer [facility] oral tablet Route: PO, Active 2012 [facility] Drug Form: TAB, Dosing Weight 72.273, kg, Q4H, PRN Pain, Start date: 08/10/13 9:26:00, Duration: 30 day, Stop date: 09/09/13 9:25:00 Neutra-Phos 1 pkt, PO No Longer [place] [facility] Route: PO, Active 2012 [facility] Drug Form: PDR/REC, Dosing Weight 72.273, kg, QID-Before Meals, Start date: 08/09/13 11:30:00, Stop date: 08/10/13 7:30:00 sodium phosphate 15 mmol, 5 IV No Longer [facility] + Sodium mL, Route: Active 2012 [place] Chloride 0.9% IV IV, Q2H, 250 mL Start date: 08/09/13 10:00:00, Duration: 2 doses or times, Stop date: 08/09/13 12:00:00 sodium phosphate 30 mmol, 10 IV No Longer [facility] [place] mL, Route: Active 2012 [place] IV, Drug form: INJ, ONCE, Dosing Weight 72.273, kg, Start date: 08/09/13 8:32:00, Stop date: 08/09/13 8:32:00 clonidine 0.1 mg 0.1 mg, 1 PO No Longer [facility] [place] oral tablet tab, Route: Active 2012 [place] PO, Drug form: TAB, TID, Dosing Weight 72.273, kg, PRN Hypertension , Start date: 08/09/13 6:24:00, Duration: 30 day, Stop date: 09/08/13 6:23:00 sodium phosphate 30 mmol, IVPB No Longer [facility] Route: IVPB, Active 2012 [facility] PRN, Dosing Weight 72.273, kg, PRN Abnormal Lab Result, Start date: 08/09/13 6:18:00, Duration: 1 day, Stop date: 08/10/13 6:17:00 magnesium 1 gm, 50 mL, IVPB No Longer [facility] sulfate Route: IVPB, 2012 [facility] Drug form: INJ, ONCE, Dosing Weight 72.273, kg, Start date: 08/09/13 6:17:00, Stop date: 08/09/13 6:17:00 Keppra 750 mg, 3 PO No Longer [facility] tab, Route: 2012 [facility] PO, Drug form: TAB, BID, Dosing Weight 72.273, kg, Start date: 08/08/13 9:00:00, Duration: 30 day, Stop date: 09/06/13 17:00:00 magnesium 2 gm, 50 mL, IVPB No Longer [facility] sulfate Route: IVPB, 2012 [facility] Drug form: INJ, Q2H, Dosing Weight 72.273, kg, Total dose=4 gm, Start date: 08/08/13 8:00:00, Duration: 2 doses or times, Stop date: 08/08/13 10:00:00 diphenhydrAMINE 25 mg, 1 PO No Longer Lusi Enrique Sugar tab, Route: 2012 [facility] PO, Drug form: TAB, ONCALL, Dosing Weight 72.273, kg, Premed Blood Products, Priority: Routine, Start date: 08/08/13 7:00:00, Duration: 30 day, Stop date: 09/07/13 6:59:00 acetaminophen 650 mg, 2 PO No Longer [place] [facility] tab, Route: 2012 [facility] PO, Drug form: TAB, ONCALL, Dosing Weight 72.273, kg, Premed Blood Products. Not to exceed 4grams/24hrs ., Priority: Routine, Start date: 08/08/13 7:00:00, Duration: 30 day, Stop date: 09/07/13 6:59:00 Sodium Chloride 250 mL, IV No Longer [facility] 0.9% (titrate) Rate: On 2012 [place] 250 mL call for use with blood product administrati on, Dosing Weight 72.273, kg, Route: IV, Total Volume: 250, Duration: 30 day, Stop date: 09/07/13 6:39:00, Replace Every: 24 hr Ativan 1 mg, 0.5 IV No Longer [place] [facility] mL, Route: Active 2012 [facility] IV, Drug form: INJ, Q2H, Dosing Weight 72.273, kg, PRN Seizure, Start date: 08/08/13 5:09:00, Duration: 30 day, Stop date: 09/07/13 5:08:00 Keppra + Sodium 1,000 mg, IV No Longer [facility] Chloride 0.9% IV Route: IV, Active 2012 [facility] 100 mL Drug form: INJ, BID, Dosing Weight 72.273, kg, Priority: NOW, Start date: 08/08/13 5:07:00, Duration: 30 day, Stop date: 09/06/13 17:00:00 Ativan 1 mg, 0.5 IVP No Longer [facility] [place] mL, Route: Active 2012 [facility] IVP, Drug form: INJ, ONCE, Dosing Weight 72.273, kg, PRN Anxiety, Start date: 08/08/13 4:19:00 Ofirmev 1,000 mg, IVPB No Longer [place] [facility] 100 mL, Active 2012 [facility] Route: IVPB, Drug form: INJ, Q6H, Dosing Weight 72.273, kg, for > or=50 kg, Start date: 08/07/13 12:00:00, Duration: 4 doses or times, Stop date: 08/08/13 6:00:00 FENTanyl - one 25 IVP No Longer [place] [facility] time ICU bolus microgram, Active 2012 [facility] dose 0.5 mL, Route: IVP, Drug form: INJ, ONCE, Dosing Weight 72.273, kg, Start date: 08/07/13 9:26:00, Stop date: 08/07/13 9:26:00 lisinopril 10 mg, 2 PO No Longer [facility] tab, Route: Active 2012 [facility] PO, Drug form: TAB, Daily, Dosing Weight 72.273, kg, Start date: 08/07/13 9:00:00, Stop date: 09/05/13 9:00:00 Cymbalta 30 mg, 1 PO No Longer [facility] cap, Route: Active 2012 [facility] PO, Drug form: DRC, Daily, Dosing Weight [...] Longer [facility] tab, Route: Active 2012 PO, Drug form: ECTAB, Daily, Dosing Weight 72.273, kg, Start date: 08/07/13 9:00:00, Duration: 30 day, Stop date: 09/05/13 9:00:00 enoxaparin 40 mg, 0.4 SUB-Q No Longer Luis Enrique [facility] mL, Route: Active 2012 [facility] SUB-Q, Drug form: INJ, Daily, Dosing Weight 72.273, kg, Start date: 08/07/13 9:00:00, Duration: 30 day, Stop date: 09/05/13 9:00:00 NS (Bolus) IV 500 mL, IV No Longer [facility] 500 mL Rate: 500 2012 [facility] ml/hr, Infuse over: 1 hr, Route: IV, Dosing Weight 72.273 kg, Total Volume: 500, Priority: STAT, Start date: 08/07/13 0:49:00, Duration: 1 doses or times, Stop date: 08/07/13 1:48:00, Bolus DoseBolus Dose NS (Bolus) IV 500 mL, IV No Longer [facility] 500 mL Rate: 500 2012 [facility] ml/hr, Infuse over: 1 hr, Route: IV, Dosing Weight 72.273 kg, Total Volume: 500, Priority: STAT, Start date: 08/06/13 23:27:00, Duration: 1 doses or times, Stop date: 08/07/13 0:26:00, Bolus DoseBolus Dose Keppra 500 mg 500 mg, 2 PO No Longer [facility] oral tablet tab, Route: Active 2012 [facility] PO, Drug form: TAB, Q12H, Dosing Weight 72.273, kg, Start date: 08/06/13 21:00:00, Duration: 30 day, Stop date: 09/05/13 9:00:00 Advair Diskus 1 INHALATION No Longer [facility] 500 mcg-50 mcg inhalation, Active 2012 [facility] inhalation Route: powder INHALATION, Drug Form: AERO, Dosing Weight 72.273, kg, Q12H, Start date: 08/06/13 21:00:00, Duration: 30 day, Stop date: 09/05/13 9:00:00 Saline Flush 5 ml, Route: IVP No Longer Luis Enrique [facility] 0.9% IVP, Drug Active 2012 Form: INJ, Dosing Weight 72.273, kg, Q12H, Start date: 08/06/13 21:00:00, Duration: 30 day, Stop date: 09/05/13 9:00:00 tizanidine 4 mg, 1 tab, PO No Longer [facility] Route: PO, Active 2012 Drug form: TAB, Q12H, Dosing Weight 72.273, kg, Start date: 08/06/13 21:00:00, Duration: 30 day, Stop date: 09/05/13 9:00:00 simvastatin 40 mg, 2 PO No Longer [facility] tab, Route: Active 2012 [facility] PO, Drug form: TAB, Bedtime, Dosing Weight 72.273, kg, Start date: 08/06/13 21:00:00, Duration: 30 day, Stop date: 09/04/13 21:00:00 ropinirole 1 mg, 1 tab, PO No Longer [facility] Route: PO, Active 2012 Drug form: TAB, Bedtime, Dosing Weight 72.273, kg, Start date: 08/06/13 21:00:00, Duration: 30 day, Stop date: 09/04/13 21:00:00 Pneumovax 23 0.5 mL, No Longer [place] [facility] Route: IM, Active 2012 Medical Drug Form: Dawson Givens INJ, ONCE, H [facility] Start date: 08/06/13 19:00:00, Stop date: 08/06/13 19:00:00([facility] e as: Pneumovax 23) Refrigerate Fluzone 0.5 mL, No Longer [place] [facility] Route: IM, Active 2012 Medical Drug Form: Dawson Givens SUSP, ONCE, H [facility] Start date: [facility] 08/06/13 19:00:00, Stop date: 08/06/13 19:00:00([facility] e as: Fluzone) docusate sodium 100 mg, 1 PO No Longer [place] [facility] 100 mg oral cap, Route: Active [...] (SCIP) 1 gm, Route: IVPB No Longer [place] [facility] + Sodium IVPB, Q8H, Active 2012 [...] Phenergan 12.5 mg, 0.5 IVP No Longer [place] [facility] mL, Route: Central Active 2012 [facility] IVP Central, Drug form: INJ, Q8H, Dosing Weight 72.273, kg, PRN as needed for nausea/vomit ing, Start date: 08/06/13 15:37:00, Duration: 30 day, Stop date: 09/05/13 15:36:00 hydrALAZINE 10 mg, 0.5 IVP No Longer [facility] [place] mL, Route: Active 2012 [facility] IVP, Drug form: INJ, Q4H, Dosing Weight 72.273, kg, PRN Hypertension , Start date: 08/06/13 15:11:00, Stop date: 09/05/13 15:10:00 clonidine 0.2 mg 0.2 mg, 1 PO No Longer [facility] [place] oral tablet tab, Route: Active 2012 [facility] PO, Drug form: TAB, Daily, Dosing Weight 72.273, kg, PRN Hypertension , Start date: 08/06/13 15:07:00, Duration: 30 day, Stop date: 09/05/13 15:06:00 Demerol HCl 25 mg, 1 mL, IVP No Longer [place] [facility] Route: IVP, Active 2012 [facility] Drug form: INJ, ONCE, Dosing Weight 72.273, kg, Priority: NOW, Start date: 08/06/13 14:21:00, Stop date: 08/06/13 14:21:00 Keppra 500 mg 500 mg, 1 PO Active [facility] Sugar oral tablet tab, PO, 2012 Q12H, 120 tab, Substitution Allowed, TAB Spiriva 18 mcg 18 INHALATION Active [facility] Sugar inhalation microgram, 1 2012 capsule cap, INHALATION, Daily, 90 cap, Substitution Allowed, CAP Lasix 40 mg oral 40 mg, 1 PO Active [place] tablet tab, PO, 2012 Daily, PRN, 30 tab, leg swelling, Substitution Allowed, TAB hydromorphone 4 4 mg, 1 tab, PO Active [facility] mg oral tablet PO, Q8H, 2012 PRN, as needed for pain, Substitution Allowed, TAB ferrous sulfate 325 mg, 1 PO No Longer Luis Enrique [facility] tab, Route: Active 2012 PO, Drug form: ECTAB, TID, Dosing Weight [...] PO No Longer [place] [facility] tab, Route: Active 2012 [place] PO, Drug form: TAB, Q6H, Dosing Weight 72.273, kg, PRN Pain Score 1-3, Start date: 08/06/13 11:35:00, Duration: 30 day, Stop date: 09/05/13 11:34:00 hydromorphone 6 mg, 30 mL, IV No Longer [facility] 0.2 mg/mL [employer] (6 Route: IV, 2012 [place] mg/30 mL) INJ Initial Syringe 6 mg Loading Dose: 0.3 mg, [employer] Dose: 0.2 mg, [employer] Lockout: 10 minutes, Continuous Basal Rate: 0 mg, 4 Hour Limit (In MG): 6, Drug Form: INJ, Continuous, Start date: 08/06/13 11:30:00, Duration: 30 day, Stop date: 09/05/13 11:... promethazine 6.25 mg, IVPB No Longer [place] [facility] Route: IVPB, Active 2012 [place] ONCE, Dosing Weight 72.273, kg, PRN Nausea & Vomiting, Start date: 08/06/13 11:27:00 naloxone 0.04 mg, 0.1 IVP No Longer Gadir[place] [facility] mL, Route: Active 2012 IVP, Drug form: INJ, Q2MIN, Dosing Weight 72.273, kg, PRN Narcotic Reversal, Start date: 08/06/13 11:27:00, Duration: 30 day, Stop date: 09/05/13 11:26:00 hydromorphone 0.2 mg, 0.1 IVP No Longer [facility] mL, Route: Active 2012 [facility] IVP, Drug form: INJ, Q2H, Dosing Weight 72.273, kg, PRN Pain Score 7-10, Start date: 08/06/13 11:27:00, Duration: 30 day, Stop date: 09/05/13 11:26:00 acetaminophen-ox 1 tab, PO No Longer [facility] ycodone 325 mg-5 Route: PO, Active 2012 [place] mg oral tablet Drug Form: TAB, Dosing Weight 72.273, kg, Q4H, PRN Pain Score 4-6, Start date: 08/06/13 11:21:00, Duration: 30 day, Stop date: 09/05/13 11:20:00 dexamethasone 4 mg, 1 mL, IVP No Longer [facility] Route: IVP, Active 2012 [facility] Drug form: INJ, Q12H, Dosing Weight 72.273, kg, PRN Nausea & Vomiting, Start date: 08/06/13 11:21:00, Duration: 30 day, Stop date: 09/05/13 11:20:00 promethazine 12.5 mg, IVPB No Longer [facility] Route: IVPB, Active 2012 Q4H, Dosing Weight 72.273, kg, PRN Nausea & Vomiting, Start date: 08/06/13 11:21:00, Duration: 30 day, Stop date: 09/05/13 11:20:00 naloxone 0.1 mg, 0.25 IVP No Longer [facility] mL, Route: Active 2012 [place] IVP, Drug form: INJ, Q2MIN, Dosing Weight 72.273, kg, PRN Narcotic Reversal, Start date: 08/06/13 11:21:00, Duration: 8 doses or times, Stop date: Limited # of times FENTanyl Dosing: Per EPIDURAL No Longer [facility] 5mcg/ml+Bupivaca Epidural Active 2012 [place] ine 0.125% - 200 Dosing Epidural 200 mL Order, Route: EPIDURAL, Start date: 08/06/13 11:21:00 200 mL, Drug Form: INJ, Dosing Weight 72.273, kg, Duration: 30 day, Stop date: 09/05/13 11:20:00 DuoNeb 3 ml, Route: INHALATION No Longer [facility] Sugar inhalation INHALATION, Active 2012 [place] solution Drug Form: SOLN, Dosing Weight 72.273, kg, QID, PRN as needed for shortness of breath or wheezing, Start date: 08/06/13 10:10:00, Duration: 30 day, Stop date: 09/05/13 10:09:00 Senokot S 2 tab, PO No Longer [facility] Route: PO, Active 2012 [facility] Drug Form: TAB, Dosing Weight 72.273, kg, Daily, PRN Constipation , Start date: 08/06/13 10:10:00, Duration: 30 day, Stop date: 09/05/13 10:09:00 D5W 1/2NS + KCL 1,000 mL, IV No Longer [facility] 20mEq/L 1000ml Rate: 50 Active 2012 [place] ([facility]) 1,000 ml/hr, mL Infuse over: 20 hr, Route: IV, Dosing Weight 72.273 kg, Total Volume: 1,000, Start date: 08/06/13 10:00:00, Stop date: 09/05/13 9:59:00 diphenhydrAMINE 25 mg, 0.5 IVP No Longer [place] [facility] mL, Route: Active 2012 [place] IVP, Drug form: INJ, Q6H, Dosing Weight 72.273, kg, PRN Itching, Start date: 08/06/13 10:00:00, Duration: 30 day, Stop date: 09/05/13 9:59:00 magnesium 30 ml, PO No Longer [place] [facility] hydroxide Route: PO, Active 2012 [facility] Form: SUSP, Dosing Weight 72.273, kg, Q6H, PRN Constipation , Start date: 08/06/13 10:00:00, Duration: 30 day, Stop date: 09/05/13 9:59:00 promethazine 25 mg, 1 PO No Longer Luis Enrique Sugar tab, Route: Active 2012 PO, Drug form: TAB, Q6H, Dosing Weight 72.273, kg, PRN Nausea & Vomiting, Start date: 08/06/13 10:00:00, Duration: 30 day, Stop date: 09/05/13 9:59:00 Saline Flush 5 ml, Route: IVP No Longer [place] [facility] 0.9% IVP, Drug Active 2012 [facility] Form: INJ, Dosing Weight 72.273, kg, PRN, PRN Line Flush, Start date: 08/06/13 10:00:00, Duration: 30 day, Stop date: 09/05/13 9:59:00 acetaminophen-hy 1 tab, PO No Longer Luis Enrique [facility] drocodone 325 Route: PO, Active 2012 [facility] mg-10 mg oral Drug Form: tablet TAB, Dosing Weight 72.273, kg, Q4H, PRN Pain Score 4-6, Start date: 08/06/13 10:00:00, Duration: 30 day, Stop date: 09/05/13 9:59:00 promethazine 6.25 mg, IM No Longer [facility] Sugar 0.25 mL, Active 2012 [facility] Route: IM, Drug form: INJ, ONCE, Dosing Weight 72.273, kg, PRN Nausea & Vomiting, Start date: 08/06/13 9:45:00 dexamethasone 4 mg, 1 mL, IVP No Longer Gadira [facility] Route: IVP, Active 2012 [facility] Drug form: INJ, ONCE, Dosing Weight 72.273, kg, PRN Nausea & Vomiting, Start date: 08/06/13 9:45:00 levalbuterol 0.63 mg, 3 NEB No Longer Gadira [facility] mL, Route: Active 2012 [facility] NEB, Drug form: SOLN, Q5Min, Dosing Weight 72.273, kg, PRN Wheezing, Start date: 08/06/13 9:45:00, Duration: 4 doses or times, Stop date: Limited # of times albuterol 90 2 puff, INHALER No Longer Gadira Sugar mcg/inh Route: Active 2012 [facility] inhalation INHALER, aerosol Drug Form: AERO/A, Dosing Weight 72.273, kg, Q5Min, PRN Wheezing, Start date: 08/06/13 9:45:00, Duration: 4 doses or times, Stop date: Limited # of times meperidine 12.5 mg, 0.5 IVP No Longer Gadiraju [facility] mL, Route: [facility] 2012 [facility] IVP, Drug form: INJ, Q30Min, Dosing Weight 72.273, kg, PRN Other -See Comment, For shivering, Start date: 08/06/13 9:45:00, Duration: 2 doses or times, Stop date: Limited # of times ketorolac 30 mg, 1 mL, IVP No Longer Gadiraju [facility] Route: IVP, [facility] 2012 [facility] Drug form: INJ, ONCE, Dosing Weight 72.273, kg, Start date: 08/06/13 9:45:00, Duration: 1 doses or times, Stop date: 08/06/13 9:45:00 hydromorphone 0.5 mg, 0.25 IVP No Longer Gadiraju [facility] mL, Route: [facility] 2012 [facility] IVP, Drug form: INJ, Q5Min, Dosing Weight 72.273, kg, PRN Pain Score 7-10, Start date: 08/06/13 9:45:00, Duration: 5 doses or times, Stop date: Limited # of times naloxone 0.04 mg, 0.1 IVP No Longer Gadiraju [facility] mL, Route: [facility] 2012 [facility] IVP, Drug form: INJ, Q2MIN, Dosing Weight 72.273, kg, PRN Narcotic Reversal, Start date: 08/06/13 9:45:00, Duration: 8 doses or times, Stop date: Limited # of times flumazenil 0.2 mg, 2 IVP No Longer Gadiraju [facility] mL, Route: Active 2012 [facility] IVP, Drug form: INJ, PRN, Dosing Weight 72.273, kg, PRN Benzodiazepi ne Reversal, Initial dose, Start date: 08/06/13 9:45:00, Duration: 30 day, Stop date: 09/05/13 9:44:00 acetaminophen-10 1,000 mg, IV No Longer Gadiraju [facility] mg/mL 100 mL, Active 2012 [facility] INTRAVENOUS Route: IV, solution Drug form: INJ, [...] cefazolin 2 gm, 100 IVPB No Longer [place] [facility] mL, Route: Active 2012 IVPB, Drug [...] Posiflush SF 15 mL, IVP No Longer [place] [facility] Route: IVP, Active 2012 Drug Form: INJ, PRN, PRN Line Flush, Start date: 08/06/13 6:00:00, Duration: 30 day, Stop date: 09/05/13 5:59:00 hydromorphone 1 mg, PO, PO No Longer [place] Q8H, Active 2012 [place] Substitution Allowed, TAB ropinirole 1 mg 1 mg, 1 tab, PO Active Isreal [facility] oral tablet PO, Bedtime, 2012 270 tab, Substitution Allowed, TAB lisinopril 10 mg 10 mg, 1 PO No Longer Isreal [facility] oral tablet tab, PO, Active 2012 [place] Daily, tab, Substitution Allowed, TAB pantoprazole 40 40 mg, 1 PO Active [facility] mg oral enteric tab, PO, 2012 coated tablet Daily, tab, Substitution Allowed, ECTAB Cymbalta 30 mg 30 mg, 1 PO Active Isreal [facility] oral delayed cap, PO, 2012 release capsule Daily, cap, Substitution Allowed, ECCAP Advair Diskus 1 puff, INHALATION Active Isreal [facility] 500 mcg-50 mcg INHALATION, 2012 [place] inhalation Q12H, 28 ea, powder Substitution Allowed, Maintenance, PWDR SPIRONOLACTONE No Longer 25 MG TABS Active 2012 [facility] PROTONIX 40 MG 1 p.o. qd Active [facility]EC 2013 [facility] TIZANIDINE HCL 4 1 p.o. [...] 4 MG 1 p.o. tid Active TABS 2013 [facility] KEPPRA 500 MG 1 po bid Active TABS 2012 [facility] SPIRIVA one cap for Active HANDIHALER 18 inhalation 2013 Medical MCG CAPS daily Group DALIRESP 500 MCG ONCE DAILY No Longer TABS Active 2012 [facility] Xarelto 10 mg 10 mg, 1 PO Active [facility] Sugar oral tablet tab, PO, 2012 [place] Daily, 5 tab, Substitution Allowed Lortab 10/500 1-2 tab, PO, PO Active [facility] Sugar oral tablet Q4H, PRN, 60 2012 [place] tab, for pain, Substitution Allowed, Maintenance, TAB Keflex 500 mg 500 mg, 1 PO Active [facility] Sugar oral capsule cap, PO, 2012 [place] QID, 12 cap, Substitution Allowed acetaminophen-hy 2 tab, PO No Longer [facility] Sugar drocodone 325 Route: PO, Active 2012 [place] mg-5 mg oral Drug Form: tablet TAB, Dosing Weight 73.636, kg, Q4H, PRN Pain Score 4-6, Start date: 12/20/12 13:00:00, Duration: 30 day, Stop date: 01/19/13 12:59:00 acetaminophen 650 mg, 2 PO No Longer [facility] Sugar tab, Route: Active 2012 [place] PO, Drug form: TAB, Q4H, Dosing Weight 73.636, kg, PRN Pain Score 1-3, Start date: 12/20/12 13:00:00, Duration: 30 day, Stop date: 01/19/13 12:59:00 meperidine 12.5 mg, 0.5 IVP No Longer [place] 12/20/ Sugar mL, Route: Active 2012 [facility] IVP, Drug form: INJ, Q30Min, Dosing Weight 73.636, kg, PRN Other -See Comment, For shivering, Start date: 12/20/12 12:58:00, Duration: 2 doses or times, Stop date: Limited # of times flumazenil 0.2 mg, 2 IVP No Longer Ham 12/20/ Sugar mL, Route: Active 2012 [facility] IVP, Drug form: INJ, PRN, Dosing Weight 73.636, kg, PRN Benzodiazepi ne Reversal, Initial dose, Start date: 12/20/12 12:58:00, Duration: 30 day, Stop date: 01/19/13 12:57:00 naloxone 0.04 mg, 0.1 IVP No Longer [place] [facility] mL, Route: Active 2012 [facility] IVP, Drug form: INJ, Q2MIN, Dosing Weight 73.636, kg, PRN Narcotic Reversal, Start date: 12/20/12 12:58:00, Duration: 8 doses or times, Stop date: Limited # of times acetaminophen-ox 2 tab, PO No Longer [place] [facility] ycodone 325 mg-5 Route: PO, Active 2012 [place] mg oral tablet Drug Form: TAB, Dosing Weight 73.636, kg, Q4H, PRN Pain Score 4-6, Start date: 12/20/12 12:58:00, Duration: 30 day, Stop date: 01/19/13 12:57:00 acetaminophen-hy 2 tab, PO No Longer [facility] drocodone 325 Route: PO, Active 2012 [facility] mg-5 mg oral Drug Form: tablet TAB, Dosing Weight 73.636, kg, Q4H, PRN Pain Score 4-6, Start date: 12/20/12 12:58:00, Duration: 30 day, Stop date: 01/19/13 12:57:00 hydromorphone 0.5 mg, 0.25 IVP No Longer [place] 02/07/ [facility] mL, Route: Active 2012 [place] IVP, Drug form: INJ, Q5Min, Dosing Weight 73.636, kg, PRN Pain Score 4-6, Start date: 12/20/12 12:58:00, Duration: 5 doses or times, Stop date: Limited # of times ketorolac 30 mg, 1 mL, IVP No Longer [place] // [facility] Route: IVP, 2012 [facility] Drug form: INJ, ONCE, Dosing Weight 73.636, kg, PRN Breakthrough Pain, Start date: 12/20/12 12:58:00, Duration: 1 doses or times, Stop date: Limited # of times Lactated Ringers 1,000 mL, IV No Longer Ham // MH [facility] Injection IV Rate: 50 Active 2012 [place] 1,000 mL ml/hr, Infuse over: 20 hr, Route: IV, kg, Total Volume: 1,000, Start date: 12/20/12 12:58:00, Duration: 30 day, Stop date: 01/19/13 12:57:00 labetalol 5 mg, 1 mL, IVP No Longer [place] // MH [facility] Route: IVP, 2012 [facility] Drug form: INJ, Q5Min, Dosing Weight 73.636, kg, PRN Elevated BP, Start date: 12/20/12 12:58:00, Duration: 5 doses or times, Stop date: Limited # of times Lactated Ringers 1,000 mL, IV No Longer Ham // MH [place] Injection IV Rate: 25 2012 [place] 1000 mL ml/hr, Infuse over: 40 hr, Route: IV, Dosing Weight 73.636 kg, Total Volume: 1,000, Start date: 12/20/12 10:59:00, Duration: 30 day, Stop date: 01/19/13 10:58:00 Lactated Ringers 1,000 mL, IV No Longer Ham 02// MH [place] IV 1,000 mL Rate: 25 Active 2012 [place] ml/hr, Infuse over: 40 hr, Route: IV, kg, Total Volume: 1,000, Start date: 12/20/12 10:07:00, Duration: 30 day, Stop date: 01/19/13 10:06:00 BD Posiflush SF 15 mL, IVP No Longer Claritza Sugar Route: IVP, Active 2012 Drug Form: INJ, PRN, PRN Line Flush, Start date: 12/20/12 6:00:00, Duration: 30 day, Stop date: 01/19/13 5:59:00 cefazolin 2 gm, 100 IVPB No Longer Claritza [facility] mL, Route: Active 2012 IVPB, Drug [...] Active [place] oral tablet microgram, 1 2012 [facility] tab, PO, Daily, Substitution Allowed SPIRIVA 1 puff daily Active HANDIHALER 18 2011 Medical MCG CAPS Group ADVAIR DISKUS 1 puff bid Active 500-50 MCG/DOSE 2011 Medical AEPB Group SIMVASTATIN 40 1 p.o. q hs Active MG TABS 2011 [facility] FUROSEMIDE 40 MG 1 p.o. [...] 1 p.o. qd No Longer TABS Active 2011 [facility] Allergies, Adverse Reactions, Alerts Substance [...] Bone & Joint Morphine drug Allergy Active [facility] Nubain Assertion throat Drug Active OPID close,ha [...] Comments Source Given pneumococcal completed [facility] Angel [place] 23-valent 3 [facility] vaccine [facility], [place] influenza virus completed [facility] [place] vaccine, [facility] [place] pneumococcal Right completed Miguel Angel OPID 23-valent 3 Deltoid Ng vaccine [facility] [place] influenza virus Left completed Miguel Angel OPID vaccine, 3 Deltoid Ng inactivated [facility] [place] Results Order Name Results Value Reference Date Interpretation Comments Source Range Knee wo Knee wo MRI of the left Knee 01/29 - [facility] contrast contrast /2014 - [facility] [...] values reflect the clinical guidelines of the [place] [employer]. [place] CHEM PANEL CO2 34 meq/L 24 - 32 06/07 [place] CHEM PANEL AGAP 9.4 meq/L 10.0 - 06/07 [facility] 20.0 [facility] HEMATOLOGY Segs-Bands # 4.6 K/CMM 1.5 - 8.1 06/07 [facility] HEMATOLOGY Monocytes # 0.6 K/CMM 0.0 - 0.8 06/07 [place] HEMATOLOGY Lymphocytes 1.5 K/CMM 1.0 - 5.5 06/07 [place] # /2013 [facility] HEMATOLOGY Eosinophils 0.1 K/CMM 0.0 - 0.5 06/07 [facility] # [place] HEMATOLOGY Basophils # 0.0 K/CMM 0.0 - 0.2 06/07 [place] HEMATOLOGY Monocytes 9.2 % 2.0 - 12.0 06/07 [facility] HEMATOLOGY Lymphocytes 22.1 % 20.0 - 06/07 [facility] 40.0 [place] HEMATOLOGY Basophils 0.2 % 0.0 - 1.0 06/07 [place] HEMATOLOGY Eosinophils 1.3 % 0.0 - 4.0 06/07 [place] HEMATOLOGY Segs 67.2 % 45.0 - 06/07 [facility] 75.0 /2013 [place] HEMATOLOGY MPV 7.1 fL 7.4 - 10.4 06/07 [facility] HEMATOLOGY MCHC 32.9 g/dL 32.0 - 06/07 [facility] 36.0 [facility] HEMATOLOGY MCH 29.4 pg 27.0 - 06/07 [facility] [place] 31.0 [place] HEMATOLOGY Platelet 312 K/CMM 133 - 450 06/07 [facility] HEMATOLOGY Hgb 9.8 g/dL 12.0 - 06/07 [facility] 16.0 [place] HEMATOLOGY WBC 6.9 K/CMM 3.7 - 10.4 06/07 [facility] HEMATOLOGY RDW 17.4 % 11.5 - 06/07 [facility] 14.5 [facility] HEMATOLOGY MCV 89.5 fL 81.0 - 06/07 [facility] 99.0 [facility] HEMATOLOGY Hct 29.7 % 36.0 - 06/07 [facility] 48.0 [facility] HEMATOLOGY RBC 3.32 M/CMM 4.20 - 06/07 [facility] 5.40 /2013 [facility] ELECTROLYTE AGAP 10.6 meq/L 10.0 - 06/04 [facility] S 20.0 [facility] ELECTROLYTE eGFR 88 06/04 4Result Comment: The [...] reflect the clinical guidelines [place] of the [place] [employer]. [place] ELECTROLYTE Creatinine 0.7 mg/dL 0.5 - 1.4 06/04 [place] S [place] ELECTROLYTE BUN 20 mg/dL 7 - 22 06/04 [facility] S [place] HEMATOLOGY MPV 7.6 [...] 16.9 % 11.5 - 06/04 [facility] 14.5 /2013 [place] HEMATOLOGY MCHC 33.0 g/dL 32.0 - 06/04 [facility] 36.0 /2013 [place] HEMATOLOGY WBC 7.5 K/CMM 3.7 - 10.4 06/04 [place] HEMATOLOGY RBC 3.12 M/CMM 4.20 - 06/04 [facility] 5.40 /2013 [place] HEMATOLOGY Polychrom Slight None Seen 06/04 [place] (06/04/14 5:15 AM) HEMATOLOGY Plt Morph Normal 06/04 [facility] (06/04/14 5:15 AM) HEMATOLOGY Atypical 0.0 % <=0.0 % 06/04 [facility] [place] HEMATOLOGY Tot Cell Ct 100 06/04 [place] HEMATOLOGY Monocytes 6.0 % 2.0 - 12.0 06/04 [place] HEMATOLOGY Metamyelocyt 1.0 % 0.0 - 1.0 06/04 [place] es /2013 [facility] HEMATOLOGY Bands 6.0 % 0.0 - 11.0 06/04 [facility] HEMATOLOGY Lymphocytes 13.0 % 20.0 - 06/04 [facility] 40.0 [facility] HEMATOLOGY Segs-Bands # 6.0 K/CMM 1.5 - 8.1 06/04 [place] [facility] HEMATOLOGY Lymphocytes 1.0 K/CMM 1.0 - 5.5 06/04 [facility] # /2013 [facility] HEMATOLOGY Monocytes # 0.4 K/CMM 0.0 - 0.8 06/04 [facility] HEMATOLOGY Segs 74.0 % 45.0 - 06/04 [facility] 75.0 [facility] Chest 1view Chest 1view PORTABLE CHEST AP SEMIERECT 06/04/2014, 5:27 a.m. 06/04 - - [facility] HISTORY: Shortness of breath. Compared to exam [...] Phosphorus 3.2 mg/dL 2.5 - 4.5 06/03 [facility] CHEM PANEL Magnesium 1.9 mg/dL 1.8 - 2.4 06/03 [place] Lvl [facility] CHEM PANEL Glucose Lvl 112 mg/dL 70 - 99 06/03 8Interpretive Data: Adult reference range values reflect the clinical guidelines of the [place] [employer]. [facility] CHEM PANEL eGFR 75 06/03 5Result Comment: [...] 0.8 mg/dL 0.5 - 1.4 06/03 [place] l [place] CHEM PANEL BUN 21 mg/dL 7 - 06/03 [facility] CHEM PANEL Chloride Lvl 103 meq/L 95 - 109 06/03 [place] CHEM PANEL CO2 34 meq/L 24 - 32 06/03 [place] CHEM PANEL Potassium 4.4 meq/L 3.5 - 5.1 06/03 [place] l [place] CHEM PANEL Sodium Lvl 144 meq/L [...] HEMATOLOGY Segs 73.6 % 45.0 - 06/03 [facility] [place] 75.0 [place] HEMATOLOGY Lymphocytes 14.8 % 20.0 - 07/22 [facility] 40.0 /2013 [facility] HEMATOLOGY Platelet 189 K/CMM 133 - 450 06/03 Sugar [facility] HEMATOLOGY MPV 7.3 fL 7.4 - 10.4 06/03 [facility] HEMATOLOGY RBC 3.06 M/CMM 4.20 - 06/03 [facility] 5.40 /2013 [facility] HEMATOLOGY MCV 87.7 fL 81.0 - 06/03 [facility] 99.0 /2013 [facility] HEMATOLOGY MCH 29.5 pg 27.0 - 06/03 [facility] 31.0 /2013 [facility] HEMATOLOGY MCHC 33.7 g/dL 32.0 - 06/03 [facility] 36.0 /2013 [facility] HEMATOLOGY Hgb 9.0 g/dL 12.0 - 06/03 [facility] 16.0 /2013 [facility] HEMATOLOGY RDW 16.2 % 11.5 - 06/03 [facility] 14.5 /2013 [facility] HEMATOLOGY Hct 26.8 % 36.0 - 06/03 [facility] 48.0 /2013 [facility] HEMATOLOGY WBC 5.8 K/CMM 3.7 - 10.4 06/03 [facility] Chest 1view Chest 1view PORTABLE CHEST AP SEMIERECT 06/03/2014, 5:44 a.m. 06/03 - - [facility] HISTORY: Abnormal chest sounds. Compared to exam [...] Examination: Chest CTA pulm emb 06/02 - [facility] Pulmonary Pulmonary - Embolism Embolism CTA Dose: 411 mGy-cm CTA [...] mg/dL 1.8 - 2.4 06/02 [facility] L[facility] [place] CHEM PANEL Phosphorus 3.3 mg/dL 2.5 - 4.5 06/02 [place] CHEM PANEL A/G Ratio 0.6 0.7 - 1.6 06/02 [place] CHEM PANEL Globulin 3.6 g/dL 2.0 - 4.0 06/02 [place] CHEM PANEL B/C Ratio 24 6 - 25 06/02 [place] CHEM PANEL Total 5.8 g/dL 6.4 - 8.4 06/02 [place] CHEM PANEL Albumin Lvl 2.2 g/dL 3.5 - 5.0 06/02 [place] CHEM PANEL ALT 21 unit/L 0 - 65 06/02 [place] CHEM PANEL Alk Phos 137 unit/L 39 - 136 06/02 [place] CHEM PANEL Bili Total 0.7 mg/dL 0.2 - 1.3 06/02 [place] CHEM PANEL AST 13 unit/L 0 - 37 06/02 [place] HEMATOLOGY Basophils 0.1 % 0.0 - 1.0 06/02 [place] HEMATOLOGY Eosinophils 0.0 K/CMM 0.0 - 0.5 06/02 [facility] # [facility] HEMATOLOGY Basophils # 0.0 K/CMM 0.0 - 0.2 06/02 [place] HEMATOLOGY Eosinophils 0.2 % 0.0 - 4.0 06/02 [facility] HEMATOLOGY INR 1.12 0.85 - 06/02 9Interpretive Data: RECOMMENDED RANGES FOR PROTIME INR: [place] 1. 2.0-3.0 for most medical and surgical thromboembolic states. [place] 2.5-3.5 for artificial heart valves and recurrent embolism. INR SHOULD BE USED ONLY FOR PATIENTS ON STABLE ANTICOAGULANT THERAPY. HEMATOLOGY PTT 34.4 s 22.9 - 06/02 12Interpretiv [place] 35.8 /2013 e Data: [facility] Heparin Therapeutic Range: 57 - 92 Seconds HEMATOLOGY PT 14.3 s 12.0 - / [place] 14.7 /2013 [place] Chest 1view Chest 1view PORTABLE CHEST AP SEMIERECT 06/02/2014, 5:32 a.m. 06/02 - - [facility] HISTORY: Abnormal chest sounds. Compared to exam [...] PANEL Magnesium 1.6 mg/dL 1.8 - 2.4 06/01 [facility] [place] Lvl /2013 [place] CHEM PANEL Phosphorus 3.0 mg/dL 2.5 - 4.5 06/01 [facility] [place] CHEM PANEL Bili Total 0.6 mg/dL 0.2 - 1.3 06/01 [facility] [place] CHEM PANEL AST 25 unit/L 0 - 37 / MH [facility] [place] CHEM PANEL Alk Phos 130 unit/L 39 - 136 / MH [place] CHEM PANEL A/G Ratio 0.6 0.7 - 1.6 / MH [place] CHEM PANEL ALT 22 unit/L 0 - 65 / MH [place] CHEM PANEL Globulin 3.6 g/dL 2.0 - 4.0 / MH [place] CHEM PANEL Albumin Lvl 2.0 g/dL 3.5 - 5.0 / MH [place] CHEM PANEL Total 5.6 g/dL 6.4 - 8.4 20 [facility] [place] CHEM PANEL B/C Ratio 30 6 - 25 06/01 Sugar /2013 [facility] HEMATOLOGY PTT 36.8 s 22.9 - 06/01 13Interpretiv [place] 35.8 /2013 e Data: [facility] Heparin Therapeutic Range: 57 - 92 Seconds HEMATOLOGY PT 14.2 s 12.0 - 06/01 [facility] 14.7 [facility] HEMATOLOGY INR 1.11 0.85 - 06/01 10Interpretive Data: RECOMMENDED RANGES FOR PROTIME INR: [place] 1. 2.0-3.0 for most medical and surgical thromboembolic states. [facility] 2.5-3.5 for artificial heart valves and recurrent embolism. INR SHOULD BE USED ONLY FOR PATIENTS ON STABLE ANTICOAGULANT THERAPY. Chest 1view Chest 1view EXAM: 06/01 - - [facility] Single view chest. Read by: Srinivasan Omalley MD Dictated Date/time: 06/01/14 06:14 INDICATION: Electronically Signed by: Srinivasan Omalley MD 06/01/14 06:15 FINAL REPORT Abnormal chest sounds. COMPARISON: May 29, 2014. IMPRESSION: 1. Stable right-sided Port-A-Cath. 2. Stable enlarged cardiac silhouette with worsened interstitial edema. 3. No pneumothorax. PARATHYROID Ca Ion WB 1.19 1.05 - 05/31 [facility] PROFILE mMol/L 12.07 [facility] PARATHYROID Ca Norm WB 1.15 1.05 - 05/31 [facility] PROFILE mMol/L 12.07 [facility] BLOOD BANK RBC product Product available 1 05/30 1Result Comment: 2013 09:46 YADY [facility] RESULTS Notified Macho at 05/30/2014 09:46 [facility] (05/30/14 7:18 AM) CHEM PANEL Bili Total 0.8 mg/dL 0.2 - 1.3 05/30 [facility] CHEM PANEL Albumin Lvl 2.0 g/dL 3.5 - 5.0 05/30 Sugar [facility] CHEM PANEL AST 14 unit/L 0 - 37 05/30 Sugar [facility] CHEM PANEL ALT 10 unit/L 0 - 65 05/30 Sugar [facility] CHEM PANEL Alk Phos 94 unit/L 39 - 136 05/30 Sugar [facility] CHEM PANEL Total 4.9 g/dL 6.4 - 8.4 05/30 Sugar [facility] CHEM PANEL B/C Ratio 23 6 - 25 05/30 [facility] CHEM PANEL A/G Ratio 0.7 0.7 - 1.6 05/30 [facility] CHEM PANEL Globulin 2.9 g/dL 2.0 - 4.0 05/30 [facility] HEMATOLOGY PTT 37.1 s 22.9 - 05/30 14Interpretiv [place] 35.8 /2013 e Data: [facility] Heparin Therapeutic Range: 57 - 92 Seconds HEMATOLOGY PT 16.8 s 12.0 - 05/30 [facility] 14.7 [facility] HEMATOLOGY INR 1.38 0.85 - 05/30 11Interpretive Data: RECOMMENDED RANGES FOR PROTIME INR: [facility] . 2.0-3.0 for most medical and surgical thromboembolic states. [facility] 2.5-3.5 for artificial heart valves and recurrent embolism. INR SHOULD BE USED ONLY FOR PATIENTS ON STABLE ANTICOAGULANT THERAPY. Chest 1view Chest 1view EXAMINATION: Chest 1view 05/29 - - [facility] ADDENDUM: A repeat view was completed with [...] requested. BACTERIAL - MRSA by PCR Positive 05/28Interpretive Data: Interpretive Data: The [employer] MRSA assay is a qualitative test for the direct detection of nasal colonization with methicillin-resistant Staphylococcus aureus (MRSA) to aid [facility] in the prevention and control of MRSA [...] by the [facility] within the [facility]. The [facility] Labor atory is authorized under the Clinical Laboratory Improvement Amendment of 1988 (CLIA-88) to perform high complexity testing. BLOOD BANK RBC product Product available 2 05/28 2Result Comment: 2013 10:14 YADY [facility] RESULTS Notified Maylin at 05/28/2014 10:14 [facility] (05/28/14 7:28 AM) HEMATOLOGY Atypical 0.0 % <=0.0 % 05/28 [facility] Lymphs [facility] HEMATOLOGY Metamyelocyt 3.0 % 0.0 - 1.0 05/28 [facility] es [facility] HEMATOLOGY Hypochrom Slight None Seen 05/28 [facility] (05/28/14 6:45 AM) HEMATOLOGY Plt Morph Normal 05/28 [facility] (05/28/14 6:45 AM) HEMATOLOGY Bands 8.0 % 0.0 - 11.0 05/28 [facility] Brain Brain Stroke Examination: Brain Stroke wo contrast CT 05/28 - [facility] Stroke wo wo contrast /2013 - [facility] contrast CT CT Dose: 801 mGy-cm Read [...] of the brain without contrast was completed. Payable Representative views demonstrate no incidental findings postoperative changes [...] Examination: Hip min 2 views 05/27 - [facility] views - [facility] Provided History: Pain in limb Read by: [...] Seen 05/20 [place] STOOL /HPF /HPF /2013 [facility] URINE AND UA RBC 0-2 /HPF 0 - 2 05/20 [facility] URINE AND UA Sq Epi Few /LPF Few /LPF 05/20 Sugar [facility] URINE AND UA WBC 0-2 /HPF None Seen 05/20 [place] STOOL /HPF /2013 [facility] URINE AND UA Leuk Est Negative Negative 05/20 [facility] STOOL [facility] (05/20/14 4:00 PM) URINE AND UA Nitrite Negative Negative 05/20 [facility] STOOL [facility] (05/20/14 4:00 PM) URINE AND UA 0.2 EU/dL 0.1 - 1.0 05/20 Sugar [facility] Urobilinogen /2013 [facility] URINE AND UA Color Yellow Yellow 05/20 [facility] STOOL [place] *NA* (05/20/14 4:00 PM) URINE AND UA Blood Negative Negative 05/20 [facility] STOOL [facility] (05/20/14 4:00 PM) URINE AND UA Bili Negative Negative 05/20 [facility] STOOL [facility] *NA* (05/20/14 4:00 PM) URINE AND UA Ketones Negative Negative 05/20 [facility] STOOL mg/dL mg/dL [facility] URINE AND UA Spec Grav 1.025 <=1.030 05/20 [facility] STOOL [facility] URINE AND UA Turbidity Clear Clear 05/20 [facility] STOOL [facility] (05/20/14 4:00 PM) URINE AND UA pH 5.5 5.0 - 8.0 05/20 [facility] STOOL [facility] URINE AND UA Glucose Negative Negative 05/20 [facility] STOOL mg/dL mg/dL [facility] URINE AND UA Protein Negative Negative 05/20 [facility] STOOL mg/dL mg/dL [facility] BLOOD BANK Antibody Negative 05/20 [facility] RESULTS Scrn [facility] (05/20/14 4:00 PM) BLOOD BANK ABO/Rh A POS 05/20 [facility] RESULTS [facility] Knee wo Knee wo MRI of the left Knee 01/21 - OPID contrast contrast MRI /2013 - [facility] History: pain. Read [...] EXAM: CT HEAD WITHOUT CONTRAST 09/06 - [facility] contrast CT contrast CT - [facility] INDICATION: Seizures Read by: Margaret [...] 4.5 mg/dL 2.5 - 4.5 09/06 Normal [facility] CHEMISTRY eGFR 65 09/06 3Result Comment: The eGFR is calculated using the CKD-EPI formula. In most young, healthy individuals the eGFR will be >90 mL/ min/1.73m2. The eGFR declines with age. An eGFR of 60-89 may be normal in [facility] mL/min/1. some populations, particularly the elderly, for whom the CKD-EPI formula has not been extensively validated. Use of the eGFR is not recommended in the following populations: [address] Individuals with unstable creatinine concentrations, including [...] values reflect the clinical guidelines of the [place] [employer]. [facility] CHEMISTRY BUN 17 mg/dL 7 - 22 09/06 [facility] CHEMISTRY Calcium Lvl 9.4 mg/dL 8.5 - 10.5 09/06 [facility] CHEMISTRY Creatinine 0.9 mg/dL 0.5 - 1.4 09/06 Normal [facility] CHEMISTRY Potassium 4.1 meq/L 3.5 - 5.1 09/06 Normal [facility] CHEMISTRY Sodium Lvl 145 meq/L 135 - 145 09/06 [facility] CHEMISTRY Chloride Lvl 101 meq/L 95 - 109 09/06 [facility] CHEMISTRY CO2 33 meq/L 24 - 32 09/06 [facility] CHEMISTRY AGAP 15.1 meq/L 10.0 - 09/06 Normal 20. [facility] Center CHEMISTRY Magnesium 1.8 mg/dL 1.8 - 2.4 09/06 Normal [facility] HEMATOLOGY Hgb 12.1 g/dL 12.0 - 09/06 Normal [facility] 16.0 [facility] HEMATOLOGY MCH 27.2 pg 27.0 - 09/06 Normal [facility] 31.0 [facility] HEMATOLOGY MCV 86.6 fL 81.0 - 09/06 Normal [facility] 99.0 [facility] HEMATOLOGY Hct 38.5 % 36.0 - 09/06 Normal [facility] 48.0 [facility] HEMATOLOGY WBC X 10x3 6.2 K/CMM 3.7 - 10.4 09/06 [facility] HEMATOLOGY RBC X 10x6 4.44 M/CMM 4.20 - 09/06 Normal [facility] 5.40 [facility] HEMATOLOGY MCHC 31.4 g/dL 32.0 - 09/06 LOW [facility] 36.0 [facility] HEMATOLOGY RDW 18.6 % 11.5 - 09/06 HI [facility] 14.5 [facility] HEMATOLOGY Platelet 232 K/CMM 133 - 450 09/06 [facility] HEMATOLOGY MPV 7.9 fL 7.4 - 10.4 09/06 [facility] HEMATOLOGY Lymphocytes 30.4 % 20.0 - 09/06 Normal [facility] 40.0 [facility] HEMATOLOGY Monocytes 9.7 % 2.0 - 12.0 09/06 [facility] HEMATOLOGY Basophils 0.6 % 0.0 - 1.0 09/06 Normal [facility] HEMATOLOGY Eosinophils 5.3 % 0.0 - 4.0 09/06 HI [facility] HEMATOLOGY Segs 54.0 % 45.0 - 09/06 Normal [facility] 75.0 [facility] HEMATOLOGY Eosinophils 0.3 K/CMM 0.0 - 0.5 09/06 Normal [facility] # [facility] HEMATOLOGY Segs-Bands # 3.3 K/CMM 1.5 - 8.1 09/06 Normal [facility] HEMATOLOGY Monocytes # 0.6 K/CMM 0.0 - 0.8 09/06 Normal [facility] HEMATOLOGY Lymphocytes 1.9 K/CMM 1.0 - 5.5 09/06 Normal [facility] CHEMISTRY Total CK 33 unit/L 12 - 191 09/05 Normal [facility] BACTERIAL - MRSA by PCR Positive 1, 2 09/05 ABN 2Interpretive Data: Interpretive Data: The [employer] MRSA assay is a qualitative test for the direct detection of nasal colonization with methicillin-resistant Staphylococcus aureus (MRSA) to aid [facility] in the prevention and control of MRSA [...] by the Molecular Diagnostic Laboratory within the [facility]. The Molecular Diagnostic Labor atory is authorized under the Clinical Laboratory Improvement Amendment of 1988 (CLIA-88) to perform high complexity testing. CHEMISTRY Total CK 30 unit/L 12 - 191 09/05 Normal [facility] CHEMISTRY Lactic Acid 0.6 mMol/L 0.5 - 2.2 09/05 Normal [facility] CHEMISTRY A/G Ratio 1.1 0.7 - 1.6 09/05 Normal [facility] CHEMISTRY Globulin 3.3 g/dL 2.0 - 4.0 09/05 Normal [facility] CHEMISTRY AGAP 14.6 meq/L 10.0 - 09/05 Normal [facility] 20.0 [facility] CHEMISTRY B/C Ratio 15 6 - 25 09/05 Normal [facility] CHEMISTRY eGFR 93 09/05 4Result Comment: The eGFR is calculated using the CKD-EPI formula. In most young, healthy individuals the eGFR will be >90 mL/ min/1.73m2. The eGFR declines with age. An eGFR of 60-89 may be normal in [facility] mL/min/1.7 some populations, particularly the elderly, for whom the CKD-EPI formula has not been extensively validated. Use of the eGFR is not recommended in the following populations: [place] [address] Center Individuals with unstable creatinine concentrations, including [...] 170 unit/L 39 - 136 09/05 HI [facility] CHEMISTRY Albumin Lvl 3.5 g/dL 3.5 - 5.0 09/05 Normal [facility] CHEMISTRY Glucose Lvl 91 mg/dL 70 - 99 09/05 Normal 6Interpretive Data: Adult reference range values reflect the clinical guidelines of the [place] [employer]. [facility] CHEMISTRY BUN 9 mg/dL 7 - 22 09/05 Normal [facility] CHEMISTRY Creatinine 0.6 mg/dL 0.5 - 1.4 09/05 Normal [facility] l [facility] CHEMISTRY Potassium 3.6 meq/L 3.5 - 5.1 09/05 Normal [facility] Lvl [facility] CHEMISTRY Sodium Lvl 142 meq/L 135 - 145 09/05 Normal [facility] CHEMISTRY Total 6.8 g/dL 6.4 - 8.4 09/05 Normal [facility] CHEMISTRY CO2 30 meq/L 24 - 32 09/05 Normal [facility] CHEMISTRY Bili Total 0.5 mg/dL 0.2 - 1.3 09/05 Normal [facility] CHEMISTRY Chloride Lvl 101 meq/L 95 - 109 09/05 Normal [facility] CHEMISTRY Calcium Lvl 8.7 mg/dL 8.5 - 10.5 09/05 Normal [facility] CHEMISTRY ASPARTATE 11 unit/L 0 - 37 09/05 Normal [place] TRANSAMINASE [facility] CHEMISTRY ALANINE 13 unit/L 0 - 65 09/05 Normal [facility] AMINOTRANSFE [facility] CHEMISTRY Total CK 43 unit/L 12 - 191 09/05 Normal [facility] HEMATOLOGY MPV 7.7 fL 7.4 - 10.4 09/05 Normal [facility] HEMATOLOGY Platelet 198 K/CMM 133 - 450 09/05 Normal [facility] HEMATOLOGY MCV 85.8 fL 81.0 - 09/05 Normal [facility] 99.0 [facility] HEMATOLOGY RDW 17.8 % 11.5 - 09/05 HI 14. [facility] HEMATOLOGY MCH 27.7 pg 27.0 - 09/05 Normal [place] 31.0 [facility] HEMATOLOGY Hct 36.5 % 36.0 - 09/05 Normal [place] 48.0 [facility] HEMATOLOGY MCHC 32.3 g/dL 32.0 - 09/05 Normal [facility] 36.0 /2012 [facility] HEMATOLOGY WBC X 10x3 6.1 K/CMM 3.7 - 10.4 09/05 Normal [facility] HEMATOLOGY RBC X 10x6 4.26 M/CMM 4.20 - 09/05 Normal [place] 5.40 /2012 [facility] HEMATOLOGY Hgb 11.8 g/dL 12.0 - 09/05 LOW [place] 16.0 [facility] HEMATOLOGY Segs 60.1 % 45.0 - 09/05 Normal [place] 75.0 [facility] HEMATOLOGY Lymphocytes 25.3 % 20.0 - 09/05 Normal [facility] 40.0 /2012 [facility] HEMATOLOGY Eosinophils 4.7 % 0.0 - 4.0 09/05 HI [facility] HEMATOLOGY Segs-Bands # 3.6 K/CMM 1.5 - 8.1 09/05 Normal [facility] HEMATOLOGY Lymphocytes 1.5 K/CMM 1.0 - 5.5 09/05 Normal [place] # /2012 [facility] Center HEMATOLOGY Basophils 0.9 % 0.0 - 1.0 09/05 Normal [facility] HEMATOLOGY Monocytes # 0.5 K/CMM 0.0 - 0.8 09/05 Normal [facility] HEMATOLOGY Eosinophils 0.3 K/CMM 0.0 - 0.5 09/05 Normal [place] # [facility] HEMATOLOGY Basophils # 0.1 K/CMM 0.0 - 0.2 09/05 Normal [facility] HEMATOLOGY Monocytes 9.0 % 2.0 - 12.0 09/05 Normal [facility] URINALYSIS UA Amorph Few /HPF None Seen 09/05 [facility] Olivia [facility] URINALYSIS UA <=1.0 0.1 - 1.0 09/05 [facility] Urobilinogen mg/dL [facility] URINALYSIS UA Blood Small Negative 09/05 ABN [facility] *ABN* Parnell (09/04/2013 22:40:54) URINALYSIS UA Bili Negative Negative [facility]/05 [facility] (09/04/2013 22:40:54) URINALYSIS UA Ketones 10 mg/dL Negative 09/05 ABN [facility] URINALYSIS UA Sq Epi Occasional Few 09/05 [place] /LPF [facility] URINALYSIS UA Bacteria Occasional None Seen 09/05 [facility] URINALYSIS UA WBC 2 /HPF 0 - 5 09/05 Normal [facility] URINALYSIS UA Leuk Est Negative Negative 09/05 Normal [facility] (09/04/2013 22:40:54) [place] URINALYSIS UA Nitrite Negative Negative 09/05 Normal [facility] (09/04/2013 22:40:54) Center URINALYSIS UA Mucus Few /LPF None Seen 09/05 [facility] URINALYSIS UA RBC 1 /HPF 0 - 2 09/05 Normal [facility] URINALYSIS UA Turbidity Slight Clear 09/05 ABN [facility] *ABN* [place] (09/04/2013 22:40:54) URINALYSIS UA Color Light Yellow Yellow 09/05 [facility] [place] (09/04/2013 22:40:54) URINALYSIS UA Spec Grav 1.009 <=1.030 09/05 Normal [facility] URINALYSIS UA Glucose Negative Negative 09/05 [facility] mg/dL [facility] URINALYSIS UA pH 7.5 5.0 - 8.0 09/05 Normal [facility] URINALYSIS UA Protein Negative Negative 09/05 Normal mg/dL [facility] CHEMISTRY AGAP 10.7 meq/L 10.0 - 08/11 Normal [place] 20.0 [facility] CHEMISTRY eGFR 93 08/11 NA 5Result Comment: The eGFR is calculated using the CKD-EPI formula. In most young, healthy individuals the eGFR will be > 90 mL/min/1.73m2. The eGFR declines with age. An eGFR of 60-89 may be normal in [facility] mL/min/1.7 some populations, particularly the elderly, for [...] 8.6 mg/dL 8.5 - 10.5 08/11 [place] CHEMISTRY Potassium 4.7 meq/L 3.5 - 5.1 08/11 Normal [place] CHEMISTRY Chloride Lvl 104 meq/L 95 - 109 08/11 Normal [place] CHEMISTRY CO2 32 meq/L 24 - 32 08/11 Normal [place] CHEMISTRY Sodium Lvl 142 meq/L 135 - 145 08/11 Normal [place] CHEMISTRY Creatinine 0.6 mg/dL 0.5 - 1.4 08/11 Normal [place] CHEMISTRY BUN 12 mg/dL 7 - 22 08/11 Normal [place] CHEMISTRY Glucose Lvl 93 mg/dL 70 - 99 08/11 Normal 8Interpretive Data: Adult reference range values reflect the clinical guidelines of the [place] [employer]. [place] CHEMISTRY Phosphorus 4.2 mg/dL 2.5 - 4.5 08/11 Normal [place] CHEMISTRY Magnesium 1.7 mg/dL 1.8 - 2.4 08/11 LOW [place] HEMATOLOGY MPV 7.1 fL 7.4 - 10.4 08/11 LOW [facility] [place] /2012 [place] HEMATOLOGY Platelet 183 K/CMM 133 - 450 08/11 Normal [facility] [place] /2012 [place] HEMATOLOGY RDW 16.2 % 11.5 - [...] 12.0 - 08/11 LOW [facility] [place] 16.0 [place] HEMATOLOGY WBC 4.5 K/CMM 3.7 - [...] 0.0 - 1.0 08/11 Normal [facility] [place] /2012 [place] HEMATOLOGY Eosinophils 3.3 % 0.0 - [...] 2.4 g/dL 3.5 - 5.0 08/09 LOW [place] CHEMISTRY A/G Ratio 0.6 0.7 - 1.6 08/09 LOW [place] CHEMISTRY Globulin 3.9 g/dL 2.0 - 4.0 08/09 Normal [place] CHEMISTRY ALT 15 unit/L 0 - 65 08/09 Normal [place] CHEMISTRY Alk Phos 179 unit/L 39 - 136 08/09 HI [facility] [place] CHEMISTRY Bili Total 0.6 mg/dL 0.2 - 1.3 08/09 Normal [place] CHEMISTRY AST 20 unit/L 0 - 37 08/09 Normal [place] CHEMISTRY AGAP 10.7 meq/L 10.0 - 08/09 Normal [place] 20.0 [place] CHEMISTRY Calcium Lvl 8.5 mg/dL 8.5 - 10.5 08/09 Normal [place] CHEMISTRY B/C Ratio 12 6 - 25 08/09 Normal [place] CHEMISTRY Total 6.3 g/dL 6.4 - 8.4 08/09 LOW [place] CHEMISTRY Potassium 4.7 meq/L 3.5 - 5.1 08/09 Normal [facility] [place] Lvl /2012 [place] CHEMISTRY CO2 28 meq/L 24 - 32 08/09 Normal [place] CHEMISTRY Chloride Lvl 99 meq/L 95 - 109 08/09 Normal [facility] [place] CHEMISTRY Sodium Lvl 133 meq/L 135 - 145 08/09 LOW [facility] [place] CHEMISTRY Creatinine 0.5 mg/dL 0.5 - 1.4 08/09 Normal [place] [facility] CHEMISTRY BUN 6 mg/dL 7 - 22 08/09 LOW [place] CHEMISTRY Glucose Lvl 99 mg/dL 70 - 99 08/09 Normal 9Interpretive Data: Adult reference range values reflect the clinical guidelines of the [place] [employer]. [place] CHEMISTRY Magnesium 1.7 mg/dL 1.8 - 2.4 08/09 LOW [place] CHEMISTRY Phosphorus 1.5 mg/dL 2.5 - 4.5 08/09 CRIT 11Result Comment: [facility] Critical Result(s) called Bhavin Calderonr _ at 08/09/2013 05:55 byrvs. Read back OK. HEMATOLOGY Segs-Bands # 9.0 K/CMM 1.5 - 8.1 08/09 [place] /2012 [facility] HEMATOLOGY Basophils # 0.0 K/CMM 0.0 - 0.2 08/09 Normal [facility] HEMATOLOGY Eosinophils 0.1 K/CMM 0.0 - 0.5 08/09 Normal [place] [facility] HEMATOLOGY Monocytes # 0.8 K/CMM 0.0 - 0.8 08/09 Normal [place] HEMATOLOGY Lymphocytes 9.0 % 20.0 - 08/09 LOW [place] 40.0 [place] HEMATOLOGY Lymphocytes 1.0 K/CMM 1.0 - 5.5 08/09 Normal [place] [facility] HEMATOLOGY Segs 82.9 % 45.0 - 08/09 [facility] [place] 75.0 [place] HEMATOLOGY Basophils 0.0 % 0.0 - 1.0 08/09 Normal [place] HEMATOLOGY Eosinophils 0.7 % 0.0 - 4.0 08/09 Normal [place] HEMATOLOGY Monocytes 7.4 % 2.0 - 12.0 08/09 Normal [place] HEMATOLOGY INR 1.10 0.85 - 08/09 Normal 13Interpretive Data: RECOMMENDED RANGES FOR PROTIME INR: [place] 1. 2.0-3.0 for most medical and surgical thromboembolic states. [place] 2.5-3.5 for artificial heart valves and recurrent embolism. INR SHOULD BE USED ONLY FOR PATIENTS ON STABLE ANTICOAGULANT THERAPY. HEMATOLOGY PTT 28.0 s 22.9 - 08/09 Normal 16Interpretiv [place] 35.8 /2013 e Data: [place] Heparin Therapeutic Range: 57 - 92 Seconds HEMATOLOGY PT 14.1 s 12.0 - 08/09 Normal [place] 14.7 /2012 [facility] HEMATOLOGY Hgb 10.4 g/dL 12.0 - 08/09 LOW [place] 16.0 /2012 [facility] HEMATOLOGY Hct 32.5 % 36.0 - 08/09 LOW [place] 48.0 /2012 [facility] HEMATOLOGY MPV 7.2 fL 7.4 - 10.4 08/09 LOW [place] /2012 [facility] HEMATOLOGY MCH 26.8 pg 27.0 - 08/09 LOW [place] 31.0 /2012 [facility] HEMATOLOGY MCHC 32.1 g/dL 32.0 - 08/09 Normal [place] 36.0 /2012 [facility] HEMATOLOGY WBC 10.9 K/CMM 3.7 - 10.4 08/09 [facility] [place] /2012 [facility] HEMATOLOGY RBC 3.90 M/CMM 4.20 - 08/09 LOW [facility] [place] 5.40 /2012 [facility] HEMATOLOGY RDW 16.3 % 11.5 - 08/09 [facility] [place] 14.5 /2012 [facility] HEMATOLOGY Platelet 158 K/CMM 133 - 450 08/09 Normal [place] /2012 [facility] HEMATOLOGY MCV 83.5 fL 81.0 - 08/09 Normal [place] 99.0 /2012 [facility] Chest 1view Chest 1view PORTABLE CHEST AP SEMIERECT 08/09/2013, 5:44 a.m. 08/09 - - [facility] HISTORY: Abnormal chest sounds. Compared to exam [...] of the head without contrast 08/08 - [facility] Stroke wo wo contrast - [facility] contrast CT CT COMPARISON: December 29, 2010 Read by: Ayaan Stewart Dictated Date/time: 08/08/13 19:39 Electronically Signed by: Ayaan Stewart MD 08/08/13 19:41 FINAL REPORT TECHNIQUE: Multiple computerized axial tomographic images were obtained of the head without IV contrast utilizing standard protocol and archived to PACS. POI=[id number] COMMENTS: Anterior right frontal gliosis again noted. [...] U Opiate Scr Positive Negative 08/08 ABN *ABN* (08/08/2013 09:20:33) CHEMISTRY UDS Note See Note 12 08/08 Normal 12Interpretive Data: Drugs reported as positive have not been confirmed by a second method and should be used for medical purposes only. To order [place] (08/08/2013 09:20:33) confirmation, contact laboratory. note: Below [...] 09:20:33) CHEMISTRY U Cocaine Negative Negative 08/08 NA [place]r [place] *NA* (08/08/2013 09:20:33) CHEMISTRY U Carolee Scr Negative Negative 08/08 NA [place] *NA* (08/08/2013 09:20:33) CHEMISTRY U Benzodia Negative Negative 08/08 NA MH [place] Scr /2012 [place] *NA* (08/08/2013 09:20:33) CHEMISTRY U Propoxyph Negative Negative 08/08 NA MH [place] Scr /2012 [place] *NA* (08/08/2013 09:20:33) CHEMISTRY U Amph Scr Negative Negative 08/08 NA MH [place] /2012 [place] *NA* (08/08/2013 09:20:33) CHEMISTRY U Methadone Negative Negative 08/08 NA [facility] [place] Scr /2012 [place] *NA* (08/08/2013 09:20:33) BLOOD BANK Antibody Negative 08/08 Normal [facility] [place] RESULTS Scrn [place] (08/08/2013 06:15:00) BLOOD BANK ABO/Rh A POS 08/08 Unknown [facility] [place] RESULTS [facility] BLOOD BANK RBC product Product available 4 08/08 Normal 4Result Comment : 08/08/2013 07:55 NIPATEL3 [place] Called Daniela at 08/08/2013 07:55 for pick up attendant 2 units of RBC's are ready. [employer]. [place] (08/08/2013 06:15:00) CHEMISTRY B/C Ratio 22 6 - 25 08/08 Normal [facility] [place] [facility] CHEMISTRY A/G Ratio 0.8 0.7 - 1.6 08/08 Normal [facility] [place] [facility] CHEMISTRY Globulin 3.1 g/dL 2.0 - 4.0 08/08 Normal [facility] [place] [facility] CHEMISTRY AGAP 10.5 meq/L 10.0 - 08/08 Normal [place] 20.0 [facility] CHEMISTRY eGFR 75 08/08 NA 7Result Comment: [...] 3.5 - 5.1 08/08 Normal [facility] [place] CHEMISTRY Chloride Lvl 104 meq/L 95 - 109 08/08 Normal [facility] [place] CHEMISTRY CO2 27 meq/L 24 [...] values reflect the clinical guidelines of the [place] [employer]. [place] CHEMISTRY BUN 18 mg/dL 7 - 22 08/08 Normal [place] CHEMISTRY Phosphorus 2.9 mg/dL 2.5 - 4.5 08/08 Normal [place] CHEMISTRY Magnesium 1.4 mg/dL 1.8 - 2.4 08/08 LOW [place] Lvl [place] HEMATOLOGY Segs 83.2 % 45.0 - 08/08 HI MH [place] 75.0 /2012 [place] HEMATOLOGY Eosinophils 0.3 % 0.0 - 4.0 08/08 Normal [place] HEMATOLOGY Lymphocytes 8.3 % 20.0 - 08/08 LOW [place] 40.0 /2012 [place] HEMATOLOGY Basophils 0.2 % 0.0 - 1.0 08/08 Normal [place] HEMATOLOGY Monocytes 8.0 % 2.0 - 12.0 08/08 Normal [place] /2012 [place] HEMATOLOGY Segs-Bands # 8.4 K/CMM 1.5 - 8.1 08/08 HI [place] /2012 [place] HEMATOLOGY Lymphocytes 0.8 K/CMM 1.0 - 5.5 08/08 LOW [place] # /2012 [place] HEMATOLOGY Eosinophils 0.0 K/CMM 0.0 - 0.5 08/08 Normal [place] # /2012 [place] HEMATOLOGY Basophils # 0.0 K/CMM 0.0 - 0.2 08/08 Normal [place] /2012 [place] HEMATOLOGY Monocytes # 0.8 K/CMM 0.0 - 0.8 08/08 Normal [place] /2012 [place] HEMATOLOGY PTT 24.7 s 22.9 - 08/08 Normal 17Interpretiv [place] 35.8 /2012 e Data: [facility] Heparin Therapeutic Range: 57 - 92 Seconds HEMATOLOGY INR 1.22 0.85 - 08/08 [place] 14Interpretive Data: RECOMMENDED RANGES FOR PROTIME INR: [place] 1.17 2.0-3.0 for most medical and surgical thromboembolic states. [place] 2.5-3.5 for artificial heart valves and recurrent embolism. INR SHOULD BE USED ONLY FOR PATIENTS ON STABLE ANTICOAGULANT THERAPY. HEMATOLOGY PT 15.3 s 12.0 - 08/08 [facility] [place] 14.7 /2012 [facility] HEMATOLOGY RDW 16.2 % 11.5 - 08/08 [facility] [place] 14.5 /2012 [facility] HEMATOLOGY Platelet 139 K/CMM 133 - 450 08/08 Normal [place] /2012 [facility] HEMATOLOGY MPV 7.3 fL 7.4 - 10.4 08/08 LOW [place] /2012 [facility] HEMATOLOGY RBC 3.08 M/CMM 4.20 - 08/08 [facility] [place] 5.40 /2012 [facility] HEMATOLOGY Hgb 8.0 g/dL 12.0 - 08/08 [facility] [place] 16.0 /2012 [facility] HEMATOLOGY MCH 26.0 pg 27.0 - 08/08 [facility] [place] 31.0 /2012 [place] HEMATOLOGY Hct 25.7 % 36.0 - 08/08 [facility] [place] 48.0 /2012 [facility] HEMATOLOGY MCV 83.3 fL 81.0 - 08/08 Normal [place] 99.0 /2012 [facility] HEMATOLOGY MCHC 31.2 g/dL 32.0 - 08/08 [facility] [place] 36.0 /2012 [place] HEMATOLOGY WBC 10.1 K/CMM 3.7 - 10.4 08/08 Normal [place] Chest 1view Chest 1view PORTABLE CHEST AP SEMIERECT 08/08/2013, 5:41 a.m. 08/08 - - [facility] HISTORY: Abnormal chest sounds. Compared to exam [...] change. Microbiolog Culture: 08/07 [place] y Blood [facility] BACTERIAL - MRSA by PCR Positive 1, [...] by the Molecular Diagnostic Laboratory within the [facility]. The Molecular Diagnostic Labor atory is authorized under the Clinical Laboratory Improvement Amendment of 1988 (CLIA-88) to perform high complexity testing. Microbiolog Culture: 08/07 [place] Urine /2012 [facility] URINALYSIS UA pH 6.0 5.0 - 8.0 08/07 Normal [facility] URINALYSIS UA Protein Negative mg/dL Negative 08/07 Normal [facility] (08/07/2013 00:17:00) URINALYSIS UA Spec Grav 1.020 <=1.030 08/07 Normal [facility] URINALYSIS UA Glucose Negative mg/dL Negative 08/07 Normal [facility] (08/07/2013 00:17:00) URINALYSIS UA Ketones Negative mg/dL Negative 08/07 NA [place] *NA* (08/07/2013 00:17:00) URINALYSIS UA Blood Negative Negative 08/07 Normal [place] (08/07/2013 00:17:00) URINALYSIS UA Bili Negative Negative 08/07 NA [place] *NA* (08/07/2013 00:17:00) URINALYSIS UA Color Yellow Yellow 08/07 NA [place] *NA* (08/07/2013 00:17:00) URINALYSIS UA Turbidity Clear Clear 08/07 Normal [place] (08/07/2013 00:17:00) URINALYSIS UA 0.2 EU/dL 0.1 - 1.0 08/07 Normal [place] Urobilinogen [facility] URINALYSIS UA Leuk Est Negative Negative 08/07 Normal [place] [facility] (08/07/2013 00:17:00) URINALYSIS UA Nitrite Negative Negative 08/07 Normal [facility] (08/07/2013 00:17:00) URINALYSIS UA Sq Epi Rare /LPF Few 08/07 Normal [place] [facility] (08/07/2013 00:17:00) URINALYSIS UA RBC 0-2 /HPF 0 - 2 08/07 Normal [facility] (08/07/2013 00:17:00) URINALYSIS UA Bacteria Occasional /HPF None Seen 08/07 Normal [place] [facility] (08/07/2013 00:17:00) URINALYSIS UA Mucus Moderate /LPF None Seen 08/07 ABN [place] *ABN* (08/07/2013 00:17:00) URINALYSIS UA WBC 6-10 /HPF None Seen 08/07 ABN [place] *ABN* (08/07/2013 00:17:00) CHEMISTRY Total CK 117 unit/L 12 - 191 08/07 Normal [facility] CHEMISTRY CK MB Index 0.5 0.0 - 2.5 08/07 Normal [place] [facility] CHEMISTRY CK MB 0.6 ng/mL 0.5 - 3.6 08/07 Normal [place] [facility] BEDSIDE Gluc POC Notify 08/07 NA [place] GLUCOSE Comment 1 RN/ /2012 [place] TESTING BEDSIDE Glucose POC 191 mg/dL 70 - 99 08/07 HI 3Interpretive [place] GLUCOSE /2012 Data: [facility] TESTING Upper Reportable Limit: 200 mg/dL. Hip [...] Normal 18Interpretiv [place] 35.8 /2012 e Data: [facility] Heparin Therapeutic Range: 57 - 92 Seconds [...] 0.2 EU/dL 0.1 - 1.0 07/29 Normal [place] Urobilinogen /2012 [facility] URINALYSIS UA Nitrite Negative Negative 07/29 Normal [place] /2012 [place] (07/29/2013 13:50:00) URINALYSIS UA Bili Negative Negative 07/29 NA [place] /2012 [place] *NA* (07/29/2013 13:50:00) URINALYSIS UA Blood Negative Negative 07/29 Normal [place] /2012 [place] (07/29/2013 13:50:00) URINALYSIS UA Glucose Negative mg/dL Negative 07/29 Normal [place] /2012 [place] (07/29/2013 13:50:00) URINALYSIS UA Ketones Negative mg/dL Negative 07/29 NA [place] *NA* (07/29/2013 13:50:00) URINALYSIS UA Protein Negative mg/dL Negative 07/29 Normal [place] (07/29/2013 13:50:00) URINALYSIS UA Spec Grav 1.015 <=1.030 07/29 Normal [facility] URINALYSIS UA pH 7.0 5.0 - 8.0 07/29 Normal [facility] URINALYSIS UA Turbidity Clear Clear 07/29 Normal [facility] (07/29/2013 13:50:00) URINALYSIS UA Color Yellow Yellow 07/29 [facility] [place] *NA* (07/29/2013 13:50:00) URINALYSIS UA RBC 0-2 /HPF 0 - 2 07/29 Normal [facility] (07/29/2013 13:50:00) URINALYSIS UA Bacteria Occasional /HPF None Seen 07/29 Normal [facility] (07/29/2013 13:50:00) URINALYSIS UA WBC 0-2 /HPF None Seen 07/29 Normal [facility] (07/29/2013 13:50:00) URINALYSIS UA Sq Epi Rare /LPF Few 07/29 Normal [facility] (07/29/2013 13:50:00) CHEMISTRY pO2 Art 71 mm[Hg] 80 - 100 05/23 LOW [facility] CHEMISTRY pH Art 7.38 7.35 - 05/23 Normal [facility] CHEMISTRY pCO2 Art 55 mm[Hg] 35 - 45 05/23 [facility] CHEMISTRY HCO3 Art 32 mMol/L 22 - 26 05/23 [facility] CHEMISTRY BE Art 6 mMol/L -2-2 - 2 05/23 [facility] CHEMISTRY Carboxyhgb 1.5 % 05/23 NA 1Interpretive Data: Non-smokers: 0 - 2.0% Saturation [facility] Smokers: 0 - 9.0% Saturation [facility] CHEMISTRY Methgb Art 0.6 % 0.0 - 1.4 05/23 [facility] CHEMISTRY O2Hb Art 93.3 % 95.0 - 05/23 LOW [facility] 100.0 /2011 [facility] CHEMISTRY Hgb Tot Art 13.0 g/dL 12.0 - 05/23 Normal [facility] 16.0 /2011 [facility] Center CHEMISTRY Temp Art 37.0 Alize 05/23 NA [facility] Vital Signs Vital Sign Value Date Comments Source Heart Rate 78 06/11/2014 [place] Diastolic (mm Hg) 64 06/11/2014 [facility] [place] Systolic (mm Hg) 106 06/11/2014 [place] Respitory Rate 20 06/11/2014 [place] Temperature Oral (F) 98.1 F 06/11/2014 [facility] [facility] Diastolic (mm Hg) 56 06/11/2014 [facility] Heart Rate 59 06/11/2014 [facility] Systolic (mm Hg) 105 06/11/2014 [facility] Respitory Rate 20 06/11/2014 [facility] Temperature Oral (F) 97.7 F 06/11/2014 [facility] Diastolic (mm Hg) 81 06/11/2014 [facility] Systolic (mm Hg) 162 06/11/2014 [facility] Respitory Rate 20 06/11/2014 [facility] Temperature Oral (F) 98.1 F 06/11/2014 [facility] Heart Rate 62 06/11/2014 [facility] Weight 75 05/27/2014 [facility] BMI Calculated 32.29 05/27/2014 [facility] Height 152.4 cm 05/27/2014 [facility] Weight 75 05/20/2014 [facility] BMI Calculated 31.24 05/20/2014 [facility] Height 154.94 cm 05/20/2014 [facility] Height 154.94 cm 05/20/2014 [facility] Weight 73.182 05/20/2014 [facility] BMI Calculated 30.48 05/20/2014 [facility] Systolic (mm Hg) 161 02/24/2014 [facility] Respitory Rate 16 02/24/2014 [facility] Diastolic (mm Hg) 56 02/24/2014 [facility] Systolic (mm Hg) 159 02/24/2014 [facility] Respitory Rate 16 02/24/2014 [facility] Diastolic (mm Hg) 62 02/24/2014 [facility] Respitory Rate 14 02/24/2014 [facility] Systolic (mm Hg) 149 02/24/2014 [facility] Diastolic (mm Hg) 64 02/24/2014 [facility] Height 154.94 cm 02/17/2014 [facility] BMI Calculated 30.48 02/17/2014 [facility] Weight 73.182 02/17/2014 [facility] Systolic (mm Hg) 124 09/07/2013 [facility] Diastolic (mm Hg) 46 09/07/2013 [facility] Respitory Rate 14 09/07/2013 [facility] Respitory Rate 0 09/06/2013 [facility] Temperature Oral (F) 98.0 F 09/06/2013 [facility] Systolic (mm Hg) 128 09/06/2013 [facility] Respitory Rate 22 09/06/2013 [facility] Diastolic (mm Hg) 57 09/06/2013 [facility] Diastolic (mm Hg) 50 09/06/2013 [facility] Systolic (mm Hg) 109 09/06/2013 [facility] Temperature Oral (F) 97.5 F 09/06/2013 [facility] Temperature Oral (F) 97.6 F 09/06/2013 [facility] Weight 72.2 09/05/2013 [facility] Height 154.94 cm 09/05/2013 [facility] Systolic (mm Hg) 95 08/12/2013 [facility] Respitory Rate 20 08/12/2013 [facility] Diastolic (mm Hg) 46 08/12/2013 [facility] Heart Rate 71 08/12/2013 [facility] Temperature Oral (F) 96.1 F 08/12/2013 [facility] Diastolic (mm Hg) 58 08/12/2013 [facility] Heart Rate 95 08/12/2013 [facility] Respitory Rate 18 08/12/2013 [facility] Systolic (mm Hg) 120 08/12/2013 [facility] Temperature Oral (F) 97.9 F 08/12/2013 [facility] Temperature Oral (F) 97.1 F 08/12/2013 [facility] Heart Rate 92 08/12/2013 [facility] Respitory Rate 18 08/12/2013 [facility] Diastolic (mm Hg) 54 08/12/2013 [facility] Systolic (mm Hg) 113 08/12/2013 [facility] Weight 72.273 08/06/2013 [facility] Height 154.94 cm 08/06/2013 [facility] Height 154.94 cm 07/22/2013 [facility] Weight 72.273 07/22/2013 [facility] Weight 160.2 03/06/2013 [facility] Temperature Oral (F) 98.6 F 03/06/2013 [facility] Systolic (mm Hg) 132 03/06/2013 [facility] Diastolic (mm Hg) 60 03/06/2013 [facility] Heart Rate 72 03/06/2013 [facility] Weight 166 12/28/2012 [facility] Respitory Rate 18 12/20/2012 [facility] Systolic (mm Hg) 133 12/20/2012 [facility] Diastolic (mm Hg) 63 12/20/2012 [facility] Diastolic (mm Hg) 61 12/20/2012 [facility] Systolic (mm Hg) 134 12/20/2012 [facility] Respitory Rate 18 12/20/2012 [facility] Diastolic (mm Hg) 63 12/20/2012 [facility] Systolic (mm Hg) 131 12/20/2012 [facility] Respitory Rate 16 12/20/2012 [facility] Heart Rate 88 12/20/2012 [facility] Height 154.94 cm 12/20/2012 [facility] Weight 73.636 12/20/2012 [facility] Weight 74.091 12/17/2012 [facility] Height 154.94 cm 12/17/2012 [facility] Weight 166 12/14/2012 [facility] Weight 166 [...] [facility] Diastolic (mm Hg) 77 07/31/2012 [facility] Systolic (mm Hg) 167 07/31/2012 [facility] Respitory Rate 20 07/31/2012 [facility] Heart Rate 87 07/31/2012 [facility] Temperature Oral (F) 99.0 F 07/31/2012 [facility] Weight 79.773 07/31/2012 [facility] Height 154.94 cm 07/31/2012 [facility] Weight 86.364 05/23/2012 [facility] Height 154.94 cm 05/23/2012 [facility] Diastolic (mm Hg) 60 05/15/2012 [facility] Systolic (mm Hg) 127 05/15/2012 [facility] Respitory Rate 24 05/15/2012 [facility] Heart Rate 95 05/15/2012 [facility] Temperature Oral (F) 97.8 F 05/15/2012 [facility] Weight 89.148 05/15/2012 [facility] Encounters Location Location Encounter Encounter Reason Attending ADM DC Status Source Details Type Number For Provider Date Date Visit [facility] [id number] UNKNOWN MOHAMMED 05/15 05/15 Active [place] [address] BLOOD ATTAR [facility] Outpatient [id number] COUGH, REEBA 05/23 Active [facility] 2 COPD [facility] [place] [id number] UNKNOWN MICHELLE 07/31 Active [facility] 1 BLOOD [facility] [place] [id number] CHAITANYA 12/18 12/18 Active [facility] [place] [facility] [place] [id number] CHAITANYA 12/20 12/20 Active [facility] [place] [facility] Inpatient [id number] FANY TAN 08/06 08/12 Active [facility] [place] 5 R LUIS ENRIQUE [facility] NECROSIS -733.40, HIP PAIN RIGHT-71 9.45-SCI P [facility] [id number] UNCONTRO CANDELARIA 09/04 09/06 Active [facility] 6 LLABLE CYNTHIA [facility] Lab Report [id number] Ang 01/03 01/03 Alex 05636 MD Lida /2013 [facility] Outpt Diag [id number] _MAPID:E Anders 01/21 01/22 [facility] 2 [id number] [facility] - [id number] [facility] OBS Day [id number] Anders 02/24 02/24 [facility] [id number] Keshav 05/27 06/11 [facility] 7 [facility] [id number] Keshav 10/08 11/07 [facility] [place] [facility] 0 [facility] [id number] Buddy 11/17 12/17 [facility] 1 [facility] [id number] Buddy 12/29 01/28 [facility] [place] [facility] 3 [facility] Outpt Diag [id number] Keshav 01/29 01/30 [facility] 4 [facility] Outpatient [id number] XRAY VISIT 08/04 Active [facility] [place] [facility] [id number] [facility] 08/04 Active [facility] 1 [facility] Outpatient [id number] [facility] 08/18 Active [facility] 2 [facility] Outpatient [id number] [facility] 10/06 Active [facility] 3 [facility] Outpatient [id number] [facility] 02/14 Active [facility] 4 [place] Outpatient [id number] [facility] 02/21 Active [facility] 5 [place] Outpatient [id number] [facility] 03/21 Active [facility] 6 [place] [id number] UNKNOWN MOHAMMED C[facility] [address] [facility] Procedures Procedure Code Date Perfomer Comments Source Arthroscopy of 167058417 1 left knee scope [facility] knee<sup>1</sup> 4 [facility] Arthroplasty of hip, [id number] [facility] total, with use of 3 Land methyl methacrylate Carpal tunnel [id number] 1right with [facility] release <sup>1</sup> 3 dequervacins Land release Cataract surgery [id number] [facility] 0 [facility] Laminectomy [id number] [facility] 9 [facility] Neck repair [id number] [facility] 9 [facility] Arthroscopy of [id number] [facility] shoulder 8 Land Fluoroscopy and [id number] [facility] stent aorta 6 [facility] Wrist repair 896976697 [facility] Foot repair [id number] [facility] 4 [facility] Arthroscopy of knee [id number] [facility] 3 [facility] Cholecystectomy 40069121 [facility] 5 [facility] Hysterectomy [id number] [facility] 5 [facility] Aspiration of 045883770 [facility] ganglion - hand 0 [facility] Craniotomy [id number] [facility]
--- OUTSIDE RECORDS SUMMARY | 2019-01-24 21:59 | XMS REPORT | CCD ---
:1945 Author Organization [facility] Care Team Providers Name Role Phone Hemalatha [...]
--- OUTSIDE RECORDS SUMMARY | 2019-01-24 22:00 | XMS REPORT | CCD ---
:1945 Author Organization [facility] Team Providers Name Role Phone Ludwin Dunlap [...]
--- OUTSIDE RECORDS SUMMARY | 2019-01-24 22:00 | XMS REPORT | CCD ---
:1945 Author Organization [facility] Team Providers Name Role Phone Germán Ludwin [...]
--- OUTSIDE RECORDS SUMMARY | 2019-01-24 22:00 | XMS REPORT | CCD ---
:1944 Author Organization [facility] Care Team Providers Name Role Phone Kristen [...]
--- OUTSIDE RECORDS SUMMARY | 2019-01-24 22:01 | XMS REPORT | CCD ---
:1945 Author Organization [facility] Team Providers Name Role Phone Keshav Mccoy [...] 11/13/2006 Resolved Weak Active 1B MRSA - [id number] added by Discern Expert. Medications Medication Instructions [...] 30 mL, Route: IV, 08/06/2013 08/10/2013 Discontinued MANAGER PHILOSOPHY (6 mg/30 mL) INJ Initial Loading Dose: Syringe 6 mg 0.3 mg, MANAGER PHILOSOPHY Dose: 0.2 mg, MANAGER PHILOSOPHY Lockout: 10 minutes, Continuous Basal Rate: 0 [...] 7:24:00 Sodium Chloride 0.9% 250 mL, Rate: call center rn 08/08/2013 08/09/2013 Discontinued (titrate) 250 mL for [...] Duration: 30 day, Stop date: 09/05/13 5:59:00 [place] 10/325 oral tablet 1 tab, Route: PO, [...] Comment: "Significant Findings called to Artemio Coleat [phone] by bf.Read Back OK."2Interpretive Data: Interpretive Data: [...] by the [facility] within the [facility]. The Molecular Diagnostic Laboratory is [...] NIPATEL3 Called Daniela at 08/08/2013 07:55 for parts picker 2 units of RBC's are ready. 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
--- OUTSIDE RECORDS SUMMARY | 2019-01-24 22:02 | XMS REPORT | CCD ---
:1945 Author Organization [facility] Care Team Providers Name Role Phone [...] 11/13/2006 Resolved Weak Active 1B MRSA - [id number] added by Discern Expert. Medications Medication Instructions Start Date End Date Status Pneumovax 23 0.5 mL, Route: IM, Drug 08/06/2013 08/07/2013 Completed Form: INJ, ONCE, Start date: 08/06/13 19:00:00, Stop date: 08/06/13 19:00:00(Same as: Pneumovax 23) Refrigerate ceftriaxone 2 gm, Route: IVPB, Drug 09/05/2013 09/06/2013 Discontinued form: PDR/INJ, [id number], Dosing Weight 72.2, kg, Start date: 09/05/13 [...] by the [facility] within the [facility]. The Molecular Diagnostic Laboratory is authorized [...] values reflect the clinical guidelines of the [place] [employer].6Interpretive Data: Adult reference range values reflect the clinical guidelines of the [place] [employer].HEMATOLOGY Most recent to oldest [Reference [...]
--- OUTSIDE RECORDS SUMMARY | 2019-01-24 22:02 | XMS REPORT | CCD ---
:1944 Author Organization [facility] Care Team Providers Name Role Phone [...] 11/13/2006 Resolved Weak Active 1B MRSA - [id number] added by Discern Expert. Medications Medication Instructions Start Date End Date Status Pneumovax 23 0.5 mL, Route: IM, Drug 08/06/2013 08/07/2013 Completed Form: INJ, ONCE, Start date: 08/06/13 19:00:00, Stop date: 08/06/13 19:00:00(Same as: Pneumovax 23) Refrigerate ceftriaxone 2 gm, Route: IVPB, Drug 09/05/2013 09/06/2013 Discontinued form: PDR/INJ, [id number], Dosing Weight 72.2, kg, Start date: 09/05/13 [...] by the [facility] within the [facility]. The Molecular Diagnostic Laboratory is [...] values reflect the clinical guidelines of the [place] [employer].6Interpretive Data: Adult reference range values reflect the clinical guidelines of the [place] [employer].HEMATOLOGY Most recent to oldest [Reference [...]
--- OUTSIDE RECORDS SUMMARY | 2019-01-24 22:03 | XMS REPORT | CCD ---
:1945 Author Organization [facility] Care Team Providers Name Role Phone [...] 11/13/2006 Resolved Weak Active 1B MRSA - [id number] added by Discern Expert. Medications Medication Instructions Start Date End Date Status Pneumovax 23 0.5 mL, Route: IM, Drug 08/06/2013 08/07/2013 Completed Form: INJ, ONCE, Start date: 08/06/13 19:00:00, Stop date: 08/06/13 19:00:00(Same as: Pneumovax 23) Refrigerate ceftriaxone 2 gm, Route: IVPB, Drug 09/05/2013 09/06/2013 Discontinued form: PDR/INJ, [id number], Dosing Weight 72.2, kg, Start date: 09/05/13 [...] by the [facility] within the [facility]. The Molecular Diagnostic Laboratory is authorized [...] values reflect the clinical guidelines of the [place] [employer].6Interpretive Data: Adult reference range values reflect the clinical guidelines of the [place] [employer].HEMATOLOGY Most recent to oldest [Reference [...]
--- OUTSIDE RECORDS SUMMARY | 2019-01-24 22:03 | XMS REPORT | CCD ---
:1944 Author Organization [facility] Care Team Providers Name Role Phone [...] 11/13/2006 Resolved Weak Active 1B MRSA - [id number] added by Discern Expert. Medications Medication Instructions Start Date End Date Status Pneumovax 23 0.5 mL, Route: IM, Drug 08/06/2013 08/07/2013 Completed Form: INJ, ONCE, Start date: 08/06/13 19:00:00, Stop date: 08/06/13 19:00:00(Same as: Pneumovax 23) Refrigerate ceftriaxone 2 gm, Route: IVPB, Drug 09/05/2013 09/06/2013 Discontinued form: PDR/INJ, [id number], Dosing Weight 72.2, kg, Start date: 09/05/13 [...] Molecular Diagnostic Laboratory within the [facility]. The Molecular Diagnostic Laboratory is [...] values reflect the clinical guidelines of the [place] [employer].6Interpretive Data: Adult reference range values reflect the clinical guidelines of the [place] [employer].HEMATOLOGY Most recent to oldest [Reference [...]
--- OUTSIDE RECORDS SUMMARY | 2019-01-24 22:04 | XMS REPORT | CCD ---
:[address] [facility] Care Team Providers Name Role [...] 11/13/2006 Resolved Weak Active 1B MRSA - [id number] added by Discern Expert. Medications Medication Instructions Start Date End Date Status Pneumovax 23 0.5 mL, Route: IM, Drug 08/06/2013 08/07/2013 Completed Form: INJ, ONCE, Start date: 08/06/13 19:00:00, Stop date: 08/06/13 19:00:00(Same as: Pneumovax 23) Refrigerate ceftriaxone 2 gm, Route: IVPB, Drug 09/05/2013 09/06/2013 Discontinued form: PDR/INJ, [id number], Dosing Weight 72.2, kg, Start date: 09/05/13 [...] Molecular Diagnostic Laboratory within the [facility]. The Molecular Diagnostic Laboratory is authorized [...] values reflect the clinical guidelines of the [place] [employer].6Interpretive Data: Adult reference range values reflect the clinical guidelines of the [place] [employer].HEMATOLOGY Most recent to oldest [Reference [...]
--- OUTSIDE RECORDS SUMMARY | 2019-01-24 22:05 | XMS REPORT | Continuity of Care Document ---
:1945 Author Organization [facility] Care Team Providers Name Role Phone MD Lida, Ang Unavailable Unavailable Insurance Providers Payer name Policy type / Policy ID Covered libertarian ID Policy Almazan Coverage type MEDICARE PRIM [...] Location Date Lab Report Ang Hilton MD [facility] [place] Jan 03, 2014 Allergies, Adverse Reactions, Alerts [...]
--- OUTSIDE RECORDS SUMMARY | 2019-01-24 22:06 | XMS REPORT ---
:1945 Author Organization [facility] Address [address] [place] [id number] Care Team Providers Name Role Phone LETY RANKIN Unavailable Unavailable JERMAIN PEREZ Unavailable Unavailable Problems This patient has no known problems. Allergies, Adverse Reactions, Alerts This patient has no known allergies or adverse reactions. Medications This patient has no known medications. Results Test Description Test Time Test Comments Text Results Atomic Results Result Comments B-TYPE NATRIURETIC FACTOR (BNP) 2017-08-25 13:03:00 Test Item Value Reference Range Comments B-TYPE NATRIURETIC PEPTIDE (BEAKER) (test ioze=301) 75 pg/mL 0-100 [id number] 12:32:00 Test Item Value Reference Range Comments MAGNESIUM (BEAKER) (test ehyy=944) 2.0 mg/dL 1.6-2.6 BASIC METABOLIC [id number] 12:32:00 Test Item Value Reference Range Comments SODIUM (BEAKER) (test 140 meq/L 136-145 daam=253) POTASSIUM (BEAKER) (test 5.2 meq/L 3.5-5.1 uhwn=072) CHLORIDE (BEAKER) (test 103 meq/L 98-107 kbpv=762) CO2 (BEAKER) (test 29 meq/L 22-29 fjtm=701) BLOOD UREA NITROGEN 33 mg/dL 7-21 (BEAKER) (test jflm=183) CREATININE (BEAKER) (test 1.44 mg/dL 0.57-1.25 rldf=335) GLUCOSE RANDOM (BEAKER) 82 mg/dL 70-105 (test wvjv=516) CALCIUM (BEAKER) (test 9.6 mg/dL 8.4-10.2 eigd=513) EGFR (BEAKER) (test 36 mL/min/1.73 sq m ESTIMATED GFR IS NOT crfv=0693) ACCURATE CREATININE CLEARANCE IN PREDICTING GLOMERULAR FILTRATION RATE. ESTIMATED GFR IS NOT APPLICABLE FOR DIALYSIS PATIENTS. POCT-GLUCOSE [id number] 11:34:00 Test Item Value Reference Range Comments POC-GLUCOSE METER (BEAKER) 123 mg/dL 70-110 TESTED AT [address] (test wlii=7597) [facility] [address] POCT-GLUCOSE [id number] 08:04:00 Test Item Value Reference Range Comments POC-GLUCOSE METER (BEAKER) 96 mg/dL 70-110 TESTED AT [address] (test dyyj=0921) [facility] [address] POCT-GLUCOSE [id number] 21:46:00 Test Item Value Reference Range Comments POC-GLUCOSE METER (BEAKER) 155 mg/dL 70-110 TESTED AT [address] (test rntw=9561) [facility] [address] POCT-GLUCOSE [id number] 18:07:00 Test Item Value Reference Range Comments POC-GLUCOSE METER (BEAKER) 189 mg/dL 70-110 TESTED AT [address] (test ajfx=2220) [facility] [address] POCT-GLUCOSE [id number] 12:04:00 Test Item Value Reference Range Comments POC-GLUCOSE METER (BEAKER) 103 mg/dL 70-110 TESTED AT [address] (test dqyj=7920) [facility] [address] POCT-GLUCOSE [id number] 07:38:00 Test Item Value Reference Range Comments POC-GLUCOSE METER (BEAKER) 77 mg/dL 70-110 TESTED AT [address] (test xctb=0986) [facility] [address] POCT-GLUCOSE [id number] 21:42:00 Test Item Value Reference Range Comments POC-GLUCOSE METER (BEAKER) 127 mg/dL 70-110 TESTED AT [address] (test ixnb=6721) [facility] [address] POCT-GLUCOSE [id number] 21:42:00 Test Item Value Reference Range Comments POC-GLUCOSE METER (BEAKER) 204 mg/dL 70-110 TESTED AT [address] (test shxn=5643) [facility] [address] POCT-GLUCOSE [id number] 13:48:00 Test Item Value Reference Range Comments POC-GLUCOSE METER (BEAKER) 160 mg/dL 70-110 TESTED AT [address] (test xpml=0671) [place] [address] POCT-GLUCOSE [id number] 08:19:00 Test Item Value Reference Range Comments POC-GLUCOSE METER (BEAKER) 89 mg/dL 70-110 TESTED AT [address] (test xkfl=8034) [place] [address] MISCELLANEOUS LAB [id number] 05:59:00 Test Item Value Reference Range Comments SCAN RESULT (test ddbw=[id number]) Result comments: Coagulase Negative Staphylococcus Species (CoNS) [...] required. This sample was tested at the [facility] using the [employer] Blood Culture ID Panel. This test is FDA cleared for in vitro diagnostic use and has been verified and approved by the [facility] laboratory for clinical use. Reference Range: Not DetectedPOCT-GLUCOSE [id number] 22:00:00 Test Item Value Reference Range Comments POC-GLUCOSE METER (BEAKER) 121 mg/dL 70-110 TESTED AT [address] (test jfhq=7651) [place] [address] POCT-GLUCOSE [id number] 16:48:00 Test Item Value Reference Range Comments POC-GLUCOSE METER (BEAKER) 159 mg/dL 70-110 TESTED AT [address] (test avta=0688) [place] [address] POCT-GLUCOSE [id number] 12:22:00 Test Item Value Reference Range Comments POC-GLUCOSE METER (BEAKER) 105 mg/dL 70-110 TESTED AT [address] (test cnrd=6242) [place] [address] BLOOD [id number] 11:00:00 Test Item Value Reference Range Comments CULTURE (BEAKER) (test olej=9562) No growth in 5 days POCT-GLUCOSE [id number] 08:36:00 Test Item Value Reference Range Comments POC-GLUCOSE METER (BEAKER) 76 mg/dL 70-110 TESTED AT [address] (test cdfz=3018) [place] [address] POCT-GLUCOSE [id number] 23:35:00 Test Item Value Reference Range Comments POC-GLUCOSE METER (BEAKER) 139 mg/dL 70-110 TESTED AT [address] (test xody=6169) [facility] [address] POCT-GLUCOSE [id number] 16:02:00 Test Item Value Reference Range Comments POC-GLUCOSE METER (BEAKER) 140 mg/dL 70-110 TESTED AT [address] (test gjjd=2677) [facility] [address] POCT-GLUCOSE [id number] 12:34:00 Test Item Value Reference Range Comments POC-GLUCOSE METER (BEAKER) 136 mg/dL 70-110 TESTED AT [address] (test hrwv=7964) [facility] [address] POCT-GLUCOSE [id number] 08:28:00 Test Item Value Reference Range Comments POC-GLUCOSE METER (BEAKER) 90 mg/dL 70-110 TESTED AT [address] (test ivlu=8267) [facility] [address] POCT-GLUCOSE [id number] 21:17:00 Test Item Value Reference Range Comments POC-GLUCOSE METER (BEAKER) 158 mg/dL 70-110 TESTED AT [address] (test ibac=2562) [facility] [address] POCT-GLUCOSE [id number] 16:38:00 Test Item Value Reference Range Comments POC-GLUCOSE METER (BEAKER) 137 mg/dL 70-110 TESTED AT [address] (test hqwy=4653) [facility] [address] POCT-GLUCOSE [id number] 12:15:00 Test Item Value Reference Range Comments POC-GLUCOSE METER (BEAKER) 104 mg/dL 70-110 TESTED AT [address] (test rjjp=1521) [place] [address] POCT-GLUCOSE [id number] 08:32:00 Test Item Value Reference Range Comments POC-GLUCOSE METER (BEAKER) 88 mg/dL 70-110 TESTED AT [address] (test cjpo=6776) [facility] [address] COMPREHENSIVE METABOLIC [id number] 07:49:00 Test Item Value Reference Range Comments TOTAL PROTEIN (BEAKER) 5.6 gm/dL 6.0-8.3 Specimen slightly (test nbxq=921) hemolyzed ALBUMIN (BEAKER) (test 3.1 g/dL 3.5-5.0 Specimen slightly hqvx=0339) hemolyzed ALKALINE PHOSPHATASE 79 U/L 40-150 (BEAKER) (test vrzd=300) BILIRUBIN TOTAL (BEAKER) 0.3 mg/dL 0.2-1.2 Specimen slightly (test wqem=830) hemolyzed SODIUM (BEAKER) (test 139 meq/L 136-145 acqn=166) POTASSIUM (BEAKER) (test 3.7 meq/L 3.5-5.1 Specimen slightly rahe=183) hemolyzed CHLORIDE (BEAKER) (test 105 meq/L 98-107 vxei=205) CO2 (BEAKER) (test 26 meq/L 22-29 nkou=844) BLOOD UREA NITROGEN 31 mg/dL 7-21 (BEAKER) (test vywi=756) CREATININE (BEAKER) (test 1.36 mg/dL 0.57-1.25 Specimen slightly svjs=525) hemolyzed GLUCOSE RANDOM (BEAKER) 77 mg/dL 70-105 (test fsaj=149) CALCIUM (BEAKER) (test 8.9 mg/dL 8.4-10.2 vqks=740) AST (SGOT) (BEAKER) (test 15 U/L 5-34 Specimen slightly fgup=175) hemolyzed ALT (SGPT) (BEAKER) (test 12 U/L 6-55 Specimen slightly pcya=346) hemolyzed EGFR (BEAKER) (test 38 mL/min/1.73 sq m ESTIMATED GFR IS NOT anit=6938) ACCURATE CREATININE CLEARANCE IN PREDICTING GLOMERULAR FILTRATION RATE. ESTIMATED GFR IS NOT APPLICABLE FOR DIALYSIS PATIENTS. BLOOD [id number] 07:45:00 Test Item Value Reference Range Comments CULTURE (BEAKER) From Aerobic And Anaerobic (test ldio=5647) Bottles Coagulase negative Staphylococcus GRAM STAIN RESULT From aerobic and (BEAKER) (test anaerobic bottles: segj=6362) gram positive cocci in clusters Coagulase Negative [...] required. This sample was tested at the [facility] using the [employer] Blood Culture ID Panel.This test is FDA cleared for in vitro diagnostic use and has been verified and approved by [facility] for [facility] use. Reference Range: Not DetectedPOCT-GLUCOSE [id number] 00:48:00 Test Item Value Reference Range Comments POC-GLUCOSE METER (BEAKER) 94 mg/dL 70-110 TESTED AT [address] (test jlfq=4774) [place] [address] POCT-GLUCOSE [id number] 21:05:00 Test Item Value Reference Range Comments POC-GLUCOSE METER (BEAKER) 143 mg/dL 70-110 TESTED AT [address] (test kxub=5374) [place] [address] POCT-GLUCOSE [id number] 18:41:00 Test Item Value Reference Range Comments POC-GLUCOSE METER (BEAKER) 198 mg/dL 70-110 TESTED AT [address] (test txvo=2238) [place] [address] POCT-GLUCOSE [id number] 12:04:00 Test Item Value Reference Range Comments POC-GLUCOSE METER (BEAKER) 113 mg/dL 70-110 TESTED AT [address] (test nhjj=4196) [place] [address] URINE [id number] 10:50:00 Test Item Value Reference Range Comments CULTURE (BEAKER) (test siig=1937) No growth HEMOGLOBIN [id number] 09:08:00 Test Item Value Reference Range Comments HEMOGLOBIN A1C (BEAKER) (test mvvt=387) 4.9 % 4.3-6.1 POCT-GLUCOSE [id number] 08:17:00 Test Item Value Reference Range Comments POC-GLUCOSE METER (BEAKER) 76 mg/dL 70-110 TESTED AT [address] (test viwr=2778) [place] [address] COMPREHENSIVE METABOLIC [id number] 07:08:00 Test Item Value Reference Range Comments TOTAL PROTEIN (BEAKER) 5.9 gm/dL 6.0-8.3 (test absl=075) ALBUMIN (BEAKER) (test 3.3 g/dL 3.5-5.0 rcaa=1687) ALKALINE PHOSPHATASE 89 U/L 40-150 (BEAKER) (test moas=659) BILIRUBIN TOTAL (BEAKER) 0.3 mg/dL 0.2-1.2 (test kozw=718) SODIUM (BEAKER) (test 140 meq/L 136-145 lwlw=551) POTASSIUM (BEAKER) (test 3.5 meq/L 3.5-5.1 muwc=508) CHLORIDE (BEAKER) (test 102 meq/L 98-107 acro=917) CO2 (BEAKER) (test 31 meq/L 22-29 wmdq=870) BLOOD UREA NITROGEN 29 mg/dL 7-21 (BEAKER) (test styb=988) CREATININE (BEAKER) (test 1.34 mg/dL 0.57-1.25 yayp=499) GLUCOSE RANDOM (BEAKER) 91 mg/dL 70-105 (test lbdu=707) CALCIUM (BEAKER) (test 9.4 mg/dL 8.4-10.2 imnz=822) AST (SGOT) (BEAKER) (test 14 U/L 5-34 shuj=142) ALT (SGPT) (BEAKER) (test 10 U/L 6-55 lztt=803) EGFR (BEAKER) (test 39 mL/min/1.73 sq m ESTIMATED GFR IS NOT uxzu=8493) ACCURATE CREATININE CLEARANCE IN PREDICTING GLOMERULAR FILTRATION RATE. ESTIMATED GFR IS NOT APPLICABLE FOR DIALYSIS PATIENTS. CBC W/PLT COUNT & AUTO [id number] 06:55:00 Test Item Value Reference Range Comments WHITE BLOOD CELL COUNT (BEAKER) (test jsfv=228) 5.7 K/ L 3.5-10.5 RED BLOOD CELL COUNT (BEAKER) (test rjed=982) 3.25 M/ L 3.93-5.22 HEMOGLOBIN (BEAKER) (test ddaz=012) 9.7 GM/DL 11.2-15.7 HEMATOCRIT (BEAKER) (test cvps=209) 30.3 % 34.1-44.9 MEAN CORPUSCULAR VOLUME (BEAKER) (test zugu=772) 93.2 fL 79.4-94.8 MEAN CORPUSCULAR HEMOGLOBIN (BEAKER) (test 29.8 pg 25.6-32.2 yrnr=428) MEAN CORPUSCULAR HEMOGLOBIN CONC (BEAKER) (test 32.0 GM/DL 32.2-35.5 ttva=856) RED CELL DISTRIBUTION WIDTH (BEAKER) (test 13.5 % 11.7-14.4 pxft=547) PLATELET COUNT (BEAKER) (test kugp=764) 137 K/CU MM 150-450 MEAN PLATELET VOLUME (BEAKER) (test dzqn=655) 10.6 fL 9.4-12.3 NUCLEATED RED BLOOD CELLS (BEAKER) (test 0 /100 WBC 0-0 qytp=641) NEUTROPHILS RELATIVE PERCENT (BEAKER) (test 56 % enhr=405) LYMPHOCYTES RELATIVE PERCENT (BEAKER) (test 29 % aclb=625) MONOCYTES RELATIVE PERCENT (BEAKER) (test 15 % dvsu=105) EOSINOPHILS RELATIVE PERCENT (BEAKER) (test 0 % sebh=223) BASOPHILS RELATIVE PERCENT (BEAKER) (test 0 % gdit=707) NEUTROPHILS ABSOLUTE COUNT (BEAKER) (test 3.21 K/ L 1.56-6.13 pzle=943) LYMPHOCYTES ABSOLUTE COUNT (BEAKER) (test 1.66 K/ L 1.18-3.74 bwkc=744) MONOCYTES ABSOLUTE COUNT (BEAKER) (test 0.83 K/ L 0.24-0.36 lwty=719) EOSINOPHILS ABSOLUTE COUNT (BEAKER) (test 0.00 K/ L 0.04-0.36 dnoe=030) BASOPHILS ABSOLUTE COUNT (BEAKER) (test 0.01 K/ L 0.01-0.08 txna=519) IMMATURE GRANULOCYTES-RELATIVE PERCENT (BEAKER) 0 % 0-1 (test mply=0923) POCT-GLUCOSE [id number] 17:11:00 Test Item Value Reference Range Comments POC-GLUCOSE METER (BEAKER) 150 mg/dL 70-110 TESTED AT [address] (test embp=9178) [facility] [address] POCT-GLUCOSE [id number] 07:55:00 Test Item Value Reference Range Comments POC-GLUCOSE METER (BEAKER) 91 mg/dL 70-110 TESTED AT [address] (test qskh=3827) [place] [address] TROPONIN [id number] 06:37:00 Test Item Value Reference Range Comments TROPONIN I (BEAKER) (test hyrm=017) 0.03 ng/mL 0.00-0.03 Troponin I (TnI) levels [...] acute neurological disease, and persistent tachyarrhythmia.COMPREHENSIVE METABOLIC [id number] 02:37:00 Test Item Value Reference Range Comments TOTAL PROTEIN (BEAKER) 6.2 gm/dL 6.0-8.3 (test wgpk=348) ALBUMIN (BEAKER) (test 3.4 g/dL 3.5-5.0 gwkd=9174) ALKALINE PHOSPHATASE 104 U/L 40-150 (BEAKER) (test mztq=855) BILIRUBIN TOTAL (BEAKER) 0.3 mg/dL 0.2-1.2 (test ssmx=718) SODIUM (BEAKER) (test 140 meq/L 136-145 mcng=154) POTASSIUM (BEAKER) (test 4.1 meq/L 3.5-5.1 hmcg=895) CHLORIDE (BEAKER) (test 99 meq/L 98-107 dpwx=574) CO2 (BEAKER) (test 33 meq/L 22-29 hwpn=951) BLOOD UREA NITROGEN 24 mg/dL 7-21 (BEAKER) (test vrqm=074) CREATININE (BEAKER) (test 1.24 mg/dL 0.57-1.25 xfcn=718) GLUCOSE RANDOM (BEAKER) 113 mg/dL 70-105 (test xiwj=512) CALCIUM (BEAKER) (test 9.7 mg/dL 8.4-10.2 eayy=737) AST (SGOT) (BEAKER) (test 16 U/L 5-34 bwly=707) ALT (SGPT) (BEAKER) (test 10 U/L 6-55 lhzf=815) EGFR (BEAKER) (test 42 mL/min/1.73 sq m ESTIMATED GFR IS NOT ehml=3258) ACCURATE CREATININE CLEARANCE IN PREDICTING GLOMERULAR FILTRATION RATE. ESTIMATED GFR IS NOT APPLICABLE FOR DIALYSIS PATIENTS. CBC W/PLT COUNT & AUTO [id number] 02:21:00 Test Item Value Reference Range Comments WHITE BLOOD CELL COUNT (BEAKER) (test renm=454) 7.0 K/ L 3.5-10.5 RED BLOOD CELL COUNT (BEAKER) (test wnwy=631) 3.22 M/ L 3.93-5.22 HEMOGLOBIN (BEAKER) (test oero=005) 9.6 GM/DL 11.2-15.7 HEMATOCRIT (BEAKER) (test qxcw=454) 30.5 % 34.1-44.9 MEAN CORPUSCULAR VOLUME (BEAKER) (test pugt=993) 94.7 fL 79.4-94.8 MEAN CORPUSCULAR HEMOGLOBIN (BEAKER) (test 29.8 pg 25.6-32.2 lrhz=437) MEAN CORPUSCULAR HEMOGLOBIN CONC (BEAKER) (test 31.5 GM/DL 32.2-35.5 heyr=482) RED CELL DISTRIBUTION WIDTH (BEAKER) (test 12.9 % 11.7-14.4 fajv=796) PLATELET COUNT (BEAKER) (test vckg=285) 129 K/CU MM 150-450 MEAN PLATELET VOLUME (BEAKER) (test uawo=921) 9.8 fL 9.4-12.3 NUCLEATED RED BLOOD CELLS (BEAKER) (test 0 /100 WBC 0-0 girl=938) NEUTROPHILS RELATIVE PERCENT (BEAKER) (test 68 % grtv=118) LYMPHOCYTES RELATIVE PERCENT (BEAKER) (test 16 % batm=708) MONOCYTES RELATIVE PERCENT (BEAKER) (test 16 % kzww=243) EOSINOPHILS RELATIVE PERCENT (BEAKER) (test 0 % rtdc=374) BASOPHILS RELATIVE PERCENT (BEAKER) (test 0 % fuhw=015) NEUTROPHILS ABSOLUTE COUNT (BEAKER) (test 4.79 K/ L 1.56-6.13 hack=174) LYMPHOCYTES ABSOLUTE COUNT (BEAKER) (test 1.10 K/ L 1.18-3.74 shdx=346) MONOCYTES ABSOLUTE COUNT (BEAKER) (test 1.10 K/ L 0.24-0.36 obbd=172) EOSINOPHILS ABSOLUTE COUNT (BEAKER) (test 0.00 K/ L 0.04-0.36 xfdt=867) BASOPHILS ABSOLUTE COUNT (BEAKER) (test 0.00 K/ L 0.01-0.08 sfxm=446) IMMATURE GRANULOCYTES-RELATIVE PERCENT (BEAKER) 0 % 0-1 (test gyjz=4688) POCT-GLUCOSE [id number] 21:07:00 Test Item Value Reference Range Comments POC-GLUCOSE METER (BEAKER) 137 mg/dL 70-110 TESTED AT [facility] [address] (test qciq=4137) [facility] [address] MR, BRAIN, WITHOUT [id number] 19:45:00Reason for exam:->Stroke evaluationFINAL REPORT MRI Brain [...] MDReport Verified Date/Time: 07/27/2017 19:45:32 Reading Location: [facility] Radiology Reading Room CREATINE KINASE (CK), TOTAL AND [id number] 18:14: 00 Test Item Value Reference Range Comments CREATINE KINASE TOTAL (BEAKER) (test nyzi=204) 134 U/L 29-200 CREATINE KINASE-MB (BEAKER) (test znvt=852) 1.6 ng/mL 0.0-6.6 CREATINE KINASE-MB INDEX (BEAKER) (test uisb=876) 1.2 % CK-MB Reference Range:<6.7 Normal6.7-10.0 Borderline>10.0 AbnormalBASIC METABOLIC [id number] 18:05:00 Test Item Value Reference Range Comments SODIUM (BEAKER) (test 140 meq/L 136-145 irng=733) POTASSIUM (BEAKER) (test 4.4 meq/L 3.5-5.1 ospe=557) CHLORIDE (BEAKER) (test 98 meq/L 98-107 wxzc=035) CO2 (BEAKER) (test 31 meq/L 22-29 opar=026) BLOOD UREA NITROGEN 23 mg/dL 7-21 (BEAKER) (test dovj=741) CREATININE (BEAKER) (test 1.30 mg/dL 0.57-1.25 stdk=678) GLUCOSE RANDOM (BEAKER) 147 mg/dL 70-105 (test xngm=878) CALCIUM (BEAKER) (test 10.3 mg/dL 8.4-10.2 awbx=926) EGFR (BEAKER) (test 40 mL/min/1.73 sq m ESTIMATED GFR IS NOT ybxc=7516) ACCURATE CREATININE CLEARANCE IN PREDICTING GLOMERULAR FILTRATION RATE. ESTIMATED GFR IS NOT APPLICABLE FOR DIALYSIS PATIENTS. POCT-GLUCOSE [id number] 17:25:00 Test Item Value Reference Range Comments POC-GLUCOSE METER (BEAKER) 179 mg/dL 70-110 TESTED AT [facility] [address] (test ezzn=0900) [facility] [address] INFLUENZA A H1N1 [id number] 14:46:00 Test Item Value Reference Range Comments INFLUENZA A RNA (BEAKER) (test Not Detected Not Detected, Inconclusive fmrx=4829) NOVEL H1N1 RNA (BEAKER) (test Not Detected Not Detected, Inconclusive rhvm=7320) These assays were performed by real-time RT-PCR (starter cup powder mixer-PCR) utilizing fluorogenic hydrolysis probe technology for the detection of human Influenza A viruses and the differential detection of novel H1N1 Influenza virus in respiratory specimens. The test is composed of (1) an RNA extraction from patient specimen, and (2) starter cup powder mixer-PCR amplification and detection with human Influenza A and novel O4G2-zdvkwduz primers and probes. A well-conserved region of [...] and its performance characteristics determined by the [facility] Pathology Department, Section of Molecular Pathology. It has not been cleared or approved by the U.S. Food and Drug Administration (FDA). SinceFDA approval is not required for clinical use of the test, validation was done as required by The Clinical Laboratory Amendments of 1988.These assays were performed by real-time RT-PCR (starter cup powder mixer-PCR) utilizing fluorogenic hydrolysis probe technology for the detection of human Influenza A viruses and the differential detection of novel H1N1 Influenza virus in respiratory specimens. The test is composed of (1) an RNA extraction from patient specimen, and (2) starter cup powder mixer-PCR amplification and detection with human Influenza A and novel G9I6-csydqwee primers and probes. A well-conserved region of [...] and its performance characteristics determined by the [facility] Pathology Department, Section of Molecular Pathology. It has not been cleared or approved by the U.S. Food and Drug Administration ( FDA). Since FDA approval is not required for clinical use of the test, validation was done as required by The Clinical Laboratory Amendments of 1988.POCT-GLUCOSE [id number] 12:28:00 Test Item Value Reference Range Comments POC-GLUCOSE METER ([employer]) 92 mg/dL 70-110 TESTED AT [facility] [address] (test iqkf=3665) [facility] [address] CREATINE KINASE (CK), TOTAL AND [id number] 11:07:00 Test Item Value Reference Range Comments CREATINE KINASE TOTAL (BEAKER) (test kqtq=534) 133 U/L 29-200 CREATINE KINASE-MB (BEAKER) (test ojlr=596) 1.6 ng/mL 0.0-6.6 CREATINE KINASE-MB INDEX (BEAKER) (test jvjh=434) 1.2 % CK-MB Reference Range:<6.7 Normal6.7-10.0 Borderline>10.0 AbnormalTROPONIN [id number] 11:07:00 Test Item Value Reference Range Comments TROPONIN I (BEAKER) (test izeo=419) 0.02 ng/mL 0.00-0.03 Troponin I (TnI) levels [...] acidosis, acute neurological disease, and persistent tachyarrhythmia.POCT-GLUCOSE [id number] 11:02:00 Test Item Value Reference Range Comments POC-GLUCOSE METER (BEAKER) 106 mg/dL 70-110 TESTED AT [facility] [address] (test lpnc=3118) [facility] [address] BLOOD GAS, [id number] 08:28:00 Test Item Value Reference Range Comments PH ARTERIAL (BEAKER) (test hadt=703) 7.44 7.35-7.45 PCO2 ARTERIAL (BEAKER) (test mnkz=928) 56 mmHg 35-45 PO2 ARTERIAL (BEAKER) (test lvlh=546) 86 mmHg 80-90 O2 SATURATION ARTERIAL (BEAKER) (test viuj=788) 96.5 % 96.0-97.0 HCO3 ARTERIAL (BEAKER) (test nvyq=305) 36 mmol/L 21-29 BASE EXCESS ARTERIAL (BEAKER) (test ptpq=313) 10.6 mmol/L -2.0-3.0 PATIENT TEMPERATURE (BEAKER) (test qbal=8502) 37.2 C FIO2 (BEAKER) (test ucyt=0887) 40.0 % T4, [id number] 04:48:00 Test Item Value Reference Range Comments FREE T4 (BEAKER) (test ifre=859) 0.82 ng/dL 0.70-1.48 TSH/FREE T4 IF [id number] 03:54:00 Test Item Value Reference Range Comments THYROID STIMULATING HORMONE (BEAKER) (test 0.14 uIU/mL 0.35-4.94 bykj=278) RAPID INFLUENZA A&B [id number] 03:41:00 Test Item Value Reference Range Comments RAPID INFLUENZA A AG (BEAKER) (test Negative Negative, Inconclusive krty=1076) RAPID INFLUENZA B AG (BEAKER) (test Negative Negative, Inconclusive sdxh=3396) LACTIC ACID, VENOUS, WHOLE [id number] 03:40:00 Test Item Value Reference Range Comments LACTATE BLOOD VENOUS (2) (BEAKER) (test 0.5 mmol/L 0.5-2.2 wuri=7735) Effective 03/16/2016: Units/Reference Range ChangeNew: 0.5-2.2 mmol/L Previous: 5 -20 mg/dLB-TYPE NATRIURETIC FACTOR (BNP)2017-07-27 03:38:00 Test Item Value Reference Range Comments B-TYPE NATRIURETIC PEPTIDE (BEAKER) (test 330 pg/mL 0-100 cwih=116) [id number] 03:31:00 Test Item Value Reference Range Comments MAGNESIUM (BEAKER) (test uhhy=245) 1.9 mg/dL 1.6-2.6 BASIC METABOLIC [id number] 03:31:00 Test Item Value Reference Range Comments SODIUM (BEAKER) (test 143 meq/L 136-145 mnmt=176) POTASSIUM (BEAKER) (test 4.9 meq/L 3.5-5.1 kndt=225) CHLORIDE (BEAKER) (test 101 meq/L 98-107 nmsz=308) CO2 (BEAKER) (test 35 meq/L 22-29 jzao=801) BLOOD UREA NITROGEN 22 mg/dL 7-21 (BEAKER) (test gopa=149) CREATININE (BEAKER) (test 1.19 mg/dL 0.57-1.25 zhfz=066) GLUCOSE RANDOM (BEAKER) 146 mg/dL 70-105 (test ajtm=205) CALCIUM (BEAKER) (test 9.9 mg/dL 8.4-10.2 xvac=902) EGFR (BEAKER) (test 44 mL/min/1.73 sq m ESTIMATED GFR IS NOT xwxv=8176) ACCURATE CREATININE CLEARANCE IN PREDICTING GLOMERULAR FILTRATION RATE. ESTIMATED GFR IS NOT APPLICABLE FOR DIALYSIS PATIENTS. PROTHROMBIN [id number] 03:31:00 Test Item Value Reference Range Comments PROTIME (BEAKER) (test dweh=266) 14.1 seconds 11.7-14.7 INR (BEAKER) (test tpsr=651) 1.1 <=5.9 RECOMMENDED COUMADIN/WARFARIN INR THERAPY RANGESSTANDARD DOSE: 2.0 - 3.0 Includes: PROPHYLAXIS forvenous thrombosis, systemic embolization; TREATMENT for venous thrombosis and/or pulmonary embolus.HIGH RISK: Target INR is 2.5-3.5 for patients with mechanical heart valves.CBC W/PLT COUNT & AUTO [id number] 03:21:00 Test Item Value Reference Range Comments WHITE BLOOD CELL COUNT (BEAKER) (test suuw=614) 8.6 K/ L 3.5-10.5 RED BLOOD CELL COUNT (BEAKER) (test perb=259) 3.37 M/ L 3.93-5.22 HEMOGLOBIN (BEAKER) (test omah=521) 10.0 GM/DL 11.2-15.7 HEMATOCRIT (BEAKER) (test bqlq=486) 33.7 % 34.1-44.9 MEAN CORPUSCULAR VOLUME (BEAKER) (test rdoz=122) 100.0 fL 79.4-94.8 MEAN CORPUSCULAR HEMOGLOBIN (BEAKER) (test 29.7 pg 25.6-32.2 bino=601) MEAN CORPUSCULAR HEMOGLOBIN CONC (BEAKER) (test 29.7 GM/DL 32.2-35.5 vuil=100) RED CELL DISTRIBUTION WIDTH (BEAKER) (test 12.7 % 11.7-14.4 zwah=596) PLATELET COUNT (BEAKER) (test ohwf=449) 130 K/CU MM 150-450 MEAN PLATELET VOLUME (BEAKER) (test serj=751) 9.8 fL 9.4-12.3 NUCLEATED RED BLOOD CELLS (BEAKER) (test 0 /100 WBC 0-0 djnj=355) NEUTROPHILS RELATIVE PERCENT (BEAKER) (test 92 % sxhe=948) LYMPHOCYTES RELATIVE PERCENT (BEAKER) (test 6 % fgpb=623) MONOCYTES RELATIVE PERCENT (BEAKER) (test 1 % rpsg=855) EOSINOPHILS RELATIVE PERCENT (BEAKER) (test 0 % dwrs=813) BASOPHILS RELATIVE PERCENT (BEAKER) (test 0 % xave=891) NEUTROPHILS ABSOLUTE COUNT (BEAKER) (test 7.97 K/ L 1.56-6.13 udez=807) LYMPHOCYTES ABSOLUTE COUNT (BEAKER) (test 0.49 K/ L 1.18-3.74 znsj=731) MONOCYTES ABSOLUTE COUNT (BEAKER) (test 0.09 K/ L 0.24-0.36 qkmf=680) EOSINOPHILS ABSOLUTE COUNT (BEAKER) (test 0.00 K/ L 0.04-0.36 ssmk=956) BASOPHILS ABSOLUTE COUNT (BEAKER) (test 0.01 K/ L 0.01-0.08 cgnj=587) IMMATURE GRANULOCYTES-RELATIVE PERCENT (BEAKER) 1 % 0-1 (test gfss=7536) BLOOD GAS, [id number] 02:57:00 Test Item Value Reference Range Comments PH ARTERIAL (BEAKER) (test mzky=067) 7.28 7.35-7.45 PCO2 ARTERIAL (BEAKER) (test hacd=877) 83 mmHg 35-45 PO2 ARTERIAL (BEAKER) (test jlry=573) 59 mmHg 80-90 O2 SATURATION ARTERIAL (BEAKER) (test axdv=834) 86.1 % 96.0-97.0 HCO3 ARTERIAL (BEAKER) (test wznw=183) 38 mmol/L 21-29 BASE EXCESS ARTERIAL (BEAKER) (test cjkn=397) 8.9 mmol/L -2.0-3.0 PATIENT TEMPERATURE (BEAKER) (test rsuw=1054) 36.9 C FIO2 (BEAKER) (test hzta=6588) 40.0 % POCT-GLUCOSE [id number] 02:51:00 Test Item Value Reference Range Comments POC-GLUCOSE METER (BEAKER) 130 mg/dL 70-110 TESTED AT [address] (test uiqn=2678) [facility] [id number] RAD, CHEST, 1 VIEW, NON [id number] 02:30:00Reason for exam:->SOBShould this be performed at the bedside?->YesFINAL REPORT RAD , CHEST, 1 VIEW, NON DEPT INDICATION: SOB COMPARISON: Chest x-ray from 1999 TECHNIQUE: Single frontal view of the chest. IMPRESSION:Right-sided MediPort terminates in the mid SVC.Cardiomediastinal silhouette within normal limits.No overt consolidative or congestive change.No acute osseous abnormality. Signed: Shashank Vazquez MDReport Verified Date/Time: 07/27/2017 02:30:16 Reading Location: [address] Ortho Consult Reading Room
[2019-01-24 22:54] LABS: Absolute Lymphocytes (CBC) 1.4 K/uL (0.7-4.9); Absolute Monocytes 0.6 K/uL (0.1-1.3); Absolute Neutrophil 3.7 K/uL (1.8-8.0); Basophils % 0.7 % (0-1.3); Eosinophils % 0.8 % (0-4.4); Hematocrit 31.9 % (36.0-45.0); Lymphocytes % 24.7 % (15.3-44.8); MPV 7.7 fL (7.6-11.3); Monocytes % 10.5 % (3.3-12.3); RBC Red Blood Cell Count 3.29 M/uL (3.86-4.86)
[2019-01-24] MEDS ORDERED: HYDROCODONE/APAP 5/325 MG TAB ONE (23:07)
[2019-01-24 23:31] LABS: ALT/SGPT 10 U/L (12-78); AST/SGOT 8 U/L (15-37); Alkaline Phosphatase 105 U/L (45-117); BUN Blood Urea Nitrogen 45 mg/dL (7-18); Bicarbonate 36 mmol/L (21-32); Bilirubin Direct < 0.1 mg/dL (0-0.2); Bilirubin Total 0.1 mg/dL (0.2-1.0); Glucose Level 114 mg/dL (74-106); Magnesium 2.6 mg/dL (1.8-2.4); NT PRO-BNP 443 pg/mL (<125); Potassium 5.5 mmol/L (3.5-5.1); Protein, Total 6.4 g/dL (6.4-8.2); Sodium Level 141 mmol/L (136-145); Troponin (Emerg Dept Use Only) < 0.02 ng/mL (0.0-0.045)
--- NOTE | 2019-01-25 01:53 | ER ---
Nurse's Notes [facility] Name: No Duran Age: 73 yrs Sex: Female : 1945 Arrival Date: 01/24/2019 Time: 21:43 Bed 4 Private MD: Diagnosis: Chest pain, unspecified Presentation: 01/24 21:40 Presenting complaint: Patient states: that she is having chest pain that radiates to fc her back that started at approx 2030. Was given Nitro S/L x 3 by residential prior to calling EMS. Transition of care: patient was not received from another setting of care. Onset of symptoms was January 24, 2019 at 20:30. Risk Assessment: Do you want to hurt yourself or someone else? Patient reports no desire to harm self or others. Initial Sepsis Screen: Does the patient meet any 2 criteria? HR > 90 bpm. Yes Does the patient have a suspected source of infection? No. Patient's initial sepsis screen is negative. Care prior to arrival: None. 21:40 Method Of Arrival: EMS: [facility] 21:40 Acuity: ISABELL 3 fc Historical: - Allergies: 22:09 Erythromycin; fc 22:09 Morphine; fc 22:09 Demerol; fc 22:09 Imitrex; fc 22:09 Nubain; fc 22:09 nalbuphine HCl; fc 22:09 diazepam; fc 22:09 Ondansetron HCl; fc 22:09 sulfamethoxazole-trimethoprim; fc 22:09 adhesive tape; fc 22:09 Silicone; fc - Home Meds: 22:09 Acidophilus Oral cap daily [Active]; Advair Diskus 500-50 mcg/dose Inhl dsdv 1 puff 2 fc times per day [Active]; bisacodyl 10 mg Rectal supp 1 suppository daily prn [Active]; Depakote 500 mg Oral TbEC 1 tab 2 times per day [Active]; Depakote ER 250 mg Oral Tb24 3 tabs nightly [Active]; duloxetine 30 mg oral cpDR 1 cap once daily [Active]; DuoNeb 0.5 mg-3 mg(2.5 mg base)/3 mL Inhl nebu 3 mL qid prn [Active]; furosemide 40 mg Oral tab 1 tab once daily [Active]; lisinopril 5 mg Oral tab 1 tab once daily [Active]; lorazepam 0.5 mg Oral tab 1 tab q2hrs prn [Active]; Arlington 5-325 mg Oral tab 1 tab q4hra pen [Active]; potassium chloride 20 mEq oral TbER 1 tab once daily [Active]; promethazine 25 mg Oral tab 1 tab q4hrs prn [Active]; quetiapine 400 mg Oral tab 1 tab nightly [Active]; ropinirole 1 mg Oral tab 1 tab nightly [Active]; Senexon 8.6 mg Oral tab 2 tabs daily prn [Active]; tiotropium bromide inhalation 1 cap once daily [Active]; valacyclovir 1 gram Oral tab 1 tab once daily [Active]; - PMHx: 22:09 Anemia; Anxiety; CHF; chronic kidney disease; Chronic pain; COPD; CVA; GERD; fc Hypertension; High Cholesterol; hypoxia; Depression; Back pain; restless leg; Myocardial infarction; Seizures; - PSHx: 22:09 left foot; Knee surgery; Hysterectomy; Cholecystectomy; back; left wrist and hand; fc Carpal Tunnel Repair; right rotator cuff; neck surg; head surg; - Immunization history:: Last tetanus immunization: up to date Flu vaccine is up to date. - Social history:: Smoking status: Patient/guardian denies using tobacco, the patient reports quitting approximately 17 years ago, Patient/guardian denies using alcohol, street drugs. - Ebola Screening: : Patient negative for fever greater than or equal to 101.5 degrees Fahrenheit, and additional compatible Ebola Virus Disease symptoms Patient denies exposure to infectious person Patient denies travel to an Ebola-affected area in the 21 days before illness onset. Screenin:40 Abuse screen: Denies threats or abuse. Nutritional screening: No deficits noted. Tuberculosis screening: No symptoms or risk factors identified. Fall Risk None identified. Assessment: 22:00 General: Appears in no apparent distress. Behavior is appropriate for age. Pain: lp1 Complains of pain in chest Pain radiates to back Pain currently is 8 out of 10 on a pain scale. Quality of pain is described as sharp, Pain began suddenly. Neuro: Level of Consciousness is awake, alert, obeys commands, Oriented to person, place, time, situation. Cardiovascular: Patient's skin is warm and dry. Respiratory: Respiratory effort is even, unlabored, Respiratory pattern is regular, Breath sounds are clear bilaterally. GI: Abdomen is non-distended. : No signs and/or symptoms were reported regarding the genitourinary system. EENT: No signs and/or symptoms were reported regarding the EENT system. Derm: Skin is intact, Skin is dry, Skin is pale. Musculoskeletal: Circulation, motion, and sensation intact. 22:50 Reassessment: Patient complaint of restless legs, pain to back that is chronic; 1 Provider notified. 01/25 00:00 Reassessment: Patient appears in no apparent distress at this time. Assisted patient to [address]; States relief of pain to back after medication administration. 01:00 Reassessment: Patient appears in no apparent distress at this time. Patient and/or lp1 family updated on plan of care and expected duration. Pain level reassessed. Patient resting, eyes closed, respirations unlabored. 02:07 Reassessment: Spoke with Nancy at [facility] for patient up for [facility] discharge; Will call back with ETA of transfer back to facility. 03:30 Reassessment: Patient appears in no apparent distress at this time. Patient and/or lp1 family updated on plan of care and expected duration. Pain level reassessed. Patient resting, eyes closed, respirations unlabored. 05:00 Reassessment: Patient appears in no apparent distress at this time. No changes from [facility] previously documented assessment. 05:59 Reassessment: Pending transfer back to [facility]. [facility] Vital Signs: 01/24 21:40 BP 116 / 66; Pulse 100; Resp 20; Temp 98.1(O); Pulse Ox 93% on 3 lpm NC; Weight 77.11 fc kg (R); Height 5 ft. 0 in. (152.40 cm) (R); Pain 9/10; 22:00 BP 116 / 68; Pulse 87; Resp 18; Pulse Ox 96% on 3 lpm NC; lp1 22:30 BP 117 / 69; Pulse 88; Resp 17; Pulse Ox 95% on 3 lpm NC; lp1 23:30 BP 139 / 63; Pulse 85; Resp 16; Pulse Ox 100% on 3 lpm NC; lp1 01/25 00:30 BP 124 / 70; Pulse 85; Resp 20; Pulse Ox 97% on 3 lpm NC; lp1 02:00 BP 110 / 44; Pulse 70; Resp 19; Pulse Ox 97% on 3 lpm NC; lp1 03:00 BP 124 / 54; Pulse 68; Resp 18; Pulse Ox 99% on 3 lpm NC; lp1 04:00 BP 136 / 60; Pulse 69; Resp 18; Pulse Ox 100% on 3 lpm NC; lp1 05:00 BP 126 / 45; Pulse 68; Resp 18; Pulse Ox 100% on 3 lpm NC; lp1 06:00 BP 134 / 48; Pulse 70; Resp 18; Pulse Ox 99% on 3 lpm NC; lp1 01/24 21:40 Body Mass Index 33.20 (77.11 kg, 152.40 cm) fc ED Course: 01/24 21:40 Arm band placed on Patient placed in an exam room, on a stretcher. fc 21:40 Patient has correct armband on for positive identification. Placed in gown. Bed in low fc position. Call light in reach. Side rails up X2. quality assurance monitor body on. Pulse ox on. NIBP on. 21:40 No provider procedures requiring assistance completed. fc 21:43 Patient arrived in ED. fc 21:52 Triage completed. fc 22:00 Oxygen administration via nasal cannula \T\ 2L/min. lp1 22:01 Mika Raygoza MD is Attending Physician. gs 22:18 X-ray completed. Portable x-ray completed in exam room. Patient tolerated procedure ml well. 22:20 XRAY Chest (1 view) In Process Unspecified. EDMS 22:20 Jojo Padgett, LATRICE is Primary Nurse. lp1 22:35 Accessed Port-a-Cath. using accessed w/ # 20 Hernandez needle, ,sterile technique, per [facility] hospital protocol. Clean \T\ dry. Dressing intact. Good blood return. Flushes easily. 01/25 05:58 IV discontinued, bleeding controlled, No redness/swelling at site. Pressure dressing lp1 applied. Administered Medications: 01/24 23:00 Drug: Arlington 5 mg-325 mg 1 tabs Route: PO; lp1 01/25 00:00 Follow up: Response: Pain is decreased lp1 05:58 Drug: HEParin Flush 500 units Route: IVP; Site: Port-a-cath; lp1 06:30 Follow up: Response: No adverse reaction lp1 Outcome: 01:53 Discharge ordered by . gs 06:01 Condition: stable lp1 06:37 Discharged to home via wheelchair, [employer] lp1 06:37 Discharge instructions given to patient, residential, Instructed on discharge instructions, follow up and referral plans. Demonstrated understanding of instructions, follow-up care. 06:39 Patient left the ED. lp1 Signatures: Dispatcher [employer] EDMS Michaelle Leon RN RN fc Lopez, Melissa ml Pena, Laura, RN RN lp1 Mika Raygoza MD MD Corrections: (The following items were deleted from the chart) 01/24 23:17 22:00 BP 116 / 68; Pulse 87bpm; Resp 18bpm; Pulse Ox 96% 2 lpm Nasal Cannula; lp1 lp1 23:17 22:30 BP 117 / 69; Pulse 88bpm; Resp 17bpm; Pulse Ox 95% 2 lpm Nasal Cannula; lp1 lp1
--- NOTE | 2019-01-25 01:53 | EDPHYS ---
Physician Documentation [facility] Name: No Duran Age: 73 yrs Sex: Female : 1945 Arrival Date: 01/24/2019 Time: 21:43 Bed 4 Private MD: ED Physician Mika Raygoza HPI: 01/25 02:02 This 73 yrs old Female presents to ER via EMS with complaints of Chest Pain. 02:02 The patient or guardian reports chest pain that is located primarily in the anterior gs chest wall. Onset: acutely, just prior to arrival. The pain radiates to back. Associated signs and symptoms: Pertinent negatives: diaphoresis, shortness of breath. The chest pain is described as a heaviness. Duration: The patient or guardian reports multiple episodes, that are intermittent, that wax and wane, with no pattern. Modifying factors: The symptoms are alleviated by nothing. the symptoms are aggravated by nothing. Severity of pain: At its worst the pain was moderate in the emergency department the pain has resolved. The patient has experienced similar episodes in the past, a few times. Historical: - Allergies: 01/24 22:09 Erythromycin; fc 22:09 Morphine; fc 22:09 Demerol; fc 22:09 Imitrex; fc 22:09 Nubain; fc 22:09 nalbuphine HCl; fc 22:09 diazepam; fc 22:09 Ondansetron HCl; fc 22:09 sulfamethoxazole-trimethoprim; fc 22:09 adhesive tape; fc 22:09 Silicone; fc - Home Meds: 22:09 Acidophilus Oral cap daily [Active]; Advair Diskus 500-50 mcg/dose Inhl dsdv 1 puff 2 fc times per day [Active]; bisacodyl 10 mg Rectal supp 1 suppository daily prn [Active]; Depakote 500 mg Oral TbEC 1 tab 2 times per day [Active]; Depakote ER 250 mg Oral Tb24 3 tabs nightly [Active]; duloxetine 30 mg oral cpDR 1 cap once daily [Active]; DuoNeb 0.5 mg-3 mg(2.5 mg base)/3 mL Inhl nebu 3 mL qid prn [Active]; furosemide 40 mg Oral tab 1 tab once daily [Active]; lisinopril 5 mg Oral tab 1 tab once daily [Active]; lorazepam 0.5 mg Oral tab 1 tab q2hrs prn [Active]; Sumpter 5-325 mg Oral tab 1 tab q4hra pen [Active]; potassium chloride 20 mEq oral TbER 1 tab once daily [Active]; promethazine 25 mg Oral tab 1 tab q4hrs prn [Active]; quetiapine 400 mg Oral tab 1 tab nightly [Active]; ropinirole 1 mg Oral tab 1 tab nightly [Active]; Senexon 8.6 mg Oral tab 2 tabs daily prn [Active]; tiotropium bromide inhalation 1 cap once daily [Active]; valacyclovir 1 gram Oral tab 1 tab once daily [Active]; - PMHx: 22:09 Anemia; Anxiety; CHF; chronic kidney disease; Chronic pain; COPD; CVA; GERD; fc Hypertension; High Cholesterol; hypoxia; Depression; Back pain; restless leg; Myocardial infarction; Seizures; - PSHx: 22:09 left foot; Knee surgery; Hysterectomy; Cholecystectomy; back; left wrist and hand; fc Carpal Tunnel Repair; right rotator cuff; neck surg; head surg; - Immunization history:: Last tetanus immunization: up to date Flu vaccine is up to date. - Social history:: Smoking status: Patient/guardian denies using tobacco, the patient reports quitting approximately 17 years ago, Patient/guardian denies using alcohol, street drugs. - Ebola Screening: : Patient negative for fever greater than or equal to 101.5 degrees Fahrenheit, and additional compatible Ebola Virus Disease symptoms Patient denies exposure to infectious person Patient denies travel to an Ebola-affected area in the 21 days before illness onset. ROS: 01/25 02:02 All other systems are negative. gs Exam: 02:02 Head/Face: Normocephalic, atraumatic. Eyes: Pupils equal round and reactive to light, gs extra-ocular motions intact. Lids and lashes normal. Conjunctiva and sclera are non-icteric and not injected. Cornea within normal limits. Periorbital areas with no swelling, redness, or edema. ENT: Nares patent. No nasal discharge, no septal abnormalities noted. Tympanic membranes are normal and external auditory canals are clear. Oropharynx with no redness, swelling, or masses, exudates, or evidence of obstruction, uvula midline. Mucous membranes moist. Neck: Trachea midline, no thyromegaly or masses palpated, and no cervical lymphadenopathy. Supple, full range of motion without nuchal rigidity, or vertebral point tenderness. No Meningismus. Chest/axilla: Normal chest wall appearance and motion. Nontender with no deformity. No lesions are appreciated. Cardiovascular: Regular rate and rhythm with a normal S1 and S2. No gallops, murmurs, or rubs. Normal PMI, no JVD. No pulse deficits. Respiratory: Lungs have equal breath sounds bilaterally, clear to auscultation and percussion. No rales, rhonchi or wheezes noted. No increased work of breathing, no retractions or nasal flaring. Abdomen/GI: Soft, non-tender, with normal bowel sounds. No distension or tympany. No guarding or rebound. No evidence of tenderness throughout. Back: No spinal tenderness. No costovertebral tenderness. Full range of motion. Skin: Warm, dry with normal turgor. Normal color with no rashes, no lesions, and no evidence of cellulitis. MS/ Extremity: Pulses equal, no cyanosis. Neurovascular intact. Full, normal range of motion. Neuro: Awake and alert, GCS 15, oriented to person, place, time, and situation. Cranial nerves II-XII grossly intact. Motor strength 5/5 in all extremities. Sensory grossly intact. Cerebellar exam normal. Normal gait. 02:02 Constitutional: The patient appears alert, awake. 02:02 ECG was reviewed by the Attending Physician. Vital Signs: 01/24 21:40 BP 116 / 66; Pulse 100; Resp 20; Temp 98.1(O); Pulse Ox 93% on 3 lpm NC; Weight 77.11 fc kg (R); Height 5 ft. 0 in. (152.40 cm) (R); Pain 9/10; 22:00 BP 116 / 68; Pulse 87; Resp 18; Pulse Ox 96% on 3 lpm NC; lp1 22:30 BP 117 / 69; Pulse 88; Resp 17; Pulse Ox 95% on 3 lpm NC; lp1 23:30 BP 139 / 63; Pulse 85; Resp 16; Pulse Ox 100% on 3 lpm NC; lp1 01/25 00:30 BP 124 / 70; Pulse 85; Resp 20; Pulse Ox 97% on 3 lpm NC; lp1 02:00 BP 110 / 44; Pulse 70; Resp 19; Pulse Ox 97% on 3 lpm NC; lp1 03:00 BP 124 / 54; Pulse 68; Resp 18; Pulse Ox 99% on 3 lpm NC; lp1 04:00 BP 136 / 60; Pulse 69; Resp 18; Pulse Ox 100% on 3 lpm NC; lp1 05:00 BP 126 / 45; Pulse 68; Resp 18; Pulse Ox 100% on 3 lpm NC; lp1 06:00 BP 134 / 48; Pulse 70; Resp 18; Pulse Ox 99% on 3 lpm NC; lp1 01/24 21:40 Body Mass Index 33.20 (77.11 kg, 152.40 cm) fc MDM: 01/24 22:06 Patient medically screened. 01/25 01:52 Data reviewed: vital signs, nurses notes. 02:02 Differential diagnosis: acute myocardial infarction, coronary artery disease chest wall gs pain. Counseling: I had a detailed discussion with the patient and/or guardian regarding: the historical points, exam findings, and any diagnostic results supporting the discharge/admit diagnosis, the need for outpatient follow up, a event management consultant. Response to treatment: the patient's symptoms have resolved after treatment, the patient's pain is gone, the patient's condition has returned to base line. 01/24 22:07 Order name: Basic Metabolic Panel; Complete Time: 23:44 01/24 22:07 Order name: CBC with Diff; Complete Time: 23:44 01/24 22:07 Order name: LFT's; Complete Time: 23:44 01/24 22:07 Order name: Magnesium; Complete Time: 23:44 01/24 22:07 Order name: NT PRO-BNP; Complete Time: 23:44 01/24 22:07 Order name: PT-INR; Complete Time: 23:44 01/24 22:07 Order name: Troponin (emerg Dept Use Only); Complete Time: 23:44 01/24 22:07 Order name: XRAY Chest (1 view) 01/24 22:07 Order name: EKG; Complete Time: 22:08 01/24 22:07 Order name: Cardiac monitoring; Complete Time: 22:21 01/24 22:07 Order name: EKG - Nurse/Tech; Complete Time: 22:21 01/25 00:34 Order name: Troponin I; Complete Time: 01:52 01/24 22:07 Order name: IV Saline Lock; Complete Time: :45 01/24 22:07 Order name: Labs collected and sent; Complete Time: :45 01/24 22:07 Order name: O2 Per Protocol; Complete Time: 22:21 01/24 22:07 Order name: O2 Sat Monitoring; Complete Time: : EC:02 Rate is 95 beats/min. Rhythm is regular. MT interval is normal. QRS interval is normal. gs No Q waves. T waves are Inverted. No ST changes noted. Clinical impression: Abnormal EKG without significant change. Interpreted by me. Administered Medications: 01/24 23:00 Drug: Sumpter 5 mg-325 mg 1 tabs Route: PO; lp1 01/25 00:00 Follow up: Response: Pain is decreased lp1 05:58 Drug: HEParin Flush 500 units Route: IVP; Site: Port-a-cath; lp1 06:30 Follow up: Response: No adverse reaction lp1 Disposition: 01/25/19 01:53 Discharged to Home. Impression: Chest pain, unspecified. - Condition is Stable. - Discharge Instructions: Nonspecific Chest Pain. - Medication Reconciliation Form, Thank You Letter, Antibiotic Education, Prescription Opioid Use form. - Follow up: Private Physician; When: 1 - 2 days; Reason: Re-evaluation by your physician. Signatures: Dispatcher [employer] EDMichaelle Vega RN RN Jojo Padgett RN RN [facility] Mika Raygoza MD MD Corrections: (The following items were deleted from the chart) 06:39 01:53 01/25/2019 01:53 Discharged to Home. Impression: Chest pain, unspecified. lp1 Condition is Stable. Forms are Medication Reconciliation Form, Thank You Letter, Antibiotic Education, Prescription Opioid Use. Follow up: Private Physician; When: 1 - 2 days; Reason: Re-evaluation by your physician.
--- NOTE | 2019-01-25 05:32 | EKG ---
Test Date: 2019-01-24 Test Time: 21:45:25 Holter Scanning Technician: BASILIA MEASUREMENT RESULTS: Intervals: Rate: 95 CT: 122 QRSD: 74 QT: 342 QTc: 429 [place]: P: 76 CT: 122 QRS: 55 T: 67 INTERPRETIVE STATEMENTS: Normal sinus rhythm Normal ECG Compared to ECG 12/08/2018 01:54:33 Ventricular premature complex(es) no longer present Electronically Signed On 01-25-19 05:31:05 CDT by Eric Verdin
[2019-01-25] MEDS ORDERED: HEPARIN 500 UNIT/5 ML SYR IV ONE (05:58)
[2019-01-25 06:46] VITALS: TEMP 98.1
[2019-01-25 06:58] VITALS: BP 134/48; O2SAT 99
--- NOTE | 2019-01-25 07:21 | RAD REPORT ---
EXAM DESCRIPTION: RAD - Chest Single View - 01/24/2019 10:19 pm CLINICAL HISTORY: Chest pain COMPARISON: December 08 TECHNIQUE: AP portable chest image was obtained 2216 hours . FINDINGS: Lung volumes are low. No peripheral mass, consolidation or failure finding. Lung markings are similar to comparison. Port-A-Cath remains in place on the right. Heart and vasculature are harriett l. No measurable pleural effusion and no pneumothorax. No acute bony abnormality seen. No acute aorti c findings suspected. IMPRESSION: No acute cardiopulmonary process. No significant change from comparison.
== END 2019-01-25 06:39 | disposition home or self-care (01) ==
LOC: ER 21:35
DX: R07.9 Chest pain, unspecified (principal); D64.9 Anemia, unspecified; F41.9 Anxiety disorder, unspecified; I12.9 Hypertensive chronic kidney disease with stage 1 through stage 4 chronic kidney disease, or unspecified chronic kidney disease; N18.9 Chronic kidney disease, unspecified; J44.9 Chronic obstructive pulmonary disease, unspecified; K21.9 Gastro-esophageal reflux disease without esophagitis; I10 Essential (primary) hypertension; I25.2 Old myocardial infarction; Z86.73 Personal history of transient ischemic attack (TIA), and cerebral infarction without residual deficits; Z79.899 Other long term (current) drug therapy; Z88.1 Allergy status to other antibiotic agents; Z88.5 Allergy status to narcotic agent; Z88.2 Allergy status to sulfonamides; Z88.8 Allergy status to other drugs, medicaments and biological substances; Z91.048 Other nonmedicinal substance allergy status
CPT/HCPCS: 93005; 85025; 80048; 36415; 83735; 85610; 80076; 84484 ×2; 83880; 71045; 96374; 99285; J1642

== ENCOUNTER 2019-02-13 21:27 | Inpatient (IN) | payer OTHER ==
--- OUTSIDE RECORDS SUMMARY | 2019-02-13 21:32 | XMS REPORT | Clinical Summary ---
:1945 Author Organization [facility] Address [address] [place] [address] Care Team Providers Name Role Phone Nayeli [...] to that. Hepatitis B 08/25/2017 Hyperlipidemia 08/25/2017 HI (myocardial infarction) 08/25/2017 Overview: Overview: Has had [...] INFLUENZA VACCINE 08/13/2018 Results Not on fileafter 02/12/2018 Insurance Payer Benefit Plan / Group Subscriber ID Type Phone Address [employer] [facility] xxxxxxxxx [facility] MEDICAID MEDICAID [facility] xxxxxxxxx Medicaid Advance Directives For more information, please contact:[address] [phone] Code Status Date Activated Date Inactivated Comments Full Code 07/27/2017 2:29 AM 08/04/2017 7:05 PM This code status was determined by: Patient
--- OUTSIDE RECORDS SUMMARY | 2019-02-13 21:52 | XMS REPORT | Continuity of Care Document ---
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 oral tablet tab, Route: Active 2012 Medical PO, Drug Center form: TAB, BID, Dosing Weight 72.2, kg, PRN Hypertension , SBP >180, Start date: 09/04/13 22:36:00, Duration: 30 day, Stop date: 10/04/13 22:35:00([facility] As: Catapres) lisinopril 10 mg, 1 No Longer [facility] 09/05/ [facility] tab, Route: Active 2012 Medical PO, Drug Center form: TAB, Daily, Dosing Weight 72.2, kg, Priority: NOW, Start date: 09/04/13 22:36:00, Duration: 30 day, Stop date: 10/04/13 9:00:00(Same as: Prinivil, Zestril) hydrALAZINE 10 mg, Inactive [facility] [place] Route: IVP, 2012 Medical Q4H, Dosing [...] 10/04/13 21:31:00, flush for pick line or [id number] lush for pick line or port-a-cath( Same [...] Isreal Sugar 0.9% Route: IVP, Active 2012 [facility] Drug Form: INJ, Dosing Weight 72.273, kg, [...] Isreal Sugar sulfate Route: IVPB, Active 2012 [facility] Drug form: INJ, ONCE, Dosing Weight 72.273, [...] Duration: 30 day, Stop date: 09/09/13 9:27:00 [place] 10/325 1 tab, PO No Longer Isreal [facility] oral tablet Route: PO, Active 2012 [facility] Drug Form: TAB, Dosing Weight 72.273, kg, Q4H, PRN Pain, Start date: 08/10/13 9:26:00, Duration: 30 day, Stop date: 09/09/13 9:25:00 Neutra-Phos 1 pkt, PO No Longer [facility] Route: PO, Active 2012 [facility] Drug Form: PDR/REC, Dosing Weight 72.273, kg, [...] Longer Isreal [facility] sulfate Route: IVPB, 2012 [facility] Drug form: INJ, ONCE, Dosing Weight 72.273, kg, Start date: 08/09/13 6:17:00, Stop date: 08/09/13 6:17:00 Keppra 750 mg, 3 PO No Longer Isreal [facility] tab, Route: 2012 [facility] PO, Drug form: TAB, BID, Dosing Weight 72.273, kg, Start date: 08/08/13 9:00:00, Duration: 30 day, Stop date: 09/06/13 17:00:00 magnesium 2 gm, 50 mL, IVPB No Longer Isreal [facility] sulfate Route: IVPB, 2012 [facility] Drug form: INJ, Q2H, Dosing Weight 72.273, kg, Total dose=4 gm, Start date: 08/08/13 8:00:00, Duration: 2 doses or times, Stop date: 08/08/13 10:00:00 diphenhydrAMINE 25 mg, 1 PO No Longer Luis Enrique [facility] tab, Route: 2012 [facility] PO, Drug form: TAB, ONCALL, Dosing Weight 72.273, kg, Premed Blood Products, Priority: Routine, Start date: 08/08/13 7:00:00, Duration: 30 day, Stop date: 09/07/13 6:59:00 acetaminophen 650 mg, 2 PO No Longer [facility] tab, Route: 2012 [facility] PO, Drug form: TAB, ONCALL, Dosing Weight [...] Longer Ling [facility] mL, Route: Active 2012 [facility] IV, Drug form: INJ, Q2H, Dosing Weight 72.273, kg, PRN Seizure, Start date: 08/08/13 5:09:00, Duration: 30 day, Stop date: 09/07/13 5:08:00 Keppra + Sodium 1,000 mg, IV No Longer Isreal [facility] Chloride 0.9% IV Route: IV, Active 2012 [facility] 100 mL Drug form: INJ, BID, Dosing Weight 72.273, kg, Priority: NOW, Start date: 08/08/13 5:07:00, Duration: 30 day, Stop date: 09/06/13 17:00:00 Ativan 1 mg, 0.5 IVP No Longer Isreal [facility] mL, Route: Active 2012 [facility] IVP, Drug form: INJ, ONCE, Dosing Weight 72.273, kg, PRN Anxiety, Start date: 08/08/13 4:19:00 Ofirmev 1,000 mg, IVPB No Longer Ham [facility] 100 mL, Active 2012 [facility] Route: IVPB, Drug form: INJ, Q6H, Dosing Weight 72.273, kg, for > or=50 kg, Start date: 08/07/13 12:00:00, Duration: 4 doses or times, Stop date: 08/08/13 6:00:00 FENTanyl - one 25 IVP No Longer [facility] time ICU bolus microgram, Active 2012 [facility] dose 0.5 mL, Route: IVP, Drug form: INJ, ONCE, Dosing Weight 72.273, kg, Start date: 08/07/13 9:26:00, Stop date: 08/07/13 9:26:00 lisinopril 10 mg, 2 PO No Longer Isreal [facility] tab, Route: Active 2012 [facility] PO, Drug form: TAB, Daily, Dosing Weight 72.273, kg, Start date: 08/07/13 9:00:00, Stop date: 09/05/13 9:00:00 Cymbalta 30 mg, 1 PO No Longer Isreal [facility] cap, Route: Active 2012 [facility] PO, Drug form: DRC, Daily, Dosing Weight [...] Sugar oral tablet tab, Route: Active 2012 [facility] PO, Drug form: TAB, Q12H, Dosing Weight 72.273, kg, Start date: 08/06/13 21:00:00, Duration: 30 day, Stop date: 09/05/13 9:00:00 Advair Diskus 1 INHALATION No Longer [facility] 500 mcg-50 mcg inhalation, Active 2012 [facility] inhalation Route: powder INHALATION, Drug Form: AERO, [...] Longer Isreal [facility] tab, Route: Active 2012 [facility] PO, Drug form: TAB, Bedtime, Dosing Weight 72.273, kg, Start date: 08/06/13 21:00:00, Duration: 30 day, Stop date: 09/04/13 21:00:00 ropinirole 1 mg, 1 tab, PO No Longer [facility]real [facility] Route: PO, Active 2012 Drug form: TAB, Bedtime, Dosing Weight 72.273, kg, Start date: 08/06/13 21:00:00, Duration: 30 day, Stop date: 09/04/13 21:00:00 Pneumovax 23 0.5 mL, No Longer [facility] Route: IM, Active 2012 Medical Drug Form: Dawson Givens INJ, ONCE, H Sugar Start date: 08/06/13 19:00:00, Stop date: 08/06/13 19:00:00([facility] e as: Pneumovax 23) Refrigerate Fluzone 0.5 mL, No Longer [facility] Route: IM, Active 2012 Medical Drug Form: Dawson Givens SUSP, ONCE, H Sugar Start date: [facility] 08/06/13 19:00:00, Stop date: 08/06/13 19:00:00([facility] e as: Fluzone) docusate sodium 100 mg, 1 PO No Longer [facility] 100 mg oral cap, Route: Active [...] (SCIP) 1 gm, Route: IVPB No Longer [facility] + Sodium IVPB, Q8H, Active 2012 [...] Jayasinghe [facility] mL, Route: Central Active 2012 [facility] IVP Central, Drug form: INJ, Q8H, Dosing Weight 72.273, kg, PRN as needed for nausea/vomit ing, Start date: 08/06/13 15:37:00, Duration: 30 day, Stop date: 09/05/13 15:36:00 hydrALAZINE 10 mg, 0.5 IVP No Longer Is[facility] mL, Route: Active 2012 [facility] IVP, Drug form: INJ, Q4H, Dosing Weight 72.273, kg, PRN Hypertension , Start date: 08/06/13 15:11:00, Stop date: 09/05/13 15:10:00 clonidine 0.2 mg 0.2 mg, 1 PO No Longer Isreal [facility] oral tablet tab, Route: Active 2012 [facility] PO, Drug form: TAB, Daily, Dosing Weight 72.273, kg, PRN Hypertension , Start date: 08/06/13 15:07:00, Duration: 30 day, Stop date: 09/05/13 15:06:00 Demerol HCl 25 mg, 1 mL, IVP No Longer Jayasinghe [facility] Route: IVP, Active 2012 [facility] Drug form: INJ, ONCE, Dosing Weight 72.273, kg, Priority: NOW, Start date: 08/06/13 14:21:00, Stop date: 08/06/13 14:21:00 Keppra 500 mg 500 mg, 1 PO Active [facility] oral tablet tab, PO, 2012 Q12H, 120 tab, Substitution Allowed, TAB Spiriva 18 mcg 18 INHALATION Active [facility] Sugar inhalation microgram, 1 2012 capsule cap, [...] IV No Longer Isreal [facility] 0.2 mg/mL OFFICE CLINICIAN (6 Route: IV, 2012 [facility] mg/30 mL) INJ Initial Syringe 6 mg Loading Dose: 0.3 mg, OFFICE CLINICIAN Dose: 0.2 mg, OFFICE CLINICIAN Lockout: 10 minutes, Continuous Basal Rate: 0 [...] Longer Isreal [facility] mL, Route: Active 2012 [facility] IVP, Drug form: INJ, Q2H, Dosing Weight [...] [facility] Route: IVP, Active 2012 [facility] Drug form: INJ, Q12H, Dosing Weight 72.273, [...] DuoNeb 3 ml, Route: INHALATION No Longer [facility] Sugar inhalation INHALATION, Active 2012 [facility] solution [...] + KCL 1,000 mL, IV No Longer [facility] Sugar 20mEq/L 1000ml Rate: 50 Active 2012 [facility] (Premix) 1,000 ml/hr, mL Infuse over: 20 hr, Route: IV, Dosing Weight 72.273 kg, Total Volume: 1,000, Start date: 08/06/13 10:00:00, Stop date: 09/05/13 9:59:00 diphenhydrAMINE 25 mg, 0.5 IVP No Longer [facility] mL, Route: Active 2012 [facility] IVP, Drug form: INJ, Q6H, Dosing Weight 72.273, kg, PRN Itching, Start date: 08/06/13 10:00:00, Duration: 30 day, Stop date: 09/05/13 9:59:00 magnesium 30 ml, PO No Longer [facility] hydroxide Route: PO, Active 2012 [facility] [...] Flush 5 ml, Route: IVP No Longer [facility] 0.9% IVP, Drug Active 2012 [facility] Form: INJ, Dosing Weight 72.273, kg, PRN, PRN Line Flush, Start date: 08/06/13 10:00:00, Duration: 30 day, Stop date: 09/05/13 9:59:00 acetaminophen-hy 1 tab, PO No Longer Luis Enrique [facility] drocodone 325 Route: PO, Active 2012 [facility] mg-10 mg oral Drug Form: tablet TAB, Dosing Weight 72.273, kg, Q4H, PRN Pain Score 4-6, Start date: 08/06/13 10:00:00, Duration: 30 day, Stop date: 09/05/13 9:59:00 promethazine 6.25 mg, IM No Longer [facility] Sugar 0.25 mL, Active 2012 [facility] Route: IM, Drug form: INJ, ONCE, Dosing Weight 72.273, kg, PRN Nausea & Vomiting, Start date: 08/06/13 9:45:00 dexamethasone 4 mg, 1 mL, IVP No Longer Gadira [facility] Route: IVP, Active 2012 [facility] Drug form: INJ, ONCE, Dosing Weight 72.273, kg, PRN Nausea & Vomiting, Start date: 08/06/13 9:45:00 levalbuterol 0.63 mg, 3 NEB No Longer Gadira [facility] mL, Route: Active 2012 [facility] NEB, Drug form: SOLN, Q5Min, Dosing Weight 72.273, kg, PRN Wheezing, Start date: 08/06/13 9:45:00, Duration: 4 doses or times, Stop date: Limited # of times albuterol 90 2 puff, INHALER No Longer Gadira [facility] mcg/inh Route: Active 2012 [facility] inhalation INHALER, aerosol Drug Form: AERO/A, Dosing Weight 72.273, kg, Q5Min, PRN Wheezing, Start date: 08/06/13 9:45:00, Duration: 4 doses or times, Stop date: Limited # of times meperidine 12.5 mg, 0.5 IVP No Longer Gadiraju [facility] mL, Route: [facility] 2012 [facility] IVP, Drug form: INJ, Q30Min, Dosing Weight 72.273, kg, PRN Other -See Comment, For shivering, Start date: 08/06/13 9:45:00, Duration: 2 doses or times, Stop date: Limited # of times ketorolac 30 mg, 1 mL, IVP No Longer Gadiraju [facility] Route: IVP, [facility] 2012 [facility] Drug form: INJ, ONCE, Dosing Weight 72.273, kg, Start date: 08/06/13 9:45:00, Duration: 1 doses or times, Stop date: 08/06/13 9:45:00 hydromorphone 0.5 mg, 0.25 IVP No Longer Gadiraju [facility] mL, Route: [facility] 2012 [facility] IVP, Drug form: INJ, Q5Min, Dosing Weight 72.273, kg, PRN Pain Score 7-10, Start date: 08/06/13 9:45:00, Duration: 5 doses or times, Stop date: Limited # of times naloxone 0.04 mg, 0.1 IVP No Longer Gadiraju [facility] mL, Route: [facility] 2012 [facility] IVP, Drug form: INJ, Q2MIN, Dosing Weight 72.273, kg, PRN Narcotic Reversal, Start date: 08/06/13 9:45:00, Duration: 8 doses or times, Stop date: Limited # of times flumazenil 0.2 mg, 2 IVP No Longer Gadiraju [facility] mL, Route: Active 2012 [facility] IVP, Drug form: INJ, PRN, Dosing Weight 72.273, kg, PRN Benzodiazepi ne Reversal, Initial dose, Start date: 08/06/13 9:45:00, Duration: 30 day, Stop date: 09/05/13 9:44:00 acetaminophen-10 1,000 mg, IV No Longer Gadiraju [facility] mg/mL 100 mL, Active 2012 [facility] INTRAVENOUS Route: IV, solution Drug form: INJ, [...] cefazolin 2 gm, 100 IVPB No Longer [facility] mL, Route: Active 2012 IVPB, Drug [...] Posiflush SF 15 mL, IVP No Longer [facility] Route: IVP, Active 2012 Drug Form: [...] 10 mg 10 mg, 1 PO Active [facility] oral tablet tab, PO, 2012 [place] Daily, 5 tab, Substitution Allowed Lortab 10/500 1-2 tab, PO, PO Active [facility] oral tablet Q4H, PRN, 60 2012 [place] tab, for pain, Substitution Allowed, Maintenance, TAB Keflex 500 mg 500 mg, 1 PO Active [facility] oral capsule cap, PO, 2012 Land [...] Ham 12/20/ Sugar mL, Route: Active 2012 [facility] IVP, Drug form: INJ, Q30Min, Dosing Weight 73.636, kg, PRN Other -See Comment, For shivering, Start date: 12/20/12 12:58:00, Duration: 2 doses or times, Stop date: Limited # of times flumazenil 0.2 mg, 2 IVP No Longer Ham 12/20/ Sugar mL, Route: Active 2012 [facility] IVP, Drug form: INJ, PRN, Dosing Weight 73.636, kg, PRN Benzodiazepi ne Reversal, Initial dose, Start date: 12/20/12 12:58:00, Duration: 30 day, Stop date: 01/19/13 12:57:00 naloxone 0.04 mg, 0.1 IVP No Longer [facility] mL, Route: Active 2012 [facility] IVP, Drug form: INJ, Q2MIN, Dosing Weight [...] Ham // [facility] Route: IVP, 2012 [facility] Drug form: INJ, ONCE, Dosing Weight 73.636, [...] Ham // MH [facility] Route: IVP, 2012 [facility] Drug form: INJ, Q5Min, Dosing Weight 73.636, [...] Active Sugar oral tablet microgram, 1 2012 [facility] tab, PO, Daily, Substitution Allowed SPIRIVA 1 [...] [facility] Morphine drug Allergy Active [facility] [place]ain Assertion throat Drug Active OPID [...] [place] 23-valent 3 Medical vaccine Center, [place] influenza virus completed MiguelA ngel [place] vaccine, [facility] [place] pneumococcal Right completed Miguel Angel OPID 23-valent 3 Deltoid Ng vaccine [facility], [place] influenza virus Left completed Miguel Angel OPID vaccine, 3 Deltoid Ng inactivated [facility], [place] Results Order Name Results Value Reference Date [...] values reflect the clinical guidelines of the [place] [employer]. [place] CHEM PANEL CO2 34 meq/L 24 - 32 06/07 [facility] CHEM PANEL AGAP 9.4 meq/L 10.0 - 06/07 Sugar 20.0 [facility] HEMATOLOGY Segs-Bands # 4.6 K/CMM 1.5 - 8.1 06/07 [facility] HEMATOLOGY Monocytes # 0.6 K/CMM 0.0 [...] MPV 7.1 fL 7.4 - 10.4 06/07 [facility] HEMATOLOGY MCHC 32.9 g/dL 32.0 - 06/07 Sugar 36.0 [facility] HEMATOLOGY MCH 29.4 pg 27.0 - 06/07 [facility] 31.0 [facility] HEMATOLOGY Platelet 312 K/CMM 133 - 450 06/07 [facility] HEMATOLOGY Hgb 9.8 g/dL 12.0 - 06/07 [facility] 16.0 [facility] HEMATOLOGY WBC 6.9 K/CMM 3.7 - 10.4 06/07 [facility] HEMATOLOGY RDW 17.4 % 11.5 - 06/07 Sugar 14.5 [facility] HEMATOLOGY MCV 89.5 fL 81.0 - 06/07 [facility] 99.0 [facility] HEMATOLOGY Hct 29.7 % 36.0 - 06/07 [facility] 48.0 [facility] HEMATOLOGY RBC 3.32 M/CMM 4.20 - 06/07 Sugar 5.40 /2013 [facility] ELECTROLYTE AGAP 10.6 meq/L 10.0 - 06/04 Sugar S 20.0 [facility] ELECTROLYTE eGFR 88 06/04 4Result Comment: The [...] reflect the clinical guidelines Sugar of the [place] [employer]. [place] ELECTROLYTE Creatinine 0.7 mg/dL [...] 5:15 AM) HEMATOLOGY Plt Morph Normal 06/04 [facility] (06/04/14 5:15 AM) HEMATOLOGY Atypical 0.0 % <=0.0 % 06/04 [facility] HEMATOLOGY Tot Cell Ct 100 06/04 [facility] HEMATOLOGY Monocytes 6.0 % 2.0 - 12.0 06/04 [facility] HEMATOLOGY Metamyelocyt 1.0 % 0.0 - 1.0 06/04 Sugar es /2013 [facility] HEMATOLOGY Bands 6.0 % 0.0 - 11.0 06/04 [facility] HEMATOLOGY Lymphocytes 13.0 % 20.0 - 06/04 Sugar 40.0 [facility] HEMATOLOGY Segs-Bands # 6.0 K/CMM 1.5 - 8.1 06/04 Sugar [facility] HEMATOLOGY Lymphocytes 1.0 K/CMM 1.0 - 5.5 06/04 Sugar # /2013 [facility] HEMATOLOGY Monocytes # 0.4 K/CMM 0.0 - 0.8 06/04 [facility] HEMATOLOGY Segs 74.0 % 45.0 - 06/04 Sugar 75.0 [facility] Chest 1view Chest 1view PORTABLE CHEST AP SEMIERECT 06/04/2014, 5:27 a.m. 06/04 - - [facility] HISTORY: Shortness of breath. Compared to exam [...] Phosphorus 3.2 mg/dL 2.5 - 4.5 06/03 [facility] CHEM PANEL Magnesium 1.9 mg/dL 1.8 - 2.4 06/03 Sugar Lvl [facility] CHEM PANEL Glucose Lvl 112 mg/dL 70 - 99 06/03 8Interpretive Data: Adult reference range values reflect the clinical guidelines of the [place] [employer]. [facility] CHEM PANEL eGFR 75 06/03 5Result Comment: [...] % 20.0 - 07/22 Sugar 40.0 /2013 [facility] HEMATOLOGY Platelet 189 K/CMM 133 - 450 06/03 Sugar [facility] HEMATOLOGY MPV 7.3 fL 7.4 - 10.4 06/03 [facility] HEMATOLOGY RBC 3.06 M/CMM 4.20 - 06/03 Sugar 5.40 /2013 [facility] HEMATOLOGY MCV 87.7 fL 81.0 - 06/03 Sugar 99.0 /2013 [facility] HEMATOLOGY MCH 29.5 pg 27.0 - 06/03 Sugar 31.0 /2013 [facility] HEMATOLOGY MCHC 33.7 g/dL 32.0 - 06/03 Sugar 36.0 /2013 [facility] HEMATOLOGY Hgb 9.0 g/dL 12.0 - 06/03 Sugar 16.0 /2013 [facility] HEMATOLOGY RDW 16.2 % 11.5 - 06/03 Sugar 14.5 /2013 [facility] HEMATOLOGY Hct 26.8 % 36.0 - 06/03 Sugar 48.0 /2013 [facility] HEMATOLOGY WBC 5.8 K/CMM 3.7 - 10.4 06/03 [facility] Chest 1view Chest 1view PORTABLE CHEST AP SEMIERECT 06/03/2014, 5:44 a.m. 06/03 - - [facility] HISTORY: Abnormal chest sounds. Compared to exam [...] Examination: Chest CTA pulm emb 06/02 - [facility] Pulmonary Pulmonary - Embolism Embolism CTA [...] K/CMM 0.0 - 0.5 06/02 Sugar # [facility] HEMATOLOGY Basophils # 0.0 K/CMM 0.0 - 0.2 06/02 [place] HEMATOLOGY Eosinophils 0.2 % 0.0 - 4.0 06/02 [facility] HEMATOLOGY INR 1.12 0.85 - 06/02 9Interpretive Data: RECOMMENDED RANGES FOR PROTIME INR: Sugar 1. 2.0-3.0 for most medical and surgical thromboembolic states. Land 2.5-3.5 for artificial heart valves and recurrent embolism. INR SHOULD BE USED ONLY FOR PATIENTS ON STABLE ANTICOAGULANT THERAPY. HEMATOLOGY PTT 34.4 s 22.9 - 06/02 12Interpretiv Sugar 35.8 /2013 e Data: [facility] Heparin Therapeutic Range: 57 - 92 Seconds HEMATOLOGY PT 14.3 s 12.0 - / Sugar 14.7 /2013 [place] Chest 1view Chest 1view PORTABLE CHEST AP SEMIERECT 06/02/2014, 5:32 a.m. 06/02 - - [facility] HISTORY: Abnormal chest sounds. Compared to exam [...] 30 6 - 25 06/01 Sugar /2013 [facility] HEMATOLOGY PTT 36.8 s 22.9 - 06/01 13Interpretiv Sugar 35.8 /2013 e Data: [facility] Heparin Therapeutic Range: 57 - 92 Seconds HEMATOLOGY PT 14.2 s 12.0 - 06/01 Sugar 14.7 [facility] HEMATOLOGY INR 1.11 0.85 - 06/01 10Interpretive Data: RECOMMENDED RANGES FOR PROTIME INR: Sugar 1. 2.0-3.0 for most medical and surgical thromboembolic states. [facility] 2.5-3.5 for artificial heart valves and recurrent embolism. INR SHOULD BE USED ONLY FOR PATIENTS ON STABLE ANTICOAGULANT THERAPY. Chest 1view Chest 1view EXAM: 06/01 - - [facility] Single view chest. Read by: Srinivasan Omalley MD Dictated Date/time: 06/01/14 06:14 INDICATION: Electronically Signed by: Srinivasan Omalley MD 06/01/14 06:15 FINAL REPORT Abnormal chest sounds. COMPARISON: May 29, 2014. IMPRESSION: 1. Stable right-sided Port-A-Cath. 2. Stable enlarged cardiac silhouette with worsened interstitial edema. 3. No pneumothorax. PARATHYROID Ca Ion WB 1.19 1.05 - 05/31 [facility] PROFILE mMol/L 12.07 [facility] PARATHYROID Ca Norm WB 1.15 1.05 - 05/31 [facility] PROFILE mMol/L 12.07 [facility] BLOOD BANK RBC product Product available 1 05/30 1Result Comment: 2013 09:46 YADY Sugar RESULTS Notified Macho at 05/30/2014 09:46 [facility] (05/30/14 7:18 AM) CHEM PANEL Bili Total 0.8 mg/dL 0.2 - 1.3 05/30 Sugar [facility] CHEM PANEL Albumin Lvl 2.0 g/dL 3.5 - 5.0 05/30 Sugar [facility] CHEM PANEL AST 14 unit/L 0 - 37 05/30 Sugar [facility] CHEM PANEL ALT 10 unit/L 0 - 65 05/30 Sugar [facility] CHEM PANEL Alk Phos 94 unit/L 39 - 136 05/30 Sugar [facility] CHEM PANEL Total 4.9 g/dL 6.4 - 8.4 05/30 Sugar [facility] CHEM PANEL B/C Ratio 23 6 - 25 05/30 [facility] CHEM PANEL A/G Ratio 0.7 0.7 - 1.6 05/30 [facility] CHEM PANEL Globulin 2.9 g/dL 2.0 - 4.0 05/30 [facility] HEMATOLOGY PTT 37.1 s 22.9 - 05/30 14Interpretiv Sugar 35.8 /2013 e Data: [facility] Heparin Therapeutic Range: 57 - 92 Seconds HEMATOLOGY PT 16.8 s 12.0 - 05/30 Sugar 14.7 [facility] HEMATOLOGY INR 1.38 0.85 - 05/30 11Interpretive Data: RECOMMENDED RANGES FOR PROTIME INR: [facility] . 2.0-3.0 for most medical and surgical thromboembolic states. [facility] 2.5-3.5 for artificial heart valves and recurrent embolism. INR SHOULD BE USED ONLY FOR PATIENTS ON STABLE ANTICOAGULANT THERAPY. Chest 1view Chest 1view EXAMINATION: Chest 1view 05/29 - - [facility] ADDENDUM: A repeat view was completed with [...] with methicillin-resistant Staphylococcus aureus (MRSA) to aid [facility] in the prevention and control of [...] by the Molecular Diagnostic Laboratory within the [facility]. The Molecular Diagnostic Labor atory is authorized under the Clinical Laboratory Improvement Amendment of 1988 (CLIA-88) to perform high complexity testing. BLOOD BANK RBC product Product available 2 05/28 2Result Comment: 2013 10:14 YADY [facility] RESULTS Notified Maylin at 05/28/2014 10:14 [facility] (05/28/14 7:28 AM) HEMATOLOGY Atypical 0.0 % <=0.0 % 05/28 [facility] Lymphs [facility] HEMATOLOGY Metamyelocyt 3.0 % 0.0 - 1.0 05/28 [facility] es [facility] HEMATOLOGY Hypochrom Slight None Seen 05/28 [facility] (05/28/14 6:45 AM) HEMATOLOGY Plt Morph Normal 05/28 [facility] (05/28/14 6:45 AM) HEMATOLOGY Bands 8.0 % 0.0 - 11.0 05/28 [facility] Brain Brain Stroke Examination: Brain Stroke wo contrast CT 05/28 - [facility] Stroke wo wo contrast /2013 - [facility] contrast CT CT Dose: 801 mGy-cm Read [...] of the brain without contrast was completed. [employer] views demonstrate no incidental findings postoperative changes [...] Examination: Hip min 2 views 05/27 - [facility] views - [facility] Provided History: Pain in limb Read by: [...] Seen 05/20 [place] STOOL /HPF /HPF /2013 [facility] URINE AND UA RBC 0-2 /HPF 0 - 2 05/20 Sugar [facility] URINE AND UA Sq Epi Few /LPF Few /LPF 05/20 Sugar [facility] URINE AND UA WBC 0-2 /HPF None Seen 05/20 [place] STOOL /HPF /2013 [facility] URINE AND UA Leuk Est Negative Negative 05/20 [place] STOOL [facility] (05/20/14 4:00 PM) URINE AND UA Nitrite Negative Negative 05/20 [place] STOOL [facility] (05/20/14 4:00 PM) URINE AND UA 0.2 EU/dL 0.1 - 1.0 05/20 Sugar [facility] Urobilinogen /2013 [facility] URINE AND UA Color Yellow Yellow 05/20 Sugar STOOL [place] *NA* (05/20/14 4:00 PM) URINE AND UA Blood Negative Negative 05/20 [place] STOOL [facility] (05/20/14 4:00 PM) URINE AND UA Bili Negative Negative 05/20 [place] STOOL [facility] *NA* (05/20/14 4:00 PM) URINE AND UA Ketones Negative Negative 05/20 [place] STOOL mg/dL mg/dL [facility] URINE AND UA Spec Grav 1.025 <=1.030 05/20 [place] STOOL [facility] URINE AND UA Turbidity Clear Clear 05/20 [place] STOOL [facility] (05/20/14 4:00 PM) URINE AND UA pH 5.5 5.0 - 8.0 05/20 [place] STOOL [facility] URINE AND UA Glucose Negative Negative 05/20 [place] STOOL mg/dL mg/dL [facility] URINE AND UA Protein Negative Negative 05/20 [place] STOOL mg/dL mg/dL [facility] BLOOD BANK Antibody Negative 05/20 Sugar RESULTS Scrn [facility] (05/20/14 4:00 PM) BLOOD BANK ABO/Rh A POS 05/20 Sugar RESULTS [facility] Knee wo Knee wo MRI of the left Knee 01/21 - [facility] contrast contrast MRI /2013 - Early MRI Bone & Joint History: pain. Read [...] EXAM: CT HEAD WITHOUT CONTRAST 09/06 - [facility] contrast CT contrast CT - [facility] INDICATION: Seizures Read by: Margraet Gillespie Dictated Date/time: 09/06/13 15:03 Electronically Signed [...] eGFR of 60-89 may be normal in [facility] mL/min/1. some populations, particularly the elderly, for whom the CKD-EPI formula has not been extensively validated. Use of the eGFR is not recommended in the following populations: [address] Individuals with unstable creatinine concentrations, including [...] values reflect the clinical guidelines of the [employer]. [facility] CHEMISTRY BUN 17 mg/dL 7 - 22 09/06 [facility] CHEMISTRY Calcium Lvl 9.4 mg/dL 8.5 - 10.5 09/06 [facility] CHEMISTRY Creatinine 0.9 mg/dL 0.5 - 1.4 09/06 Normal [facility] CHEMISTRY Potassium 4.1 meq/L 3.5 - 5.1 09/06 Normal [facility] CHEMISTRY Sodium Lvl 145 meq/L 135 - 145 09/06 [facility] CHEMISTRY Chloride Lvl 101 meq/L 95 - 109 09/06 [facility] CHEMISTRY CO2 33 meq/L 24 - 32 09/06 [facility] CHEMISTRY AGAP 15.1 meq/L 10.0 - 09/06 Normal 20. [facility] CHEMISTRY Magnesium 1.8 mg/dL 1.8 - 2.4 09/06 Normal [facility] HEMATOLOGY Hgb 12.1 g/dL 12.0 - 09/06 Normal [facility] 16.0 [facility] HEMATOLOGY MCH 27.2 pg 27.0 - 09/06 Normal [facility] 31.0 [facility] HEMATOLOGY MCV 86.6 fL 81.0 - 09/06 Normal [facility] 99.0 [facility] HEMATOLOGY Hct 38.5 % 36.0 - 09/06 Normal [facility] 48.0 [facility] HEMATOLOGY WBC X 10x3 6.2 K/CMM 3.7 - 10.4 09/06 Normal [facility] HEMATOLOGY RBC X 10x6 4.44 M/CMM 4.20 - 09/06 Normal [facility] 5.40 [facility] HEMATOLOGY MCHC 31.4 g/dL 32.0 - 09/06 LOW [facility] 36.0 [facility] HEMATOLOGY RDW 18.6 % 11.5 - 09/06 HI [facility] 14.5 [facility] HEMATOLOGY Platelet 232 K/CMM 133 - 450 09/06 [facility] HEMATOLOGY MPV 7.9 fL 7.4 - 10.4 09/06 [facility] HEMATOLOGY Lymphocytes 30.4 % 20.0 - 09/06 Normal [facility] 40.0 [facility] HEMATOLOGY Monocytes 9.7 % 2.0 - 12.0 09/06 [facility] HEMATOLOGY Basophils 0.6 % 0.0 - 1.0 09/06 Normal [facility] HEMATOLOGY Eosinophils 5.3 % 0.0 - 4.0 09/06 HI [facility] HEMATOLOGY Segs 54.0 % 45.0 - 09/06 Normal [facility] 75.0 [facility] HEMATOLOGY Eosinophils 0.3 K/CMM 0.0 - 0.5 09/06 Normal [facility] # [facility] HEMATOLOGY Segs-Bands # 3.3 K/CMM 1.5 - 8.1 09/06 Normal [facility] HEMATOLOGY Monocytes # 0.6 K/CMM 0.0 - 0.8 09/06 Normal [facility] HEMATOLOGY Lymphocytes 1.9 K/CMM 1.0 - 5.5 09/06 Normal [facility] CHEMISTRY Total CK 33 unit/L 12 - 191 09/05 Normal [facility] BACTERIAL - MRSA by PCR Positive 1, 2 09/05 ABN 2Interpretive Data: Interpretive Data: The [employer] Light[employer] MRSA assay is a qualitative test for the direct detection of nasal colonization with methicillin-resistant Staphylococcus aureus (MRSA) to aid [facility] in the prevention and control of [...] by the Molecular Diagnostic Laboratory within the [facility]. The Molecular Diagnostic Labor atory is authorized under the Clinical Laboratory Improvement Amendment of 1988 (CLIA-88) to perform high complexity testing. CHEMISTRY Total CK 30 unit/L 12 - 191 09/05 Normal [facility] CHEMISTRY Lactic Acid 0.6 mMol/L 0.5 - 2.2 09/05 Normal [facility] CHEMISTRY A/G Ratio 1.1 0.7 - 1.6 09/05 Normal [facility] CHEMISTRY Globulin 3.3 g/dL 2.0 - 4.0 09/05 Normal [facility] CHEMISTRY AGAP 14.6 meq/L 10.0 - 09/05 Normal [facility] 20.0 [facility] CHEMISTRY B/C Ratio 15 6 - 25 09/05 Normal [facility] CHEMISTRY eGFR 93 09/05 4Result Comment: The eGFR is calculated using the CKD-EPI formula. In most young, healthy individuals the eGFR will be >90 mL/ min/1.73m2. The eGFR declines with age. An eGFR of 60-89 may be normal in [facility] mL/min/1.7 some populations, particularly the elderly, for whom the CKD-EPI formula has not been extensively validated. Use of the eGFR is not recommended in the following populations: [place] [id number] [facility] Individuals with unstable creatinine concentrations, including [...] 3.5 g/dL 3.5 - 5.0 09/05 Normal [facility] CHEMISTRY Glucose Lvl 91 mg/dL 70 - 99 09/05 Normal 6Interpretive Data: Adult reference range values reflect the clinical guidelines of the [employer]. [facility] CHEMISTRY BUN 9 mg/dL 7 - 22 09/05 Normal [facility] CHEMISTRY Creatinine 0.6 mg/dL 0.5 - 1.4 09/05 Normal [facility] l [facility] CHEMISTRY Potassium 3.6 meq/L 3.5 - 5.1 09/05 Normal [facility] Lvl [facility] CHEMISTRY Sodium Lvl 142 meq/L 135 - 145 09/05 Normal [facility] CHEMISTRY Total 6.8 g/dL 6.4 - 8.4 09/05 Normal [facility] CHEMISTRY CO2 30 meq/L 24 - 32 09/05 Normal [facility] CHEMISTRY Bili Total 0.5 mg/dL 0.2 - 1.3 09/05 Normal [facility] CHEMISTRY Chloride Lvl 101 meq/L 95 - 109 09/05 Normal [facility] CHEMISTRY Calcium Lvl 8.7 mg/dL 8.5 - 10.5 09/05 Normal [facility] CHEMISTRY ASPARTATE 11 unit/L 0 - 37 09/05 Normal [place] TRANSAMINASE [facility] CHEMISTRY ALANINE 13 unit/L 0 - 65 09/05 Normal [facility] AMINOTRANSFE [facility] CHEMISTRY Total CK 43 unit/L 12 - 191 09/05 Normal [facility] HEMATOLOGY MPV 7.7 fL 7.4 - 10.4 09/05 Normal [facility] HEMATOLOGY Platelet 198 K/CMM 133 - 450 09/05 Normal [facility] HEMATOLOGY MCV 85.8 fL 81.0 - 09/05 Normal [facility] 99.0 [facility] HEMATOLOGY RDW 17.8 % 11.5 - 09/05 [place] 14. [facility] HEMATOLOGY MCH 27.7 pg 27.0 - 09/05 Normal [place] 31.0 [facility] HEMATOLOGY Hct 36.5 % 36.0 - 09/05 Normal [place] 48.0 [facility] HEMATOLOGY MCHC 32.3 g/dL 32.0 - 09/05 Normal [facility] 36.0 /2012 [facility] HEMATOLOGY WBC X 10x3 6.1 K/CMM 3.7 - 10.4 09/05 Normal [facility] HEMATOLOGY RBC X 10x6 4.26 M/CMM 4.20 - 09/05 Normal [place] 5.40 /2012 [facility] HEMATOLOGY Hgb 11.8 g/dL 12.0 - 09/05 LOW [place] 16.0 [facility] HEMATOLOGY Segs 60.1 % 45.0 - 09/05 Normal [place] 75.0 [facility] HEMATOLOGY Lymphocytes 25.3 % 20.0 - 09/05 Normal [facility] 40.0 /2012 [facility] HEMATOLOGY Eosinophils 4.7 % 0.0 - 4.0 09/05 [place] [facility] HEMATOLOGY Segs-Bands # 3.6 K/CMM 1.5 - 8.1 09/05 Normal [facility] HEMATOLOGY Lymphocytes 1.5 K/CMM 1.0 - 5.5 09/05 Normal [place] # /2012 [facility] HEMATOLOGY Basophils 0.9 % 0.0 - 1.0 09/05 Normal [facility] HEMATOLOGY Monocytes # 0.5 K/CMM 0.0 - 0.8 09/05 Normal [facility] HEMATOLOGY Eosinophils 0.3 K/CMM 0.0 - 0.5 09/05 Normal [place] # [facility] HEMATOLOGY Basophils # 0.1 K/CMM 0.0 - 0.2 09/05 Normal [facility] HEMATOLOGY Monocytes 9.0 % 2.0 - 12.0 09/05 Normal [facility] URINALYSIS UA Amorph Few /HPF None Seen 09/05 [facility] Olivia [facility] URINALYSIS UA <=1.0 0.1 - 1.0 09/05 [facility] Urobilinogen mg/dL [facility] URINALYSIS UA Blood Small Negative 09/05 ABN [facility] *ABN* [place] (09/04/2013 22:40:54) URINALYSIS UA Bili Negative Negative 09/[address] [facility] [facility] [place] (09/04/2013 22:40:54) URINALYSIS UA Ketones 10 mg/dL Negative 09/05 ABN [facility] URINALYSIS UA Sq Epi Occasional Few 09/05 [place] /LPF [facility] URINALYSIS UA Bacteria Occasional None Seen 09/05 [facility] URINALYSIS UA WBC 2 /HPF 0 - 5 09/05 Normal [facility] URINALYSIS UA Leuk Est Negative Negative 09/05 Normal [facility] (09/04/2013 22:40:54) [place] URINALYSIS UA Nitrite Negative Negative 09/05 Normal [facility] (09/04/2013 22:40:54) Center URINALYSIS UA Mucus Few /LPF None Seen 09/05 [facility] URINALYSIS UA RBC 1 /HPF 0 - 2 09/05 Normal [facility] URINALYSIS UA Turbidity Slight Clear 09/05 ABN [facility] *ABN* [place] (09/04/2013 22:40:54) URINALYSIS UA Color Light Yellow Yellow 09/[address] [facility] [facility] [place] (09/04/2013 22:40:54) URINALYSIS UA Spec Grav 1.009 <=1.030 09/05 Normal [facility] URINALYSIS UA Glucose Negative Negative 09/05 [facility] mg/dL [facility] URINALYSIS UA pH 7.5 5.0 - 8.0 09/05 Normal [facility] URINALYSIS UA Protein Negative Negative 09/05 Normal mg/dL [facility] CHEMISTRY AGAP 10.7 meq/L 10.0 - 08/11 Normal [place] 20.0 [facility] CHEMISTRY eGFR 93 08/11 NA 5Result Comment: The eGFR is calculated using the CKD-EPI formula. In most young, healthy individuals the eGFR will be > 90 mL/min/1.73m2. The eGFR declines with age. An eGFR of 60-89 may be normal in [facility] mL/min/1.7 some populations, particularly the elderly, [...] values reflect the clinical guidelines of the [place] [employer]. [place] CHEMISTRY Phosphorus 4.2 mg/dL [...] mg/dL 0.5 - 1.4 08/09 Normal [place] [facility] CHEMISTRY BUN 6 mg/dL 7 - 22 08/09 LOW [place] CHEMISTRY Glucose Lvl 99 mg/dL 70 - 99 08/09 Normal 9Interpretive Data: Adult reference range values reflect the clinical guidelines of the [place] [employer]. [place] CHEMISTRY Magnesium 1.7 mg/dL 1.8 - 2.4 08/09 LOW [place] CHEMISTRY Phosphorus 1.5 mg/dL 2.5 - 4.5 08/09 CRIT 11Result Comment: [facility] Critical Result(s) called Bhavin Calderonr _ at 08/09/2013 05:55 byrvs. Read back OK. HEMATOLOGY Segs-Bands # 9.0 K/CMM 1.5 - 8.1 08/09 [place] /2012 [facility] HEMATOLOGY Basophils # 0.0 K/CMM 0.0 - 0.2 08/09 Normal [facility] HEMATOLOGY Eosinophils 0.1 K/CMM 0.0 - 0.5 08/09 Normal [place] [facility] HEMATOLOGY Monocytes # 0.8 K/CMM 0.0 - 0.8 08/09 Normal [place] HEMATOLOGY Lymphocytes 9.0 % 20.0 - 08/09 LOW [place] 40.0 [place] HEMATOLOGY Lymphocytes 1.0 K/CMM 1.0 - 5.5 08/09 Normal [place] [facility] HEMATOLOGY Segs 82.9 % 45.0 - 08/09 [facility] [place] 75.0 [place] HEMATOLOGY Basophils 0.0 % [...] 12.0 - 08/09 Normal [place] 14.7 /2012 [facility] HEMATOLOGY Hgb 10.4 g/dL 12.0 - 08/09 LOW [place] 16.0 /2012 [facility] HEMATOLOGY Hct 32.5 % 36.0 - 08/09 LOW [place] 48.0 /2012 [facility] HEMATOLOGY MPV 7.2 fL 7.4 - 10.4 08/09 LOW [place] /2012 [facility] HEMATOLOGY MCH 26.8 pg 27.0 - 08/09 LOW [place] 31.0 /2012 [facility] HEMATOLOGY MCHC 32.1 g/dL 32.0 - 08/09 Normal [place] 36.0 /2012 [facility] HEMATOLOGY WBC 10.9 K/CMM 3.7 - 10.4 08/09 [facility] Sugar /2012 [facility] HEMATOLOGY RBC 3.90 M/CMM 4.20 - 08/09 LOW [facility] [place] 5.40 /2012 [facility] HEMATOLOGY RDW 16.3 % 11.5 - 08/09 [facility] Sugar 14.5 /2012 [facility] HEMATOLOGY Platelet 158 K/CMM 133 - 450 08/09 Normal [place] /2012 [facility] HEMATOLOGY MCV 83.5 fL 81.0 - 08/09 Normal [place] 99.0 /2012 [facility] Chest 1view Chest 1view PORTABLE CHEST AP SEMIERECT 08/09/2013, 5:44 a.m. 08/09 - - [facility] HISTORY: Abnormal chest sounds. Compared to exam [...] of the head without contrast 08/08 - [facility] Stroke wo wo contrast - [facility] contrast CT CT COMPARISON: December 29, 2010 Read by: Ayaan Stewart Dictated Date/time: 08/08/13 19:39 Electronically Signed by: Ayaan Stewart MD 08/08/13 19:41 FINAL REPORT TECHNIQUE: Multiple computerized axial tomographic images were obtained of the head without IV contrast utilizing standard protocol and archived to PACS. NOH=[id number] COMMENTS: Anterior right frontal gliosis again noted. [...] A POS 08/08 Unknown [facility] [place] RESULTS [facility] BLOOD BANK RBC product Product available 4 08/08 Normal 4Result Comment : 08/08/2013 07:55 NIPATEL3 [place] Called Daniela at 08/08/2013 07:55 for chicken picker 2 units of RBC's are ready. 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 [place] (08/08/2013 06:15:00) CHEMISTRY B/C Ratio 22 6 - 25 08/08 Normal [facility] Sugar [facility] CHEMISTRY A/G Ratio 0.8 0.7 - 1.6 08/08 Normal [facility] [place] [facility] CHEMISTRY Globulin 3.1 g/dL 2.0 - 4.0 08/08 Normal [facility] Sugar [facility] CHEMISTRY AGAP 10.5 meq/L 10.0 - 08/08 Normal [place] 20.0 [facility] CHEMISTRY eGFR 75 08/08 NA 7Result Comment: [...] values reflect the clinical guidelines of the [place] [employer]. [place] CHEMISTRY BUN 18 mg/dL [...] Normal 17Interpretiv [place] 35.8 /2012 e Data: [facility] Heparin Therapeutic Range: 57 - 92 Seconds HEMATOLOGY INR 1.22 0.85 - 08/08 [place] 14Interpretive Data: RECOMMENDED RANGES FOR PROTIME INR: [place] 1.17 2.0-3.0 for most medical and surgical thromboembolic states. [place] 2.5-3.5 for artificial heart valves and recurrent embolism. INR SHOULD BE USED ONLY FOR PATIENTS ON STABLE ANTICOAGULANT THERAPY. HEMATOLOGY PT 15.3 s 12.0 - 08/08 [facility] Sugar 14.7 /2012 [facility] HEMATOLOGY RDW 16.2 % 11.5 - 08/08 [facility] Sugar 14.5 /2012 [facility] HEMATOLOGY Platelet 139 K/CMM 133 - 450 08/08 Normal [place] /2012 [facility] HEMATOLOGY MPV 7.3 fL 7.4 - 10.4 08/08 LOW [place] /2012 [facility] HEMATOLOGY RBC 3.08 M/CMM 4.20 - 08/08 [facility] [place] 5.40 /2012 [facility] HEMATOLOGY Hgb 8.0 g/dL 12.0 - 08/08 [facility] [place] 16.0 /2012 [facility] HEMATOLOGY MCH 26.0 pg 27.0 - 08/08 [facility] [place] 31.0 /2012 [place] HEMATOLOGY Hct 25.7 % 36.0 - 08/08 [facility] [place] 48.0 /2012 [facility] HEMATOLOGY MCV 83.3 fL 81.0 - 08/08 Normal [place] 99.0 /2012 [facility] HEMATOLOGY MCHC 31.2 g/dL 32.0 - 08/08 [facility] [place] 36.0 /2012 [place] HEMATOLOGY WBC 10.1 K/CMM 3.7 - 10.4 08/08 Normal [place] Chest 1view Chest 1view PORTABLE CHEST AP SEMIERECT 08/08/2013, 5:41 a.m. 08/08 - - [facility] HISTORY: Abnormal chest sounds. Compared to exam [...] change. Microbiolog Culture: 08/07 [place] y Blood [facility] BACTERIAL - MRSA by PCR Positive [...] by the Molecular Diagnostic Laboratory within the [facility]. The Molecular Diagnostic Labor atory is authorized under the Clinical Laboratory Improvement Amendment of 1988 (CLIA-88) to perform high complexity testing. Microbiolog Culture: 08/07 [place] y Urine /2012 [facility] URINALYSIS UA pH 6.0 5.0 - 8.0 08/07 Normal [facility] URINALYSIS UA Protein Negative mg/dL Negative 08/07 Normal [facility] (08/07/2013 00:17:00) URINALYSIS UA Spec Grav 1.020 <=1.030 08/07 Normal [facility] URINALYSIS UA Glucose Negative mg/dL Negative 08/07 Normal [facility] (08/07/2013 00:17:00) URINALYSIS UA Ketones Negative mg/dL [...] 0.1 - 1.0 08/07 Normal [place] Urobilinogen [facility] URINALYSIS UA Leuk Est Negative Negative 08/07 Normal Sugar [facility] (08/07/2013 00:17:00) URINALYSIS UA Nitrite Negative Negative 08/07 Normal [facility] (08/07/2013 00:17:00) URINALYSIS UA Sq Epi Rare /LPF Few 08/07 Normal [place] [facility] (08/07/2013 00:17:00) URINALYSIS UA RBC 0-2 /HPF 0 - 2 08/07 Normal [facility] (08/07/2013 00:17:00) URINALYSIS UA Bacteria Occasional /HPF None Seen 08/07 Normal Sugar [facility] (08/07/2013 00:17:00) URINALYSIS UA Mucus Moderate /LPF None Seen 08/07 ABN [place] *ABN* (08/07/2013 00:17:00) URINALYSIS UA WBC 6-10 /HPF None Seen 08/07 ABN [place] *ABN* (08/07/2013 00:17:00) CHEMISTRY Total CK 117 unit/L 12 - 191 08/07 Normal [facility] CHEMISTRY CK MB Index 0.5 0.0 - 2.5 08/07 Normal [place] [facility] CHEMISTRY CK MB 0.6 ng/mL 0.5 - 3.6 08/07 Normal Sugar [facility] BEDSIDE Gluc POC Notify 08/07 NA [place] GLUCOSE Comment 1 RN/ /2012 [place] TESTING BEDSIDE Glucose POC 191 mg/dL 70 - 99 08/07 [place] 3Interpretive [place] GLUCOSE /2012 Data: [facility] TESTING Upper Reportable Limit: 200 mg/dL. Hip [...] Normal 18Interpretiv [place] 35.8 /2012 e Data: [facility] Heparin Therapeutic Range: 57 - 92 Seconds [...] - 1.0 07/29 Normal [place] Urobilinogen /2012 [facility] URINALYSIS UA Nitrite Negative Negative 07/29 Normal [...] UA Spec Grav 1.015 <=1.030 07/29 Normal [facility] URINALYSIS UA pH 7.0 5.0 - 8.0 07/29 Normal [facility] URINALYSIS UA Turbidity Clear Clear 07/29 Normal [facility] (07/29/2013 13:50:00) URINALYSIS UA Color Yellow Yellow 07/29 [facility] [place] *NA* (07/29/2013 13:50:00) URINALYSIS UA RBC 0-2 /HPF 0 - 2 07/29 Normal [facility] (07/29/2013 13:50:00) URINALYSIS UA Bacteria Occasional /HPF None Seen 07/29 Normal [facility] (07/29/2013 13:50:00) URINALYSIS UA WBC 0-2 /HPF None Seen 07/29 Normal [facility] (07/29/2013 13:50:00) URINALYSIS UA Sq Epi Rare /LPF Few 07/29 Normal [facility] (07/29/2013 13:50:00) CHEMISTRY pO2 Art 71 mm[Hg] 80 - 100 05/23 LOW [facility] CHEMISTRY pH Art 7.38 7.35 - 05/23 Normal [facility] 7[facility] CHEMISTRY pCO2 Art 55 mm[Hg] 35 - 45 05/23 [facility] CHEMISTRY HCO3 Art 32 mMol/L 22 - 26 05/23 [facility] CHEMISTRY BE Art 6 mMol/L -2-2 - 2 05/23 [facility] CHEMISTRY Carboxyhgb 1.5 % 05/23 NA 1Interpretive Data: Non-smokers: 0 - 2.0% Saturation [facility] Smokers: 0 - 9.0% Saturation [facility] CHEMISTRY Methgb Art 0.6 % 0.0 - 1.4 05/23 [facility] CHEMISTRY O2Hb Art 93.3 % 95.0 - 05/23 LOW [facility] 100.0 /2011 [facility] CHEMISTRY Hgb Tot Art 13.0 g/dL 12.0 - 05/23 Normal [facility] 16.0 /2011 [facility] CHEMISTRY Temp Art 37.0 Alize 05/23 NA [facility] Vital Signs Vital Sign Value Date Comments Source Heart Rate 78 06/11/2014 [place] Diastolic (mm Hg) 64 06/11/2014 [facility] [place] Systolic (mm Hg) 106 06/11/2014 [place] Respitory Rate 20 06/11/2014 [place] [facility] Temperature Oral (F) 98.1 F 06/11/2014 [facility] [place] Diastolic (mm Hg) 56 06/11/2014 [place] Heart Rate 59 06/11/2014 [facility] [place] Systolic (mm Hg) 105 06/11/2014 [place] [facility] Respitory Rate 20 06/11/2014 [facility] Temperature Oral (F) 97.7 F 06/11/2014 [facility] Diastolic (mm Hg) 81 06/11/2014 [facility] Systolic (mm Hg) 162 06/11/2014 [facility] Respitory Rate 20 06/11/2014 [facility] Temperature Oral (F) 98.1 F 06/11/2014 [place] [facility] Heart Rate 62 06/11/2014 [facility] Weight 75 05/27/2014 [facility] BMI Calculated 32.29 05/27/2014 [facility] [place] Height 152.4 cm 05/27/2014 [place] Weight 75 05/20/2014 [facility] BMI Calculated 31.24 05/20/2014 [facility] Height 154.94 cm 05/20/2014 [facility] Height 154.94 cm 05/20/2014 [facility] Weight 73.182 05/20/2014 [facility] BMI Calculated 30.48 05/20/2014 [facility] [place] Systolic (mm Hg) 161 02/24/2014 [facility] Respitory Rate 16 02/24/2014 [facility] [place] Diastolic (mm Hg) 56 02/24/2014 [facility] [place] Systolic (mm Hg) 159 02/24/2014 [facility] Respitory Rate 16 02/24/2014 [facility] [place] Diastolic (mm Hg) 62 02/24/2014 [facility] Respitory Rate 14 02/24/2014 [facility] [place] Systolic (mm Hg) 149 02/24/2014 [facility] [place] Diastolic (mm Hg) 64 02/24/2014 [facility] [place] Height 154.94 cm 02/17/2014 [place] BMI Calculated 30.48 02/17/2014 [facility] Weight 73.182 02/17/2014 [facility] Systolic (mm Hg) 124 09/07/2013 [facility] Diastolic (mm Hg) 46 09/07/2013 [facility] Respitory Rate 14 09/07/2013 [facility] Respitory Rate 0 09/06/2013 [facility] Temperature Oral (F) 98.0 F 09/06/2013 [facility] Systolic (mm Hg) 128 09/06/2013 [facility] Respitory Rate 22 09/06/2013 [facility] Diastolic (mm Hg) 57 09/06/2013 [facility] Diastolic (mm Hg) 50 09/06/2013 [facility] Systolic (mm Hg) 109 09/06/2013 [facility] Temperature Oral (F) 97.5 F 09/06/2013 [facility] Temperature Oral (F) 97.6 F 09/06/2013 [facility] Weight 72.2 09/05/2013 [facility] Height 154.94 cm 09/05/2013 [facility] Systolic (mm Hg) 95 08/12/2013 [facility] Respitory Rate 20 08/12/2013 [facility] Diastolic (mm Hg) 46 08/12/2013 [facility] Heart Rate 71 08/12/2013 [facility] Temperature Oral (F) 96.1 F 08/12/2013 [facility] Diastolic (mm Hg) 58 08/12/2013 [facility] Heart Rate 95 08/12/2013 [facility] Respitory Rate 18 08/12/2013 [facility] Systolic (mm Hg) 120 08/12/2013 [facility] Temperature Oral (F) 97.9 F 08/12/2013 [facility] Temperature Oral (F) 97.1 F 08/12/2013 [facility] Heart Rate 92 08/12/2013 [facility] Respitory Rate 18 08/12/2013 [facility] Diastolic (mm Hg) 54 08/12/2013 [facility] Systolic (mm Hg) 113 08/12/2013 [facility] Weight 72.273 08/06/2013 [facility] Height 154.94 cm 08/06/2013 [facility] Height 154.94 cm 07/22/2013 [facility] Weight 72.273 07/22/2013 [facility] Weight 160.2 03/06/2013 [facility] Temperature Oral (F) 98.6 F 03/06/2013 [facility] Systolic (mm Hg) 132 03/06/2013 [facility] Diastolic (mm Hg) 60 03/06/2013 [facility] Heart Rate 72 03/06/2013 [facility] Weight 166 12/28/2012 [facility] Respitory Rate 18 12/20/2012 [facility] Systolic (mm Hg) 133 12/20/2012 [facility] Diastolic (mm Hg) 63 12/20/2012 [facility] Diastolic (mm Hg) 61 12/20/2012 [facility] Systolic (mm Hg) 134 12/20/2012 [facility] Respitory Rate 18 12/20/2012 [facility] Diastolic (mm Hg) 63 12/20/2012 [facility] Systolic (mm Hg) 131 12/20/2012 [facility] Respitory Rate 16 12/20/2012 [facility] Heart Rate 88 12/20/2012 [facility] Height 154.94 cm 12/20/2012 [facility] Weight 73.636 12/20/2012 [facility] Weight 74.091 12/17/2012 [facility] Height 154.94 cm 12/17/2012 [facility] Weight 166 12/14/2012 [facility] Weight 166 [...] [facility] Diastolic (mm Hg) 77 07/31/2012 [facility] Systolic (mm Hg) 167 07/31/2012 [facility] Respitory Rate 20 07/31/2012 [facility] Heart Rate 87 07/31/2012 [facility] Temperature Oral (F) 99.0 F 07/31/2012 [facility] Weight 79.773 07/31/2012 [facility] Height 154.94 cm 07/31/2012 [facility] Weight 86.364 05/23/2012 [facility] Height 154.94 cm 05/23/2012 [facility] Diastolic (mm Hg) 60 05/15/2012 [facility] Systolic (mm Hg) 127 05/15/2012 [facility] Respitory Rate 24 05/15/2012 [facility] Heart Rate 95 05/15/2012 [facility] Temperature Oral (F) 97.8 F 05/15/2012 [facility] Weight 89.148 05/15/2012 [facility] Encounters Location Location Encounter Encounter Reason Attending ADM DC Status Source Details Type Number For Provider Date Date Visit [facility] Outpatient [id number] UNKNOWN MOHAMMED 05/15 05/15 Active [place] [address] BLOOD ATTAR [facility] Outpatient [id number] COUGH, REEBA 05/23 Active [facility] COPD [facility] [place] [id number] UNKNOWN MICHELLE 07/31 Active [facility] 1 BLOOD YOBANI [facility] DS [id number] CHAITANYA 12/18 12/18 [facility] [place] [id number] CHAITANYA 12/20 12/20 [facility] Inpatient [id number] FANY TAN 08/06 08/12 Active [facility] R LUIS ENRIQUE [facility] NECROSIS -733.40, HIP PAIN RIGHT-71 9.45-SCI P [facility] Inpatient [id number] UNCONTRO CANDELARIA 09/04 09/06 Active [facility] 6 LLABLE CYNTHIA [facility] Lab Report [id number] Ang 01/03 01/03 Alex 97535 MD Lida /2013 [facility] [place] [facility] Outpt Diag [id number] _MAPID:E Anders 01/21 01/22 [facility] 2 [id number] [facility] - [id number] [facility] OBS Day [id number] Anders 02/24 02/24 [facility] 6 [facility] [id number] Keshav 05/27 06/11 [facility] 7 [facility] [place] [facility] [id number] Keshav 10/08 11/07 [facility] [place] [facility] 0 [facility] [id number] Buddy 11/17 12/17 [facility] [place] [facility] [id number] Buddy 12/29 01/28 [facility] [place] [facility] 3 [facility] Outpt Diag [id number] Keshav 01/29 01/30 [facility] 4 [facility] Outpatient [id number] XRAY VISIT 08/04 Active [facility] [id number] [facility] 08/04 Active [facility] 1 [facility] Outpatient [id number] [facility] 08/18 Active [facility] 2 [facility] Outpatient [id number] [facility] 10[facility]06 Active [facility] 3 [facility] Outpatient [id number] [facility] 02/14 Active [facility] [place] Outpatient [id number] [facility] 02/21 Active [facility] [place] Outpatient [id number] [facility] 03/21 Active [facility] [place] [id number] UNKNOWN MOHAMMED Cancel [address] Center Procedures Procedure Code Date Perfomer Comments Source Arthroscopy of 052610190 1 left knee scope [facility] knee<sup>1</sup> 4 [facility] Arthroplasty of hip, 26324545 [facility] total, with use of 3 Land methyl methacrylate Carpal tunnel 931024486 1right with [facility] release <sup>1</sup> 3 dequervacins Land release Cataract surgery 068812984 [facility] 0 [facility] Laminectomy 5834319493 [facility] Neck repair 284472703 [facility] Arthroscopy of 154859004 [facility] shoulder 8 Land Fluoroscopy and 7620681646 [facility] stent aorta 6 [facility] Wrist repair 673793839 [facility] Foot repair 568860475 [facility] Arthroscopy of knee 770188243 [facility] Cholecystectomy 54738988 [facility] Hysterectomy 942054842 [facility] Aspiration of 032423171 [facility] ganglion - hand 0 [facility] Craniotomy 82154985 [facility]
--- OUTSIDE RECORDS SUMMARY | 2019-02-13 21:54 | XMS REPORT | CCD ---
:1945 Author Organization [facility] Team Providers Name Role Phone Ludwin Dunlap [...]
--- OUTSIDE RECORDS SUMMARY | 2019-02-13 21:54 | XMS REPORT | CCD ---
:1945 Author Organization [facility] Team Providers Name Role Phone Germán Ludwin [...]
--- OUTSIDE RECORDS SUMMARY | 2019-02-13 21:54 | XMS REPORT | CCD ---
:1945 Author Organization [facility] Care Team Providers Name Role Phone Hemalatha [...]
--- OUTSIDE RECORDS SUMMARY | 2019-02-13 21:54 | XMS REPORT | CCD ---
:1945 Author Organization [facility] Care Team Providers Name Role Phone [...]
--- OUTSIDE RECORDS SUMMARY | 2019-02-13 21:55 | XMS REPORT | CCD ---
:1945 Author Organization [facility] Team Providers Name Role Phone Keshav Mccoy [...] 11/13/2006 Resolved Weak Active 1B MRSA - [id number] added by Discern Expert. Medications Medication Instructions [...] 30 mL, Route: IV, 08/06/2013 08/10/2013 Discontinued GARDE MANAGER (6 mg/30 mL) INJ Initial Loading Dose: Syringe 6 mg 0.3 mg, GARDE MANAGER Dose: 0.2 mg, GARDE MANAGER Lockout: 10 minutes, Continuous Basal Rate: 0 [...] 7:24:00 Sodium Chloride 0.9% 250 mL, Rate: square dance caller 08/08/2013 08/09/2013 Discontinued (titrate) 250 mL for [...] Duration: 30 day, Stop date: 09/05/13 5:59:00 [place] 10/325 oral tablet 1 tab, Route: PO, [...] Comment: "Significant Findings called to Artemio Coleat [phone] by bf.Read Back OK."2Interpretive Data: Interpretive Data: [...] by the [facility] within the [facility]. The [facility] is authorized [...] NIPATEL3 Called Daniela at 08/08/2013 07:55 for tack picker 2 units of RBC's are ready. 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
--- OUTSIDE RECORDS SUMMARY | 2019-02-13 21:56 | XMS REPORT | CCD ---
:1945 Author Organization [facility] Care Team Providers Name Role Phone [...] 11/13/2006 Resolved Weak Active 1B MRSA - [id number] added by Discern Expert. Medications Medication Instructions Start Date End Date Status Pneumovax 23 0.5 mL, Route: IM, Drug 08/06/2013 08/07/2013 Completed Form: INJ, ONCE, Start date: 08/06/13 19:00:00, Stop date: 08/06/13 19:00:00(Same as: Pneumovax 23) Refrigerate ceftriaxone 2 gm, Route: IVPB, Drug 09/05/2013 09/06/2013 Discontinued form: PDR/INJ, [id number], Dosing Weight 72.2, kg, Start date: 09/05/13 [...] by the [facility] within the [facility]. The [facility] is authorized [...] values reflect the clinical guidelines of the [place] [employer].6Interpretive Data: Adult reference range values reflect the clinical guidelines of the [place] [employer].HEMATOLOGY Most recent to oldest [Reference [...]
--- OUTSIDE RECORDS SUMMARY | 2019-02-13 21:56 | XMS REPORT | CCD ---
:1945 Author Organization [facility] Care Team Providers Name Role Phone [...] 11/13/2006 Resolved Weak Active 1B MRSA - [id number] added by Discern Expert. Medications Medication Instructions Start Date End Date Status Pneumovax 23 0.5 mL, Route: IM, Drug 08/06/2013 08/07/2013 Completed Form: INJ, ONCE, Start date: 08/06/13 19:00:00, Stop date: 08/06/13 19:00:00(Same as: Pneumovax 23) Refrigerate ceftriaxone 2 gm, Route: IVPB, Drug 09/05/2013 09/06/2013 Discontinued form: PDR/INJ, [id number], Dosing Weight 72.2, kg, Start date: 09/05/13 [...] by the [facility] within the [facility]. The [facility] is authorized [...] values reflect the clinical guidelines of the [place] [employer].6Interpretive Data: Adult reference range values reflect the clinical guidelines of the [place] [employer].HEMATOLOGY Most recent to oldest [Reference [...]
--- OUTSIDE RECORDS SUMMARY | 2019-02-13 21:57 | XMS REPORT | CCD ---
:1945 Author Organization [facility] Care Team Providers Name Role Phone Aric [...] 11/13/2006 Resolved Weak Active 1B MRSA - [id number] added by Discern Expert. Medications Medication Instructions Start Date End Date Status Pneumovax 23 0.5 mL, Route: IM, Drug 08/06/2013 08/07/2013 Completed Form: INJ, ONCE, Start date: 08/06/13 19:00:00, Stop date: 08/06/13 19:00:00(Same as: Pneumovax 23) Refrigerate ceftriaxone 2 gm, Route: IVPB, Drug 09/05/2013 09/06/2013 Discontinued form: PDR/INJ, [id number], Dosing Weight 72.2, kg, Start date: 09/05/13 [...] by the [facility] within the [facility]. The Molecular Diagnostic Laboratory is authorized under [...] values reflect the clinical guidelines of the [place] [employer].6Interpretive Data: Adult reference range values reflect the clinical guidelines of the [place] [employer].HEMATOLOGY Most recent to oldest [Reference [...]
--- OUTSIDE RECORDS SUMMARY | 2019-02-13 21:57 | XMS REPORT | CCD ---
:1945 Author Organization [facility] Care Team Providers Name Role Phone Aric [...] 11/13/2006 Resolved Weak Active 1B MRSA - [id number] added by Discern Expert. Medications Medication Instructions Start Date End Date Status Pneumovax 23 0.5 mL, Route: IM, Drug 08/06/2013 08/07/2013 Completed Form: INJ, ONCE, Start date: 08/06/13 19:00:00, Stop date: 08/06/13 19:00:00(Same as: Pneumovax 23) Refrigerate ceftriaxone 2 gm, Route: IVPB, Drug 09/05/2013 09/06/2013 Discontinued form: PDR/INJ, [id number], Dosing Weight 72.2, kg, Start date: 09/05/13 [...] the [facility] within the [facility]. The Molecular Diagnostic Laboratory is authorized [...] values reflect the clinical guidelines of the [place] [employer].6Interpretive Data: Adult reference range values reflect the clinical guidelines of the [place] [employer].HEMATOLOGY Most recent to oldest [Reference [...]
--- OUTSIDE RECORDS SUMMARY | 2019-02-13 21:58 | XMS REPORT | CCD ---
:1945 Author Organization [facility] Care Team Providers Name [...] 11/13/2006 Resolved Weak Active 1B MRSA - [id number] added by Discern Expert. Medications Medication Instructions Start Date End Date Status Pneumovax 23 0.5 mL, Route: IM, Drug 08/06/2013 08/07/2013 Completed Form: INJ, ONCE, Start date: 08/06/13 19:00:00, Stop date: 08/06/13 19:00:00(Same as: Pneumovax 23) Refrigerate ceftriaxone 2 gm, Route: IVPB, Drug 09/05/2013 09/06/2013 Discontinued form: PDR/INJ, [id number], Dosing Weight 72.2, kg, Start date: 09/05/13 [...] by the [facility] within the [facility]. The [facility] is [...] values reflect the clinical guidelines of the [place] [employer].6Interpretive Data: Adult reference range values reflect the clinical guidelines of the [place] [employer].HEMATOLOGY Most recent to oldest [Reference [...]
--- OUTSIDE RECORDS SUMMARY | 2019-02-13 21:59 | XMS REPORT | Continuity of Care Document ---
:1945 Author Organization [facility] Care Team Providers Name Role Phone MD Lida, Ang Unavailable Unavailable Insurance Providers Payer name Policy type / Policy ID Covered green party ID Policy Almazan Coverage type MEDICARE PRIM [...] Date Lab Report Ang Hilton MD [facility] Jan 03, 2014 Allergies, Adverse Reactions, Alerts [...]
--- OUTSIDE RECORDS SUMMARY | 2019-02-13 22:00 | XMS REPORT ---
:1945 Author Organization [facility] Address [address] [place] [address] [place] [id number] Care Team Providers Name Role Phone MASSIEL [...] Range Comments B-TYPE NATRIURETIC PEPTIDE (BEAKER) (test jcgv=734) 75 pg/mL 0-100 [id number] 12:32:00 Test Item Value Reference Range Comments MAGNESIUM (BEAKER) (test meuv=060) 2.0 mg/dL 1.6-2.6 BASIC METABOLIC [id number] 12:32:00 Test Item Value Reference Range Comments SODIUM (BEAKER) (test 140 meq/L 136-145 voqc=570) POTASSIUM (BEAKER) (test 5.2 meq/L 3.5-5.1 njlm=732) CHLORIDE (BEAKER) (test 103 meq/L 98-107 cffh=820) CO2 (BEAKER) (test 29 meq/L 22-29 hgpp=907) BLOOD UREA NITROGEN 33 mg/dL 7-21 (BEAKER) (test uboa=762) CREATININE (BEAKER) (test 1.44 mg/dL 0.57-1.25 mvqe=842) GLUCOSE RANDOM (BEAKER) 82 mg/dL 70-105 (test wwqf=767) CALCIUM (BEAKER) (test 9.6 mg/dL 8.4-10.2 pylq=395) EGFR (BEAKER) (test 36 mL/min/1.73 sq m ESTIMATED GFR IS NOT vblq=0131) ACCURATE CREATININE CLEARANCE IN PREDICTING GLOMERULAR FILTRATION RATE. ESTIMATED GFR IS NOT APPLICABLE FOR DIALYSIS PATIENTS. POCT-GLUCOSE [id number] 11:34:00 Test Item Value Reference Range Comments POC-GLUCOSE METER (BEAKER) 123 mg/dL 70-110 TESTED AT [address] (test lqcg=6483) [employer] [address] POCT-GLUCOSE [id number] 08:04:00 Test Item Value Reference Range Comments POC-GLUCOSE METER (BEAKER) 96 mg/dL 70-110 TESTED AT [address] (test gbel=2580) [employer] [address] POCT-GLUCOSE [id number] 21:46:00 Test Item Value Reference Range Comments POC-GLUCOSE METER (BEAKER) 155 mg/dL 70-110 TESTED AT [address] (test twxk=7576) [employer] [address] POCT-GLUCOSE [id number] 18:07:00 Test Item Value Reference Range Comments POC-GLUCOSE METER (BEAKER) 189 mg/dL 70-110 TESTED AT [address] (test ummg=0832) [employer] [address] POCT-GLUCOSE [id number] 12:04:00 Test Item Value Reference Range Comments POC-GLUCOSE METER (BEAKER) 103 mg/dL 70-110 TESTED AT [address] (test aggn=4318) [employer] [address] POCT-GLUCOSE [id number] 07:38:00 Test Item Value Reference Range Comments POC-GLUCOSE METER (BEAKER) 77 mg/dL 70-110 TESTED AT [address] (test qfth=5842) [employer] [address] POCT-GLUCOSE [id number] 21:42:00 Test Item Value Reference Range Comments POC-GLUCOSE METER (BEAKER) 127 mg/dL 70-110 TESTED AT [address] (test aftg=2345) [employer] [address] POCT-GLUCOSE [id number] 21:42:00 Test Item Value Reference Range Comments POC-GLUCOSE METER (BEAKER) 204 mg/dL 70-110 TESTED AT [address] (test norb=4019) [employer] [address] POCT-GLUCOSE [id number] 13:48:00 Test Item Value Reference Range Comments POC-GLUCOSE METER (BEAKER) 160 mg/dL 70-110 TESTED AT [address] (test hvla=4099) [place] [address] POCT-GLUCOSE [id number] 08:19:00 Test Item Value Reference Range Comments POC-GLUCOSE METER (BEAKER) 89 mg/dL 70-110 TESTED AT [address] (test kpir=2079) [place] [address] MISCELLANEOUS LAB [id number] 05:59:00 Test Item Value Reference Range Comments SCAN RESULT (test uvsk=[id number]) Result comments: Coagulase Negative Staphylococcus Species (CoNS) [...] required. This sample was tested at the [facility] using the AirXpanders Blood Culture ID Panel. This test is FDA cleared for in vitro diagnostic use and has been verified and approved by the [facility] laboratory for clinical use. Reference Range: Not DetectedPOCT-GLUCOSE [id number] 22:00:00 Test Item Value Reference Range Comments POC-GLUCOSE METER (BEAKER) 121 mg/dL 70-110 TESTED AT [address] (test kged=2684) [place] [address] POCT-GLUCOSE [id number] 16:48:00 Test Item Value Reference Range Comments POC-GLUCOSE METER (BEAKER) 159 mg/dL 70-110 TESTED AT [address] (test phop=4078) [place] [address] POCT-GLUCOSE [id number] 12:22:00 Test Item Value Reference Range Comments POC-GLUCOSE METER (BEAKER) 105 mg/dL 70-110 TESTED AT [address] (test okoz=1413) [place] [address] BLOOD [id number] 11:00:00 Test Item Value Reference Range Comments CULTURE (BEAKER) (test szpk=3630) No growth in 5 days POCT-GLUCOSE [id number] 08:36:00 Test Item Value Reference Range Comments POC-GLUCOSE METER (BEAKER) 76 mg/dL 70-110 TESTED AT [address] (test avij=5801) [place] [address] POCT-GLUCOSE [id number] 23:35:00 Test Item Value Reference Range Comments POC-GLUCOSE METER (BEAKER) 139 mg/dL 70-110 TESTED AT [address] (test nwfi=0399) [employer] [address] POCT-GLUCOSE [id number] 16:02:00 Test Item Value Reference Range Comments POC-GLUCOSE METER (BEAKER) 140 mg/dL 70-110 TESTED AT [address] (test leti=0971) [employer] [address] POCT-GLUCOSE [id number] 12:34:00 Test Item Value Reference Range Comments POC-GLUCOSE METER (BEAKER) 136 mg/dL 70-110 TESTED AT [address] (test hodb=2832) [employer] [address] POCT-GLUCOSE [id number] 08:28:00 Test Item Value Reference Range Comments POC-GLUCOSE METER (BEAKER) 90 mg/dL 70-110 TESTED AT [address] (test tffr=3676) [employer] [address] POCT-GLUCOSE [id number] 21:17:00 Test Item Value Reference Range Comments POC-GLUCOSE METER (BEAKER) 158 mg/dL 70-110 TESTED AT [address] (test pjkr=9704) [employer] [address] POCT-GLUCOSE [id number] 16:38:00 Test Item Value Reference Range Comments POC-GLUCOSE METER (BEAKER) 137 mg/dL 70-110 TESTED AT [address] (test gxif=7143) [employer] [address] POCT-GLUCOSE [id number] 12:15:00 Test Item Value Reference Range Comments POC-GLUCOSE METER (BEAKER) 104 mg/dL 70-110 TESTED AT [address] (test lgii=5079) [employer] [address] POCT-GLUCOSE [id number] 08:32:00 Test Item Value Reference Range Comments POC-GLUCOSE METER (BEAKER) 88 mg/dL 70-110 TESTED AT [address] (test ccbm=6207) [employer] [address] COMPREHENSIVE METABOLIC [id number] 07:49:00 Test Item Value Reference Range Comments TOTAL PROTEIN (BEAKER) 5.6 gm/dL 6.0-8.3 Specimen slightly (test soiu=797) hemolyzed ALBUMIN (BEAKER) (test 3.1 g/dL 3.5-5.0 Specimen slightly xxfx=0788) hemolyzed ALKALINE PHOSPHATASE 79 U/L 40-150 (BEAKER) (test waxi=719) BILIRUBIN TOTAL (BEAKER) 0.3 mg/dL 0.2-1.2 Specimen slightly (test qmsd=155) hemolyzed SODIUM (BEAKER) (test 139 meq/L 136-145 udyd=722) POTASSIUM (BEAKER) (test 3.7 meq/L 3.5-5.1 Specimen slightly zpgq=315) hemolyzed CHLORIDE (BEAKER) (test 105 meq/L 98-107 amkn=511) CO2 (BEAKER) (test 26 meq/L 22-29 plst=387) BLOOD UREA NITROGEN 31 mg/dL 7-21 (BEAKER) (test qrnj=623) CREATININE (BEAKER) (test 1.36 mg/dL 0.57-1.25 Specimen slightly imfb=534) hemolyzed GLUCOSE RANDOM (BEAKER) 77 mg/dL 70-105 (test lbmt=846) CALCIUM (BEAKER) (test 8.9 mg/dL 8.4-10.2 wrug=763) AST (SGOT) (BEAKER) (test 15 U/L 5-34 Specimen slightly eywl=418) hemolyzed ALT (SGPT) (BEAKER) (test 12 U/L 6-55 Specimen slightly hzau=498) hemolyzed EGFR (BEAKER) (test 38 mL/min/1.73 sq m ESTIMATED GFR IS NOT tyoa=0611) ACCURATE CREATININE CLEARANCE IN PREDICTING GLOMERULAR FILTRATION RATE. ESTIMATED GFR IS NOT APPLICABLE FOR DIALYSIS PATIENTS. BLOOD [id number] 07:45:00 Test Item Value Reference Range Comments CULTURE (BEAKER) From Aerobic And Anaerobic (test wfiu=9393) Bottles Coagulase negative Staphylococcus GRAM STAIN RESULT From aerobic and (BEAKER) (test anaerobic bottles: ngam=0874) gram positive cocci in clusters Coagulase Negative [...] required. This sample was tested at the [facility] using the AirXpanders Blood Culture ID Panel.This test is FDA cleared for in vitro diagnostic use and has been verified and [facility]. Reference Range: Not DetectedPOCT-GLUCOSE [id number] 00:48:00 Test Item Value Reference Range Comments POC-GLUCOSE METER (BEAKER) 94 mg/dL 70-110 TESTED AT [address] (test pajh=6141) [place] [address] POCT-GLUCOSE [id number] 21:05:00 Test Item Value Reference Range Comments POC-GLUCOSE METER (BEAKER) 143 mg/dL 70-110 TESTED AT [address] (test onji=9395) [place] [address] POCT-GLUCOSE [id number] 18:41:00 Test Item Value Reference Range Comments POC-GLUCOSE METER (BEAKER) 198 mg/dL 70-110 TESTED AT [address] (test kgld=4867) [place] [address] POCT-GLUCOSE [id number] 12:04:00 Test Item Value Reference Range Comments POC-GLUCOSE METER (BEAKER) 113 mg/dL 70-110 TESTED AT [address] (test tghh=2580) [place] [address] URINE [id number] 10:50:00 Test Item Value Reference Range Comments CULTURE (BEAKER) (test abop=8923) No growth HEMOGLOBIN [id number] 09:08:00 Test Item Value Reference Range Comments HEMOGLOBIN A1C (BEAKER) (test gwnf=154) 4.9 % 4.3-6.1 POCT-GLUCOSE [id number] 08:17:00 Test Item Value Reference Range Comments POC-GLUCOSE METER (BEAKER) 76 mg/dL 70-110 TESTED AT [address] (test qleg=8990) [place] [address] COMPREHENSIVE METABOLIC [id number] 07:08:00 Test Item Value Reference Range Comments TOTAL PROTEIN (BEAKER) 5.9 gm/dL 6.0-8.3 (test zxoa=500) ALBUMIN (BEAKER) (test 3.3 g/dL 3.5-5.0 mxyo=3690) ALKALINE PHOSPHATASE 89 U/L 40-150 (BEAKER) (test xabc=813) BILIRUBIN TOTAL (BEAKER) 0.3 mg/dL 0.2-1.2 (test zidx=026) SODIUM (BEAKER) (test 140 meq/L 136-145 sbtj=168) POTASSIUM (BEAKER) (test 3.5 meq/L 3.5-5.1 xfje=822) CHLORIDE (BEAKER) (test 102 meq/L 98-107 mgjg=841) CO2 (BEAKER) (test 31 meq/L 22-29 gsvs=143) BLOOD UREA NITROGEN 29 mg/dL 7-21 (BEAKER) (test uuwl=243) CREATININE (BEAKER) (test 1.34 mg/dL 0.57-1.25 gznk=577) GLUCOSE RANDOM (BEAKER) 91 mg/dL 70-105 (test awzl=352) CALCIUM (BEAKER) (test 9.4 mg/dL 8.4-10.2 mekx=241) AST (SGOT) (BEAKER) (test 14 U/L 5-34 eykc=936) ALT (SGPT) (BEAKER) (test 10 U/L 6-55 lpxp=286) EGFR (BEAKER) (test 39 mL/min/1.73 sq m ESTIMATED GFR IS NOT woia=4743) ACCURATE CREATININE CLEARANCE IN PREDICTING GLOMERULAR FILTRATION RATE. ESTIMATED GFR IS NOT APPLICABLE FOR DIALYSIS PATIENTS. CBC W/PLT COUNT & AUTO [id number] 06:55:00 Test Item Value Reference Range Comments WHITE BLOOD CELL COUNT (BEAKER) (test nbvl=881) 5.7 K/ L 3.5-10.5 RED BLOOD CELL COUNT (BEAKER) (test lwby=587) 3.25 M/ L 3.93-5.22 HEMOGLOBIN (BEAKER) (test nhgf=231) 9.7 GM/DL 11.2-15.7 HEMATOCRIT (BEAKER) (test fbua=842) 30.3 % 34.1-44.9 MEAN CORPUSCULAR VOLUME (BEAKER) (test tfgt=932) 93.2 fL 79.4-94.8 MEAN CORPUSCULAR HEMOGLOBIN (BEAKER) (test 29.8 pg 25.6-32.2 nsut=316) MEAN CORPUSCULAR HEMOGLOBIN CONC (BEAKER) (test 32.0 GM/DL 32.2-35.5 accx=376) RED CELL DISTRIBUTION WIDTH (BEAKER) (test 13.5 % 11.7-14.4 mnpx=395) PLATELET COUNT (BEAKER) (test sdgs=751) 137 K/CU MM 150-450 MEAN PLATELET VOLUME (BEAKER) (test yqjo=176) 10.6 fL 9.4-12.3 NUCLEATED RED BLOOD CELLS (BEAKER) (test 0 /100 WBC 0-0 ihjl=343) NEUTROPHILS RELATIVE PERCENT (BEAKER) (test 56 % votd=571) LYMPHOCYTES RELATIVE PERCENT (BEAKER) (test 29 % yrjr=218) MONOCYTES RELATIVE PERCENT (BEAKER) (test 15 % rdpr=459) EOSINOPHILS RELATIVE PERCENT (BEAKER) (test 0 % cbgu=673) BASOPHILS RELATIVE PERCENT (BEAKER) (test 0 % hajw=215) NEUTROPHILS ABSOLUTE COUNT (BEAKER) (test 3.21 K/ L 1.56-6.13 tohu=642) LYMPHOCYTES ABSOLUTE COUNT (BEAKER) (test 1.66 K/ L 1.18-3.74 cnsj=332) MONOCYTES ABSOLUTE COUNT (BEAKER) (test 0.83 K/ L 0.24-0.36 auno=368) EOSINOPHILS ABSOLUTE COUNT (BEAKER) (test 0.00 K/ L 0.04-0.36 othq=403) BASOPHILS ABSOLUTE COUNT (BEAKER) (test 0.01 K/ L 0.01-0.08 tosj=288) IMMATURE GRANULOCYTES-RELATIVE PERCENT (BEAKER) 0 % 0-1 (test wuan=8150) POCT-GLUCOSE [id number] 17:11:00 Test Item Value Reference Range Comments POC-GLUCOSE METER (BEAKER) 150 mg/dL 70-110 TESTED AT [address] (test smrm=0694) [employer] [address] POCT-GLUCOSE [id number] 07:55:00 Test Item Value Reference Range Comments POC-GLUCOSE METER (BEAKER) 91 mg/dL 70-110 TESTED AT [address] (test cslo=6590) [place] [id number] TROPONIN [id number] 06:37:00 Test Item Value Reference Range Comments TROPONIN I (BEAKER) (test qfjy=076) 0.03 ng/mL 0.00-0.03 Troponin I (TnI) levels [...] acute neurological disease, and persistent tachyarrhythmia.COMPREHENSIVE METABOLIC [id number] 02:37:00 Test Item Value Reference Range Comments TOTAL PROTEIN (BEAKER) 6.2 gm/dL 6.0-8.3 (test ceoz=605) ALBUMIN (BEAKER) (test 3.4 g/dL 3.5-5.0 dpls=2685) ALKALINE PHOSPHATASE 104 U/L 40-150 (BEAKER) (test dihe=991) BILIRUBIN TOTAL (BEAKER) 0.3 mg/dL 0.2-1.2 (test xowi=000) SODIUM (BEAKER) (test 140 meq/L 136-145 nowz=852) POTASSIUM (BEAKER) (test 4.1 meq/L 3.5-5.1 scjm=039) CHLORIDE (BEAKER) (test 99 meq/L 98-107 rkkj=633) CO2 (BEAKER) (test 33 meq/L 22-29 hxrm=012) BLOOD UREA NITROGEN 24 mg/dL 7-21 (BEAKER) (test ella=634) CREATININE (BEAKER) (test 1.24 mg/dL 0.57-1.25 nsks=320) GLUCOSE RANDOM (BEAKER) 113 mg/dL 70-105 (test pupj=781) CALCIUM (BEAKER) (test 9.7 mg/dL 8.4-10.2 rduy=398) AST (SGOT) (BEAKER) (test 16 U/L 5-34 dnff=846) ALT (SGPT) (BEAKER) (test 10 U/L 6-55 odkw=708) EGFR (BEAKER) (test 42 mL/min/1.73 sq m ESTIMATED GFR IS NOT zefv=2886) ACCURATE CREATININE CLEARANCE IN PREDICTING GLOMERULAR FILTRATION RATE. ESTIMATED GFR IS NOT APPLICABLE FOR DIALYSIS PATIENTS. CBC W/PLT COUNT & AUTO [id number] 02:21:00 Test Item Value Reference Range Comments WHITE BLOOD CELL COUNT (BEAKER) (test ceau=900) 7.0 K/ L 3.5-10.5 RED BLOOD CELL COUNT (BEAKER) (test esox=910) 3.22 M/ L 3.93-5.22 HEMOGLOBIN (BEAKER) (test qpvd=798) 9.6 GM/DL 11.2-15.7 HEMATOCRIT (BEAKER) (test suwk=366) 30.5 % 34.1-44.9 MEAN CORPUSCULAR VOLUME (BEAKER) (test xlwq=440) 94.7 fL 79.4-94.8 MEAN CORPUSCULAR HEMOGLOBIN (BEAKER) (test 29.8 pg 25.6-32.2 zsox=423) MEAN CORPUSCULAR HEMOGLOBIN CONC (BEAKER) (test 31.5 GM/DL 32.2-35.5 qzeg=125) RED CELL DISTRIBUTION WIDTH (BEAKER) (test 12.9 % 11.7-14.4 wfta=492) PLATELET COUNT (BEAKER) (test pfcw=709) 129 K/CU MM 150-450 MEAN PLATELET VOLUME (BEAKER) (test vrjf=332) 9.8 fL 9.4-12.3 NUCLEATED RED BLOOD CELLS (BEAKER) (test 0 /100 WBC 0-0 ecwh=269) NEUTROPHILS RELATIVE PERCENT (BEAKER) (test 68 % gxpp=038) LYMPHOCYTES RELATIVE PERCENT (BEAKER) (test 16 % lpwj=832) MONOCYTES RELATIVE PERCENT (BEAKER) (test 16 % ywdg=195) EOSINOPHILS RELATIVE PERCENT (BEAKER) (test 0 % yyxx=829) BASOPHILS RELATIVE PERCENT (BEAKER) (test 0 % kuft=584) NEUTROPHILS ABSOLUTE COUNT (BEAKER) (test 4.79 K/ L 1.56-6.13 wpbe=098) LYMPHOCYTES ABSOLUTE COUNT (BEAKER) (test 1.10 K/ L 1.18-3.74 zgki=832) MONOCYTES ABSOLUTE COUNT (BEAKER) (test 1.10 K/ L 0.24-0.36 mutl=578) EOSINOPHILS ABSOLUTE COUNT (BEAKER) (test 0.00 K/ L 0.04-0.36 rpud=695) BASOPHILS ABSOLUTE COUNT (BEAKER) (test 0.00 K/ L 0.01-0.08 shxy=039) IMMATURE GRANULOCYTES-RELATIVE PERCENT (BEAKER) 0 % 0-1 (test ngkl=9360) POCT-GLUCOSE [id number] 21:07:00 Test Item Value Reference Range Comments POC-GLUCOSE METER (BEAKER) 137 mg/dL 70-110 TESTED AT [facility] [address] (test jsau=8195) [employer] [address] MR, BRAIN, WITHOUT [id number] 19:45:00Reason for exam:->Stroke evaluationFINAL REPORT MRI Brain [...] MDReport Verified Date/Time: 07/27/2017 19:45:32 Reading Location: [facility] Radiology Reading Room CREATINE KINASE (CK), TOTAL AND [id number] 18:14: 00 Test Item Value Reference Range Comments CREATINE KINASE TOTAL (BEAKER) (test cjfo=020) 134 U/L 29-200 CREATINE KINASE-MB (BEAKER) (test mqsx=570) 1.6 ng/mL 0.0-6.6 CREATINE KINASE-MB INDEX (BEAKER) (test qpaw=585) 1.2 % CK-MB Reference Range:<6.7 Normal6.7-10.0 Borderline>10.0 AbnormalBASIC METABOLIC [id number] 18:05:00 Test Item Value Reference Range Comments SODIUM (BEAKER) (test 140 meq/L 136-145 ikak=091) POTASSIUM (BEAKER) (test 4.4 meq/L 3.5-5.1 hnzp=004) CHLORIDE (BEAKER) (test 98 meq/L 98-107 dqvn=171) CO2 (BEAKER) (test 31 meq/L 22-29 hrxs=211) BLOOD UREA NITROGEN 23 mg/dL 7-21 (BEAKER) (test bydz=392) CREATININE (BEAKER) (test 1.30 mg/dL 0.57-1.25 hlzm=763) GLUCOSE RANDOM (BEAKER) 147 mg/dL 70-105 (test mruo=554) CALCIUM (BEAKER) (test 10.3 mg/dL 8.4-10.2 afcr=933) EGFR (BEAKER) (test 40 mL/min/1.73 sq m ESTIMATED GFR IS NOT srmm=2934) ACCURATE CREATININE CLEARANCE IN PREDICTING GLOMERULAR FILTRATION RATE. ESTIMATED GFR IS NOT APPLICABLE FOR DIALYSIS PATIENTS. POCT-GLUCOSE [id number] 17:25:00 Test Item Value Reference Range Comments POC-GLUCOSE METER (BEAKER) 179 mg/dL 70-110 TESTED AT [facility] [address] [facility] (test trkh=7116) [employer] [address] INFLUENZA A H1N1 [id number] 14:46:00 Test Item Value Reference Range Comments INFLUENZA A RNA (BEAKER) (test Not Detected Not Detected, Inconclusive moef=5804) NOVEL H1N1 RNA (BEAKER) (test Not Detected Not Detected, Inconclusive pzmt=3934) These assays were performed by real-time RT-PCR (motorbike courier-PCR) utilizing fluorogenic hydrolysis probe technology for the detection of human Influenza A viruses and the differential detection of novel H1N1 Influenza virus in respiratory specimens. The test is composed of (1) an RNA extraction from patient specimen, and (2) motorbike courier-PCR amplification and detection with human Influenza A and novel I3F1-dwjpcsif primers and probes. A well-conserved region of [...] and its performance characteristics determined by the [facility] Pathology Department, Section of Molecular Pathology. It has not been cleared or approved by the U.S. Food and Drug Administration (FDA). SinceFDA approval is not required for clinical use of the test, validation was done as required by The Clinical Laboratory Amendments of 1988.These assays were performed by real-time RT-PCR (motorbike courier-PCR) utilizing fluorogenic hydrolysis probe technology for the detection of human Influenza A viruses and the differential detection of novel H1N1 Influenza virus in respiratory specimens. The test is composed of (1) an RNA extraction from patient specimen, and (2) motorbike courier-PCR amplification and detection with human Influenza A and novel E2A7-aggfixqb primers and probes. A well-conserved region of [...] and its performance characteristics determined by the [facility] Pathology Department, Section of Molecular Pathology. It has not been cleared or approved by the U.S. Food and Drug Administration ( FDA). Since FDA approval is not required for clinical use of the test, validation was done as required by The Clinical Laboratory Amendments of 1988.POCT-GLUCOSE [id number] 12:28:00 Test Item Value Reference Range Comments POC-GLUCOSE METER (Kaboodle) 92 mg/dL 70-110 TESTED AT [facility] [address] [facility] (test ielx=3898) [employer] [address] CREATINE KINASE (CK), TOTAL AND [id number] 11:07:00 Test Item Value Reference Range Comments CREATINE KINASE TOTAL (BEAKER) (test dwyk=637) 133 U/L 29-200 CREATINE KINASE-MB (BEAKER) (test ixtl=041) 1.6 ng/mL 0.0-6.6 CREATINE KINASE-MB INDEX (BEAKER) (test gtgk=111) 1.2 % CK-MB Reference Range:<6.7 Normal6.7-10.0 Borderline>10.0 AbnormalTROPONIN [id number] 11:07:00 Test Item Value Reference Range Comments TROPONIN I (BEAKER) (test bxao=907) 0.02 ng/mL 0.00-0.03 Troponin I (TnI) levels [...] acidosis, acute neurological disease, and persistent tachyarrhythmia.POCT-GLUCOSE [id number] 11:02:00 Test Item Value Reference Range Comments POC-GLUCOSE METER (BEAKER) 106 mg/dL 70-110 TESTED AT [facility] [address] [facility] (test hxbu=5743) [employer] [address] BLOOD GAS, [id number] 08:28:00 Test Item Value Reference Range Comments PH ARTERIAL (BEAKER) (test lljl=880) 7.44 7.35-7.45 PCO2 ARTERIAL (BEAKER) (test qdsh=702) 56 mmHg 35-45 PO2 ARTERIAL (BEAKER) (test vuck=875) 86 mmHg 80-90 O2 SATURATION ARTERIAL (BEAKER) (test zqyd=990) 96.5 % 96.0-97.0 HCO3 ARTERIAL (BEAKER) (test jhlx=937) 36 mmol/L 21-29 BASE EXCESS ARTERIAL (BEAKER) (test gjbd=465) 10.6 mmol/L -2.0-3.0 PATIENT TEMPERATURE (BEAKER) (test amzw=2471) 37.2 C FIO2 (BEAKER) (test bgds=8056) 40.0 % T4, [id number] 04:48:00 Test Item Value Reference Range Comments FREE T4 (BEAKER) (test zeri=651) 0.82 ng/dL 0.70-1.48 TSH/FREE T4 IF [id number] 03:54:00 Test Item Value Reference Range Comments THYROID STIMULATING HORMONE (BEAKER) (test 0.14 uIU/mL 0.35-4.94 izuw=293) RAPID INFLUENZA A&B [id number] 03:41:00 Test Item Value Reference Range Comments RAPID INFLUENZA A AG (BEAKER) (test Negative Negative, Inconclusive lgci=7371) RAPID INFLUENZA B AG (BEAKER) (test Negative Negative, Inconclusive oagc=5830) LACTIC ACID, VENOUS, WHOLE [id number] 03:40:00 Test Item Value Reference Range Comments LACTATE BLOOD VENOUS (2) (BEAKER) (test 0.5 mmol/L 0.5-2.2 lagw=0541) Effective 03/16/2016: Units/Reference Range ChangeNew: 0.5-2.2 mmol/L Previous: 5 -20 mg/dLB-TYPE NATRIURETIC FACTOR (BNP)2017-07-27 03:38:00 Test Item Value Reference Range Comments B-TYPE NATRIURETIC PEPTIDE (BEAKER) (test 330 pg/mL 0-100 jmiw=975) [id number] 03:31:00 Test Item Value Reference Range Comments MAGNESIUM (BEAKER) (test pkmv=540) 1.9 mg/dL 1.6-2.6 BASIC METABOLIC [id number] 03:31:00 Test Item Value Reference Range Comments SODIUM (BEAKER) (test 143 meq/L 136-145 ibbn=471) POTASSIUM (BEAKER) (test 4.9 meq/L 3.5-5.1 zkdy=226) CHLORIDE (BEAKER) (test 101 meq/L 98-107 xksj=637) CO2 (BEAKER) (test 35 meq/L 22-29 dnih=094) BLOOD UREA NITROGEN 22 mg/dL 7-21 (BEAKER) (test gbri=496) CREATININE (BEAKER) (test 1.19 mg/dL 0.57-1.25 kahr=444) GLUCOSE RANDOM (BEAKER) 146 mg/dL 70-105 (test imdn=945) CALCIUM (BEAKER) (test 9.9 mg/dL 8.4-10.2 crgn=512) EGFR (BEAKER) (test 44 mL/min/1.73 sq m ESTIMATED GFR IS NOT tsoc=6536) ACCURATE CREATININE CLEARANCE IN PREDICTING GLOMERULAR FILTRATION RATE. ESTIMATED GFR IS NOT APPLICABLE FOR DIALYSIS PATIENTS. PROTHROMBIN TIME/[id number] 03:31:00 Test Item Value Reference Range Comments PROTIME (BEAKER) (test cpfh=827) 14.1 seconds 11.7-14.7 INR (BEAKER) (test wvhq=791) 1.1 <=5.9 RECOMMENDED COUMADIN/WARFARIN INR THERAPY RANGESSTANDARD DOSE: 2.0 - 3.0 Includes: PROPHYLAXIS forvenous thrombosis, systemic embolization; TREATMENT for venous thrombosis and/or pulmonary embolus.HIGH RISK: Target INR is 2.5-3.5 for patients with mechanical heart valves.CBC W/PLT COUNT & AUTO [id number] 03:21:00 Test Item Value Reference Range Comments WHITE BLOOD CELL COUNT (BEAKER) (test zyzq=678) 8.6 K/ L 3.5-10.5 RED BLOOD CELL COUNT (BEAKER) (test qmkt=185) 3.37 M/ L 3.93-5.22 HEMOGLOBIN (BEAKER) (test glfq=550) 10.0 GM/DL 11.2-15.7 HEMATOCRIT (BEAKER) (test ziuh=040) 33.7 % 34.1-44.9 MEAN CORPUSCULAR VOLUME (BEAKER) (test xdij=218) 100.0 fL 79.4-94.8 MEAN CORPUSCULAR HEMOGLOBIN (BEAKER) (test 29.7 pg 25.6-32.2 resb=922) MEAN CORPUSCULAR HEMOGLOBIN CONC (BEAKER) (test 29.7 GM/DL 32.2-35.5 eukv=326) RED CELL DISTRIBUTION WIDTH (BEAKER) (test 12.7 % 11.7-14.4 khcm=626) PLATELET COUNT (BEAKER) (test dhmu=120) 130 K/CU MM 150-450 MEAN PLATELET VOLUME (BEAKER) (test ivmb=335) 9.8 fL 9.4-12.3 NUCLEATED RED BLOOD CELLS (BEAKER) (test 0 /100 WBC 0-0 tnbh=414) NEUTROPHILS RELATIVE PERCENT (BEAKER) (test 92 % erdz=297) LYMPHOCYTES RELATIVE PERCENT (BEAKER) (test 6 % kqqd=618) MONOCYTES RELATIVE PERCENT (BEAKER) (test 1 % xpjo=798) EOSINOPHILS RELATIVE PERCENT (BEAKER) (test 0 % drkr=498) BASOPHILS RELATIVE PERCENT (BEAKER) (test 0 % qure=492) NEUTROPHILS ABSOLUTE COUNT (BEAKER) (test 7.97 K/ L 1.56-6.13 cjxp=130) LYMPHOCYTES ABSOLUTE COUNT (BEAKER) (test 0.49 K/ L 1.18-3.74 uvgd=510) MONOCYTES ABSOLUTE COUNT (BEAKER) (test 0.09 K/ L 0.24-0.36 scdp=748) EOSINOPHILS ABSOLUTE COUNT (BEAKER) (test 0.00 K/ L 0.04-0.36 tzkq=317) BASOPHILS ABSOLUTE COUNT (BEAKER) (test 0.01 K/ L 0.01-0.08 xmhy=667) IMMATURE GRANULOCYTES-RELATIVE PERCENT (BEAKER) 1 % 0-1 (test gekx=4070) BLOOD GAS, [id number] 02:57:00 Test Item Value Reference Range Comments PH ARTERIAL (BEAKER) (test kpzz=858) 7.28 7.35-7.45 PCO2 ARTERIAL (BEAKER) (test xuuj=668) 83 mmHg 35-45 PO2 ARTERIAL (BEAKER) (test vhfc=245) 59 mmHg 80-90 O2 SATURATION ARTERIAL (BEAKER) (test jwjp=996) 86.1 % 96.0-97.0 HCO3 ARTERIAL (BEAKER) (test ejic=942) 38 mmol/L 21-29 BASE EXCESS ARTERIAL (BEAKER) (test vhkg=602) 8.9 mmol/L -2.0-3.0 PATIENT TEMPERATURE (BEAKER) (test hqfl=4754) 36.9 C FIO2 (BEAKER) (test prmx=7504) 40.0 % POCT-GLUCOSE [id number] 02:51:00 Test Item Value Reference Range Comments POC-GLUCOSE METER (BEAKER) 130 mg/dL 70-110 TESTED AT [facility] [address] [facility] (test lpyt=9934) [employer] [address] RAD, CHEST, 1 VIEW, NON [id number] 02:30:00Reason for exam:->SOBShould this be performed at the bedside?->YesFINAL REPORT RAD , CHEST, 1 VIEW, NON DEPT INDICATION: SOB COMPARISON: Chest x-ray from 1999 TECHNIQUE: Single frontal view of the chest. IMPRESSION:Right-sided MediPort terminates in the mid SVC.Cardiomediastinal silhouette within normal limits.No overt consolidative or congestive change.No acute osseous abnormality. Signed: Shashank Vazquez MDReport Verified Date/Time: 07/27/2017 02:30:16 Reading Location: [address] Ortho Consult Reading Room
[2019-02-13] MEDS ORDERED: METHYLPREDNISOLONE 125 MG INJ ONE (23:09)
[2019-02-13] MEDS ORDERED: KETOROLAC 30 MG/ML INJ ONE (23:10)
[2019-02-13 23:16] LABS: Absolute Lymphocytes (CBC) 0.3 K/uL (0.7-4.9); Absolute Monocytes 0.3 K/uL (0.1-1.3); Absolute Neutrophil 4.7 K/uL (1.8-8.0); Basophils % 0.1 % (0-1.3); Hematocrit 30.3 % (36.0-45.0); Lymphocytes % 4.8 % (15.3-44.8); MPV 7.2 fL (7.6-11.3); Monocytes % 5.4 % (3.3-12.3); RBC Red Blood Cell Count 3.09 M/uL (3.86-4.86)
[2019-02-13] MEDS ORDERED: MAGNESIUM SULFATE 1 gm IVPB 1 GM/100 ML BAG IV ONE (23:28)
[2019-02-13 23:29] LABS: Protime INR 1.01
[2019-02-13 23:58] LABS: ALT/SGPT 11 U/L (12-78); AST/SGOT 14 U/L (15-37); Albumin 2.9 g/dL (3.4-5.0); Alkaline Phosphatase 100 U/L (45-117); BUN Blood Urea Nitrogen 39 mg/dL (7-18); Bicarbonate 33 mmol/L (21-32); Bilirubin Direct < 0.1 mg/dL (0-0.2); Bilirubin Total 0.1 mg/dL (0.2-1.0); Glucose Level 140 mg/dL (74-106); Magnesium 2.3 mg/dL (1.8-2.4); NT PRO-BNP 1347 pg/mL (<125); Protein, Total 6.8 g/dL (6.4-8.2); Sodium Level 139 mmol/L (136-145); Troponin (Emerg Dept Use Only) 0.03 ng/mL (0.0-0.045)
[2019-02-14 00:36] LABS: Blood Morphology Comment NOT SEEN (NOT SEEN); Platelet Estimate ADEQ; Urine White Blood Cell Casts OK
[2019-02-14] MEDS ORDERED: D50W 25 GM/50 ML SYRINGE IV ONE (01:00)
[2019-02-14] MEDS ORDERED: ALBUTEROL 2.5 MG/3 ML NEB SOL ONE (01:00)
[2019-02-14] MEDS ORDERED: IPRATROPIUM BROM 0.5MG/2.5ML ONE (01:00)
[2019-02-14] MEDS ORDERED: FUROSEMIDE 40 MG/4 ML VIAL ONE (01:00)
--- NOTE | 2019-02-14 01:06 | ER ---
Nurse's Notes [facility] Name: No Duran Age: 73 yrs Sex: Female : 1945 Arrival Date: 02/13/2019 Time: 21:36 Bed 4 Private MD: Diagnosis: Acute respiratory failure;Hyperkalemia Presentation: 02/13 21:25 Presenting complaint: EMS states: that pt was having resp distress at halfway. fc Sats were 78% on 3L. Pt given resp tx x 2 at the halfway prior to EMS arrival. Pt also refused to allow EMS to obtain IV line due to her having a port. Transition of care: patient was received from another setting of care (long-term care facility), [place]. Onset of symptoms was February 13, 2019 at 19:00. Risk Assessment: Do you want to hurt yourself or someone else? Patient reports no desire to harm self or others. Initial Sepsis Screen: Does the patient meet any 2 criteria? RR > 20 per min. HR > 90 bpm. Yes Does the patient have a suspected source of infection? Yes: Productive cough/pneumonia If YES to both, name of provider notified: Gary QUINTERO. Care prior to arrival: Medication(s) given: Albuterol Neb x 1, Atrovent Neb x 1. 21:25 Method Of Arrival: EMS: [facility] 21:25 Acuity: ISABELL 2 fc Triage Assessment: 21:33 General: Appears distressed, uncomfortable. Respiratory: Reports shortness of breath at tl2 rest Onset: The symptoms/episode began/occurred today, the patient has moderate shortness of breath. Historical: - Allergies: 21:53 Erythromycin; fc 21:53 Morphine; fc 21:53 Demerol; fc 21:53 Imitrex; fc 21:53 Nubain; fc 21:53 diazepam; fc 21:53 Ondansetron HCl; fc 21:53 sulfamethoxazole-trimethoprim; fc 21:53 adhesive tape; fc 21:53 Silicone; fc 21:53 nalbuphine HCl; fc - Home Meds: 21:53 Acidophilus Oral cap daily [Active]; Advair Diskus 500-50 mcg/dose Inhl dsdv 1 puff 2 fc times per day [Active]; bisacodyl 10 mg Rectal supp 1 suppository daily prn [Active]; Depakote 500 mg Oral TbEC 1 tab 2 times per day [Active]; Depakote ER 250 mg Oral Tb24 3 tabs nightly [Active]; duloxetine 30 mg Oral cpDR 1 cap once daily [Active]; DuoNeb 0.5 mg-3 mg(2.5 mg base)/3 mL Inhl nebu 3 mL QID PRN [Active]; furosemide 40 mg Oral tab 1 tab once daily [Active]; lisinopril 5 mg Oral tab 1 tab once daily [Active]; lorazepam 0.5 mg Oral tab 1 tab q2hrs prn [Active]; [place] 5-325 mg Oral tab 1 tab q4hra pen [Active]; potassium chloride 20 mEq Oral TbER 1 tab once daily [Active]; promethazine 25 mg Oral tab 1 tab q4hrs prn [Active]; quetiapine 400 mg Oral tab 1 tab nightly [Active]; ropinirole 1 mg Oral tab 1 tab nightly [Active]; Senexon 8.6 mg Oral tab 2 tabs daily prn [Active]; tiotropium bromide inhalation 1 cap once daily [Active]; valacyclovir 1 gram Oral tab 1 tab once daily [Active]; - PMHx: 21:53 Anemia; Back pain; CHF; chronic kidney disease; COPD; CVA; High Cholesterol; fc Hypertension; hypoxia; Myocardial infarction; Chronic pain; Depression; GERD; restless leg; Anxiety; Seizures; - Immunization history:: Last tetanus immunization: unknown. - Social history:: Smoking status: Patient/guardian denies using tobacco. - Ebola Screening: : Patient negative for fever greater than or equal to 101.5 degrees Fahrenheit, and additional compatible Ebola Virus Disease symptoms Patient denies exposure to infectious person Patient denies travel to an Ebola-affected area in the 21 days before illness onset. Screenin:45 Abuse screen: Denies threats or abuse. Nutritional screening: No deficits noted. fc Tuberculosis screening: No symptoms or risk factors identified. Fall Risk None identified. Assessment: 21:36 General: Appears distressed, uncomfortable, Behavior is calm, cooperative, appropriate tl2 for age. Pain: Complains of pain in back. Neuro: Level of Consciousness is awake, alert, obeys commands, Oriented to person, place, time, situation. Cardiovascular: Denies chest pain, Rhythm is sinus tachycardia. Respiratory: Airway is patent Respiratory effort is labored, using tripod position, Respiratory pattern is tachypnea Breath sounds are coarse bilaterally. GI: No signs and/or symptoms were reported involving the gastrointestinal system. : No signs and/or symptoms were reported regarding the genitourinary system. Derm: Skin is pale, Skin temperature is cool. 23:31 Reassessment: Patient appears in no apparent distress at this time. Pt is feeling tl2 better since BiPap placement, pt is resting comfortably at this time Patient states feeling better. 02/14 01:30 Reassessment: Patient appears in no apparent distress at this time. Patient and/or tl2 family updated on plan of care and expected duration. Pain level reassessed. pt up to bedside commode with assistance. 02:00 Reassessment: Patient appears in no apparent distress at this time. Patient and/or tl2 family updated on plan of care and expected duration. Pain level reassessed. pt appears to be sleeping comfortably with BiPap. 02:45 Reassessment: Removed Bipap to give PO kayexalate, Pt's O2 decreased to 81% RA. Placed tl2 pt back on BiPap. Vital Signs: 02/13 21:25 BP 124 / 41; Pulse 114; Resp 24; Temp 98.5(O); Pulse Ox 95% on Nebulizer Mask; Weight fc 78.93 kg (R); Height 5 ft. 0 in. (152.40 cm) (R); Pain 9/10; 22:38 BP 110 / 47; Pulse 99; Resp 20; Pulse Ox 96% on BiPAP; mt 23:14 BP 123 / 51; Pulse 93; Resp 19; Pulse Ox 95% on BiPAP; tl2 02/14 00:32 BP 108 / 47; Pulse 81; Resp 20; Pulse Ox 92% on BiPAP; tl2 02:43 BP 131 / 55; Pulse 75; Resp 18; Pulse Ox 93% on 40% BiPAP; tl2 02/13 21:25 Body Mass Index 33.98 (78.93 kg, 152.40 cm) ED Course: 02/13 21:25 Arm band placed on Patient placed in an exam room. 21:36 Patient arrived in ED. ds1 21:37 Page, Gary, PA is PHCP. cp 21:37 Anneliese, Luis, MD is Attending Physician. cp 21:37 Patient has correct armband on for positive identification. Placed in gown. Bed in low aa1 position. Call light in reach. Side rails up X2. gambling monitor on. Pulse ox on. NIBP on. 21:44 Triage completed. fc 21:55 X-ray completed. Portable x-ray completed in exam room. Patient tolerated procedure az well. 22:01 XRAY Chest (1 view) In Process Unspecified. EDMS 22:35 Accessed Port-a-Cath. using accessed w/ # 20 Hernandez needle, ,sterile technique, per [address] protocol. Clean \T\ dry. Dressing intact. No blood return. Flushes easily. Charge nurse removed access and is going to reattempt. 22:53 Marissa Rodriguez RN is Primary Nurse. tl2 22:54 Accessed Port-a-Cath. using accessed w/ # 20 Hernandez needle, ,sterile technique, per [address] protocol. Clean \T\ dry. Dressing intact. Good blood return. Flushes easily. placed by LATRICE Braswell. 23:59 Notified Nurse Practitioner and/or Physician Dish Maker of a critical lab result(s), fc potassium of 6.0. 02/14 01:04 Samantha Carolina MD is Hospitalizing Provider. cp 02:45 No provider procedures requiring assistance completed. Patient admitted, IV remains in tl2 place. Administered Medications: 02/13 23:09 Drug: SOLU-Medrol 125 mg Route: IVP; Site: [facility]; 2 02/14 00:00 Follow up: Response: No adverse reaction; Marked relief of symptoms 2 02/13 23:09 Drug: TORadol 30 mg Route: IVP; Site: [facility]; 2 02/14 00:30 Follow up: Response: No adverse reaction; Pain is decreased 2 02/13 23:13 CANCELLED (Duplicate Order): Magnesium Sulfate 1 grams IVPB once over 1 hrs tl2 23:28 Drug: Magnesium Sulfate 1 grams Route: IVPB; Infused Over: 1 hrs; Site: [facility]; 2 02/14 00:30 Follow up: IV Status: Completed infusion; IV Intake: 100ml tl2 01:25 Drug: D50W 50 ml Route: IVP; Site: [facility]; tl2 03:12 Follow up: Response: No adverse reaction tl2 01:30 Drug: Albuterol - atroVENT (3:1) (2.5 mg - 0.5 mg) 3 ml Route: Nebulizer; tl2 03:13 Follow up: Response: No adverse reaction tl2 01:31 Drug: Insulin Regular Human 5 units {Co-Signature: aa1 (Jasmyne Hassan RN).} Route: tl2 IVP; Site: [facility]; 03:12 Follow up: Response: No adverse reaction tl2 01:31 Drug: Lasix 40 mg Route: IVP; Site: Port-a-cath; tl2 03:13 Follow up: Response: No adverse reaction tl2 02:35 Drug: Kayexalate 30 grams Route: PO; tl2 03:14 Follow up: Response: No adverse reaction tl2 Intake: 00:30 IV: 100ml; Total: 100ml. tl2 Outcome: 01:06 Decision to Hospitalize by Provider. cp 02:45 Admitted to Med/surg accompanied by tech, via stretcher, room 210, with oxygen, with tl2 chart, Report called to LATRICE Mora 02:45 Condition: stable 02:45 Discharge instructions given to patient, Instructed on the need for admit. 03:18 Patient left the ED. tl2 Signatures: Dispatcher [employer] EDMS Jasmyne Hassan RN RN aa1 Michaelle Leon RN RN fc Sanford, Demi ds1 Page, Corey, PA PA cp Knox, Taylor, RN RN tl2 Kierra Sykes mt, Araceli nj Jasmyne Hassan RN aa1
--- NOTE | 2019-02-14 01:07 | EDPHYS ---
Physician Documentation [facility] Name: No Duran Age: 73 yrs Sex: Female : 1945 Arrival Date: 02/13/2019 Time: 21:36 Bed 4 Private MD: ED Physician Luis Coy HPI: 02/13 21:54 This 73 yrs old Female presents to ER via EMS with complaints of Shortness Of cp Breath. 21:54 The patient has shortness of breath at rest. Onset: The symptoms/episode began/occurred cp today. Duration: The symptoms are continuous, and are steadily getting worse. 21:55 Associated signs and symptoms: Pertinent negatives: chest pain, productive cough, cp diaphoresis, vomiting. 21:55 Severity of symptoms: in the emergency department the symptoms are unchanged despite cp EMS interventions. Historical: - Allergies: 21:53 Erythromycin; fc 21:53 Morphine; fc 21:53 Demerol; fc 21:53 Imitrex; fc 21:53 Nubain; fc 21:53 diazepam; fc 21:53 Ondansetron HCl; fc 21:53 sulfamethoxazole-trimethoprim; fc 21:53 adhesive tape; fc 21:53 Silicone; fc 21:53 nalbuphine HCl; fc - Home Meds: 21:53 Acidophilus Oral cap daily [Active]; Advair Diskus 500-50 mcg/dose Inhl dsdv 1 puff 2 fc times per day [Active]; bisacodyl 10 mg Rectal supp 1 suppository daily prn [Active]; Depakote 500 mg Oral TbEC 1 tab 2 times per day [Active]; Depakote ER 250 mg Oral Tb24 3 tabs nightly [Active]; duloxetine 30 mg Oral cpDR 1 cap once daily [Active]; DuoNeb 0.5 mg-3 mg(2.5 mg base)/3 mL Inhl nebu 3 mL QID PRN [Active]; furosemide 40 mg Oral tab 1 tab once daily [Active]; lisinopril 5 mg Oral tab 1 tab once daily [Active]; lorazepam 0.5 mg Oral tab 1 tab q2hrs prn [Active]; [place] 5-325 mg Oral tab 1 tab q4hra pen [Active]; potassium chloride 20 mEq Oral TbER 1 tab once daily [Active]; promethazine 25 mg Oral tab 1 tab q4hrs prn [Active]; quetiapine 400 mg Oral tab 1 tab nightly [Active]; ropinirole 1 mg Oral tab 1 tab nightly [Active]; Senexon 8.6 mg Oral tab 2 tabs daily prn [Active]; tiotropium bromide inhalation 1 cap once daily [Active]; valacyclovir 1 gram Oral tab 1 tab once daily [Active]; - PMHx: 21:53 Anemia; Back pain; CHF; chronic kidney disease; COPD; CVA; High Cholesterol; fc Hypertension; hypoxia; Myocardial infarction; Chronic pain; Depression; GERD; restless leg; Anxiety; Seizures; - Immunization history:: Last tetanus immunization: unknown. - Social history:: Smoking status: Patient/guardian denies using tobacco. - Ebola Screening: : Patient negative for fever greater than or equal to 101.5 degrees Fahrenheit, and additional compatible Ebola Virus Disease symptoms Patient denies exposure to infectious person Patient denies travel to an Ebola-affected area in the 21 days before illness onset. ROS: 22:00 Constitutional: Negative for body aches, chills, fever, poor PO intake. cp 22:00 Eyes: Negative for injury, pain, redness, and discharge. cp 22:00 Neck: Negative for pain with movement, pain at rest, stiffness. 22:00 Cardiovascular: Positive for edema, Negative for chest pain, palpitations. 22:00 Respiratory: Positive for cough, with no reported sputum, shortness of breath, at rest. 22:00 Abdomen/GI: Negative for abdominal pain, vomiting, diarrhea, constipation, black/tarry stool, rectal bleeding. 22:00 : Negative for urinary symptoms. 22:00 Skin: Negative for cellulitis, rash. 22:00 Neuro: Negative for altered mental status, headache, syncope, weakness. 22:00 All other systems are negative. Exam: 21:45 ECG was reviewed by the Attending Physician. cp 22:05 Constitutional: The patient appears alert, awake, non-diaphoretic, non-toxic, well cp developed, well nourished, in obvious distress, moderately distressed. 22:05 Head/Face: Normocephalic, atraumatic. Eyes: Pupils equal round and reactive to light, cp extra-ocular motions intact. Lids and lashes normal. Conjunctiva and sclera are non-icteric and not injected. Cornea within normal limits. Periorbital areas with no swelling, redness, or edema. ENT: Nares patent. No nasal discharge, no septal abnormalities noted. Tympanic membranes are normal and external auditory canals are clear. Oropharynx with no redness, swelling, or masses, exudates, or evidence of obstruction, uvula midline. Mucous membranes moist. Chest/axilla: Normal chest wall appearance and motion. Nontender with no deformity. No lesions are appreciated. 22:05 Cardiovascular: Rate: tachycardic, Rhythm: regular, Edema: ankle edema, that is mild, JVD: is not appreciated. 22:05 Respiratory: moderate respiratory distress is noted, Respirations: labored breathing, that is moderate, tachypnea, that is moderate, Breath sounds: decreased breath sounds, that are moderate, throughout, stridor, is not appreciated. 22:05 Abdomen/GI: Inspection: abdomen appears normal, Bowel sounds: active, all quadrants, Palpation: abdomen is soft and non-tender, in all quadrants, rebound tenderness, is not appreciated, involuntary guarding, is not appreciated. 22:05 Back: pain, that is mild, ROM is normal. 22:05 Skin: cellulitis, is not appreciated, no rash present. 22:05 Neuro: Orientation: to person, place \T\ time. Mentation: is normal, Cerebellar function: is grossly normal, Motor: moves all fours, strength is normal, Sensation: is normal. 02/14 00:22 ECG was reviewed by the Attending Physician. cp Vital Signs: 02/13 21:25 BP 124 / 41; Pulse 114; Resp 24; Temp 98.5(O); Pulse Ox 95% on Nebulizer Mask; Weight fc 78.93 kg (R); Height 5 ft. 0 in. (152.40 cm) (R); Pain 9/10; 22:38 BP 110 / 47; Pulse 99; Resp 20; Pulse Ox 96% on BiPAP; mt 23:14 BP 123 / 51; Pulse 93; Resp 19; Pulse Ox 95% on BiPAP; tl2 02/14 00:32 BP 108 / 47; Pulse 81; Resp 20; Pulse Ox 92% on BiPAP; tl2 02:43 BP 131 / 55; Pulse 75; Resp 18; Pulse Ox 93% on 40% BiPAP; tl2 02/13 21:25 Body Mass Index 33.98 (78.93 kg, 152.40 cm) fc MDM: 02/13 21:43 Patient medically screened. cp 02/14 00:30 Data reviewed: vital signs, nurses notes, lab test result(s), EKG, radiologic studies, cp plain films. 00:30 Test interpretation: by ED physician or midlevel provider: ECG, plain radiologic cp studies. Response to treatment: the patient's symptoms have markedly improved after treatment. 01:00 Physician consultation: Samantha Carolina MD was contacted at 01:00, regarding admission. cp 02/13 21:39 Order name: Basic Metabolic Panel; Complete Time: 00:02 cp 02/14 00:02 Interpretation: Normal except: CO2 33; GLUC 140; BUN 39; GFR 41; CA 8.2; K 6.0. cp 02/13 21:39 Order name: CBC with Diff cp 02/13 23:44 Interpretation: Normal except: RBC 3.09; HGB 9.9; HCT 30.3; RDW 16.0; MPV 7.2; YADIEL% cp 89.7; LYM% 4.8; LYMA 0.3. 02/13 21:39 Order name: LFT's; Complete Time: 00:02 cp 02/14 00:03 Interpretation: Normal except: AST 14; ALT 11; BILIT 0.1; ALB 2.9; GLOB 3.9; A/G 0.7. cp 02/13 21:39 Order name: Magnesium; Complete Time: 00:02 cp 02/13 21:39 Order name: NT PRO-BNP; Complete Time: 00:02 cp 02/14 00:03 Interpretation: Abnormal: NT PRO-BNP 1347. cp 02/13 21:39 Order name: PT-INR; Complete Time: 23:44 cp 02/13 21:39 Order name: Troponin (emerg Dept Use Only); Complete Time: 00:02 cp 02/13 21:39 Order name: XRAY Chest (1 view) cp 02/13 21:39 Order name: Influenza Screen (a \T\ B) cp 02/13 21:39 Order name: Procalcitonin; Complete Time: 00:02 cp 02/13 21:39 Order name: Lactate; Complete Time: 23:44 cp 02/13 21:39 Order name: Blood Culture Adult (2) cp 02/14 00:37 Order name: CBC Smear Scan EDMS 02/14 01:34 Order name: D-Dimer EDMS 02/13 21:39 Order name: EKG; Complete Time: 21:40 cp 02/13 21:39 Order name: Cardiac monitoring; Complete Time: 22:11 cp 02/13 21:39 Order name: EKG - Nurse/Tech; Complete Time: 22:11 cp 02/13 21:39 Order name: IV Saline Lock; Complete Time: 22:53 cp 02/13 21:39 Order name: Labs collected and sent; Complete Time: 22:53 cp 02/13 21:39 Order name: O2 Per Protocol; Complete Time: 22:11 cp 02/13 21:39 Order name: BIPAP cp 02/13 21:39 Order name: O2 Sat Monitoring; Complete Time: 22:11 cp EC/03 21:45 Rate is 119 beats/min. Rhythm is regular. CT interval is normal. QRS interval is cp normal. QT interval is normal. Interpreted by me. Reviewed by me. 02/14 00:22 Rate is 82 beats/min. Rhythm is regular. CT interval is normal. QRS interval is normal. cp QT interval is normal. T waves are Inverted in lead aVL. Interpreted by me. Reviewed by me. Administered Medications: 02/13 23:09 Drug: SOLU-Medrol 125 mg Route: IVP; Site: [facility]; tl2 02/14 00:00 Follow up: Response: No adverse reaction; Marked relief of symptoms tl2 02/13 23:09 Drug: TORadol 30 mg Route: IVP; Site: Port-[facility]; tl2 02/14 00:30 Follow up: Response: No adverse reaction; Pain is decreased tl2 02/13 23:13 CANCELLED (Duplicate Order): Magnesium Sulfate 1 grams IVPB once over 1 hrs tl2 23:28 Drug: Magnesium Sulfate 1 grams Route: IVPB; Infused Over: 1 hrs; Site: Port-[facility]; tl2 02/14 00:30 Follow up: IV Status: Completed infusion; IV Intake: 100ml tl2 01:25 Drug: D50W 50 ml Route: IVP; Site: Port-[facility]-c[facility]; tl2 03:12 Follow up: Response: No adverse reaction tl2 01:30 Drug: Albuterol - atroVENT (3:1) (2.5 mg - 0.5 mg) 3 ml Route: Nebulizer; tl2 03:13 Follow up: Response: No adverse reaction tl2 01:31 Drug: Insulin Regular Human 5 units {Co-Signature: aa1 (Jasmyne Hassan RN).} Route: tl2 IVP; Site: Port-[facility]; 03:12 Follow up: Response: No adverse reaction tl2 01:31 Drug: Lasix 40 mg Route: IVP; Site: Port-a-cath; tl2 03:13 Follow up: Response: No adverse reaction tl2 02:35 Drug: Kayexalate 30 grams Route: PO; tl2 03:14 Follow up: Response: No adverse reaction tl2 Disposition: 08:58 Co-signature as Attending Physician, Luis Coy MD I agree with the assessment and wa plan of care. Disposition: 02/14/19 01:06 Hospitalization ordered by Samantha Carolina for Inpatient Admission. Preliminary diagnosis are Acute respiratory failure, Hyperkalemia. - Bed requested for Telemetry/MedSurg (Inpatient). - Status is Inpatient Admission. tl2 - Condition is Stable. - Problem is an acute exacerbation. - Symptoms have improved. UTI on Admission? No Signatures: Dispatcher [employer] EDMS Michaelle Leon RN RN Gary Hurtado PA PA cp Sujata Stewart RN RN cg Marissa Rodriguez RN RN tl2 Luis Coy MD MD ar Jasmyne Hassan RN aa1 Corrections: (The following items were deleted from the chart) 02/13 23:13 23:13 Magnesium Sulfate 1 grams IVPB once over 1 hrs ordered. tl2 tl2 02/14 02:28 01:06 Hospitalization Ordered by Samantha Carolina MD for Inpatient Admission. Preliminary cg diagnosis is Acute respiratory failure; Hyperkalemia. Bed requested for Telemetry/MedSurg (Inpatient). Status is Inpatient Admission. Condition is Stable. Problem is an acute exacerbation. Symptoms have improved. UTI on Admission? No. cp 03:18 02:28 02/14/2019 01:06 Hospitalization Ordered by Samantha Carolina MD for Inpatient tl2 Admission. Preliminary diagnosis is Acute respiratory failure; Hyperkalemia. Bed requested for Telemetry/MedSurg (Inpatient). Status is Inpatient Admission. Condition is Stable. Problem is an acute exacerbation. Symptoms have improved. UTI on Admission? No. cg
[2019-02-14] MEDS ORDERED: INSULIN -REGULAR HUMAN 50 UNIT/0.5 ML ML ONE (01:11)
--- NOTE | 2019-02-14 02:02 | P.HP ---
Certification for Inpatient Patient admitted to: Inpatient With expected LOS: >2 Midnights Practitioner: I am a practitioner with admitting privileges, knowledge of patient current condition, hospital course, and medical plan of care. Services: Services provided to patient in accordance with Admission requirements found in Title 42 Section 412.3 of the Code of Federal Regulations Patient History Date of Service: 02/14/19 Reason for admission: COPD exacerbation History of Present Illness: Ms Vela is a 73 years old woman with multiple medical problems including COPD, who start about 2-3 days ago with low grade fever, dry cough and progressive SOB. Today her symptoms got worse, and called 911. When EMS arrived, found the patient with O2 Sat 78% on 3 L of [place]. In ER the patient was afebrile, BP WNL, she was placed on BiPAP. CXR shows no acute infiltrate. Lab work remarkable for normal WBC count, lactate and procalcitonin also normal. At my encounter, the patient was feeling slightly better on BiPAP. Allergies diazepam [From Valium] Allergy (Verified 10/20/17 00:47) Hives morphine Allergy (Verified 10/20/17 00:47) Rash nalbuphine HCl [From Nubain] Allergy (Verified 10/20/17 00:47) Shortness of breath sulfamethoxazole [From Bactrim] Allergy (Verified 10/20/17 00:47) Rash trimethoprim [From Bactrim] Allergy (Verified 10/20/17 00:47) Rash erythromycin base Adverse Reaction (Verified 10/20/17 00:47) cant remember ondansetron HCl [From Zofran (as hydrochloride)] Adverse Reaction (Verified 06/29 14:57) Nausea/Vomiting sumatriptan [From Imitrex] Adverse Reaction (Verified 10/20/17 00:47) tachycardia Home medications list reviewed: Yes Home Medications: Aspirin 81 mg PO DAILY 09/01/14 Clopidogrel Bisulfate [Plavix*] 75 mg PO DAILY 09/01/14 Lisinopril 5 mg PO DAILY 09/01/14 Pregabalin [Lyrica] 75 mg PO BID 09/01/14 Roflumilast [Daliresp*] 500 mcg PO DAILY 09/01/14 Duloxetine [Cymbalta *] 20 mg PO DAILY #30 cap 10/27/17 Acetaminophen [Tylenol] 2 tab PO Q6H PRN 02/03/18 Aclidinium [place] [Tudorza Pressair] 1 puff IH Q12H 12/16/17 Albuterol Sulfate [Albuterol Sulfate 0.083% Neb Soln] 2.5 mg IH Q6H 12/16/17 Atorvastatin Calcium 20 mg PO DAILY 12/16/17 Famotidine 10 mg PO DAILY 12/16/17 Furosemide [Lasix*] 10 mg PO Q12H 12/16/17 Hydralazine [Apresoline*] 20 mg PO Q6H PRN 12/16/17 Hydrocodone 5/APAP 325 [[place] 5/325*] 1 tab PO Q6H PRN 12/16/17 Ipratropium/Albuterol Sulfate [Iprat-Albut 0.5-3(2.5) mg/3 ml] 3 ml IH Q6H 12/16 Lacosamide [Vimpat*] 100 mg PO BID 12/16/17 Lidocaine 5% Patch [Lidoderm 5% Patch*] 1 patch TD DAILY 12/16/17 Methocarbamol 500 mg PO Q8H PRN 12/16/17 Ondansetron HCl [Zofran] 4 mg PO Q8H PRN 12/16/17 Primidone [Mysoline *] 50 mg PO TID 12/16/17 Quetiapine [Seroquel*] 25 mg PO Q6H PRN 12/16/17 levETIRAcetam [Keppra*] 500 mg PO BID 12/16/17 Albuterol Neb [Proventil 0.083% Neb Soln] 2.5 mg NEB Q3HP PRN amp 12/17/17 Arformoterol Tartrate [Brovana] 15 mcg NEB BIDRESP #30 vial.neb 12/17/17 Atorvastatin Calcium [Lipitor*] 20 mg PO BEDTIME #0 tab 12/17/17 Carvedilol [Coreg*] 6.25 mg PO BID #60 tab 12/17/17 Ferrous Sulfate [Ferrous Sulfate*] 325 mg PO DAILY #30 tab 12/17/17 Ipratropium Neb [Atrovent*] 0.5 mg NEB X6DPODH #0 amp 12/17/17 Pantoprazole [Protonix Tab*] 40 mg PO ACB #30 tab 12/17/17 Amoxicillin/Potassium Clav [Augmentin 500-125 Tablet] 1 each PO BID #10 tablet 12/19/17 - Past Medical/Surgical History Diabetic: No -: CHF -: CAD -: COPD -: Hypertension -: CVA X3 -: HI -: Left foot -: Right knee -: Hysterectomy -: Gallbladder removal -: Back and Neck disc repair -: Right shoulder repair -: Brain surgery (2 y.o.) -: Left hand Psychosocial/ Personal History: Coronary artery stents - Family History Father -: Diabetes, Other (see notes) Notes: alcoholic - Social History Smoking Status: Former smoker Alcohol use: No CD- Drugs: No Caffeine use: No Place of Residence: Home Review of Systems 10-point ROS is otherwise unremarkable Physical Examination - Physical Exam General: Alert, In no apparent distress HEENT: Atraumatic, PERRLA, Mucous membr. moist/pink, EOMI, Sclerae nonicteric Neck: Supple, 2+ carotid pulse no bruit, No LAD, Without JVD or thyroid abnormality Respiratory: Diminished, Expiratory wheezes Cardiovascular: Regular rate/rhythm, Normal S1 S2 Gastrointestinal: Normal bowel sounds, No tenderness Musculoskeletal: No tenderness Integumentary: No rashes Neurological: Normal speech, Normal strength at 5/5 x4 extr, Normal tone, Normal affect Lymphatics: No axilla or inguinal lymphadenopathy - Studies Laboratory Data (last 24 hrs) 02/13/19 22:50: PT 11.9, INR 1.01 02/13/19 22:50: WBC 5.3, Hgb 9.9 L, Hct 30.3 L, Plt Count 175 02/13/19 22:50: Sodium 139, Potassium 6.0 H*, BUN 39 H, Creatinine 1.27, Glucose 140 H, Magnesium 2.3, Total Bilirubin 0.1 L, AST 14 L, ALT 11 L, Alkaline Phosphatase 100 Assessment and Plan - Problems (Diagnosis) (1) Chronic obstructive pulmonary disease with (acute) exacerbation Onset Date: 11/14/17 Current Visit: No Status: Acute (2) Chronic kidney disease Onset Date: 12/18/17 Current Visit: No Status: Chronic Qualifiers: Chronic kidney disease stage: stage 3 (moderate) Qualified Code(s): N18.3 - Chronic kidney disease, stage 3 (moderate) (3) Coronary artery disease Onset Date: 11/14/17 Current Visit: No Status: Chronic Qualifiers: Coronary Disease-Associated Artery/Lesion type: [place] artery [place] vs. transplanted heart: [place] heart Associated angina: without angina Qualified Code(s): I25.10 - Atherosclerotic heart disease of [place] coronary artery without angina pectoris (4) Hypertension Onset Date: 10/20/17 Current Visit: No Status: Chronic Qualifiers: Hypertension type: essential hypertension (5) Acute and chronic respiratory failure ([id number]) Onset Date: 05/29/17 Current Visit: No Status: Acute Qualifiers: Respiratory failure complication: hypoxia Qualified Code(s): J96.21 - Acute and chronic respiratory failure with hypoxia - Plan Will admit the patient to the hospital due to COPD exacerbation. CXR no obvious infiltrate. Influenza screening still in process. Will order breathing treatments, IV steroids, and oxygen support. Continue BiPAP as needed. - Advance Directives Does patient have a Living Will: No Does patient have a Durable POA for Healthcare: No - Code Status/Comfort Care Code Status Assessed: Yes Code Status: Full Code
[2019-02-14] MEDS ORDERED: SOD POLYSTYREN SUL 15 GM/60 ML UCUP ONE (02:34)
[2019-02-14] MEDS ORDERED: ONDANSETRON 4 MG/2 ML VIAL IV PRN (03:25)
[2019-02-14] MEDS ORDERED: IPRATROPIUM BROM 0.5MG/2.5ML NEB PRN (03:25)
[2019-02-14 06:13] LABS: Absolute Lymphocytes (CBC) 0.2 K/uL (0.7-4.9); Absolute Monocytes 0.1 K/uL (0.1-1.3); Absolute Neutrophil 4.1 K/uL (1.8-8.0); Basophils % 0.1 % (0-1.3); Hematocrit 31.4 % (36.0-45.0); MPV 6.8 fL (7.6-11.3); RBC Red Blood Cell Count 3.18 M/uL (3.86-4.86)
[2019-02-14 06:58] LABS: Potassium 5.8 mmol/L (3.5-5.1)
--- NOTE | 2019-02-14 08:18 | RAD REPORT ---
EXAM DESCRIPTION: RAD - Chest Single View - 02/13/2019 10:00 pm CLINICAL HISTORY: Shortness of breath, respiratory distress COMPARISON: January 24 TECHNIQUE: AP portable chest image was obtained 2125 hours . FINDINGS: No focal mass or consolidation. Interstitial pattern is similar to the comparison. Heart s ize is upper normal and stable. Vasculature within normal limits. Right-sided Port-A-Cath is in place . No measurable pleural effusion and no pneumothorax. No acute bony abnormality seen. No acute aortic findings suspected. IMPRESSION: Chronic interstitial lung disease is present similar to comparison. No acute findings se en.
[2019-02-14] MEDS: METHYLPREDNISOLONE 40 MG INJ IV SCH ×2 (08:40→16:51)
[2019-02-14] MEDS ORDERED: SOD POLYSTYREN SUL 15 GM/60 ML UCUP PO ONE ×3 (08:44→20:00)
--- NOTE | 2019-02-14 08:45 | P.CNS ---
Date of Consult: 02/14/19 Chief Complaint: COPD exacerbation History of Present Illness: Patient is 73 years of age admitted with acute onset of shortness of breath she does have a history of COPD former smoker currently on BiPAP does not appear to be any distress patient does take bronchodilators at home and was scheduled to see me as an outpatient denies any cough sputum hemoptysis fever or chills patient does take Advair and Spiriva at home Allergies diazepam [From Valium] Allergy (Verified 10/20/17 00:47) Hives morphine Allergy (Verified 10/20/17 00:47) Rash nalbuphine HCl [From Nubain] Allergy (Verified 10/20/17 00:47) Shortness of breath sulfamethoxazole [From Bactrim] Allergy (Verified 10/20/17 00:47) Rash trimethoprim [From Bactrim] Allergy (Verified 10/20/17 00:47) Rash erythromycin base Adverse Reaction (Verified 10/20/17 00:47) cant remember ondansetron HCl [From Zofran (as hydrochloride)] Adverse Reaction (Verified 06/29 14:57) Nausea/Vomiting sumatriptan [From Imitrex] Adverse Reaction (Verified 10/20/17 00:47) tachycardia Home Medications: Acetaminophen [Tylenol Extra Strength] 2 tab PO Q6HP PRN 02/14/19 Amox/Clavulanate [Augmentin 500-125 mg Tab] 500 mg PO BID 02/14/19 Bisacodyl 10 mg RC DAILYPRN PRN 02/14/19 Codeine/APAP [Tylenol W/Codeine #3 tab] 1 tab PO Q6HP PRN 02/14/19 Divalproex Sodium [Depakote] 500 mg PO DAILY 02/14/19 Divalproex Sodium [Depakote] 750 mg PO BEDTIME 02/14/19 Duloxetine HCl 30 mg PO DAILY 02/14/19 Fluticasone/Salmeterol [Advair 250-50 Diskus] 1 each IH BID 02/14/19 Furosemide [Lasix] 40 mg PO DAILY 02/14/19 Guaifenesin [Tussin] 5 ml PO Q6HP PRN 02/14/19 Heparin [Heparin 100 units/mL] 5 ml IV 1X PRN 02/14/19 Ipratropium/Albuterol Sulfate [Iprat-Albut 0.5-3(2.5) mg/3 ml] 3 ml IH TID 02/14 L. Acidophilus/Pectin, [place] [Acidophilus Capsule] 1 each PO DAILY 02/14/19 LORazepam [Ativan*] 2 tab PO Q2HP PRN 02/14/19 LORazepam [Ativan] 1 tab PO Q2HP PRN 02/14/19 Lisinopril [Prinivil] 5 mg PO DAILY 02/14/19 Loperamide HCl [Imodium A-D] 2 mg PO Q1HWA PRN 02/14/19 Polyethylene Glycol 1450 17 gm PO DAILYPRN PRN 02/14/19 Polyvinyl Alcohol [Artificial Tears] 1 drop OP BID 02/14/19 Potassium Chloride 20 meq PO DAILY 02/14/19 Promethazine HCl 25 mg PO Q4HP PRN 02/14/19 Quetiapine Fumarate [Seroquel] 400 mg PO BEDTIME 02/14/19 Ropinirole HCl [Requip] 1 mg PO BEDTIME 02/14/19 Sennosides [Senna Lax] 2 tab PO DAILYPRN PRN 02/14/19 Tiotropium [place] [Spiriva] 1 spray IH DAILY 02/14/19 Valacyclovir HCl [Valtrex] 1,000 mg PO DAILY 02/14/19 predniSONE [Deltasone] 10 mg PO DAILYPRN PRN 02/14/19 predniSONE [Deltasone] 20 mg PO DAILYPRN PRN 02/14/19 - Past Medical/Surgical History Diabetic: No -: CHF -: CAD -: COPD -: Hypertension -: CVA X3 -: ND -: Hepa B -: Bipolar -: major depressive disorder -: GERD -: Left foot -: Right knee -: Hysterectomy -: Gallbladder removal -: Back and Neck disc repair -: Right shoulder repair -: Brain surgery (2 y.o.) -: Both left and right wrist Psychosocial/ Personal History: Coronary artery stents - Family History Father Medical History: Heart disease, Hypertension, Diabetes Notes: alcoholic Mother Medical History: Heart disease, Hypertension, Stroke - Social History Alcohol use: No CD- Drugs: No Caffeine use: No Place of Residence: Shelter Review of Systems 10-point ROS is otherwise unremarkable General: Weakness Respiratory: Shortness of Breath Physical Examination Temp Pulse Resp BP Pulse Ox 97.6 F 86 18 141/64 H 91 02/14/19 04:00 02/14/19 04:00 02/14/19 04:00 02/14/19 04:00 02/14/19 04:00 General: Alert, In no apparent distress, Oriented x3 Respiratory: Clear to auscultation bilaterally, Diminished Cardiovascular: No edema, Regular rate/rhythm, Normal S1 S2 Gastrointestinal: Normal bowel sounds, Soft and benign Musculoskeletal: No clubbing, No swelling Laboratory Data (last 24 hrs) 02/13/19 22:50: PT 11.9, INR 1.01 02/13/19 22:50: WBC 5.3, Hgb 9.9 L, Hct 30.3 L, Plt Count 175 02/13/19 22:50: Sodium 139, Potassium 6.0 H*, BUN 39 H, Creatinine 1.27, Glucose 140 H, Magnesium 2.3, Total Bilirubin 0.1 L, AST 14 L, ALT 11 L, Alkaline Phosphatase 100 - Problems (1) Chronic obstructive pulmonary disease with (acute) exacerbation Onset Date: 11/14/17 Current Visit: No Status: Acute Plan: Patient is 73 years of age admitted with acute onset of shortness of breath she has a history of COPD has not had an exacerbation for quite some time compliant with it inhalers currently on BiPAP plan to check her off BiPAP titrate sat to 90% do arterial blood chest x-ray is clear some chronic interstitial changes patient has renal insufficiency with hyperkalemia no evidence of sepsis I have ordered Kayexalate D5 half-normal saline nebulized bronchodilators
[2019-02-14] MEDS: ARFORMOTEROL TARTRATE 15 MCG/2 ML VIAL.NEB NEB SCH ×2 (08:53→20:00)
[2019-02-14] MEDS: ALBUTEROL 2.5 MG/3 ML NEB SOL NEB PRN ×2 (08:53→13:33)
[2019-02-14] MEDS ORDERED: ENOXAPARIN 40 MG/0.4 ML SQ SCH (09:00)
[2019-02-14] MEDS: D5 0.45 NS 1,000 ML IV SCH ×2 (09:26→22:01)
[2019-02-14] MEDS: HYDROCODONE/APAP 7.5/325 MG TAB PO PRN ×4 (09:26→21:59)
[2019-02-14 12:15] LABS: Arterial Blood Carboxyhemoglob 0.9 % (0-1.5); Blood Gas Oxyhemoglobin 86.6 % (94-97); Blood O2 Saturation 88.2 % (92-98.5)
[2019-02-14] MEDS: IPRATROPIUM BROM 0.5MG/2.5ML NEB SCH ×2 (13:34→20:00)
--- NOTE | 2019-02-14 16:19 | PN ---
Date of Progress Note: 02/14/2019 Subjective: The patient seen and examined. Chart reviewed and case discussed with RN. The patient still on BiPAP. at the bedside. The patient also complaining of pain all over. Medications: List reviewed. Physical Examination: Vital Signs: Temperature 97.2, heart rate 75, blood pressure 177/72, respirations 18, O2 95% on BiPA P, 40% FiO2. General: Awake, alert, and oriented x3. Elderly female, ill-appearing, in acute respiratory distres s. Obese, BMI 34. CV: S1 and S2. Regular rate and rhythm. Peripheral pulses present. Respiratory: Diminished breath sounds. Wheezing heard throughout. No use of accessory muscles. Gastrointestinal: Abdomen is soft, nontender, nondistended. Positive bowel sounds. Extremities: No clubbing, cyanosis, or edema. Neurologic: Nonfocal. Laboratory Data: Sodium 140, potassium 5.8, chloride 99, CO2 34, BUN 37, creatinine 1.35, glucose 13 2, calcium 8.3. WBC 4.4, H and H 10.6 and 31.4, platelets 178. Influenza screen is negative. Blood cultures are pending. Chest x-ray, personally reviewed shows chronic interstitial lung disease is p resent, similar to comparison. No acute findings. Assessment And Plan: 1.Yolax-xh-wylazxd respiratory failure with hypoxia. The patient normally on 3 L of O2, currently o n BiPAP, likely secondary to chronic obstructive pulmonary disease. The patient was on hospice for 9 months and was taken off recently. 2.Acute chronic obstructive pulmonary disease exacerbation. We will continue with nebulizer treatme nts. Appreciate Dr. Espinosa's input. Continue steroids and wean as tolerated. 3.Chronic kidney disease stage 3. Creatinine bumped up slightly today. We will continue to monitor . Avoid NSAIDs. 4.Coronary artery disease, [place] artery and [place] heart without angina, stable. 5.Essential hypertension, stable. We will resume home medications as appropriate. 6.Obesity, BMI 34.6. 7.Chronic pain syndrome. We will add [place]. GI and DVT prophylaxis addressed. The patient is on L ovenox. Plan obtain ABG. Wean off BiPAP as tolerated. 8.Hyperkalemia. The patient is given Kayexalate. We will monitor potassium level. Repeat at 11 a. m. /MODL Voice ID: [id number] Report ID: [id number]
[2019-02-14] MEDS: DIVALPROEX DR 500MG TAB PO SCH (20:41)
[2019-02-14] MEDS: ROPINIROLE HCL 1 MG TAB PO SCH (20:41)
[2019-02-14] MEDS: QUETIAPINE 100MG TAB PO SCH (20:42)
[2019-02-14] MEDS: HOME MED 1 EA UNK (Fluticasone/Salmeterol [Advair 250-50 Diskus] 1 EACH) IH SCH (20:54)
[2019-02-14] MEDS: POLYVINYL ALCOHOL OP SCH (20:55)
[2019-02-15] MEDS: METHYLPREDNISOLONE 40 MG INJ IV SCH ×3 (00:15→16:44)
[2019-02-15] MEDS: IPRATROPIUM BROM 0.5MG/2.5ML NEB SCH ×5 (02:00→20:01)
[2019-02-15] MEDS: HYDROCODONE/APAP 7.5/325 MG TAB PO PRN ×5 (02:06→21:12)
[2019-02-15 05:06] LABS: Absolute Lymphocytes (CBC) 0.4 K/uL (0.7-4.9); Absolute Monocytes 0.3 K/uL (0.1-1.3); Absolute Neutrophil 2.8 K/uL (1.8-8.0); Basophils % 0.1 % (0-1.3); Hematocrit 30.4 % (36.0-45.0); Lymphocytes % 11.4 % (15.3-44.8); Monocytes % 8.5 % (3.3-12.3); RBC Red Blood Cell Count 3.08 M/uL (3.86-4.86)
[2019-02-15 05:15] LABS: Potassium 4.3 mmol/L (3.5-5.1)
[2019-02-15] MEDS: ALBUTEROL 2.5 MG/3 ML NEB SOL NEB PRN ×3 (08:01→16:18)
--- NOTE | 2019-02-15 08:05 | ECHO ---
HEIGHT: 5 ft 0 in WEIGHT: 169 lb 4.8 oz DATE OF STUDY: 02/15/[address]: Kamlesh Espinosa MD 2-DIMENSIONAL: YES M.MODE: YES DOPPLER: YES COLOR FLOW: YES TDS: YES PORTABLE: NO DEFINITY: NO BUBBLE STUDY: NO DIAGNOSIS: SHORTNESS OF BREATH CARDIAC HISTORY: CATHERIZATION: YES SURGERY: NO PROSTHETIC VALVE: NO PACEMAKER: NO MEASUREMENTS (cm) DIASTOLIC (NORMALS) SYSTOLIC (NORMALS) IVSd 1.3 (0.6-1.2) LA Diam 4.4 (1.9-4.0) LVEF 53% LVIDd 5.0 (3.5-5.7) LVIDs 3.7 (2.0-3.5) %FS 27% LVPWd 1.2 (0.6-1.2) Ao Diam 2.8 (2.0-3.7) 2 DIMENSIONAL ASSESSMENT: RIGHT ATRIUM: DILATED LEFT ATRIUM: DILATED RIGHT VENTRICLE: NORMAL LEFT VENTRICLE: LEFT VENTRICULAR HYPERTENSION TRICUSPID VALVE: NORMAL MITRAL VALVE: NORMAL PULMONIC VALVE: NORMAL AORTIC VALVE: NORMAL PERICARDIAL EFFUSION: NONE AORTIC ROOT: NORMAL LEFT VENTRICULAR WALL MOTION: NORMAL DOPPLER/COLOR FLOW: MILD TRICUSPID REGURGITATION. MODERATE PULMONARY HYPERTENSION. ESTIMATED RIGHT VENTRICULAR SYSTOLIC PRESSURE 58 mmHg. ESTIMATED RIGHT ATRIAL PRESSURE 15 mmHg. IMPAIRED LEFT VENTRICULAR RELAXATION. COMMENTS: NORMAL LEFT VENTRICULAR EJECTION FRACTION. LEFT VENTRICULAR HYPERTENSION. DILATED RIGHT AND LEFT ATRIUM. MILD TRICUSPID REGURGITATION. MODERATE PULMONARY HYPERTENSION. ELEVATED RIGHT ATRIAL PRESSURE. TECHNOLOGIST: Yolanda LAM
[2019-02-15] MEDS: ARFORMOTEROL TARTRATE 15 MCG/2 ML VIAL.NEB NEB SCH ×2 (08:28→20:01)
[2019-02-15] MEDS: LISINOPRIL 5 MG TAB PO SCH (08:54)
[2019-02-15] MEDS: DULOXETINE 30 MG CAP PO SCH (08:54)
[2019-02-15] MEDS: DIVALPROEX DR 500MG TAB PO SCH ×2 (08:54→21:59)
[2019-02-15] MEDS: VALACYCLOVIR 500 MG TAB PO SCH (08:55)
[2019-02-15] MEDS: POLYVINYL ALCOHOL OP SCH ×2 (09:00→21:00)
[2019-02-15] MEDS: HOME MED 1 EA UNK (Fluticasone/Salmeterol [Advair 250-50 Diskus] 1 EACH) IH SCH ×2 (09:00→21:00)
[2019-02-15] MEDS: FUROSEMIDE 40 MG TABLET PO SCH (09:19)
[2019-02-15] MEDS: ENOXAPARIN 30 MG/0.3 ML SQ SCH (09:20)
[2019-02-15] MEDS: D5 0.45 NS 1,000 ML IV SCH (11:41)
[2019-02-15] MEDS: LORAZEPAM 0.5 MG TABLET PO PRN (12:27)
--- NOTE | 2019-02-15 17:00 | PN ---
Date of Progress Note: 02/15/2019 History: The patient is seen and examined. Chart reviewed and case discussed with RN. The patient still on BiPAP, was able to tolerate being off it while she ate breakfast. States her breathing is s lightly better. Medications: List reviewed. Physical Examination: Vital Signs: Temperature 97.4, heart rate 68, blood pressure 161/80, respirations 18, O2 87% on BiPA P, 30% FiO2. General: Awake, alert, oriented x3. Elderly female, ill-appearing with some acute respiratory distr ess. Obese, BMI 33. CV: S1, S2. Regular rate and rhythm. Peripheral pulses present. Respiratory: Diminished breath sounds. Wheezing heard. The patient is tachypneic. Gastrointestinal: Abdomen is soft, nontender, nondistended. Positive bowel sounds. No guarding or rigidity. Extremities: No clubbing, cyanosis, or edema. Neurologic: Nonfocal. Laboratory Data: WBC 3.5, H and H 9.9 and 30.4, platelets 162, neutrophils 80%. Sodium 142, [place] 4.3, chloride 99, CO2 39, BUN 38, creatinine 1.19, glucose 132, calcium 8. The blood cultures are negative to date. Echocardiogram shows EF of 53%, left ventricular hypertrophy, dilated right and l eft atrium, mild tricuspid regurgitation, moderate pulmonary hypertension, elevated right atrial pres sure. Assessment: A 73-year-old female with: 1.Acute on chronic respiratory failure with hypoxia. The patient currently on BiPAP, unable to be w eaned down. The patient's settings have been adjusted. Appreciate Dr. Espinosa's input. Continue t o monitor ABG. 2.Acute chronic obstructive pulmonary disease exacerbation. Continue steroids and nebulizer treatme nts. 3.Chronic kidney disease stage 3. Creatinine stable. We will continue to avoid NSAIDs and monitor. 4.Coronary artery disease, [place] artery and [place] heart without angina, stable. 5.Hyperkalemia, corrected. We will continue to monitor secondary to chronic kidney disease. 6.Essential hypertension, stable, on home medications. 7.Obesity, BMI 33. 8.Chronic pain syndrome, on [place], stable. 9.Gastrointestinal and deep vein thrombosis prophylaxis with Lovenox. 10.Moderate pulmonary hypertension. Plan: Wean off BiPAP as tolerated. EF is 53%. Does have elevated right atrial pressures, possibili ty of PE. We will discuss with Pulmonology. SA/MODL Voice ID: [id number] Report ID: [id number]
[2019-02-15] MEDS: QUETIAPINE 100MG TAB PO SCH (21:13)
[2019-02-15] MEDS: ROPINIROLE HCL 1 MG TAB PO SCH (21:14)
[2019-02-16] MEDS: D5 0.45 NS 1,000 ML IV SCH (00:33)
[2019-02-16] MEDS: METHYLPREDNISOLONE 40 MG INJ IV SCH ×2 (00:36→08:34)
[2019-02-16] MEDS: IPRATROPIUM BROM 0.5MG/2.5ML NEB SCH ×4 (01:51→19:55)
[2019-02-16] MEDS: ALBUTEROL 2.5 MG/3 ML NEB SOL NEB PRN (01:51)
[2019-02-16] MEDS: HYDROCODONE/APAP 7.5/325 MG TAB PO PRN ×3 (06:27→17:57)
[2019-02-16] MEDS: ARFORMOTEROL TARTRATE 15 MCG/2 ML VIAL.NEB NEB SCH ×2 (08:04→19:55)
[2019-02-16] MEDS: VALACYCLOVIR 500 MG TAB PO SCH (08:33)
[2019-02-16] MEDS: ENOXAPARIN 30 MG/0.3 ML SQ SCH (08:33)
[2019-02-16] MEDS: DULOXETINE 30 MG CAP PO SCH (08:34)
[2019-02-16] MEDS: LORAZEPAM 0.5 MG TABLET PO PRN (08:34)
[2019-02-16] MEDS: LISINOPRIL 5 MG TAB PO SCH (08:34)
[2019-02-16] MEDS: HOME MED 1 EA UNK (Fluticasone/Salmeterol [Advair 250-50 Diskus] 1 EACH) IH SCH ×2 (08:35→20:24)
[2019-02-16] MEDS: DIVALPROEX DR 500MG TAB PO SCH ×2 (08:35→20:26)
[2019-02-16] MEDS: FUROSEMIDE 40 MG TABLET PO SCH (08:35)
[2019-02-16] MEDS: POLYVINYL ALCOHOL OP SCH (08:36)
--- NOTE | 2019-02-16 09:39 | P.PN ---
Subjective Date of Service: 02/16/19 Chief Complaint: COPD exacerbation Patient's condition is stable no change still requiring BiPAP alert responsive cooperative Review of Systems General: Weakness Respiratory: Cough, Shortness of Breath Physical Examination - Vital Signs Temperature: 97 F Blood Pressure: 184/79 Pulse: 80 Respirations: 18 Pulse Ox (%): 93 - Physical Exam General: Alert, Oriented x3 Respiratory: Diminished, Expiratory wheezes Cardiovascular: No edema, Regular rate/rhythm - Studies Microbiology Data (last 24 hrs): 02/13/19 07:25 Blood - Blood Aerobic Blood Culture - Final 02/13/19 07:25 Blood - Blood Gram Stain - Final 02/13/19 07:25 Blood - Blood Anaerobic Blood Culture - Final 02/13/19 07:25 Blood - Blood Gram Stain - Final Assessment & Plan - Problems (Diagnosis) (1) Chronic obstructive pulmonary disease with (acute) exacerbation Onset Date: 11/14/17 Current Visit: No Status: Acute Plan: Patient is 73 years of age admitted with respiratory failure secondary to COPD still requiring BiPAP renal function is improving plan to titrate off the BiPAP use nasal cannula patient is on [place] maximum bronchodilator therapy Dc IV fluids continue Lasix and Dalresp blood pressure is elevated patient has normal left ventricular function altered pulmonary hypertension which I suspect is secondary Add Cefuroxime and sputum cultures
[2019-02-16] MEDS: CEFUROXIME 250 MG TAB PO SCH ×2 (10:09→20:24)
[2019-02-16] MEDS: ROFLUMILAST 500 MCG TABLET PO SCH (10:09)
--- NOTE | 2019-02-16 15:22 | PN ---
Date of Progress Note: 02/16/2019 History: The patient seen and examined. Chart reviewed and case discussed with RN. The patient see ms to be doing better now off BiPAP. The patient still having significant amount of cough. Medications: List reviewed. Physical Examination: Vital Signs: Temperature 98, heart rate 82, blood pressure 182/83, respirations 20, O2 96% on 4 L vi a nasal cannula. General: Awake, alert, oriented x3. Elderly female, in some mild respiratory distress. Obese. CV: S1, S2. Regular rate and rhythm. Peripheral pulses present. Respiratory: Diminished breath sounds, wheezing heard throughout. Gastrointestinal: Abdomen is soft, nontender, nondistended. Positive bowel sounds. Extremities: No clubbing, cyanosis, or edema. Neurologic: Nonfocal. Laboratory Data: Pending. Blood cultures, no growth to date. Assessment And Plan: A 73-year-old female with: 1.Acute on chronic respiratory failure with hypoxia, now off BiPAP, currently on 4 L of oxygen via n fide cannula, improving. Pulmonology on board, secondary to chronic obstructive pulmonary disease. 2.Acute chronic obstructive pulmonary disease exacerbation. We will continue nebulizer treatments. The patient now on p.o. steroids, clinically improving. Still having significant amount of cough. The patient does get very winded with minimal exertion. We will continue with PT. 3.Chronic kidney disease, stage 3. Creatinine is stable. We will continue to monitor. Avoid NSAID s. 4.Coronary artery disease, [place] artery, [place] heart without angina, stable. 5.Hyperkalemia, corrected. We will continue to monitor. 6.Essential hypertension, stable. Continue home medications. May need to add p.r.n. IV medications for blood pressure above 180 systolic. 7.Obesity, BMI 33. 8.Chronic pain syndrome, on [place], stable. 9.Gastrointestinal, deep vein thrombosis prophylaxes with Lovenox and PPI. 10.Moderate pulmonary hypertension. Plan: Continue current treatment. Wean off O2 as tolerated. The patient is dependent on oxygen. W e will continue to monitor. Once clinically improved, may return to nursing facility with PT. IV fl uids have been discontinued. Lasix was added. SA/MODL Voice ID: [id number] Report ID: [id number]
[2019-02-16] MEDS: QUETIAPINE 100MG TAB PO SCH (20:23)
[2019-02-16] MEDS: predniSONE 20 MG TAB PO SCH (20:24)
[2019-02-16] MEDS: ROPINIROLE HCL 1 MG TAB PO SCH (20:25)
[2019-02-16] MEDS: GUAIFENESIN/CODEINE 5ML UCUP PO PRN (20:25)
[2019-02-16] MEDS: POLYVINYL ALCOHOL 1.4% 15 ML OPTH SCH (20:26)
[2019-02-17] MEDS: IPRATROPIUM BROM 0.5MG/2.5ML NEB SCH ×4 (01:40→19:42)
[2019-02-17] MEDS: HYDROCODONE/APAP 7.5/325 MG TAB PO PRN ×3 (04:10→16:40)
[2019-02-17 04:13] VITALS: BMI 33.1
[2019-02-17 04:30] LABS: Absolute Lymphocytes (CBC) 0.7 K/uL (0.7-4.9); Absolute Monocytes 0.4 K/uL (0.1-1.3); Basophils % 0.2 % (0-1.3); Hematocrit 31.3 % (36.0-45.0); Lymphocytes % 17.8 % (15.3-44.8); MPV 7.4 fL (7.6-11.3); Monocytes % 9.8 % (3.3-12.3)
[2019-02-17 05:01] LABS: Albumin 2.6 g/dL (3.4-5.0); Bilirubin Total 0.1 mg/dL (0.2-1.0); Potassium 3.9 mmol/L (3.5-5.1); Protein, Total 5.9 g/dL (6.4-8.2)
[2019-02-17 05:12] LABS: Blood Morphology Comment NOT SEEN (NOT SEEN); Platelet Estimate ADEQ; Urine White Blood Cell Casts OK
[2019-02-17] MEDS: ALBUTEROL 2.5 MG/3 ML NEB SOL NEB PRN (06:35)
[2019-02-17] MEDS: ARFORMOTEROL TARTRATE 15 MCG/2 ML VIAL.NEB NEB SCH ×2 (06:35→19:42)
[2019-02-17] MEDS: VALACYCLOVIR 500 MG TAB PO SCH (08:42)
[2019-02-17] MEDS: GUAIFENESIN/CODEINE 5ML UCUP PO PRN ×2 (08:42→21:42)
[2019-02-17] MEDS: ROFLUMILAST 500 MCG TABLET PO SCH (08:42)
[2019-02-17] MEDS: CEFUROXIME 250 MG TAB PO SCH ×2 (08:43→20:43)
[2019-02-17] MEDS: LISINOPRIL 5 MG TAB PO SCH (08:43)
[2019-02-17] MEDS: DIVALPROEX DR 500MG TAB PO SCH ×2 (08:44→20:44)
[2019-02-17] MEDS: predniSONE 20 MG TAB PO SCH ×2 (08:44→20:45)
[2019-02-17] MEDS: FUROSEMIDE 40 MG TABLET PO SCH (08:44)
[2019-02-17] MEDS: DULOXETINE 30 MG CAP PO SCH (08:44)
[2019-02-17] MEDS: ENOXAPARIN 30 MG/0.3 ML SQ SCH (08:45)
[2019-02-17] MEDS: HOME MED 1 EA UNK (Fluticasone/Salmeterol [Advair 250-50 Diskus] 1 EACH) IH SCH ×2 (08:46→20:46)
[2019-02-17] MEDS: POLYVINYL ALCOHOL 1.4% 15 ML OPTH SCH ×2 (11:00→20:42)
--- NOTE | 2019-02-17 15:26 | PN ---
Date of Progress Note: 02/17/2019 The patient seen and examined, chart reviewed, and case discussed with RN. The patient did have to b e placed back on BiPAP last night, was able to come off around 4 a.m. today. Medications: List reviewed. Physical Examination: Vital Signs: Temperature 96.8, heart rate 62, blood pressure 187/77, respirations 21, O2 of 94% on 3 L via nasal cannula. General: Awake, alert, oriented x3. Elderly female, obese, some mild respiratory distress. CV: S1, S2. Regular rate and rhythm. Peripheral pulses present. Respiratory: Diminished breath sounds. Diffuse wheezing heard. The patient is slightly tachypneic. No use of accessory muscles. Gastrointestinal: Abdomen is soft, nontender, nondistended. Positive bowel sounds. Extremities: No clubbing, cyanosis, or edema. Neurologic: Nonfocal. Laboratory Data: Sodium 144, potassium 3.9, chloride 99, CO2 of 41, BUN 33, creatinine 0.9, glucose 97, calcium 7.8. WBC 4.1, H and H 10.3/31.3, platelets 185, neutrophils 73%. Blood cultures show no growth to date. Assessment And Plan: A 73-year-old female with: 1.Heyzz-jr-wtsjmpf respiratory failure with hypoxia, still requiring BiPAP intermittently, currently on 3 L of oxygen via nasal cannula. Appreciate Dr. Espinosa's input secondary to chronic obstructiv e pulmonary disease. 2.Acute chronic obstructive pulmonary disease exacerbation. Continue nebulizer treatments. Now on p.o. steroids. Still having some wheezing and cough, however improved with Robitussin AC. Continue symptomatic treatment. 3.Chronic kidney disease stage 3. Creatinine is stable. We will avoid NSAIDs and monitor creatinin e level. 4.Coronary artery disease, [place] artery, [place] heart without angina, stable. 5.Hyperkalemia, corrected. 6.Essential hypertension, stable. We will add IV hydralazine. Blood pressure has been above 180s c onsistently. 7.Obesity, BMI of 33. 8.Chronic pain syndrome. Continue [place]. 9.Gastrointestinal and deep venous thrombosis prophylaxis with Lovenox and PPI. 10.Moderate pulmonary hypertension. Plan: May need to repeat ABG. The patient is starting to retain CO2. Monitor blood pressure closel y. Add hydralazine for BP over 160 systolic. SA/MODL Voice ID: [id number] Report ID: [id number]
[2019-02-17] MEDS: ROPINIROLE HCL 1 MG TAB PO SCH (20:44)
[2019-02-17] MEDS: QUETIAPINE 100MG TAB PO SCH (20:45)
[2019-02-17] MEDS: HYDRALAZINE HCL 20 MG/ML VIAL IV PRN (23:08)
[2019-02-18] MEDS: ALBUTEROL 2.5 MG/3 ML NEB SOL NEB PRN ×4 (00:05→22:58)
[2019-02-18] MEDS: IPRATROPIUM BROM 0.5MG/2.5ML NEB SCH ×4 (02:07→20:00)
[2019-02-18] MEDS: HYDROCODONE/APAP 7.5/325 MG TAB PO PRN ×5 (05:45→23:12)
[2019-02-18 06:13] LABS: Absolute Monocytes 0.4 K/uL (0.1-1.3); Absolute Neutrophil 2.9 K/uL (1.8-8.0); Basophils % 0.1 % (0-1.3); Hematocrit 32.8 % (36.0-45.0); Lymphocytes % 24.1 % (15.3-44.8); Monocytes % 9.9 % (3.3-12.3); RBC Red Blood Cell Count 3.33 M/uL (3.86-4.86)
[2019-02-18 06:25] LABS: Albumin 2.8 g/dL (3.4-5.0); Bilirubin Total 0.2 mg/dL (0.2-1.0); Potassium 3.6 mmol/L (3.5-5.1); Protein, Total 6.2 g/dL (6.4-8.2)
[2019-02-18] MEDS: POLYVINYL ALCOHOL 1.4% 15 ML OPTH SCH ×2 (07:54→20:53)
[2019-02-18] MEDS: ENOXAPARIN 40 MG/0.4 ML SQ SCH (07:55)
[2019-02-18] MEDS: CEFUROXIME 250 MG TAB PO SCH ×2 (07:56→20:53)
[2019-02-18] MEDS: DULOXETINE 30 MG CAP PO SCH (07:56)
[2019-02-18] MEDS: FUROSEMIDE 40 MG TABLET PO SCH (07:56)
[2019-02-18] MEDS: HYDRALAZINE HCL 20 MG/ML VIAL IV PRN ×2 (07:56→20:55)
[2019-02-18] MEDS: ROFLUMILAST 500 MCG TABLET PO SCH (07:56)
[2019-02-18] MEDS: VALACYCLOVIR 500 MG TAB PO SCH (07:56)
[2019-02-18] MEDS: predniSONE 20 MG TAB PO SCH ×2 (07:57→20:53)
[2019-02-18] MEDS: HOME MED 1 EA UNK (Fluticasone/Salmeterol [Advair 250-50 Diskus] 1 EACH) IH SCH ×2 (08:04→20:54)
[2019-02-18] MEDS: DIVALPROEX DR 500MG TAB PO SCH ×2 (08:09→20:53)
[2019-02-18] MEDS: GUAIFENESIN/CODEINE 5ML UCUP PO PRN (08:09)
[2019-02-18] MEDS: ARFORMOTEROL TARTRATE 15 MCG/2 ML VIAL.NEB NEB SCH ×2 (08:25→20:22)
[2019-02-18] MEDS ORDERED: LISINOPRIL 10 MG TAB PO SCH (09:00)
[2019-02-18] MEDS: PROMETHAZINE 25 MG/ML VIAL IV PRN (12:22)
[2019-02-18] MEDS: POLYETHYL GLY 3350 17 GM/DOSE PO PRN (14:20)
--- NOTE | 2019-02-18 16:24 | PN ---
Date of Progress Note: 02/18/2019 Subjective: Patient seen and examined. Chart reviewed and case discussed with RN and Dr. Espinosa. The patient is still having significant respiratory distress requiring BiPAP. Medications: List reviewed. Physical Examination: Vital Signs: Temperature 97.1, heart rate 91, blood pressure 192/81, respirations 18, O2 93% on 3 li ters via nasal cannula. General: Awake, alert, and oriented x3, ill-appearing female in moderate res piratory distress. BMI 35, obese. CV: S1 and S2. Regular rate and rhythm. Peripheral pulses present. Respiratory: Diminished breath sounds, wheezing heard throughout, some rhonchi present. Gastrointestinal: Abdomen is soft, nontender, nondistended. Positive bowel sounds. Extremities: No clubbing, cyanosis, or edema. Neurologic: Nonfocal. Laboratory Data: Sodium 147, potassium 3.6 chloride 102, CO2 of 40, BUN 25, creatinine 0.79, glucose 96, calcium 8.2, albumin is 2.8. WBC 4.3, H and H 10.8 and 32.8, platelets 194. Blood cultures neg ative. Assessment And Plan: A 73-year-old female with: 1.Acute on chronic respiratory failure with hypoxia. We will need BiPAP intermittently. The patien t is very tachypneic and gets severely short of breath with minimal exertion. Pulmonology on board s econdary to end-stage chronic obstructive pulmonary disease. 2.Acute chronic obstructive pulmonary disease exacerbation. We will continue nebulizer treatments a nd steroids. The patient still having wheezing. Cough has improved slightly. Continue supplemental oxygen. 3.Chronic kidney disease stage 3. Creatinine stable. Continue to monitor. 4.Essential hypertension, uncontrolled. We will adjust lisinopril dose. Continue hydralazine p.r.n . 5.Obesity, BMI 35. 6.Chronic pain syndrome. We will continue [place]. 7.Moderate pulmonary hypertension. 8.DVT prophylaxis with Lovenox. Plan: LTAC placement for respiratory issues. The patient was on hospice previously, is not interest ed at this time. The patient will either need continuous BiPAP or noninvasive vent. SA/MODL Voice ID: [id number] Report ID: [id number]
[2019-02-18] MEDS: QUETIAPINE 100MG TAB PO SCH (20:53)
[2019-02-18] MEDS: ROPINIROLE HCL 1 MG TAB PO SCH (20:53)
[2019-02-19] MEDS: IPRATROPIUM BROM 0.5MG/2.5ML NEB SCH ×4 (02:00→20:00)
--- NOTE | 2019-02-19 03:40 | P.PN ---
Date of Service: 02/18/19 CODE YELLOW: Patient was drowsy. O2 sats dipped to 86%. 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 She has admissions for hypercapnea because she would be found to be unresponsive because of her narcotic use. She had been living in a trailer that was condemned, and her living situation with her was not the greatest until she got accepted to [facility]. Currently she had been doing well until this admission. She is currently requiring BiPAP support. Will continue with BiPAP support at this time. Repeat CXR and labs. Awaiting LTAC placement
[2019-02-19] MEDS: HYDROCODONE/APAP 7.5/325 MG TAB PO PRN ×4 (04:28→20:10)
[2019-02-19 05:23] LABS: Absolute Lymphocytes (CBC) 0.8 K/uL (0.7-4.9); Absolute Monocytes 0.4 K/uL (0.1-1.3); Absolute Neutrophil 4.2 K/uL (1.8-8.0); Hematocrit 31.5 % (36.0-45.0); Lymphocytes % 15.1 % (15.3-44.8); MPV 7.1 fL (7.6-11.3); Monocytes % 7.9 % (3.3-12.3)
[2019-02-19 05:33] LABS: Albumin 2.7 g/dL (3.4-5.0); Bilirubin Total 0.2 mg/dL (0.2-1.0); Potassium 3.8 mmol/L (3.5-5.1); Protein, Total 6.1 g/dL (6.4-8.2)
[2019-02-19] MEDS: ARFORMOTEROL TARTRATE 15 MCG/2 ML VIAL.NEB NEB SCH ×2 (07:25→20:00)
--- NOTE | 2019-02-19 08:02 | RAD REPORT ---
EXAM DESCRIPTION: RAD - Chest Single View - 02/18/2019 10:23 pm CLINICAL HISTORY: CHEST PAIN Chest pain. COMPARISON: Chest Single View dated 02/13/2019; Chest Single View dated 01/24/2019; Chest Single View d ated 12/08/2018; Chest Single View dated 12/15/2017 FINDINGS: Portable technique limits examination quality. The lungs are mildly emphysematous but grossly clear. The heart is normal in size. Right-sided port c atheter its tip in the SVC.Postsurgical hardware is present lower cervical spine. IMPRESSION: No acute intrathoracic process suspected.
[2019-02-19] MEDS ORDERED: LISINOPRIL 20 MG TAB PO SCH (09:00)
[2019-02-19] MEDS: HOME MED 1 EA UNK (Fluticasone/Salmeterol [Advair 250-50 Diskus] 1 EACH) IH SCH ×2 (09:00→20:13)
[2019-02-19] MEDS: predniSONE 20 MG TAB PO SCH ×2 (09:09→20:11)
[2019-02-19] MEDS: FUROSEMIDE 40 MG TABLET PO SCH (09:09)
[2019-02-19] MEDS: ENOXAPARIN 40 MG/0.4 ML SQ SCH (09:09)
[2019-02-19] MEDS: DIVALPROEX DR 500MG TAB PO SCH ×2 (09:09→20:13)
[2019-02-19] MEDS: DULOXETINE 30 MG CAP PO SCH (09:09)
[2019-02-19] MEDS: POLYVINYL ALCOHOL 1.4% 15 ML OPTH SCH ×2 (09:09→20:11)
[2019-02-19] MEDS: CEFUROXIME 250 MG TAB PO SCH ×2 (09:10→20:12)
[2019-02-19] MEDS: ROFLUMILAST 500 MCG TABLET PO SCH (09:10)
[2019-02-19] MEDS: POLYETHYL GLY 3350 17 GM/DOSE PO PRN (09:10)
[2019-02-19] MEDS: VALACYCLOVIR 500 MG TAB PO SCH (09:10)
--- NOTE | 2019-02-19 11:18 | EKG ---
Test Date: 2019-02-13 Test Time: 21:38:40 Teller Head: HAIDER MEASUREMENT RESULTS: Intervals: Rate: 119 WI: 122 QRSD: 76 QT: 312 QTc: 438 [place]: P: 60 WI: 122 QRS: 46 T: 57 INTERPRETIVE STATEMENTS: Sinus tachycardia with occasional premature ventricular complexes Possible Left atrial enlargement Borderline ECG Compared to ECG 01/24/2019 21:45:25 Ventricular premature complex(es) now present Sinus rhythm no longer present Electronically Signed On 02-14-19 05:57:30 CDT by Eric Verdin
--- NOTE | 2019-02-19 11:20 | EKG ---
Test Date: 2019-02-14 Test Time: 00:12:44 City Supervisor: HAIDER MEASUREMENT RESULTS: Intervals: Rate: 82 OR: 128 QRSD: 80 QT: 360 QTc: 420 [place]: P: 92 OR: 128 QRS: 69 T: 83 INTERPRETIVE STATEMENTS: Normal sinus rhythm Nonspecific ST abnormality Abnormal ECG Compared to ECG 02/13/2019 21:38:40 ST (T wave) deviation now present Sinus tachycardia no longer present Ventricular premature complex(es) no longer present Electronically Signed On 02-14-19 11:42:31 CDT by Eric Verdin
--- NOTE | 2019-02-19 11:45 | EKG ---
Test Date: 2019-02-18 Test Time: 21:53:19 Case Manager Specialist: RT MEASUREMENT RESULTS: Intervals: Rate: 96 [place]: 108 QRSD: 84 QT: 370 QTc: 467 [place]: P: 83 [place]: 108 QRS: 52 T: 56 INTERPRETIVE STATEMENTS: Sinus rhythm with short [place] Nonspecific ST abnormality Abnormal ECG Compared to ECG 02/14/2019 00:12:44 Short OH interval now present ST (T wave) deviation still present Electronically Signed On 02-19-19 10:04:27 CDT by Eric Verdin
[2019-02-19] MEDS: HYDRALAZINE HCL 20 MG/ML VIAL IV PRN ×2 (11:51→16:03)
[2019-02-19] MEDS: PROMETHAZINE 25 MG/ML VIAL IV PRN (11:51)
[2019-02-19] MEDS: ALBUTEROL 2.5 MG/3 ML NEB SOL NEB PRN (11:55)
--- NOTE | 2019-02-19 13:30 | P.PN ---
Subjective Date of Service: 02/19/19 Chief Complaint: COPD exacerbation Patient seen and examined at bedside. No family at bedside. Chart reviewed and case discussed with Nursing staff. Patient admitted for acute respiratory distress. The patient is with slightly improved breathing at this time. Currently, she is on 3 L oxygen via [place], which is what she is on at the care home. She is still requiring bi-pap intermittently. Review of Systems 10-point ROS is otherwise unremarkable Physical Examination - Vital Signs Temperature: 97.9 F Blood Pressure: 175/70 Pulse: 93 Respirations: 19 Pulse Ox (%): 90 - Physical Exam General: Alert, Mild distress (Respiratory) HEENT: Atraumatic, PERRLA, EOMI Neck: Supple, JVD not distended Respiratory: Clear to auscultation bilaterally, Normal air movement Cardiovascular: Regular rate/rhythm, Normal S1 S2 Gastrointestinal: Normal bowel sounds, No tenderness Musculoskeletal: No tenderness Integumentary: No rashes Neurological: Normal speech, Normal tone, Normal affect - Studies Sodium 143, potassium 3.8 chloride 100, CO2 of 40, BUN 29, creatinine 0.95, glucose 104, c WBC 5.4, H and H 10.4 and 31.5, [id number], Blood cultures negative. Medications List Reviewed: Yes Assessment And Plan - Plan A 73-year-old female with: Acute on chronic respiratory failure with hypoxia. We will need BiPAP intermittently. The patient is very tachypneic and gets severely short of breath with minimal exertion. Pulmonology on board secondary to end-stage chronic obstructive pulmonary disease. CTA chest ordered Acute chronic obstructive pulmonary disease exacerbation. We will continue nebulizer treatments and steroids. The patient still having wheezing. Cough has improved slightly. Continue supplemental oxygen. Chronic kidney disease stage 3. Creatinine stable. Continue to monitor. Essential hypertension, uncontrolled. We will adjust lisinopril dose. Continue hydralazine p.r.n. Obesity, BMI 35. Chronic pain syndrome. We will continue [place]. Moderate pulmonary hypertension. DVT prophylaxis: Lovenox. GI prophylaxis: None DIet: heart healthy Plan: Pending LTAC placement for respiratory issues. The patient was on hospice previously, is not interested at this time. The patient will either need continuous BiPAP or noninvasive vent.
[2019-02-19] MEDS: GUAIFENESIN/CODEINE 5ML UCUP PO PRN (17:55)
--- NOTE | 2019-02-19 18:15 | P.DS ---
Admission Date: 02/14/19 Discharge Date: 02/19/19 Disposition: [facility] Discharge Condition: FAIR Reason for Admission: COPD exacerbation Vital Signs/Physical Exam: Temp Pulse Resp BP Pulse Ox 97.9 F 93 H 19 175/70 H 90 L 02/19/19 18:15 02/19/19 18:15 02/19/19 18:15 02/19/19 18:15 02/19/19 18:15 Laboratory Data at Discharge: WBC 5.4 K/uL (4.3-10.9) D 02/19/19 05:05 Hgb 10.4 g/dL (12.0-15.0) L 02/19/19 05:05 Hct 31.5 % (36.0-45.0) L 02/19/19 05:05 Plt Count 211 K/uL (152-406) 02/19/19 05:05 PT 11.9 SECONDS (9.5-12.5) 02/13/19 22:50 INR 1.01 02/13/19 22:50 Sodium 143 mmol/L (136-145) 02/19/19 05:05 Potassium 3.8 mmol/L (3.5-5.1) 02/19/19 05:05 BUN 29 mg/dL (7-18) H 02/19/19 05:05 Creatinine 0.95 mg/dL (0.55-1.3) 02/19/19 05:05 Glucose 104 mg/dL (74-106) 02/19/19 05:05 Magnesium 2.3 mg/dL (1.8-2.4) 02/13/19 22:50 Total Bilirubin 0.2 mg/dL (0.2-1.0) 02/19/19 05:05 AST 14 U/L (15-37) L 02/19/19 05:05 ALT 16 U/L (12-78) 02/19/19 05:05 Alkaline Phosphatase 74 U/L (45-117) 02/19/19 05:05 Home Medications: Acetaminophen [Tylenol Extra Strength] 2 tab PO Q6HP PRN 02/14/19 Amox/Clavulanate [Augmentin 500-125 mg Tab] 500 mg PO BID 02/14/19 Bisacodyl 10 mg RC DAILYPRN PRN 02/14/19 Codeine/APAP [Tylenol W/Codeine #3 tab] 1 tab PO Q6HP PRN 02/14/19 Divalproex Sodium [Depakote] 500 mg PO DAILY 02/14/19 Divalproex Sodium [Depakote] 750 mg PO BEDTIME 02/14/19 Duloxetine HCl 30 mg PO DAILY 02/14/19 Fluticasone/Salmeterol [Advair 250-50 Diskus] 1 each IH BID 02/14/19 Furosemide [Lasix] 40 mg PO DAILY 02/14/19 Guaifenesin [Tussin] 5 ml PO Q6HP PRN 02/14/19 Heparin [Heparin 100 units/mL] 5 ml IV 1X PRN 02/14/19 Ipratropium/Albuterol Sulfate [Iprat-Albut 0.5-3(2.5) mg/3 ml] 3 ml IH TID 02/14 L. Acidophilus/Pectin, [place] [Acidophilus Capsule] 1 each PO DAILY 02/14/19 LORazepam [Ativan*] 2 tab PO Q2HP PRN 02/14/19 LORazepam [Ativan] 1 tab PO Q2HP PRN 02/14/19 Lisinopril [Prinivil] 5 mg PO DAILY 02/14/19 Loperamide HCl [Imodium A-D] 2 mg PO Q1HWA PRN 02/14/19 Polyethylene Glycol 1450 17 gm PO DAILYPRN PRN 02/14/19 Polyvinyl Alcohol [Artificial Tears] 1 drop OP BID 02/14/19 Potassium Chloride 20 meq PO DAILY 02/14/19 Promethazine HCl 25 mg PO Q4HP PRN 02/14/19 Quetiapine Fumarate [Seroquel] 400 mg PO BEDTIME 02/14/19 Ropinirole HCl [Requip] 1 mg PO BEDTIME 02/14/19 Sennosides [Senna Lax] 2 tab PO DAILYPRN PRN 02/14/19 Tiotropium [place] [Spiriva] 1 spray IH DAILY 02/14/19 Valacyclovir HCl [Valtrex] 1,000 mg PO DAILY 02/14/19 predniSONE [Deltasone] 10 mg PO DAILYPRN PRN 02/14/19 predniSONE [Deltasone] 20 mg PO DAILYPRN PRN 02/14/19 Activity: Ad gio
[2019-02-19] MEDS: QUETIAPINE 100MG TAB PO SCH (20:13)
[2019-02-19] MEDS: ROPINIROLE HCL 1 MG TAB PO SCH (20:13)
[2019-02-19 20:15] VITALS: BP 149/83; TEMP 98
[2019-02-19] MEDS: LORAZEPAM 0.5 MG TABLET PO PRN (21:39)
[2019-02-20 00:12] VITALS: O2SAT 92
== END 2019-02-19 21:50 | DRG 190 ==
LOC: ER 21:27 → ERHOLD 02-14 01:56 → 2ND 02-14 02:50
PROVIDERS: ADMIT Internal Medicine; ATTEND Family Medicine
PROC: 5A09457 Assistance with Respiratory Ventilation, 24-96 Consecutive Hours, Continuous Positive Airway Pressure (ICD-10-PCS; principal; 2019-02-13)
DX: J44.1 Chronic obstructive pulmonary disease with (acute) exacerbation (principal); J96.21 Acute and chronic respiratory failure with hypoxia; I25.10 Atherosclerotic heart disease of native coronary artery without angina pectoris; Z87.891 Personal history of nicotine dependence; Z88.1 Allergy status to other antibiotic agents; Z88.5 Allergy status to narcotic agent; Z88.2 Allergy status to sulfonamides; Z86.73 Personal history of transient ischemic attack (TIA), and cerebral infarction without residual deficits; F32.9 Major depressive disorder, single episode, unspecified; K21.9 Gastro-esophageal reflux disease without esophagitis; G89.4 Chronic pain syndrome; E87.5 Hyperkalemia; I27.20 Pulmonary hypertension, unspecified
CPT/HCPCS: 36415; 71045; 80048; 80053; 80076; 82805; 83605; 83735; 83880; 84132; 84145; 84484; 85025; 85379; 85610; 87040; 87205; 87804; 93005; 93306; 94640; 94660; 94760; 94762; 96365; 96375; 97110; 97162; 97530; 99285; J0360; J1650; J1940; J2405; J2550; J2920; J2930; J3475; J7512; J7605